=== PATIENT | female | born 1955 | race Two or more races ===

== ENCOUNTER 2024-03-15 05:45 | Inpatient (IN) | payer BC, MEDICARE, SELFPAY ==
[2024-03-08 10:15] VITALS: BMI 30.9
[2024-03-08 11:50] LABS: Hematocrit 47.2 % (37.0-47.0); Hemoglobin 14.7 g/dL (12.0-16.0); Mean Corp Hgb Conc. 31.1 g/dL (33.0-37.0); Mean Corpuscular Hgb 29.5 pg (27.0-31.0); Mean Corpuscular Volume 94.8 fL (81.0-99.0); Mean Platelet Volume 10.2 fL (7.4-10.4); Platelet Count 306 10^3/uL (130-400); Red Blood Cell Count 4.98 10^6/uL (4.20-5.40); Red Cell Dist. Width 13.7 % (11.5-14.5); White Blood Cell Count 7.9 10^3/uL (4.8-10.8)
[2024-03-08 11:52] LABS: INR 0.96; PT 13.3 Sec (11.4-14.6)
[2024-03-08 11:53] LABS: APTT 29.4 Sec (23.4-35.0)
[2024-03-08 12:23] LABS: ALT (SGPT) 13 U/L (0-35); AST (SGOT) 18 U/L (14-36); Alkaline Phosphatase 63 U/L (38-126); Blood Urea Nitrogen 14 mg/dl (7-17); Calcium 9.1 mg/dl (8.4-10.2); Carbon Dioxide 25 mmol/L (22-30); Chloride 104 mmol/L (98-107); Estimated Creatinine Clearance 57 ml/min; Glucose 88 mg/dl (70-99); Potassium 4.6 mmol/L (3.5-5.1); Sodium 140 mmol/L (135-145); Total Bilirubin 0.5 mg/dl (0.2-1.3); Total Protein 6.7 g/dl (6.3-8.2); eGFR > 60.00
[2024-03-08 13:46] LABS: Glycohemoglobin (HgbA1c) 5.8 % (4.0-5.6)
[2024-03-15] VITALS (19 sets, daily range): BP systolic 95–123; BP diastolic 47–80; BMI 30.9
[2024-03-15] MEDS: HEPARIN 5000 UNITS SC (06:38)
[2024-03-15] MEDS: ENTEREG 12 MG PO (06:38)
[2024-03-15] MEDS: NORMOSOL-R/PLASMALYTE-A 1000 IV ×2 (07:02→17:14)
--- NOTE | 2024-03-15 11:32 | W.IMMPOSTOP ---
Surgical Immed Post Op Note
-
Primary Surgeon: Faustino Espinoza MD
Drawer In Dobby Loom: TRISTEN Finley
Pre-op Diagnosis: Recurrent sigmoid diverticulitis
Post-op Diagnosis: Same
Procedure Performed: Robotic sigmoid colectomy with intracorporeal anastomosis
Anesthesia Type: GET
Specimen / Cultures: Sigmoid colon (suture is proximal)
Estimated Blood Loss: 20cc
Complications: None
Operative Findings: Multiple adhesions
Acute on chronic inflammation of the mid to distal sigmoid colon
28mm EEA
Normal leak test
Patient's son Dario cochran.
[2024-03-15] MEDS: DILAUDID 0.5 MG IV ×2 (12:56→19:36)
[2024-03-15] MEDS: TORADOL 15 MG IV ×3 (13:07→23:18)
--- NOTE | 2024-03-15 15:12 | SUR.PHASEI ---
comfortable during most of pacu stay - taking few ice chips, vss with bp systolic 90- 110. incision lines clean and intact. Patient states there is no family to call. Hand off at bedside - 2 south.
--- NOTE | 2024-03-15 15:21 | PTCARENOTE ---
Pt arrived to 2 [facility] from PACU s/p robotic sigmoid resection. Pt AAOx3, 4 lap sites and one low transverse site C/D/I. Leal in place draining clear/yellow urine. Pt states no pain at this time. Oriented to call osorio and room, bed locked and in
lowest position, call osorio within reach.
[2024-03-15] MEDS: TYLENOL PO (19:36)
[2024-03-15] MEDS: ZESTRIL PO (21:53)
[2024-03-15] MEDS: TYLENOL 650 MG PO (23:18)
[2024-03-16 03:00] VITALS: BP 99/50
[2024-03-16] MEDS: NORMOSOL-R/PLASMALYTE-A 1000 IV ×2 (03:17→12:00)
[2024-03-16] MEDS: TYLENOL PO (04:51)
[2024-03-16] MEDS: TORADOL 15 MG IV ×3 (05:32→17:00)
[2024-03-16 06:00] VITALS: BMI 31.0
[2024-03-16 06:46] LABS: % Basophils 0.2 % (0-2); % Eosinophils 0.9 % (0-6); % Immature Granulocytes 0.5 % (0-0.5); % Lymphocytes 13.5 % (20.5-51.1); % Neutrophils 77.9 % (42.2-75.2); Absolute Eosinophils 0.1 10^3/uL (0-0.7); Absolute Immature Granulocytes 0.1 10^3/uL (0-0.05); Absolute Lymphocytes 1.5 10^3/uL (1.2-3.4); Absolute Monocytes 0.8 10^3/uL (0.1-0.6); Absolute Neutrophils 8.6 10^3/uL (1.4-6.5); Hematocrit 40.4 % (37.0-47.0); Hemoglobin 13.1 g/dL (12.0-16.0); Mean Corp Hgb Conc. 32.4 g/dL (33.0-37.0); Mean Corpuscular Volume 92.4 fL (81.0-99.0); Mean Platelet Volume 10.5 fL (7.4-10.4); Nucleated Red Blood Cells % 0 %; Platelet Count 263 10^3/uL (130-400); Red Blood Cell Count 4.37 10^6/uL (4.20-5.40); Red Cell Dist. Width 13.8 % (11.5-14.5)
[2024-03-16 07:09] LABS: Blood Urea Nitrogen 15 mg/dl (7-17); Calcium 7.2 mg/dl (8.4-10.2); Carbon Dioxide 22 mmol/L (22-30); Chloride 106 mmol/L (98-107); Estimated Creatinine Clearance 72 ml/min; Glucose 87 mg/dl (70-99); Potassium 4.4 mmol/L (3.5-5.1); Sodium 138 mmol/L (135-145); eGFR > 60.00
[2024-03-16 07:30] VITALS: BP 112/70
[2024-03-16] MEDS: TYLENOL 650 MG PO ×4 (08:44→22:24)
[2024-03-16] MEDS: ENTEREG 12 MG PO ×2 (08:44→22:23)
[2024-03-16] MEDS: ULTRAM 50 MG PO ×3 (08:46→22:29)
[2024-03-16 11:01] VITALS: BP 114/68
--- NOTE | 2024-03-16 11:36 | W.PN.CRS1 ---
Today's Communication / Plan
-
full liquids
dc quarles
Assessment/Plan
-
68 yo female with a h/o recurrent diverticulitis now POD #1 Robotic sigmoid colectomy with intracorporeal anastomosis
Afebrile, VSS
Mild reactive leukocytosis
Good UO
Await bowel recovery
--Remove quarles for voiding trial
--Full liquid diet
--Analgesics scheduled and prn
--OOB/Ambulate/IS while awake
--IVF until good PO intake
--Lovenox sq for VTE ppx, SCD's while in bed
Subjective Data
Procedure
03/15/2024 Robotic sigmoid colectomy with intracorporeal anastomosis
Subjective Data
Date of Service: March 16, 2024
Patient seen and examined at bedside with Dr. Gil. Denies n/v. No appetite yet. Pain well controlled.
Objective Data
-
Vital Signs
Temp Pulse Resp BP Pulse Ox
97.8 F 86 16 114/68 92
03/16/24 11:01 03/16/24 11:01 03/16/24 11:01 03/16/24 11:01 03/16/24 11:01
Intake & Output
03/15/24 03/16/24 03/17/24
06:59 06:59 06:59
Intake Total 2009
Output Total 1000 / 1000 200 / 200
Balance 1010 / 1010 -200 / -200
Intake:
Oral fluids 260 / 260
IV fluids (Total) 1750 / 1750
normosol 550 / 550
Output:
Urine, Quarles 1000 / 1000 200 / 200
Lab Results
03/16/24 05:49
03/16/24 05:49
Physical Exam
-
General: No Acute Distress
Abdomen: Soft, Non Distended and Tender (mild to incisions)
Skin: Warm and Dry
Incision: Clear, Dry, Intact and Skin Erythema (mild chafing to pfanenstiel incision)
[2024-03-16 15:14] VITALS: BP 117/70
--- NOTE | 2024-03-16 16:24 | CM ---
Met with pt at bedside
Pt reports she lives alone in a 2 story townhouse; 2 steps to enter, 12 steps to 2nd fl
Employed FT, independent. Family available for support
DME - single point cane
SNF/HH - no past hx
Has ride home at discharge
PCP - Gianna Parra
Pharm - [facility]
Plan - anticipate home no needs when medically ready
[2024-03-16] MEDS: LOVENOX 40 MG SC (17:00)
[2024-03-16] MEDS: NORMOSOL-R/PLASMALYTE-A IV (17:09)
[2024-03-16] MEDS: ZESTRIL PO (22:30)
[2024-03-16 23:47] VITALS: BP 111/74
[2024-03-17] MEDS: TORADOL 15 MG IV ×4 (00:01→17:32)
[2024-03-17] MEDS: TYLENOL PO ×6 (00:02→20:21)
[2024-03-17] MEDS: ZOFRAN 4 MG IV ×2 (03:06→13:48)
[2024-03-17 05:12] LABS: Hematocrit 38.4 % (37.0-47.0); Hemoglobin 12.6 g/dL (12.0-16.0); Mean Corp Hgb Conc. 32.8 g/dL (33.0-37.0); Mean Corpuscular Hgb 30.1 pg (27.0-31.0); Mean Corpuscular Volume 91.9 fL (81.0-99.0); Mean Platelet Volume 10.3 fL (7.4-10.4); Platelet Count 249 10^3/uL (130-400); Red Blood Cell Count 4.18 10^6/uL (4.20-5.40); Red Cell Dist. Width 13.9 % (11.5-14.5); White Blood Cell Count 10.5 10^3/uL (4.8-10.8)
[2024-03-17 05:38] LABS: Blood Urea Nitrogen 14 mg/dl (7-17); Calcium 7.6 mg/dl (8.4-10.2); Carbon Dioxide 24 mmol/L (22-30); Chloride 107 mmol/L (98-107); Estimated Creatinine Clearance 72 ml/min; Glucose 81 mg/dl (70-99); Potassium 4.3 mmol/L (3.5-5.1); Sodium 137 mmol/L (135-145); eGFR > 60.00
[2024-03-17 06:00] VITALS: BMI 31.1
[2024-03-17 07:42] VITALS: BP 140/76
[2024-03-17] MEDS: NORMOSOL-R/PLASMALYTE-A 1000 IV ×2 (07:48→20:15)
[2024-03-17] MEDS: ENTEREG PO ×2 (07:49→20:20)
[2024-03-17] MEDS: COMPAZINE 10 MG IV ×2 (07:56→17:45)
--- NOTE | 2024-03-17 10:12 | W.PN.CRS1 ---
Today's Communication / Plan
-
NPO except ice chips
Assessment/Plan
-
68 yo female with a h/o recurrent diverticulitis now POD #2 Robotic sigmoid colectomy with intracorporeal anastomosis
Afebrile, VSS
No further leukocytosis, h/h stable
Nausea/Dry heaving but did pass a BM early this am
Voiding well
--NPO except ice chips for comfort
--Analgesics scheduled and prn
--OOB/Ambulate/IS while awake
--Continue IVF
--Lovenox sq for VTE ppx, SCD's while in bed
Subjective Data
Procedure
03/15/2024 Robotic sigmoid colectomy with intracorporeal anastomosis
Subjective Data
Date of Service: March 17, 2024
Patient seen and examined at bedside with Dr. Gil. Nausea overnight with dry heaving. Was able to have a BM. Pain manageable.
Objective Data
-
Vital Signs
Temp Pulse Resp BP Pulse Ox
97.6 F 67 20 140/76 93
03/17/24 07:42 03/17/24 07:42 03/17/24 07:42 03/17/24 07:42 03/17/24 07:42
Intake & Output
03/16/24 03/17/24 03/18/24
06:59 06:59 06:59
Intake Total 2009 2370 / 2370
Output Total 1000 / 1000 500 / 500
Balance 1010 / 1010 1870 / 1870
Intake:
Oral fluids 260 / 260 1170 / 1170
IV fluids (Total) 1750 / 1750 1200 / 1200
normosol 550 / 550
Output:
Urine, Leal 1000 / 1000 200 / 200
Urine, Voided 300 / 300
Other:
Number of approximated MODERATE 2
amounts of urine
Lab Results
03/17/24 04:40
03/17/24 04:40
Physical Exam
-
General: No Acute Distress
Abdomen: Soft, Distended (mild) and Tender (mild to incisions)
Skin: Warm and Dry
Incision: Clear, Dry, Intact and Skin Erythema (mild chafing to pfanenstiel incision, ecchymosis noted)
[2024-03-17 15:20] VITALS: BP 140/76
[2024-03-17] MEDS: LOVENOX 40 MG SC (17:33)
[2024-03-17] MEDS: ZESTRIL 10 MG PO (22:37)
[2024-03-17 23:00] VITALS: BP 137/85
[2024-03-18] MEDS: TORADOL 15 MG IV ×4 (00:29→17:21)
[2024-03-18] MEDS: TYLENOL PO ×6 (00:30→23:14)
[2024-03-18 06:00] VITALS: BMI 30.5
[2024-03-18 07:30] VITALS: BP 158/86
[2024-03-18] MEDS: NORMOSOL-R/PLASMALYTE-A IV ×2 (09:03→10:21)
[2024-03-18] MEDS: ENTEREG 12 MG PO (09:05)
[2024-03-18] MEDS: TYLENOL 650 MG PO (09:05)
--- NOTE | 2024-03-18 10:15 | W.PN.CRS1 ---
Today's Communication / Plan
-
clears
possible fulls later today if tolerates
d/c ivfs
Assessment/Plan
-
68 yo female with a h/o recurrent diverticulitis now POD #3 Robotic sigmoid colectomy with intracorporeal anastomosis
Afebrile, VSS, HR 105-198
No further leukocytosis, h/h stable
No further nausea/vomiting
Voiding well
--Advance to clears, fulls for dinner if tolerates clears
--D/C IVFs
--Analgesics scheduled and prn
--OOB/Ambulate/IS while awake
--Lovenox sq for VTE ppx, SCD's while in bed
--OR pathology pending
Subjective Data
Procedure
03/15/2024 Robotic sigmoid colectomy with intracorporeal anastomosis
Subjective Data
Date of Service: March 18, 2024
Patient states she has had no nausea or vomiting. Her pain is controlled. She is having bowel movements that are loose and green in nature. She overall feels much improved since yesterday morning. She has been having sips and chips.
Objective Data
-
Vital Signs
Temp Pulse Resp BP Pulse Ox
98.0 F 109 16 158/86 96
03/18/24 07:30 03/18/24 07:30 03/18/24 07:30 03/18/24 07:30 03/18/24 07:30
Intake & Output
03/17/24 03/18/24 03/19/24
06:59 06:59 06:59
Intake Total 2370 / 2370 2039
Output Total 500 / 500
Balance 1870 / 1870 2039
Intake:
Oral fluids 1170 / 1170 120 / 120
IV fluids (Total) 1200 / 1200 [id number]
Output:
Urine, Leal 200 / 200
Urine, Voided 300 / 300
Other:
Number of approximated MODERATE 2 1
amounts of urine
Number of approximated LARGE 2 1
amounts of urine
Lab Results
03/17/24 04:40
03/17/24 04:40
Physical Exam
-
General: No Acute Distress and AOx3
Abdomen: Soft, Non Distended and Non Tender
Skin: Warm and Dry
Incision: Clear, Dry, Intact (lower abdominal incision with some ecchymosis)
[2024-03-18 15:34] VITALS: BP 149/87
[2024-03-18] MEDS: LOVENOX 40 MG SC (17:20)
[2024-03-18] MEDS: ZOFRAN 4 MG IV (21:13)
[2024-03-18] MEDS: FLUSH (NSS) 2 FLUSH IV (21:14)
[2024-03-18] MEDS: ENTEREG PO (21:50)
[2024-03-18 22:08] LABS: Glucose - Point of Care 170 mg/dl (70-99)
--- NOTE | 2024-03-18 22:29 | W.PN.UPDATE ---
Update Note
Progress Note Update
Informed by the nurse that the patient had 1 episode of coffee�ground emesis, about 100 mL, at around 9:30 PM. I instructed her to switch the patient to n.p.o. and start Normosol at 100. I was then informed that the patient had another episode of
vomiting, coffee-ground with 100 mL. Her BP was 74/44 and HR 63. As I was not immediately available, instructed the nurse to call a rapid response. I arrived to evaluate the patient at around 10:25 PM. The patient stated that she was feeling
nauseous and dizzy and appeared in mild distress, laying on her right side. She denied any chest pain, shortness of breath or worsening abdominal pain. Per the nurse, she had multiple BMs earlier today without obvious blood. On exam, her abdomen
was soft, nondistended, appropriately tender near incisions with surrounding ecchymoses. Rapid response team ordered IV fluids and attempted to send stat labs. They placed an NG tube. Repeat vitals with BP 70/50 and HR 120s.
�Follow-up stat labs and x-ray for NG tube placement; will need EKG
� Will upgrade to ICU due to hypotension of unknown etiology; upper GI bleed versus infection/sepsis versus vasovagal
- Will consult hospitalist and intensvist
[2024-03-18 22:39] LABS: Hematocrit 37.5 % (37.0-47.0); Hemoglobin 11.8 g/dL (12.0-16.0); Mean Corp Hgb Conc. 31.5 g/dL (33.0-37.0); Mean Corpuscular Hgb 30.5 pg (27.0-31.0); Mean Corpuscular Volume 96.9 fL (81.0-99.0); Mean Platelet Volume 11.1 fL (7.4-10.4); Platelet Count 191 10^3/uL (130-400); Red Blood Cell Count 3.87 10^6/uL (4.20-5.40); Red Cell Dist. Width 13.7 % (11.5-14.5); White Blood Cell Count 16.1 10^3/uL (4.8-10.8)
[2024-03-18] MEDS: ZESTRIL PO (22:48)
[2024-03-18] MEDS: NORMOSOL-R/PLASMALYTE-A 1000 IV (22:50)
[2024-03-18] MEDS: LEVOPHED 250 IV (23:02)
[2024-03-18] MEDS: TORADOL IV (23:08)
[2024-03-18] MEDS: NSS 1000 IV ×2 (23:15→23:20)
[2024-03-18] MEDS: NSS 500 IV (23:20)
--- NOTE | 2024-03-18 23:21 | W.PN.UPDATE ---
Update Note
Progress Note Update
Checked in with the patient once more; she is in the ICU now hooked up to the library monitor; BP systolic of 75 with heart rate of 118, pulse ox 94; A&O x 3, only complaint of some dizziness, no further nausea CP/SOB or abdominal pain; NGT with
150 coffee-ground/dark sanguinous output; repeat Hb 11.8
�I ordered NS at 125 and a 1.5 L bolus, stat EKG and AXR for NGT placement
Discussed with Dr. Jewell from GI; she recommended giving 1 pRBC and starting a Protonix drip; continue watching vitals and NGT output; if NGT continues to put out or patient does not respond to initial resuscitation, inform Dr. Jewell for
consideration of stat EGD; otherwise, she will reevaluate in the a.m. for possible EGD tmrw; relayed instructions to ICU FARHAT Willis, who will place the orders; discussed all of the above with Dario, the patient's son; he understood and all questions
were answered; patient indicated that her son Dario is her POA and would defer to him if she is unable to make decisions
[2024-03-18 23:22] LABS: ALT (SGPT) 12 U/L (0-35); AST (SGOT) 17 U/L (14-36); Albumin 2.2 g/dl (3.5-5.0); Alkaline Phosphatase 43 U/L (38-126); Blood Urea Nitrogen 25 mg/dl (7-17); Calcium 7.2 mg/dl (8.4-10.2); Carbon Dioxide 23 mmol/L (22-30); Chloride 105 mmol/L (98-107); Estimated Creatinine Clearance 71 ml/min; Glucose 149 mg/dl (70-99); Potassium 4.6 mmol/L (3.5-5.1); Sodium 133 mmol/L (135-145); Total Bilirubin 0.7 mg/dl (0.2-1.3); Total Protein 4.3 g/dl (6.3-8.2); eGFR > 60.00
[2024-03-18 23:27] LABS: INR 1.32; PT 16.6 Sec (11.4-14.6)
[2024-03-18] MEDS: COMPAZINE 10 MG IV (23:27)
[2024-03-18 23:30] VITALS: BP 81/50; BP_SYST 85
--- NOTE | 2024-03-18 23:31 | W.PN.UPDATE ---
Update Note
Progress Note Update
Called to a rapid response after patient noted with coffee ground type emesis. Also found to be hypotensive in 70s systolic. Nursing had contacted Dr. Rivas (surgeon) to update and he came in immediately to the bedside. NS IVF wide open. CBC sent
with some difficulty. Transferred to ICU for admission. NG tube placed for decompression. Hospitalist service to cover while in ICU along with GI and Fluxer consults. Protonix infusion started. Levophed ordered for bp support.
[2024-03-18 23:34] LABS: Troponin I < 0.012 ng/ml
[2024-03-18 23:37] VITALS: BP 69/49
[2024-03-18 23:40] VITALS: BP 112/52
[2024-03-18] MEDS: PROTONIX 100 IV (23:40)
--- NOTE | 2024-03-18 23:40 | PTCARENOTE ---
Pt. starting with vomiting coffee ground emesis 100ml @2109 with apparent dark red blood, given Zofran. On-call colorectal surgeon, Dr. Rivas, contacted with orders to change pt. to NPO diet and add IVF. Shortly after pt. started vomiting same
consistency emesis ~100ml and pt. c/o feeling dizzy. BP 74/44 with HR 63 at that time, Dr. Rivas updated and rapid called, see paperwork in chart. Eventually pt. transported to ICU with the rapid team. Belongings and chart transported with patient.
[2024-03-18 23:45] VITALS: BP 100/49
--- NOTE | 2024-03-18 23:49 | HPS.HSE ---
Family Physician
-
Family Physician: Gianna Parra
Chief Complaint
-
Coffee-ground emesis
History of Present Illness
Patient is a 69-year-old female with past medical history significant for rheumatoid arthritis on methotrexate, infliximab, as needed prednisone will is postop day #3 status post robotic sigmoidectomy for diverticulitis now developed a episode of
coffee-ground emesis with hypotension.
She had been on advancing diet protocol. She is now on full liquids. She denies having any significant abdominal pain. She reports ongoing abdominal discomfort. She reports some nausea. Then she suddenly developed this coffee-ground emesis.
She had 3 episodes of coffee-ground emesis and was found to be hypotensive with a blood pressure of 70 systolic.
Most of her labs are pending. Currently hemoglobin is 11.8 which is unchanged from prior. Reticulocyte count was normal at 191, WBC was 16.1. Chemistries unremarkable. Troponin negative. ECG shows sinus tachycardia with occasional PVC.
When I evaluated her blood pressure was 112/52, pulse 107, 100% saturation on room air. This was on about 8 of Levophed. She had just received up to 500 cc of normal saline.
Medical History
Past Medical History
Past Medical History: Reports HTN and Other (Rheumatoid arthritis)
Additional Past Medical History:
History of C. difficile
Past Surgical History: Reports Appendectomy, Bowel Resection (x2), Cholecystectomy and (x2)
Social History
Tobacco: Non-smoker
Alcohol: None
Drug: None
Personal:
Living: With Family
Family History
Family History: Not pertinent
Allergies / Home Medications
Allergies reflects when Allergies were last updated in [email or web address].
Home Medications with original date entered in [email or web address]
Allergy/Medication List:
Allergies
Allergy/AdvReac Type Severity Reaction Status Date / Time
codeine Allergy Nausea / Verified 03/15/24 06:23
Vomiting
[place] Allergy Shortness Verified 03/15/24 06:23
of Breath
Home Medications
Lactobacillus acidophilus 10 billion cell capsule (Probiotic) 1 cell PO DAILY Supplement 03/07/24
cholecalciferol (vitamin D3) 125 mcg (5,000 unit) tablet (Vitamin D3) 125 mcg PO WEEKLY Supplement 03/07/24
folic acid 1 mg tablet 1 mg PO DAILY Supplement 03/07/24
ibuprofen 200 mg tablet (Advil) 1 mg PO Q6H PRN pain 03/07/24
infliximab 100 mg intravenous solution (Remicade) 800 mg IV MONTHLY Rheumatoid arthritis 03/07/24
lisinopril 10 mg tablet 10 mg PO HS Blood Pressure 03/07/24
methotrexate sodium 2.5 mg tablet 10 mg PO QWEEK rheumatoid arthritis 03/07/24
metronidazole 500 mg tablet 500 mg PO DIRECTED Infection 03/07/24
neomycin 500 mg tablet 500 mg PO DIRECTED Infection 03/07/24
ondansetron HCl 4 mg tablet 4 mg PO Q6H PRN nausea 03/07/24
prednisone 5 mg tablet 5 mg PO DAILY PRN RA 03/07/24
sodium sul 1.479 gram-potas ch 0.188 gram-magnes sul 0.225 gram tablet (Sutab) 1 tab PO DIRECTED Gastrointestinal Issue 03/07/24
tramadol 50 mg tablet 50 mg PO DAILY PRN pain 03/07/24
Review of Systems
-
Unable to obtain full review of systems at this time due to: Acuity
Physical Exam
Vital Signs
Vital Signs
Temp Pulse Resp BP Pulse Ox
97.9 F 110 18 149/87 96
03/18/24 23:24 03/18/24 15:34 03/18/24 15:34 03/18/24 15:34 03/18/24 15:34
Physical Exam
General: Appears in Distress
HEENT: NormoCephalic, Anicteric, Moist mucous membranes, Atraumatic, PERRLA, [place] Conjunctivae and Other (NG tube)
Respiratory: Clear
Cardiac: S1/S2 and Tachycardia
Breast: Deferred by me
GI: Soft, Non Distended, Normal Bowel Sounds and Other (NG tube)
Rectal: Deferred by Provider
Genito-urinary: Deferred by me
Musculoskeletal: No Clubbing, No Cyanosis and No Edema
Skin: Warm
Neuro: AO x 3 and Nonfocal/grossly intact
Hematologic/Lymphatic: No Lymphadenopathy
Psych: Calm
Laboratory Results
-
03/18/24 22:15
03/18/24 22:55
Laboratory Results
PT 16.6 Sec (11.4-14.6) H 03/18/24 22:55
INR 1.32 03/18/24 22:55
APTT 29.4 Sec (23.4-35.0) 03/08/24 08:11
Total Bilirubin 0.7 mg/dl (0.2-1.3) 03/18/24 22:55
AST 17 U/L (14-36) 03/18/24 22:55
ALT 12 U/L (0-35) 03/18/24 22:55
Alkaline Phosphatase 43 U/L (38-126) 03/18/24 22:55
Troponin I < 0.012 ng/ml 03/18/24 22:55
Data Reviewed
-
Diagnostic Radiology: Image Personally Visualized and interpreted
Medical Tests (Nuc Med, Echo, EKG etc): Image Personally Visualized and interpreted
Lab Data: Labs Reviewed by me
Old Records: Reviewed
Impression/Plan
-
IMPRESSION:
This is a 68-year-old who is postop day #3 status post sigmoidectomy for history of diverticulitis who has now developed coffee-ground emesis with hypotension consistent with hemorrhagic shock. Hemoglobin is currently unchanged. She has a
leukocytosis which is likely reactive. Temp is low-grade at 99. She had put out about 300 cc of coffee-ground emesis via the NG tube that was placed.
PLAN:
Upper GI bleed - No prior history however on ibuprofen, prednisone and methotrexate. Possibly bleeding ulcer. No bile so unlikely acute obstruction. Abdomen is soft and mildly tender. Slow output from NG tube currently.
- admit to icu
- fluid resuscitation with initially 1.5 L NS, the 1 L LR
- continue iv maintenance fluids for now
- pressors to keep map 60, sbp > 90
- ppi gtt
- type and screen, transfusing 1 unit prbc per surgery
- pressor support for now
- GI notified. If unable to control hemodynamics or shows signs of increasing bleeding, will get GI for upper endoscope
- when stabilized, will obtain CT GI bleed, cr ok.
- H&H in 4 hours then q 8. Transfuse for drop > 4 or Hgb < 7
- npo
- blood cultures for now, start zosyn if febrile.
DVT PPX - SCD
[2024-03-19] VITALS (61 sets, daily range): BP systolic 58–151; BP diastolic 25–137; BMI 30.5
--- NOTE | 2024-03-19 00:10 | PTCARENOTE ---
Rapid response called on patient at 2204 while pt on [address]. Pt with BP in 70s, HR in 130s, nausea and vomiting coffee ground emesis. Normosol started wide open. NGT placed in right nare and placed to suction, producing more coffee ground emesis
with maroon tint. Pt ultimately moved to ICU room 3372, arrived at 2243. Pt remained hypotensive. IVF started, starting with NS bolus (1.5 liters), Levophed started, Protonix drip ordered. New 18g IV started in LAC and labs sent. EKG done. Medicated
with Compazine for nausea. Dr. Bang Rivas in room as well as hospitalist. Livia Patrick RN now assuming care of patient.
[2024-03-19] MEDS: CALCIUM GLUCONATE 130 MG IV ×2 (00:30→08:37)
[2024-03-19 01:33] LABS: Lactic Acid 1.6 mmol/L (0.7-2.0)
--- NOTE | 2024-03-19 02:00 | PTCARENOTE ---
Received report from previous RN,pt drowsy but oriented,IVF bolus of NSS infusing,Protonix GTT initiated.Pt is afebrile,pale but warm skin.ST front desk monitor.Pt [place] sump intact draining brown/maroon stomach contents.Pt denies need for pain
med,physical assessment preformed.(see in worklist).Close observation ongoing.
[2024-03-19 05:25] LABS: % Basophils 0.6 % (0-2); % Eosinophils 0.2 % (0-6); % Immature Granulocytes 1.1 % (0-0.5); % Lymphocytes 18.7 % (20.5-51.1); % Monocytes 5.6 % (1.7-9.3); % Neutrophils 73.8 % (42.2-75.2); Absolute Basophils 0.1 10^3/uL (0-0.2); Absolute Immature Granulocytes 0.1 10^3/uL (0-0.05); Absolute Lymphocytes 2.5 10^3/uL (1.2-3.4); Absolute Monocytes 0.7 10^3/uL (0.1-0.6); Absolute Neutrophils 9.7 10^3/uL (1.4-6.5); Hematocrit 33.7 % (37.0-47.0); Mean Corp Hgb Conc. 32.6 g/dL (33.0-37.0); Mean Corpuscular Hgb 30.3 pg (27.0-31.0); Mean Corpuscular Volume 92.8 fL (81.0-99.0); Mean Platelet Volume 10.5 fL (7.4-10.4); Nucleated Red Blood Cells % 0.2 %; Platelet Count 231 10^3/uL (130-400); Red Blood Cell Count 3.63 10^6/uL (4.20-5.40); Red Cell Dist. Width 13.5 % (11.5-14.5); White Blood Cell Count 13.1 10^3/uL (4.8-10.8)
[2024-03-19] MEDS: LEVOPHED 250 IV ×2 (05:47→12:41)
--- NOTE | 2024-03-19 05:53 | W.PN.UPDATE ---
Update Note
Progress Note Update
0500 Notify patient had large bloody bowel movement. HGB 11. BP 119/63 (79) on Levophed. GI updated.
[2024-03-19 06:09] LABS: Blood Urea Nitrogen 21 mg/dl (7-17); Calcium 6.3 mg/dl (8.4-10.2); Carbon Dioxide 16 mmol/L (22-30); Chloride 117 mmol/L (98-107); Estimated Creatinine Clearance 95 ml/min; Glucose 123 mg/dl (70-99); Potassium 3.9 mmol/L (3.5-5.1); Sodium 140 mmol/L (135-145); eGFR > 60.00
[2024-03-19] MEDS: ZOFRAN 4 MG IV (06:18)
[2024-03-19] MEDS: DILAUDID 0.5 MG IV ×3 (06:18→23:11)
--- NOTE | 2024-03-19 06:57 | CON.GI ---
Addendum entered and electronically signed by Mame Jewell MD 03/19/24 08:50:
I saw and examined the patient.
The DATA ENTRY MANAGER or PA's note was reviewed and I agree with the note.
Comment: 68-year-old female with history of rheumatoid arthritis on Remicade, methotrexate, history of C. difficile, history of multiple abdominal surgeries who was admitted for elective robotic sigmoidectomy for recurrent diverticulitis, postop day
#4 who was doing well up until yesterday transferred to the ICU for coffee-ground emesis. Patient reports history of nausea and vomiting in the past worked up with [facility] with an upper endoscopy 4 years ago and unremarkable as per patient.
Does not take PPI, intermittent reflux but not on a regular basis. She does did take NSAIDs, was taking Advil 1 a day up until 2 weeks ago and also was on intermittent prednisone for RA. Currently in the ICU, requiring pressors, received 2 units
of packed red blood cells with stable hemoglobin but still with slight tachycardia and hypotension. NG tube with coffee-ground material. She did have bloody bowel movement this morning. Currently mild abdominal cramping in the lower abdomen. No
fevers or chills.
Colonoscopy 2 or 3 years ago at [facility] as per patient.
-Coffee-ground emesis with hemodynamic instability history of NSAID use, rule out ulcer disease, AVM versus other
Continue PPI drip, IV fluids for hemodynamic stability and pressor support
Monitor H&H and transfuse as needed.
Will do bedside upper endoscopy to evaluate the upper GI bleeding, patient agreeable.
1 unit of packed red blood cells ordered to be used if needed. Will give a dose of IV erythromycin as well.
Will follow-up
Original Note:
Consultation
-
Date/Time Consultation Requested: 03/18/24 1773
Date/Time Consultation Performed: 03/19/24 9253
Requesting Provider: Khalida Jung PA-C
Performing Provider: CODI Pabon, Mame Jewell MD
Reason for Consultation: hematemesis/rectal bleeding
Medical History
Chief Complaint / HPI
Chief Complaint: hematemesis/rectal bleeding
History of Present Illness:
Pt is a 68yo with hx RA on Remicade and methotrexate, HTN, prior c-diff, diverticulitis with recurrent episodes, bowel resection x 2 in 1988, prior mahogany, appe, hysterectomy, with admission for elective robotic sigmoidectomy for recurrent
diverticulitis. She is noted post-op with hypotension with dizziness requiring pressors and episode of coffee ground emesis. NGT was placed with continued coffee ground with maroon tinge and later noted with large dark bloody stool. Initial hbg
was 13.1 on 1.4 with drop to 11. Pt admits to hx daily NSAID use with Advil prior to admission but stopped a few weeks ago in anticipation of surgery. She admits to occasional GERD with Gas X use as needed. She also admits to periods of vomiting
prior to admission for several years. She denies hematemesis with vomiting in past and had EGD several years ago as [facility] for symptoms with recall of normal results. She otherwise admits to intermittent diarrhea and constipation long with
current crampy lower abdominal pain overnight. Se denies issues with dysphagia, or prior rectal bleeding. No anticoagulation use prior to admission.
Past Medical History
Past Medical History: HTN and Other (RA on remicade and methotrexate, c-diff, diverticulosis with recurrent diverticulitis )
Past Surgical History: Appendectomy, Bowel Resection (prior bowel resection x 2 [facility] 1988), Cholecystectomy, and Gynecological (hysterectomy)
Social History
Tobacco: Non-Smoker
Alcohol: None
Drug: None
Living: Alone
Employment: Employed
Family History
Family History: Other (brother with diverticulitis )
Allergies / Home Medications
Allergy/AdvReac Type Severity Reaction Status Date / Time
codeine Allergy Nausea / Verified 03/15/24 06:23
Vomiting
Gold Salts Allergy Shortness Verified 03/15/24 06:23
of Breath
�Medication �Instructions �Recorded
Lactobacillus acidophilus 10 1 cell PO DAILY Supplement 03/07/24
billion cell capsule (Probiotic)
cholecalciferol (vitamin D3) 125 125 mcg PO WEEKLY Supplement 03/07/24
mcg (5,000 unit) tablet (Vitamin
D3)
folic acid 1 mg tablet 1 mg PO DAILY Supplement 03/07/24
ibuprofen 200 mg tablet (Advil) 1 mg PO Q6H PRN pain 03/07/24
infliximab 100 mg intravenous 800 mg IV MONTHLY Rheumatoid 03/07/24
solution (Remicade) arthritis
lisinopril 10 mg tablet 10 mg PO HS Blood Pressure 03/07/24
methotrexate sodium 2.5 mg tablet 10 mg PO QWEEK rheumatoid arthritis 03/07/24
metronidazole 500 mg tablet 500 mg PO DIRECTED Infection 03/07/24
neomycin 500 mg tablet 500 mg PO DIRECTED Infection 03/07/24
ondansetron HCl 4 mg tablet 4 mg PO Q6H PRN nausea 03/07/24
prednisone 5 mg tablet 5 mg PO DAILY PRN RA 03/07/24
sodium sul 1.479 gram-potas ch 1 tab PO DIRECTED 03/07/24
0.188 gram-magnes sul 0.225 gram Gastrointestinal Issue
tablet (Sutab)
tramadol 50 mg tablet 50 mg PO DAILY PRN pain 03/07/24
Review of Systems
-
History Source: Patient
Constitutional: Reports No Symptoms
EENT: Reports No Symptoms
Respiratory: Reports No Symptoms
Abdomen/GI: Reports Abdominal Pain, Nausea, Vomiting (episodes prior to admission), Diarrhea, Constipated and Black Stools
: Reports No Symptoms
Musculoskeletal: Reports No Symptoms
Skin: Reports No Symptoms
Neurological: Reports Weakness
Endocrine: Reports No Symptoms
Hematologic/Lymphatic: Reports No Symptoms
Vital Signs
Temp Pulse Resp BP Pulse Ox
97.7 F 84 22 120/58 100
03/19/24 04:44 03/19/24 06:00 03/19/24 06:00 03/19/24 06:00 03/19/24 06:00
Physical Exam
Exam
General: Well Developed and Other (pale with some chills )
HEENT: Normocephalic and Anicteric
Respiratory: Clear
Cardiac: Other (tachy)
GI: Soft, Non Distended, Tender (minimal lower abdomen tenderness ) and Other (NGT with minimal coffee ground emesis )
Musculoskeletal: No Clubbing and No Cyanosis
Skin: Warm and Dry
Neuro: Awake, Alert and AO x 3
Psych: Calm
Results
WBC 13.1 10^3/uL (4.8-10.8) H 03/19/24 05:10
Hgb 11.0 g/dL (12.0-16.0) L 03/19/24 05:10
Hgb Cancelled 03/19/24 05:10
Hct 33.7 % (37.0-47.0) L 03/19/24 05:10
Hct Cancelled 03/19/24 05:10
MCV 92.8 fL (81.0-99.0) 03/19/24 05:10
Plt Count 231 10^3/uL (130-400) D 03/19/24 05:10
Absolute Neuts (auto) 9.7 10^3/uL (1.4-6.5) H 03/19/24 05:10
PT 16.6 Sec (11.4-14.6) H 03/18/24 22:55
INR 1.32 03/18/24 22:55
APTT 29.4 Sec (23.4-35.0) 03/08/24 08:11
Sodium 140 mmol/L (135-145) 03/19/24 05:10
Potassium 3.9 mmol/L (3.5-5.1) 03/19/24 05:10
Chloride 117 mmol/L (98-107) H 03/19/24 05:10
Carbon Dioxide 16 mmol/L (22-30) L 03/19/24 05:10
BUN 21 mg/dl (7-17) H 03/19/24 05:10
Creatinine 0.5 mg/dL (0.6-1.0) L 03/19/24 05:10
Calcium 6.3 mg/dl (8.4-10.2) L* 03/19/24 05:10
Total Bilirubin 0.7 mg/dl (0.2-1.3) 03/18/24 22:55
AST 17 U/L (14-36) 03/18/24 22:55
ALT 12 U/L (0-35) 03/18/24 22:55
Alkaline Phosphatase 43 U/L (38-126) 03/18/24 22:55
Diagnostic Image Results:
03/18 CXR
Nasoenteric tube courses below the diaphragm with tip projecting over the proximal duodenum.
Prior GI Procedures:
EGD: ? Dr. Verde several years ago recall as normal
Colonoscopy: 2020 Dr. Verde right sided ileal colonic anastomosis, diverticulosis
Assessment / Plan
-
Pt is a 68yo with hx RA on Remicade and methotrexate, HTN, prior c-diff, diverticulitis with recurrent episodes, bowel resection x 2 in 1988, prior mahogany, appe, hysterectomy, with admission for elective robotic sigmoidectomy for recurrent
diverticulitis. She is noted post-op with hypotension requiring pressors and episode of coffee ground emesis. NGT was placed with continued coffee ground with maroon tinge and later noted with large bloody stool. Initial hbg was 13.1 on 1.4 with
drop to 11 with BUN 25. + NSAID use prior to admission. Stopped several weeks before surgery.
-hematemesis/rectal bleeding
-symptomatic anemia
-hypotension requiring pressors
-s/p robotic sigmoid resection 03/15 for recurrent diverticular disease
-recent NSAID use
other medical problems:
-RA on Remicade and Methotrexate prior to admission
-HTN
-hx c-diff
-hx bowel resection x 2 in 1988
-hx mahogany, appe, hysterectomy,
PLAN:
Etiology of bleeding related to PUD with NSAID use , ectasia vs other
plan for EGD today
will give 1 dose Emycin prior to EGD to promote gastric emptying
currently remains on pressors
trend hbg-- transfuse less than 7
NPO, cont NGT
trend hbg
PPI gtt
NSAID avoidance
reviewed with nursing staff for plan
-
-
Thank you for consultation and allowing me to participate in the patient's care. Please call the dirt contractor GI physician during the after hours with any questions or concerns.
--- NOTE | 2024-03-19 07:12 | CON.INTV ---
Consultation
Consultation Request
Date/Time Consultation Requested: 03/19/24
Date/Time Consultation Performed: 03/19/24
Performing Provider: Catarino
Reason for Consultation: ICU
Medical History
-
History of Present Illness:
Patient is a 68-year-old female with previous history of rheumatoid arthritis on methotrexate/infliximab, bowel resection x 2 presenting to for elective robotic resection of sigmoid diverticulitis. Underwent procedure on 03/15/2024, which was
uncomplicated. Overnight on 03/18/2024 developed 2x episode of coffee-ground emesis about 100 mL. Blood pressure was notably 74/44, rapid response was called on the floor. Patient was placed on IV fluids and pressors and transferred to ICU. GI was
consulted, for possible EGD today.
Past Medical History
Past Medical History: Other (see other list)
Social History
Tobacco: Non-smoker
Alcohol: None
Drug: None
Family History
Family History: Reviewed & Not Pertinent
Allergies / Home Medications
Allergies
Allergy/AdvReac Type Severity Reaction Status Date / Time
codeine Allergy Nausea / Verified 03/15/24 06:23
Vomiting
Gold Salts Allergy Shortness Verified 03/15/24 06:23
of Breath
Home Medications
�Medication �Instructions �Recorded �Confirmed �Last Taken �Type
Lactobacillus acidophilus 10 1 cell PO DAILY Supplement 03/07/24 03/18/24 3 Days Ago History
billion cell capsule (Probiotic) ~03/12/24
cholecalciferol (vitamin D3) 125 125 mcg PO WEEKLY Supplement 03/07/24 03/07/24 03/06/24 History
mcg (5,000 unit) tablet (Vitamin
D3)
folic acid 1 mg tablet 1 mg PO DAILY Supplement 03/07/24 03/07/24 03/06/24 History
ibuprofen 200 mg tablet (Advil) 1 mg PO Q6H PRN pain 03/07/24 03/07/24 03/06/24 History
infliximab 100 mg intravenous 800 mg IV MONTHLY Rheumatoid 03/07/24 03/07/24 02/22/24 History
solution (Remicade) arthritis
lisinopril 10 mg tablet 10 mg PO HS Blood Pressure 03/07/24 03/15/24 03/14/24 22:00 History
methotrexate sodium 2.5 mg tablet 10 mg PO QWEEK rheumatoid arthritis 03/07/24 03/07/24 03/03/24 History
metronidazole 500 mg tablet 500 mg PO DIRECTED Infection 03/07/24 03/15/24 03/14/24 22:00 History
neomycin 500 mg tablet 500 mg PO DIRECTED Infection 03/07/24 03/15/24 03/14/24 22:00 History
ondansetron HCl 4 mg tablet 4 mg PO Q6H PRN nausea 03/07/24 03/07/24 Unknown History
prednisone 5 mg tablet 5 mg PO DAILY PRN RA 03/07/24 03/15/24 2 Weeks Ago History
~03/01/24
sodium sul 1.479 gram-potas ch 1 tab PO DIRECTED 03/07/24 03/15/24 03/15/24 04:00 History
0.188 gram-magnes sul 0.225 gram Gastrointestinal Issue
tablet (Sutab)
tramadol 50 mg tablet 50 mg PO DAILY PRN pain 03/07/24 03/07/24 Unknown History
Review of Systems
-
History Source: Patient
All other systems: Negative unless noted
Abdomen/GI: Nausea
Vitals / Labs / Diagnostic Testing
Vital Signs
Temp Pulse Resp BP Pulse Ox
97.7 F 84 22 120/58 100
03/19/24 04:44 03/19/24 06:00 03/19/24 06:00 03/19/24 06:00 03/19/24 06:00
Lab Data
03/19/24 05:10
Laboratory Results
03/18/24
22:55
PT 16.6 H
INR 1.32
Diagnostic Testing:
Physical Exam
-
HEENT: Normocephalic, Anicteric and Moist Mucous Membranes
Cardiovascular: S1/S2 and Regular Rhythm
Respiratory: Clear and Non-Labored Respirations
GI: Soft, Non Distended, Non Tender and Other (NGT)
Neurology: Awake, Alert, Oriented and No Motor Deficits
Skin: Warm, Dry and Good Color
General: Comfortable and Other (NAD)
Assessment
-
Patient is a 68-year-old female with previous history of rheumatoid arthritis on methotrexate/infliximab, bowel resection x 2 presenting to for elective robotic resection of sigmoid diverticulitis. Underwent procedure on 03/15/2024, which was
uncomplicated. Overnight on 03/18/2024 developed 2x episode of coffee-ground emesis about 100 mL. Blood pressure was notably 74/44, rapid response was called on the floor. Patient was placed on IV fluids and pressors and transferred to ICU. GI was
consulted, for possible EGD today.
Shock, septic versus hemorrhagic now on pressors
Episode of vomiting x 2, coffee ground emesis with suspicion for upper GI bleed
Sigmoid diverticulitis status post robotic resection, uncomplicated 03/15/2024
Acute blood loss anemia, hemoglobin 13.1 now 11.0
Metabolic acidosis
Hypocalcemia
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
Rheumatoid arthritis on chronic immunosuppressive's
Recurrent sigmoid diverticulitis
History of 2 bowel surgeries/ blockages-[facility] 1988
C sections x2
Appendectomy
Cholecystectomy
Hypertension
History of C. difficile infection
Former smoker
Obesity BMI 30.5
Plan
No current signs of metabolic encephalopathy or MS changes/following commands
Denies pain at this time.
Pain/sedation: PRN
RASS goals: 0
Hemodynamically unstable, requiring pressors.
Requiring pressors: levo@14, place on vaso
Cardiac history reviewed--HTN
No prior ECHO for review, obtain new study
Hold home meds
Monitor on telemetry
Oxygen needs: on o2, wean as tolerated
Prior history of lung disease: none
Supplemental O2 as indicated to maintain sats > 89%
CXR/CT reviewed indicating NAD
NPO, NPT in place
PPI on board
GI consult possible EGD today
CRS following postop 03/15/24
Aspiration precautions, HOB > 30 degrees
Follow H&H
Creat at baseline, no history of renal disease
Void trials
Follow urine output, critical I/Os
Replete electrolytes as needed
No signs/symptoms suspicious for infectious etiology at this time
Observe off antibiotics for now
Follow fever trend, WBC count
Lactate negative
CBC stable, no signs of bleeding or coagulopathy.
DVT prophylaxis as assessed based on risk, including mechanical SCDs
Can transfuse if indicated for Hb <7, plt < 10
No prior h/o diabetes or thyroid disease
Monitor accuchecks PRN/SS coverage if needed
RA history, hold home meds for now, prednisone if needed
Diagnostic Data
Chest X-Ray: 03/18/24- low lung volumes, no overt consolidation
CT Scan:
Echo:
PFT's:
Reports and relevant images were personally reviewed.
-----
Critical care time 55 mins -- this includes review of history, physical exam, medications, hemodynamic/ventilator parameters, laboratory data, imaging and discussion with house staff, pharmacy, respiratory therapy, distribution field technician, and nursing.
[2024-03-19] MEDS: PROTONIX 100 IV ×2 (08:37→18:37)
[2024-03-19] MEDS: NSS 1000 IV ×3 (08:41→19:42)
--- NOTE | 2024-03-19 09:03 | W.PN.CRS1 ---
Today's Communication / Plan
-
As below
Assessment/Plan
-
68-year-old female with PMH of RA (on Remicade and methotrexate, held preoperatively), HTN, history of C. difficile who presents for elective surgery for recurrent diverticulitis
POD 4 robotic sigmoidectomy, flexible sigmoidoscopy
1/6�developed coffee-ground emesis and hypotension, transferred to the ICU, requiring levo up to 10
1/6�EGD by GI showing multiple duodenal ulcers 1 large with recent bleed, requiring epi injection and APC
Afebrile, VSS, levo at 8, NGT 500 coffee-ground/dark sanguinous
WBC 13.1 from 16.1, Hb 11.0 from 11.8, CR 0.5
� Upper GI bleed, multiple duodenal ulcers seen on EGD s/p local therapies
�Appreciate GI; continue PPI drip
�Serial CBC, hold all AC, transfuse as needed if Hb less than 7
� Continue n.p.o. with IVF; continue NGT
� Continue pain control with Dilaudid as needed
� Hold DVT PPx
� Okay for OOB from surgical standpoint; encourage IS
� Appreciate hospitalist and orthopedic shoe maker
Subjective Data
Procedure
03/15/2024 Robotic sigmoid colectomy with intracorporeal anastomosis
Subjective Data
Date of Service: March 19, 2024
Overnight, levo was titrated up to 10, now down to 8 this morning.
Having a little nausea this AM, but no vomits. Dizziness has resolved. Had one BM early this AM that was coffee-ground/dark red.
Pain controlled.
+voiding
Objective Data
-
Vital Signs
Temp Pulse Resp BP Pulse Ox
97.6 F 110 23 95/81 99
03/19/24 08:00 03/19/24 08:45 03/19/24 08:45 03/19/24 08:00 03/19/24 08:45
Intake & Output
03/18/24 03/19/24 03/20/24
06:59 06:59 06:59
Intake Total 2039 2040.0 / 2205.0 430 / 430
Output Total 500 / 500
Balance 2039 1540.0 / 1705.0 430 / 430
Intake:
Oral fluids 120 / 120
IV fluids (Total) 1919 1500.0 / 1665.0 330 / 330
Levophed 240.0 / 270.0 60 / 60
Nss 1,000 ml @ 125 mls/hr IV . 950 / 1075 250 / 250
Q8H GUNNER Rx#:[id number]
Protonix 70 / 80 20 / 20
IV piggybacks 100 / 100
Amount instilled into GI Tube ( 40 / 40
Total)
[place] Sump 40 / 40
Blood Products 250 / 250
Packed red blood cells 250 / 250
Blood Product Amount Infused ( 250 / 250
mL)
Packed Rbc Leukoreduced Unit 250 / 250
[id number]
Output:
Gastrointestinal tube output ( 500 / 500
Total)
[place] Sump 500 / 500
Other:
Number of approximated SMALL 1
amounts of urine
Number of approximated MODERATE 1 1
amounts of urine
Number of approximated LARGE 2 1
amounts of urine
Lab Results
03/19/24 05:10
Physical Exam
-
General: No Acute Distress and AOx3
HEENT: Grossly Normal
Abdomen: Soft, Non Distended, Tender (mildly/appropriately tender in lower abdomen near pfannensteil), No Guarding and No Rebound
Skin: Warm and Dry
Wound: No Signs of Infection, Dressing in Place (dermabond) and No Skin Erythema
[2024-03-19] MEDS: ERYTHROCIN 105 MG IV (09:12)
--- NOTE | 2024-03-19 09:19 | PTCARENOTE ---
Bedside EGD, Pt's son Dario Gonzalez [phone] notified of the events overnight leading up to EGD procedure. Erythromycin infusing via left inner FA #[id number] protective catheter. PRBC on standby. 3gm Calcium gluconate infused.
--- NOTE | 2024-03-19 09:52 | PTCARENOTE ---
PRBC's requested by Dr. Cunha and infusing via left FA#[id number] protective catheter during bedside EGD.
--- NOTE | 2024-03-19 10:56 | W.PN.HOSP.TC ---
Today's Communication/Plan
-
see outlined plan below
Assessment / Plan
Assessment / Plan
Assessment:
Acute GI bleed (hematemesis/rectal bleeding)
Acute symptomatic blood loss anemia
Hemorrhagic shock requiring PRBC, pressors
- continue ICU level of care
- s/p 1 unit PRBC; trend q6 h/h
- wean pressors as able - currently on Levo and Vasopressin
- continue IVF
- continue PPI drip
- Colorectal ordered TXA
- for urgent EGD this AM in ICU
Hx of diverticular disease with recurrent history of diverticulitis s/p Robotic sigmoid resection 03/15
- Colorectal following
- continue NPO/NGT given active GI bleeding
- with shock state and recent surgery; check procal and blood cultures
History of RA on Remicade and Methotrexate prior to admission
Essential HTN
- hold Lisinopril
Hypocalcemia
- IV calcium ordered
Hx of C. Diff
- stool C. Diff pending
Hyperchloremic metabolic acidosis from NSS infusion
- monitor; if ongoing IVF needed, consider switch to LR
DVT ppx: SCDs
Code: Full
Total Critical Care Time 41 minutes. I was immediately available to the patient and staff. I personally examined, reviewed labs, diagnostic images/reports, interpretations, treatment plans, discussed patient care with other providers and family
or caregivers (if patient is unable to make decisions), entered orders as appropriate and documented the medical record.
Anticipated Discharge: > 48 hours
Subjective/Interval History
-
Date of Service: March 19, 2024
transferred to ICU and medical service for hemorrhagic shock requiring pressors, in setting of GI bleed
s/p 1 unit PRBC
Hb 11.0 most recently
GI Evaluating and planning urgent EGD in ICU
Objective Data
-
Labs:
Laboratory Results
03/18/24 03/19/24 03/19/24
22:55 05:10 05:10
WBC 13.1 H
Hgb 11.0 L Cancelled
Hct 33.7 L
Plt Count
PT 16.6 H
INR 1.32
APTT
Sodium 133 L
Potassium 4.6
Chloride 105
Carbon Dioxide 23
BUN 25 H
Creatinine 0.8
Glucose 149 H
Calcium 7.2 L
Total Bilirubin 0.7
AST 17
ALT 12
Alkaline Phosphatase 43
03/19/24 03/19/24 03/19/24
05:10 07:56 10:00
WBC
Hgb Pending
Hct Cancelled Pending
Plt Count 231 D
PT
INR
APTT Pending
Sodium 140
Potassium 3.9
Chloride 117 H
Carbon Dioxide 16 L
BUN 21 H
Creatinine 0.5 L
Glucose 123 H
Calcium 6.3 L*
Total Bilirubin
AST
ALT
Alkaline Phosphatase
03/19/24 03/19/24
10:26 16:00
WBC
Hgb Pending
Hct Pending
Plt Count
PT
INR
APTT
Sodium Pending
Potassium Pending
Chloride Pending
Carbon Dioxide Pending
BUN Pending
Creatinine Pending
Glucose Pending
Calcium Pending
Total Bilirubin
AST
ALT
Alkaline Phosphatase
Vital Signs:
Vital Signs
Temp Pulse Resp BP Pulse Ox
99.6 F 105 25 120/74 100
03/19/24 10:07 03/19/24 10:32 03/19/24 10:32 03/19/24 10:32 03/19/24 10:32
I&O
03/18/24 03/19/24 03/20/24
06:59 06:59 06:59
Intake Total 2039 2040.0 / 2205.0 980 / 980
Output Total 500 / 500
Balance 2039 1540.0 / 1705.0 980 / 980
Physical Exam
-
General: No Apparent Distress
HEENT: Normocephalic and Atraumatic
Respiratory: Negative Wheezes
Cardiac: Regular Rhythm, S1/S2 and Tachycardic
GI: Soft and Tender (post-op)
Genito-urinary: No Costovertebral Tender
Neuro: AO x 3
Hematologic / Lymphatic: No Lymphadenopathy
Psych: Calm
Data Reviewed
-
Critical Care Time (in minutes): 41
Labs: Labs Reviewed by me
[2024-03-19] MEDS: COMPAZINE 10 MG IV (10:59)
[2024-03-19] MEDS: TRANEXAMIC ACID 100 IV (11:05)
--- NOTE | 2024-03-19 11:05 | PTCARENOTE ---
Difficult phlebotomy. IV team aware of PICC order. Left delia alicea secured @ 65cm to LIWS for small amount of layton bilious secretions. She is side lying. Denied pain or discomfort. She removed her NRB mask is now on RA and 95-96% pulse ox.
--- NOTE | 2024-03-19 12:06 | W.PN.UPDATE ---
Update Note
Progress Note Update
I called her son Dario and updated him. All questions answered.
--- NOTE | 2024-03-19 13:48 | CM ---
CM following re: discharge planning.
Discussed in Rounds, reviewed pt's chart, met with pt.
Pt is POD 4 robotic sigmoidectomy, flexible sigmoidoscopy, continue supportive care.
D/C plan: home with anticipated no needs.
CM will follow with discharge plan updates as hospitalization progresses
--- NOTE | 2024-03-19 14:20 | PTCARENOTE ---
IV team notified to pull the PICC back
[2024-03-19 15:21] LABS: Ionized Calcium 1.22 mMOL/L (1.15-1.33)
[2024-03-19 15:22] LABS: Hematocrit 34.3 % (37.0-47.0); Hemoglobin 11.5 g/dL (12.0-16.0)
[2024-03-19 15:25] LABS: APTT 25.3 Sec (23.4-35.0)
[2024-03-19 15:38] LABS: Blood Urea Nitrogen 18 mg/dl (7-17); Calcium 7.6 mg/dl (8.4-10.2); Carbon Dioxide 22 mmol/L (22-30); Chloride 108 mmol/L (98-107); Estimated Creatinine Clearance 81 ml/min; Glucose 130 mg/dl (70-99); Magnesium 1.6 mg/dl (1.6-2.3); Phosphorus 2.2 mg/dl (2.5-4.5); Sodium 135 mmol/L (135-145); eGFR > 60.00
--- NOTE | 2024-03-19 15:50 | PTCARENOTE ---
Missile Mechanic notified that BMP was resulted and magnesium & phosphorus was low. No orders provided.
[2024-03-19 16:09] LABS: Procalcitonin 0.86 ng/ml (0.0-0.25)
--- NOTE | 2024-03-19 20:10 | PTCARENOTE ---
On assessment pt AAOx3, denies pain and SOB at this time, ST on the monitor, 97% on 2L NC, L nare NGT at 65cm LIS per orders and tolerating, bedrest tonight, x5 lap sitesto ABD with Dermabond, ecchymotic around sites and generalized ABD area, no
drainage noted, no N/V/D at this time, no signs of active bleeding noted, call osorio in reach.
[2024-03-19 20:37] LABS: Urine Albumin Negative (Neg - Trace); Urine Bilirubin 1+ (Negative); Urine Character Clear (Clear); Urine Color Yellow; Urine Glucose Negative (Negative); Urine Ketone 1+ (Negative); Urine Leukocyte 2+ (Negative); Urine Nitrite Negative (Negative); Urine Occult Blood 4+ (Negative); Urine Urobilinogen Negative (Neg - 1+)
[2024-03-19 20:48] LABS: Urine Squamous Cell >30 /LPF (Few)
[2024-03-19 20:50] LABS: Urine Bacteria Moderate (Negative)
[2024-03-20] VITALS (24 sets, daily range): BP systolic 98–133; BP diastolic 51–79; BMI 32.0
--- NOTE | 2024-03-20 00:01 | PTCARENOTE ---
no changes from prior assessment, pt c/o ABD pain, PRN meds given see MAR, no N/V/D noted, call osorio in reach
[2024-03-20] MEDS: PROTONIX 100 IV ×3 (02:39→22:25)
[2024-03-20] MEDS: DILAUDID 0.5 MG IV ×2 (03:31→07:57)
[2024-03-20 04:08] LABS: Hematocrit 31.3 % (37.0-47.0); Hemoglobin 10.2 g/dL (12.0-16.0); Mean Corp Hgb Conc. 32.6 g/dL (33.0-37.0); Mean Corpuscular Hgb 30.4 pg (27.0-31.0); Mean Corpuscular Volume 93.4 fL (81.0-99.0); Mean Platelet Volume 10.5 fL (7.4-10.4); Platelet Count 178 10^3/uL (130-400); Red Blood Cell Count 3.35 10^6/uL (4.20-5.40); Red Cell Dist. Width 14.3 % (11.5-14.5); White Blood Cell Count 9.1 10^3/uL (4.8-10.8)
[2024-03-20 04:50] LABS: ALT (SGPT) 70 U/L (0-35); AST (SGOT) 106 U/L (14-36); Alkaline Phosphatase 96 U/L (38-126); Blood Urea Nitrogen 16 mg/dl (7-17); Calcium 7.5 mg/dl (8.4-10.2); Carbon Dioxide 22 mmol/L (22-30); Chloride 111 mmol/L (98-107); Estimated Creatinine Clearance 81 ml/min; Glucose 92 mg/dl (70-99); Potassium 4.1 mmol/L (3.5-5.1); Sodium 137 mmol/L (135-145); Total Bilirubin 6.8 mg/dl (0.2-1.3); Total Protein 4.2 g/dl (6.3-8.2); eGFR > 60.00
--- NOTE | 2024-03-20 06:22 | PTCARENOTE ---
no changes from prior assessment, PRN meds given, pt voided on bedpan, remains on NSS and Protonix gtt per orders, call osorio in reach
--- NOTE | 2024-03-20 07:18 | W.PN.INTV ---
Today's Communication / Plan
Recommendations
Doing well, no further bleeding
Off pressors, has been stable >24 hours
NGT remains to suction, diet advancement per GI/CRS
Otherwise, PT/OT OOB encouraged
Transfer to floors, we will sign off upon transfer
Assessment
-
Patient is a 68-year-old female with previous history of rheumatoid arthritis on methotrexate/infliximab, bowel resection x 2 presenting to for elective robotic resection of sigmoid diverticulitis. Underwent procedure on 03/15/2024, which was
uncomplicated. Overnight on 03/18/2024 developed 2x episode of coffee-ground emesis about 100 mL. Blood pressure was notably 74/44, rapid response was called on the floor. Patient was placed on IV fluids and pressors and transferred to ICU. GI was
consulted, for possible EGD today.
Shock, septic versus hemorrhagic now on pressors
Episode of vomiting x 2, coffee ground emesis with suspicion for upper GI bleed
Sigmoid diverticulitis status post robotic resection, uncomplicated 03/15/2024
Acute blood loss anemia, hemoglobin 13.1 now 11.0
Metabolic acidosis
Hypocalcemia
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
Rheumatoid arthritis on chronic immunosuppressive's
Recurrent sigmoid diverticulitis
History of 2 bowel surgeries/ blockages-[facility] 1988
C sections x2
Appendectomy
Cholecystectomy
Hypertension
History of C. difficile infection
Former smoker
Obesity BMI 30.5
Plan
No current signs of metabolic encephalopathy or MS changes/following commands
Denies pain at this time.
Pain/sedation: PRN
RASS goals: 0
Hemodynamically stable, off pressors.
Cardiac history reviewed--HTN
No prior ECHO for review, obtain new study/pending
Hold home meds
Monitor on telemetry
Oxygen needs: on o2, wean as tolerated
Prior history of lung disease: none
Supplemental O2 as indicated to maintain sats > 89%
CXR/CT reviewed indicating NAD
NPO, NPT in place
PPI on board
GI consult possible EGD today
CRS following postop 03/15/24
Aspiration precautions, HOB > 30 degrees
Follow H&H
Creat at baseline, no history of renal disease
Void trials
Follow urine output, critical I/Os
Replete electrolytes as needed
No signs/symptoms suspicious for infectious etiology at this time
Observe off antibiotics for now
Follow fever trend, WBC count
Lactate negative
CBC stable, no signs of bleeding or coagulopathy.
DVT prophylaxis as assessed based on risk, including mechanical SCDs
Can transfuse if indicated for Hb <7, plt < 10
No prior h/o diabetes or thyroid disease
Monitor accuchecks PRN/SS coverage if needed
RA history, hold home meds for now, prednisone if needed
Diagnostic Data
Chest X-Ray: 03/18/24- low lung volumes, no overt consolidation
CT Scan:
Echo:
PFT's:
Reports and relevant images were personally reviewed.
-----
Critical care time 31 mins -- this includes review of history, physical exam, medications, hemodynamic/ventilator parameters, laboratory data, imaging and discussion with house staff, pharmacy, respiratory therapy, cardiology consultants, and nursing.
Subjective Dataa
Subjective Data
Date of Service:
Date of Service: March 20, 2024
Chief Complaint: Motor Route Carrier Follow Up
Subjective:
Remains stable overnight, off pressors
No new issues, mild tachycardia noted
No further bloody BMs
Objective Data
Data Reviewed
Vital Signs / I&O / Oxygen:
Vital Signs
Temp Pulse Resp BP Pulse Ox
98.2 F 106 20 106/70 97
03/20/24 03:29 03/20/24 06:15 03/20/24 06:15 03/20/24 06:00 03/20/24 06:15
Intake and Output
03/19/24 03/20/24 03/21/24
06:59 06:59 06:59
Intake Total 2040.0 / 2205.0 3734.5 / 3734.5
Output Total 500 / 500 275 / 275
Balance 1540.0 / 1705.0 3459.5 / 3459.5
SaO2 97
Nasal Cannula flow liters per 2
minute
Physical Exam
General: Comfortable and Other (NAD)
HEENT: Normocephalic, Anicteric and Moist Mucous Membranes
Cardiovascular: S1-S2 and Regular Rhythm
Respiratory: Clear and Non-Labored Respirations
GI: Soft, Non Distended, Non Tender and NG Tube
Neurology: Awake, Alert, Oriented and No Motor Deficits
Skin: Warm, Dry and Good Color
Labs/Micro/Reports
Lab Data
03/20/24 03:26
03/20/24 03:26
Laboratory Results
03/19/24
14:56
APTT 25.3
Microbiology
03/19/24 00:24 Blood/Venous Blood Culture - Preliminary
No Growth in 24 hours- Final report to follow
--- NOTE | 2024-03-20 08:10 | PTCARENOTE ---
Assumed care of pt at 0715 following shift report. Pt resting quietly, woken to name for assessment and care. Remains on Protonix gtt at 8mg/hr, NS @ 75ml/hr via Rt UA PICC. O2 at 2l/min via NC in use w/ POx 97%. Denies SOB. Pt reporting 10 lower
abdominal pain/cramping. Dilaudid given as documented in MAY. Pt used bedpan to void large amount orange urine. Lt nare NGT remains in place to LIWS w/ small amount of green/brown drainage noted in tubing. Placement confirmed and NGT flushed per
order. Pt denies any nausea. Comfort care/hygiene provided. Dr Montilla in room to see pt- updated on AM lab results (specifically bilirubin and LFTs) and shown ecchymosis to pt's RLQ/flank.
--- NOTE | 2024-03-20 08:15 | W.PN.HOSP.TC ---
Today's Communication/Plan
-
Check hemolysis labs
Assessment / Plan
Assessment / Plan
Gen-AAOx3, NAD
HEENT-NC, AT, mildly jaundiced, clear oral mm, NG tube
Neck-supple
CV-reg, no M, +S1/S2
Lungs-clear B/L
Abd-soft, mild diffuse tenderness without guarding or rebound
Ext-no edema
Musculoskeletal-no cyanosis, clubbing
Skin-warm and dry, bruising on the right side of the abdomen
Neuro-grossly non-focal
Psych-calm, cooperative
Acute GI bleed (hematemesis/rectal bleeding) -EGD done 03/19 showed LA grade B esophagitis with no bleeding, small hiatal hernia, nonobstructing oozing duodenal ulcers with a visible vessel. Treated with bipolar cautery. Injected. No specimens
collected. Continue IV Protonix per GI.
Acute symptomatic blood loss anemia -due to acute GI bleed as above. Transfused 2 units of blood so far. Hemoglobin stable at 10.2 today.
Jaundice/elevated LFTs - significant total bilirubin elevation noted, mild transaminase elevation, normal alkaline phosphatase. Differential diagnosis includes hemolysis versus biliary disease versus other. Check GGT, LDH, retic count, direct
bili. If mostly direct bilirubin elevation will evaluate for biliary obstruction with ultrasound or CT. She does look somewhat jaundiced today.
Hemorrhagic shock -requiring PRBC, pressors. Improved, off vasopressors.
Hx of diverticular disease with recurrent history of diverticulitis s/p Robotic sigmoid resection 03/15/24.
- Colorectal following
- continue NPO/NGT given active GI bleeding
- with shock state and recent surgery; check procal and blood cultures
History of RA on Remicade and Methotrexate prior to admission
Essential HTN
- hold Lisinopril
Hypocalcemia
- IV calcium ordered
Hx of C. Diff
- stool C. Diff pending
Hyperchloremic metabolic acidosis - from NSS infusion. Will change IV fluids to LR.
Obesity due to excess calories
DVT ppx: SCDs
Code: Full
Anticipated Discharge: > 48 hours
Subjective/Interval History
-
Date of Service: March 20, 2024
Patient seen and examined. Complaining of 7 out of 10 abdominal pain.
Objective Data
-
Labs:
Laboratory Results
03/20/24
03:26
WBC 9.1
Hgb 10.2 L
Hct 31.3 L
Plt Count 178 D
Sodium 137
Potassium 4.1
Chloride 111 H
Carbon Dioxide 22
BUN 16
Creatinine 0.7
Glucose 92
Calcium 7.5 L
Total Bilirubin 6.8 H D
AST 106 H
ALT 70 H
Alkaline Phosphatase 96
Vital Signs:
Vital Signs
Temp Pulse Resp BP Pulse Ox
97.9 F 106 20 106/70 97
03/20/24 07:57 03/20/24 06:15 03/20/24 06:15 03/20/24 06:00 03/20/24 06:15
I&O
03/19/24 03/20/24 03/21/24
06:59 06:59 06:59
Intake Total 2040.0 / 2205.0 3734.5 / 3734.5
Output Total 500 / 500 275 / 275
Balance 1540.0 / 1705.0 3459.5 / 3459.5
Review of Systems
-
History Source: Patient
All other systems: Reviewed and negative
--- NOTE | 2024-03-20 08:36 | W.PN.CRS1 ---
Today's Communication / Plan
-
ngt per GI
Assessment/Plan
-
68-year-old female with PMH of RA (on Remicade and methotrexate, held preoperatively), HTN, history of C. difficile who presents for elective surgery for recurrent diverticulitis
POD 5 robotic sigmoidectomy, flexible sigmoidoscopy
1/6�developed coffee-ground emesis and hypotension, transferred to the ICU, requiring levo up to 10
1/6�EGD by GI showing multiple duodenal ulcers 1 large with recent bleed, requiring epi injection and APC
Afebrile, HR 102-107, NGT in place
WBC 9.1 from 13.1, Hb 10.2 from 11
� Upper GI bleed, multiple duodenal ulcers seen on EGD s/p local therapies
�Appreciate GI; continue PPI drip
�Serial CBC, hold all AC, transfuse as needed if Hb less than 7
� Continue n.p.o. with IVF; continue NGT per GI
� Continue pain control with Dilaudid as needed
� Hold DVT PPx
� Okay for OOB from surgical standpoint; encourage IS
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
Subjective Data
Procedure
03/15/2024 Robotic sigmoid colectomy with intracorporeal anastomosis
Subjective Data
Date of Service: March 20, 2024
Patient states she had a burgundy bowel movement yesterday. She still has some abdominal pain.
Objective Data
-
Vital Signs
Temp Pulse Resp BP Pulse Ox
97.9 F 106 20 106/70 97
03/20/24 07:57 03/20/24 06:15 03/20/24 06:15 03/20/24 06:00 03/20/24 06:15
Intake & Output
03/19/24 03/20/24 03/21/24
06:59 06:59 06:59
Intake Total 2040.0 / 2205.0 3734.5 / 3734.5
Output Total 500 / 500 275 / 275
Balance 1540.0 / 1705.0 3459.5 / 3459.5
Intake:
IV fluids (Total) 1500.0 / 1665.0 3119.5 / 3119.5
Levophed 240.0 / 270.0 264.5 / 264.5
Nss 1,000 ml @ 75 mls/hr IV . 950 / 1075 2625 / 2625
[id number] [facility] Rx#:[id number]
Protonix 70 / 80 230 / 230
IV piggybacks 305 / 305
Amount instilled into GI Tube ( 40 / 40 60 / 60
Total)
Wake Sump 40 / 40 60 / 60
Blood Products 250 / 250
Packed red blood cells 250 / 250
Blood Product Amount Infused ( 250 / 250 250 / 250
mL)
Packed Rbc Leukoreduced Unit 250 / 250
[id number]
Packed Rbc Leukoreduced Unit 250 / 250
[id number]
Output:
Gastrointestinal tube output ( 500 / 500
Total)
Wake Sump 500 / 500
Urine, Voided 275 / 275
Other:
Number of approximated SMALL 1 1
amounts of urine
Number of approximated MODERATE 1 1 1
amounts of urine
Number of approximated LARGE 1 1
amounts of urine
Lab Results
03/20/24 03:26
03/20/24 03:26
Physical Exam
-
General: No Acute Distress and AOx3
Abdomen: Soft, Non Distended and Tender (lower abdominal incision )
Skin: Warm and Dry
Incision: Clear, Dry, Intact
[2024-03-20 08:55] LABS: Direct Bilirubin 5.6 mg/dl (0.0-0.4); GGTP 198 U/L (12-43); LDH 396 U/L (120-246)
[2024-03-20 08:59] LABS: Reticulocyte Count 2.2 % (0.4-2.8)
[2024-03-20] MEDS: LR 1000 IV ×2 (09:49→21:24)
--- NOTE | 2024-03-20 10:40 | W.PN.ANS.POP ---
Anesthesia Post Operative
- Anesthesia Post Op Note
Vital Signs Stable-See Nursing Note: Yes
Airway Patent: Yes
Adequate Pain Control: Yes
Change in Mental Status: No
Current Postoperative Nausea & Vomiting: No
Anesthesia Complications: No
General Anesthetic Recall: No
Unplanned Admission: No
Post Op Hydration Adequate: Yes
- -
Pt resting comfortably, VSS.
--- NOTE | 2024-03-20 11:02 | W.PN.GI.CBS2 ---
Today's Communication / Plan
-
PLAN:
Etiology of bleeding related to NSAID related ulcer
Hemoglobin seems to be stable without further active bleeding.
Hemodynamically stable though slightly tachycardic.
NG tube with small amount of bilious drainage
Can clamp NG and if no significant output, can remove it in 4 hours. Okay for sips of clears to start with after if colorectal surgery agrees. Will advance as tolerated.
Continue PPI drip for now at least for another 48 hours. Then can change to PPI p.o. twice daily.
Monitor H&H and transfuse if needed.
-Elevated LFTs, bilirubin and transaminases
This is an acute rise, normal LFTs 03/18/2024.
Likely related to hypotensive episodes.
Will check abdominal ultrasound with Doppler and monitor LFTs closely.
If still elevated, will check hepatitis serologies as baseline.
Will follow closely
Assessment / Plan
-
Pt is a 68yo with hx RA on Remicade and methotrexate, HTN, prior c-diff, diverticulitis with recurrent episodes, bowel resection x 2 in 1988, prior mahogany, appe, hysterectomy, with admission for elective robotic sigmoidectomy for recurrent
diverticulitis. She is noted post-op with hypotension requiring pressors and episode of coffee ground emesis. NGT was placed with continued coffee ground with maroon tinge and later noted with large bloody stool. Initial hbg was 13.1 on 1.4 with
drop to 11 with BUN 25. + NSAID use prior to admission. Stopped several weeks before surgery.
-hematemesis/rectal bleeding
-symptomatic anemia
-hypotension requiring pressors
-s/p robotic sigmoid resection 03/15 for recurrent diverticular disease
-recent NSAID use
other medical problems:
-RA on Remicade and Methotrexate prior to admission
-HTN
-hx c-diff
-hx bowel resection x 2 in 1988
-hx mahogany, appe, hysterectomy,
EGD 03/19/24-
Impression: - LA Grade B esophagitis with no bleeding.
- Small hiatal hernia.
- No gross lesions in the entire stomach.
- Non-obstructing oozing duodenal ulcers with a
visible vessel. Treated with bipolar cautery. Injected.
- No specimens collected.
PLAN:
Etiology of bleeding related to NSAID related ulcer
Hemoglobin seems to be stable without further active bleeding.
Hemodynamically stable though slightly tachycardic.
NG tube with small amount of bilious drainage
Can clamp NG and if no significant output, can remove it in 4 hours. Okay for sips of clears to start with after if colorectal surgery agrees. Will advance as tolerated.
Continue PPI drip for now at least for another 48 hours. Then can change to PPI p.o. twice daily.
Monitor H&H and transfuse if needed.
-Elevated LFTs, bilirubin and transaminases
This is an acute rise, normal LFTs 03/18/2024.
Likely related to hypotensive episodes.
Will check abdominal ultrasound with Doppler and monitor LFTs closely.
If still elevated, will check hepatitis serologies as baseline.
Will follow closely
Subjective
Subjective
Date of Service: March 20, 2024
Patient reports some lower abdominal cramping discomfort, but otherwise feels better. 1 bowel movement which with dark blood, currently off pressors
Objective
Data Reviewed
Laboratory Data:
Laboratory Results
03/20/24 03:26
03/20/24 03:26
Laboratory Results
PT 16.6 Sec (11.4-14.6) H 03/18/24 22:55
INR 1.32 03/18/24 22:55
APTT 25.3 Sec (23.4-35.0) 03/19/24 14:56
Phosphorus 2.2 mg/dl (2.5-4.5) L 03/19/24 14:56
Magnesium 1.6 mg/dl (1.6-2.3) 03/19/24 14:56
Total Bilirubin 6.8 mg/dl (0.2-1.3) H D 03/20/24 03:26
AST 106 U/L (14-36) H 03/20/24 03:26
ALT 70 U/L (0-35) H 03/20/24 03:26
Alkaline Phosphatase 96 U/L (38-126) 03/20/24 03:26
Vital Signs and I&O:
Vital Signs
Temp Pulse Resp BP Pulse Ox
97.9 F 121 21 120/72 97
03/20/24 07:57 03/20/24 10:00 03/20/24 10:00 03/20/24 10:00 03/20/24 10:00
I&O
03/19/24 03/20/24 03/21/24
06:59 06:59 06:59
Intake Total 2040.0 / 2205.0 3734.5 / 3819.5 335 / 335
Output Total 500 / 500 275 / 275
Balance 1540.0 / 1705.0 3459.5 / 3544.5 335 / 335
Physical Exam
Physical Exam
GI: Soft and Distended (Some discomfort on palpation without tenderness.)
--- NOTE | 2024-03-20 11:38 | PTCARENOTE ---
Phone call received from pt's son 'Dario' updated on pt's present condition, plan of care. Questions answered. Pt continues to rest quietly w/o complaints offered. NGT remains clamped- no nausea.
--- NOTE | 2024-03-20 12:27 | PTCARENOTE ---
Pt OOB to chair. Tolerated increased activity w/o complaint or complication. Gait steady. Encouraged IS use- pulling 500-750ml. NGT remains clamped. Denies nausea. Call osorio w/in pt reach.
--- NOTE | 2024-03-20 15:43 | PTCARENOTE ---
Pt returned to bed after being OOB in chair x 2hrs. Tolerated increased activity w/o complaint or complication. Pt on RA w/ POx 91-93%. NGT remains clamped. PT continues to deny nausea- Dr Jewell notified and order received to remove NGT. Lt nare
NGT removed w/ tip intact.Pt tolerated w/o complaint. Family visiting at bedside. No additional changes from previous assessment findings.
--- NOTE | 2024-03-20 17:22 | PTCARENOTE ---
"Pt ambulated to BR w/ use of walker and supervision. Passed moderate amount coffee ground type BM w/ some maroon coloring. Pt denies lightheadedness, nausea or abdominal cramping. HR 110. BP 127/79. Pt returned to bed per her request. TT to Dr Sharma"Best w/update on BM- order received to upgrade pt to IMU level of care. Dr Montilla notified. "
--- NOTE | 2024-03-20 20:33 | PTCARENOTE ---
Received patient AAOx3, following commands, pain within acceptable range for patient. Sinus tach, 100s, BP stable. +1 generalized anasarca, SCDs on. 93% on room air, lung sounds diminished. Abdomen soft, round, obese, tender to palpation. Ecchymotic
on RLQ. Dermabond intact on lap sites. Right PICC patent, WNL. Protonix and LR gtt ongoing per order. Call osorio within reach. Hourly rounding and patient safety checks ongoing.
[2024-03-21] VITALS (23 sets, daily range): BP systolic 94–142; BP diastolic 63–92; BMI 32.6
--- NOTE | 2024-03-21 05:34 | PTCARENOTE ---
CHG bath done, gown and pull sheet/pad changed. Patient on 2 liters nassal cannula saturating 96% overnight for consistent sats 88-89%. Dilaudid given for pain. Labs sent, call osorio within reach. Otherwise patient assessment unchanged from previous.
[2024-03-21] MEDS: DILAUDID 0.5 MG IV ×4 (05:36→22:01)
[2024-03-21 05:52] LABS: % Basophils 0.3 % (0-2); % Eosinophils 0.3 % (0-6); % Immature Granulocytes 0.9 % (0-0.5); % Lymphocytes 8.3 % (20.5-51.1); % Monocytes 8.5 % (1.7-9.3); % Neutrophils 81.7 % (42.2-75.2); Absolute Immature Granulocytes 0.1 10^3/uL (0-0.05); Absolute Lymphocytes 0.9 10^3/uL (1.2-3.4); Absolute Neutrophils 9.1 10^3/uL (1.4-6.5); Hemoglobin 9.3 g/dL (12.0-16.0); Mean Corp Hgb Conc. 34.4 g/dL (33.0-37.0); Mean Corpuscular Hgb 31.1 pg (27.0-31.0); Mean Corpuscular Volume 90.3 fL (81.0-99.0); Mean Platelet Volume 10.8 fL (7.4-10.4); Nucleated Red Blood Cells % 0 %; Platelet Count 171 10^3/uL (130-400); Red Blood Cell Count 2.99 10^6/uL (4.20-5.40); Red Cell Dist. Width 14.5 % (11.5-14.5); White Blood Cell Count 11.1 10^3/uL (4.8-10.8)
[2024-03-21 06:18] LABS: ALT (SGPT) 52 U/L (0-35); AST (SGOT) 52 U/L (14-36); Albumin 2.1 g/dl (3.5-5.0); Alkaline Phosphatase 105 U/L (38-126); Blood Urea Nitrogen 17 mg/dl (7-17); Calcium 7.6 mg/dl (8.4-10.2); Carbon Dioxide 23 mmol/L (22-30); Chloride 107 mmol/L (98-107); Estimated Creatinine Clearance 98 ml/min; Glucose 97 mg/dl (70-99); Potassium 3.8 mmol/L (3.5-5.1); Sodium 138 mmol/L (135-145); Total Bilirubin 4.2 mg/dl (0.2-1.3); Total Protein 4.2 g/dl (6.3-8.2); eGFR > 60.00
--- NOTE | 2024-03-21 08:18 | W.PN.HOSP.TC ---
Today's Communication/Plan
-
Monitor hemoglobin
Advance diet as tolerated
Continue IV Protonix
Stop IV fluids
Assessment / Plan
Assessment / Plan
Gen-AAOx3, NAD
HEENT-NC, AT, mildly jaundiced, clear oral mm, NG tube
Neck-supple
CV-reg, no M, +S1/S2
Lungs-clear B/L
Abd-soft, mild diffuse tenderness without guarding or rebound
Ext-no edema
Musculoskeletal-no cyanosis, clubbing
Skin-warm and dry, bruising on the right side of the abdomen
Neuro-grossly non-focal
Psych-calm, cooperative
Acute GI bleed (hematemesis/rectal bleeding) -EGD done 03/19 showed LA grade B esophagitis with no bleeding, small hiatal hernia, nonobstructing oozing duodenal ulcers with a visible vessel. Treated with bipolar cautery. Injected. No specimens
collected. Continue IV Protonix per GI.
Tolerating clears, advance diet as tolerated.
NSAID induced peptic ulcer disease. Avoid further NSAIDs in the future, discussed with patient.
Acute symptomatic blood loss anemia -due to acute GI bleed as above. Transfused 2 units of blood so far. Hemoglobin stable at 10.2 yesterday, 9.3 this morning. Continue to monitor. Last recorded bowel movement was 03/19, burgundy.
Jaundice/elevated LFTs -suspect due to acute ischemic hepatitis due to hypotension, shock. LFTs trending down. No evidence of hemolysis. Abdominal ultrasound unremarkable.
Hemorrhagic shock -requiring PRBC, pressors. Improved, off vasopressors. Lisinopril has been on hold. Shock resolved.
Hx of diverticular disease with recurrent history of diverticulitis s/p Robotic sigmoid resection 03/15/24.
- Colorectal following
- continue NPO/NGT given active GI bleeding
- with shock state and recent surgery; check procal and blood cultures
History of RA on Remicade and Methotrexate prior to admission
Essential HTN
- hold Lisinopril for low BP.
Hypocalcemia
- IV calcium ordered
Hx of C. Diff
- stool C. Diff pending
Hyperchloremic metabolic acidosis - from NSS infusion. Improved.
Obesity due to excess calories
DVT ppx: SCDs
Code: Full
Anticipated Discharge: 24 - 48 hours
Subjective/Interval History
-
Date of Service: March 21, 2024
Patient seen and examined. No complaints.
Objective Data
-
Labs:
Laboratory Results
03/21/24 03/21/24
05:29 12:00
WBC 11.1 H
Hgb 9.3 L Pending
Hct 27.0 L Pending
Plt Count 171
Sodium 138
Potassium 3.8
Chloride 107
Carbon Dioxide 23
BUN 17
Creatinine 0.6
Glucose 97
Calcium 7.6 L
Total Bilirubin 4.2 H
AST 52 H
ALT 52 H
Alkaline Phosphatase 105
Vital Signs:
Vital Signs
Temp Pulse Resp BP Pulse Ox
98.3 F 109 22 118/76 95
03/21/24 05:00 03/21/24 06:00 03/21/24 06:00 03/21/24 06:00 03/21/24 06:00
I&O
03/20/24 03/21/24 03/22/24
06:59 06:59 06:59
Intake Total 3734.5 / 3819.5 2124
Output Total 275 / 275
Balance 3459.5 / 3544.5 2124
Review of Systems
-
History Source: Patient
All other systems: Reviewed and negative
[2024-03-21] MEDS: PROTONIX 100 IV ×2 (08:58→18:39)
--- NOTE | 2024-03-21 09:23 | W.PN.GI.CBS2 ---
Today's Communication / Plan
-
PLAN:
Etiology of bleeding related to NSAID related ulcer
Hemoglobin did drop down with 1 episode of dark old bloody bowel movement yesterday.
Currently hemodynamically stable, less tachycardic, not requiring pressors
Continue PPI drip for now at least for another 24 hours. Then can change to PPI p.o. twice daily.
Monitor H&H and transfuse if needed.
Currently on clear liquid diet, okay to advance to full liquid diet but patient wants to hold off.
-Elevated LFTs, bilirubin and transaminases
Likely related to hypotensive episodes
Abdominal ultrasound with Doppler unremarkable, LFTs trending down
Avoid hypotensive episodes and will continue to trend
Assessment / Plan
-
Pt is a 68yo with hx RA on Remicade and methotrexate, HTN, prior c-diff, diverticulitis with recurrent episodes, bowel resection x 2 in 1988, prior mahogany, appe, hysterectomy, with admission for elective robotic sigmoidectomy for recurrent
diverticulitis. She is noted post-op with hypotension requiring pressors and episode of coffee ground emesis. NGT was placed with continued coffee ground with maroon tinge and later noted with large bloody stool. Initial hbg was 13.1 on 1.4 with
drop to 11 with BUN 25. + NSAID use prior to admission. Stopped several weeks before surgery.
-hematemesis/rectal bleeding
-symptomatic anemia
-hypotension requiring pressors
-s/p robotic sigmoid resection 03/15 for recurrent diverticular disease
-recent NSAID use
other medical problems:
-RA on Remicade and Methotrexate prior to admission
-HTN
-hx c-diff
-hx bowel resection x 2 in 1988
-hx mahogany, appe, hysterectomy,
EGD 03/19/24-
Impression: - LA Grade B esophagitis with no bleeding.
- Small hiatal hernia.
- No gross lesions in the entire stomach.
- Non-obstructing oozing duodenal ulcers with a
visible vessel. Treated with bipolar cautery. Injected.
- No specimens collected.
PLAN:
Etiology of bleeding related to NSAID related ulcer
Hemoglobin did drop down with 1 episode of dark old bloody bowel movement yesterday.
Currently hemodynamically stable, less tachycardic, not requiring pressors
Continue PPI drip for now at least for another 24 hours. Then can change to PPI p.o. twice daily.
Monitor H&H and transfuse if needed.
Currently on clear liquid diet, okay to advance to full liquid diet but patient wants to hold off.
-Elevated LFTs, bilirubin and transaminases
Likely related to hypotensive episodes
Abdominal ultrasound with Doppler unremarkable, LFTs trending down
Avoid hypotensive episodes and will continue to trend
Subjective
Subjective
Date of Service: March 21
Some lower abdominal discomfort, no nausea, had 2 small smears of dark stool overnight. No fevers or chills.
On clear liquid diet.
Objective
Data Reviewed
Laboratory Data:
Laboratory Results
03/21/24 05:29
Laboratory Results
PT 16.6 Sec (11.4-14.6) H 03/18/24 22:55
INR 1.32 03/18/24 22:55
APTT 25.3 Sec (23.4-35.0) 03/19/24 14:56
Phosphorus 2.2 mg/dl (2.5-4.5) L 03/19/24 14:56
Magnesium 1.6 mg/dl (1.6-2.3) 03/19/24 14:56
Total Bilirubin 4.2 mg/dl (0.2-1.3) H 03/21/24 05:29
AST 52 U/L (14-36) H 03/21/24 05:29
ALT 52 U/L (0-35) H 03/21/24 05:29
Alkaline Phosphatase 105 U/L (38-126) 03/21/24 05:29
Vital Signs and I&O:
Vital Signs
Temp Pulse Resp BP Pulse Ox
98.4 F 105 34 113/63 95
03/21/24 08:26 03/21/24 08:00 03/21/24 08:00 03/21/24 08:00 03/21/24 08:00
I&O
03/20/24 03/21/24 03/22/24
06:59 06:59 06:59
Intake Total 3734.5 / 3819.5 2124 270 / 270
Output Total 275 / 275
Balance 3459.5 / 3544.5 2124 270 / 270
Physical Exam
Physical Exam
GI: Soft and Non Distended
--- NOTE | 2024-03-21 09:24 | PTCARENOTE ---
Received pt @ change of shift. Drowsy, awakens to verbal stimuli, oriented x3. C/O mod abd pain post, received prn pain med on previous shift, not due yet- see MAR. SR-ST on monitor. Attempted to wean to RA, SpO2 87%, placed back on 2LNC and
SpO2 recovered to 96%. Hypoactive BS, abd soft/round/tender/obese; RLQ tender to palpation. Tolerating clear liq diet, denies n/v. 2x smear BMs overnight, no further diarrhea. Voiding in BR. Scattered ecchymosis on abd; lap sites approx w
surgical glue, DATA ENTRY COORDINATOR. R DL PICC w LR @ 80mL/hr and Protonix gtt infusing. Pt. assisted x1 w RW into BR and then OOB to chair @ 0745. Remains tolerating chair position @ this time. Instructed on how to report care concerns and call osorio in reach.
--- NOTE | 2024-03-21 09:43 | W.PN.CRS1 ---
Today's Communication / Plan
-
repeat h/h at noon
possible diet advancement today
Assessment/Plan
-
68-year-old female with PMH of RA (on Remicade and methotrexate, held preoperatively), HTN, history of C. difficile who presents for elective surgery for recurrent diverticulitis
POD 5 robotic sigmoidectomy, flexible sigmoidoscopy
1/6�developed coffee-ground emesis and hypotension, transferred to the ICU, requiring levo up to 10
1/6�EGD by GI showing multiple duodenal ulcers 1 large with recent bleed, requiring epi injection and APC
18- NGT removed
Afebrile, HR 102-116
WBC 11.1 from 9.1, Hb 9.3 from 10.2
� Upper GI bleed, multiple duodenal ulcers seen on EGD s/p local therapies
�Appreciate GI; continue PPI drip
�Serial CBC, hold all AC, transfuse as needed if Hb less than 7
� On clears. Will repeat h/h at noon. If stable, okay to advance to fulls.
� Continue pain control with Dilaudid as needed
� Hold DVT PPx
� Okay for OOB from surgical standpoint; encourage IS
� Appreciate hospitalist and promotions team leader
Subjective Data
Procedure
03/15/2024 Robotic sigmoid colectomy with intracorporeal anastomosis
Subjective Data
Date of Service: March 21, 2024
Patient states she still has some dark blood in her stools. She denies nausea or vomiting. She still has some abdominal pain and took medication for this earlier this morning. She is having flatus.
Objective Data
-
Vital Signs
Temp Pulse Resp BP Pulse Ox
98.4 F 105 34 113/63 95
03/21/24 08:26 03/21/24 08:00 03/21/24 08:00 03/21/24 08:00 03/21/24 08:00
Intake & Output
03/20/24 03/21/24 03/22/24
06:59 06:59 06:59
Intake Total 3734.5 / 3819.5 2124 270 / 270
Output Total 275 / 275
Balance 3459.5 / 3544.5 2124 270 / 270
Intake:
IV fluids (Total) 3119.5 / 3204.5 2124 270 / 270
Levophed 264.5 / 264.5
Lr 1,000 ml @ 80 mls/hr IV . 1680 / 1760 240 / 240
[id number] GUNNER Rx#:[id number]
Nss 1,000 ml @ 75 mls/hr IV . 2625 / 2700 225 / 225
[id number] GUNNER Rx#:[id number]
Protonix 230 / 240 220 / 230 30 / 30
IV piggybacks 305 / 305
Amount instilled into GI Tube ( 60 / 60
Total)
Delia Sump 60 / 60
Blood Product Amount Infused ( 250 / 250
mL)
Packed Rbc Leukoreduced Unit 250 / 250
[id number]
Output:
Urine, Voided 275 / 275
Other:
Number of approximated SMALL 1
amounts of urine
Number of approximated MODERATE 1 1 1
amounts of urine
Number of approximated LARGE 1 1
amounts of urine
Lab Results
03/21/24 05:29
Physical Exam
-
General: No Acute Distress and AOx3
Abdomen: Soft, Non Distended and Tender (mild)
Skin: Warm and Dry
Incision: Clear, Dry, Intact
[2024-03-21] MEDS: LR 1000 IV (10:05)
[2024-03-21 11:49] LABS: Hemoglobin 9.3 g/dL (12.0-16.0)
--- NOTE | 2024-03-21 21:01 | PTCARENOTE ---
Received patient AAOx3, following commands, pain at acceptable patient level. Normal sinus/sinus tach 90s-100s, BP stable, normothermic. +1 generalized anasarca, palpable radial and pedal pulses b/l. SCDs on. 96% on 2 liters, lung sounds diminished
throughout with crackles in the bases. Abdomen soft, round, obese, tender to palpation. Bruising throughout, hypoactive bowel sounds. Voids in bathroom. PICC patent, WNL. LR and protonix gtt ongoing per protocol. Call osorio within reach.
[2024-03-22] VITALS (31 sets, daily range): BP systolic 87–116; BP diastolic 43–81; BMI 33.1
[2024-03-22] MEDS: DILAUDID 0.5 MG IV ×4 (03:51→20:14)
[2024-03-22] MEDS: LR 1000 IV ×2 (04:23→19:10)
[2024-03-22 05:20] LABS: % Basophils 0.3 % (0-2); % Eosinophils 0.4 % (0-6); % Immature Granulocytes 0.9 % (0-0.5); % Lymphocytes 5.5 % (20.5-51.1); % Monocytes 7.2 % (1.7-9.3); % Neutrophils 85.7 % (42.2-75.2); Absolute Eosinophils 0.1 10^3/uL (0-0.7); Absolute Immature Granulocytes 0.1 10^3/uL (0-0.05); Absolute Lymphocytes 0.6 10^3/uL (1.2-3.4); Absolute Monocytes 0.8 10^3/uL (0.1-0.6); Absolute Neutrophils 9.8 10^3/uL (1.4-6.5); Hematocrit 31.5 % (37.0-47.0); Hemoglobin 10.1 g/dL (12.0-16.0); Mean Corp Hgb Conc. 32.1 g/dL (33.0-37.0); Mean Corpuscular Hgb 29.3 pg (27.0-31.0); Mean Corpuscular Volume 91.3 fL (81.0-99.0); Mean Platelet Volume 11.5 fL (7.4-10.4); Nucleated Red Blood Cells % 0 %; Platelet Count 195 10^3/uL (130-400); Red Blood Cell Count 3.45 10^6/uL (4.20-5.40); Red Cell Dist. Width 14.6 % (11.5-14.5); White Blood Cell Count 11.5 10^3/uL (4.8-10.8)
[2024-03-22] MEDS: PROTONIX 100 IV (05:26)
[2024-03-22 05:46] LABS: ALT (SGPT) 52 U/L (0-35); AST (SGOT) 63 U/L (14-36); Albumin 2.2 g/dl (3.5-5.0); Alkaline Phosphatase 191 U/L (38-126); Blood Urea Nitrogen 15 mg/dl (7-17); Calcium 7.7 mg/dl (8.4-10.2); Carbon Dioxide 25 mmol/L (22-30); Chloride 103 mmol/L (98-107); Estimated Creatinine Clearance 99 ml/min; Glucose 138 mg/dl (70-99); Potassium 3.9 mmol/L (3.5-5.1); Sodium 134 mmol/L (135-145); Total Bilirubin 3.5 mg/dl (0.2-1.3); Total Protein 4.4 g/dl (6.3-8.2); eGFR > 60.00
--- NOTE | 2024-03-22 08:52 | W.PN.HOSP.TC ---
Today's Communication/Plan
-
Stop IV fluids
Chest x-ray
Wean oxygen as able
PT/OT consult
Assessment / Plan
Assessment / Plan
Gen-AAOx3, NAD
HEENT-NC, AT, mildly jaundiced, clear oral mm, NG tube
Neck-supple
CV-reg, no M, +S1/S2
Lungs-clear B/L
Abd-soft, mild diffuse tenderness without guarding or rebound
Ext-no edema
Musculoskeletal-no cyanosis, clubbing
Skin-warm and dry, bruising on the right side of the abdomen
Neuro-grossly non-focal
Psych-calm, cooperative
Acute hypoxic respiratory insufficiency -still requiring 2 L nasal cannula oxygen. Chest x-ray pending. Stop IV fluids, weight is up.
Persistent sinus tachycardia -at this point it is concerning given persistence. Not on a beta-christophe at home. Not accounted for by pain as her pain is relatively controlled. Not accounted for by anemia or fever. Given oxygen requirement at 2 L
and rising weight, check two-view chest x-ray. Low threshold for pulmonary embolism evaluation. Pharmacologic DVT prophylaxis has been on hold due to GI bleed.
Discussed with nursing and colorectal surgery. Stop IV fluids. Weight is up 7 kg.
Acute GI bleed (hematemesis/rectal bleeding) -EGD done 03/19 showed LA grade B esophagitis with no bleeding, small hiatal hernia, nonobstructing oozing duodenal ulcers with a visible vessel. Treated with bipolar cautery. Injected. No specimens
collected. Continue IV Protonix per GI.
Tolerating low residue diet.
NSAID induced peptic ulcer disease. Avoid further NSAIDs in the future, discussed with patient.
Acute symptomatic blood loss anemia -due to acute GI bleed as above. Transfused 2 units of blood so far. Hemoglobin stable. Continue to monitor. Last recorded bowel movement was 03/19, burgundy.
Asymptomatic bacteriuria -urine culture noted. 50,000 colonies noted of E. coli. Urinalysis without significant pyuria. Hold off on antibiotics unless symptoms develop. Isolated fever of 100.7 �F on 03/19, afebrile since.
Jaundice/elevated LFTs -suspect due to acute ischemic hepatitis due to hypotension, shock. LFTs trending down. No evidence of hemolysis. Abdominal ultrasound unremarkable.
Hemorrhagic shock -requiring PRBC, pressors. Improved, off vasopressors. Lisinopril has been on hold. Shock resolved.
Hx of diverticular disease with recurrent history of diverticulitis s/p Robotic sigmoid resection 03/15/24.
- Colorectal following
- continue NPO/NGT given active GI bleeding
- with shock state and recent surgery; check procal and blood cultures
History of RA on Remicade and Methotrexate prior to admission. Last use of prednisone was 3 weeks ago with her last infusion of Remicade.
Essential HTN
- hold Lisinopril for low BP.
Pseudo-hypocalcemia -albumin 2.2, corrected calcium 9.3.
Hx of C. Diff
Hyperchloremic metabolic acidosis - from NSS infusion. Improved.
Obesity due to excess calories
DVT ppx: SCDs
Code: Full
Anticipated Discharge: > 48 hours
Subjective/Interval History
-
Date of Service: March 22, 2024
Patient seen and examined. Looks comfortable but complaining of 5 out of 10 abdominal pain. Denies shortness of breath.
Objective Data
-
Labs:
Laboratory Results
03/22/24
04:30
WBC 11.5 H
Hgb 10.1 L
Hct 31.5 L
Plt Count 195
Sodium 134 L
Potassium 3.9
Chloride 103
Carbon Dioxide 25
BUN 15
Creatinine 0.6
Glucose 138 H
Calcium 7.7 L
Total Bilirubin 3.5 H
AST 63 H
ALT 52 H
Alkaline Phosphatase 191 H
Vital Signs:
Vital Signs
Temp Pulse Resp BP Pulse Ox
99.8 F 116 25 101/65 95
03/22/24 08:51 03/22/24 04:00 03/22/24 04:00 03/22/24 04:00 03/22/24 04:00
I&O
03/21/24 03/22/24 03/23/24
06:59 06:59 06:59
Intake Total 5 / 2215 2400 / 2400
Balance 2124 / 221 2400 / 2400
Review of Systems
-
History Source: Patient
All other systems: Reviewed and negative
--- NOTE | 2024-03-22 10:54 | W.PN.GI.CBS2 ---
Today's Communication / Plan
-
Start low residue diet. d/c PPI gtt, start PPI BID x8 weeks. LFTs improving. Repeat labs 1 week after d/c. Outpatient GI f/u at [place] or , whichever patient prefers. GI will sign off, please call with questions.
Assessment / Plan
-
Pt is a 68yo with hx RA on Remicade and methotrexate, HTN, prior c-diff, diverticulitis with recurrent episodes, bowel resection x 2 in 1988, prior mahogany, appe, hysterectomy, with admission for elective robotic sigmoidectomy for recurrent
diverticulitis. She is noted post-op with hypotension requiring pressors and episode of coffee ground emesis. NGT was placed with continued coffee ground with maroon tinge and later noted with large bloody stool. Initial hbg was 13.1 on 1.4 with
drop to 11 with BUN 25. + NSAID use prior to admission. Stopped several weeks before surgery. Now she is s/p EGD with large cratered duodenal ulcer with visible vessel treated with bipolar cautery.
-NSAID ulcer
-symptomatic anemia
-hypotension requiring pressors
-s/p robotic sigmoid resection 03/15 for recurrent diverticular disease
other medical problems:
-RA on Remicade and Methotrexate prior to admission
-HTN
-hx c-diff
-hx bowel resection x 2 in 1988
-hx mahogany, appe, hysterectomy,
EGD 03/19/24-
Impression: - LA Grade B esophagitis with no bleeding.
- Small hiatal hernia.
- No gross lesions in the entire stomach.
- Non-obstructing oozing duodenal ulcers with a
visible vessel. Treated with bipolar cautery. Injected.
- No specimens collected.
PLAN:
Etiology of bleeding related to NSAID related ulcer
Hemoglobin did drop down with 1 episode of dark old bloody bowel movement on 03/20, no episodes since. She has remained hemodynamically stable
Okay to d/c PPI gtt and change to PPI BID
Advance to low residue diet
Suspect elevated LFTs are 2/2 hypotension, abdominal US w/ dopplers unremarkable; would have patient repeat labs with PCP 1 week after discharge, for hemoglobin and LFTs
Outpatient f/u with GI -- previously followed with [facility], if patient prefers to transition care to GI, will put contact information in d/c paperwork
GI will sign off, please call with questions
Subjective
Subjective
Date of Service: March 22, 2024
Patient seen in follow-up this morning. Reports feeling much better today, finally feels like herself again. No episodes of bleeding overnight. Hemoglobin 9.3 --> 10.1, BUN 15.
Objective
Data Reviewed
Laboratory Data:
Laboratory Results
03/22/24 04:30
03/22/24 04:30
Laboratory Results
PT 16.6 Sec (11.4-14.6) H 03/18/24 22:55
INR 1.32 03/18/24 22:55
APTT 25.3 Sec (23.4-35.0) 03/19/24 14:56
Phosphorus 2.2 mg/dl (2.5-4.5) L 03/19/24 14:56
Magnesium 1.6 mg/dl (1.6-2.3) 03/19/24 14:56
Total Bilirubin 3.5 mg/dl (0.2-1.3) H 03/22/24 04:30
AST 63 U/L (14-36) H 03/22/24 04:30
ALT 52 U/L (0-35) H 03/22/24 04:30
Alkaline Phosphatase 191 U/L (38-126) H 03/22/24 04:30
Vital Signs and I&O:
Vital Signs
Temp Pulse Resp BP Pulse Ox
99.8 F 116 19 104/70 96
03/22/24 08:51 03/22/24 10:00 03/22/24 10:00 03/22/24 10:00 03/22/24 10:00
I&O
03/21/24 03/22/24 03/23/24
06:59 06:59 06:59
Intake Total 2124 2400 / 2490 413 / 413
Output Total 0 / 0
Balance 2124 2400 / 2490 413 / 413
Physical Exam
Physical Exam
GI: Soft and Non Distended
--- NOTE | 2024-03-22 11:47 | PTCARENOTE ---
Patient off unit for chest xray.
--- NOTE | 2024-03-22 12:00 | W.PN.CRS1 ---
Today's Communication / Plan
-
chest xray
OOB
stop IVFs
Assessment/Plan
-
68-year-old female with PMH of RA (on Remicade and methotrexate, held preoperatively), HTN, history of C. difficile who presents for elective surgery for recurrent diverticulitis
POD 5 robotic sigmoidectomy, flexible sigmoidoscopy
1/6�developed coffee-ground emesis and hypotension, transferred to the ICU, requiring levo up to 10
1/6�EGD by GI showing multiple duodenal ulcers 1 large with recent bleed, requiring epi injection and APC
03/20- NGT removed
Afebrile, HR 104-116
WBC 11.5 (11.1) Hb 11.5 (9.3)
� Upper GI bleed, multiple duodenal ulcers seen on EGD s/p local therapies
�Appreciate GI; changed to PPI BID, signed off 03/22
�Serial CBC, hold all AC, transfuse as needed if Hb less than 7
�Continue on low residue.
� Continue pain control with Dilaudid as needed
� Hold DVT PPx. TEDS/SCDS in place.
� Okay for OOB from surgical standpoint; encourage IS
� Appreciate hospitalist and attendant lodging facilities
- D/C IVFs
- Chest xray pending
- OOB with PT/OT
Subjective Data
Procedure
03/15/2024 Robotic sigmoid colectomy with intracorporeal anastomosis
Subjective Data
Date of Service: March 22, 2024
Patient states she has some brown coffee ground bowel movements. Her pain is a 5/10. She denies nausea or vomiting.
Objective Data
-
Vital Signs
Temp Pulse Resp BP Pulse Ox
99.7 F 106 26 105/61 96
03/22/24 11:50 03/22/24 11:00 03/22/24 11:00 03/22/24 11:00 03/22/24 11:00
Intake & Output
03/21/24 03/22/24 03/23/24
06:59 06:59 06:59
Intake Total 2124 2400 / 2490 413 / 413
Output Total 0 / 0
Balance 2124 2400 / 2490 413 / 413
Intake:
Oral fluids 240 / 240 233 / 233
IV fluids (Total) 2124 2160 / 2249 180 / 180
Lr 1,000 ml @ 80 mls/hr IV . 1680 / 1760 1920 / 1999 160 / 160
[id number] GUNNER Rx#:[id number]
Nss 1,000 ml @ 75 mls/hr IV . 225 / 225
[id number] GUNNER Rx#:[id number]
Protonix 220 / 230 240 / 250 20 / 20
Output:
Urine, Voided 0 / 0
Other:
Number of approximated MODERATE 1 1 1
amounts of urine
Number of approximated LARGE 1
amounts of urine
Lab Results
03/22/24 04:30
03/22/24 04:30
Physical Exam
-
General: No Acute Distress and AOx3
Abdomen: Soft, Non Distended and Tender (mild lower quadrants)
Skin: Warm and Dry
Incision: Clear, Dry, Intact
--- NOTE | 2024-03-22 12:35 | PTCARENOTE ---
Rec'd care of patient at 0700. Patient alert and oriented. Initially, patient in good spirits. Requesting to get oob and wash up. Assisted to bathroom to void and perform hygiene. Once in chair, patient flat/withdrawn. Stating she 'overdid it'.
Vitals stable. ST with pvcs on tele monitor. HR 110-120's. +1 anasarca. Lung sounds shallow/diminished. Fine crackles in b/l base. BOYER. Tachypneic. Hospitalist at bedside. Instructed RN to stop IVFs. CXR ordered. Hypo BS. Abdomen tender. Lap sites
approximated, closed with surgical glue. Appetite poor. Patient uninterested in eating food. Ensure added to diet by colorectal surgery. Small liquid brown BM in bathroom with void. Right dual lumen PICC flushed and capped. Call osorio within reach.
--- NOTE | 2024-03-22 12:55 | PTCARENOTE ---
CT abdomen ordered.
[2024-03-22] MEDS: OMNIPAQUE 50 ML PO (13:35)
[2024-03-22] MEDS: PROTONIX 40 MG PO (13:35)
--- NOTE | 2024-03-22 13:35 | W.PN.UPDATE ---
Update Note
Progress Note Update
A chest x-ray was ordered earlier this morning due to an overall weight gain of 7 kg. I was notified by radiology of free air under the diaphragm on the x-ray. Given this, I have ordered a stat CT abdomen and pelvis with IV, p.o., and rectal
contrast. The patient was notified with all of the above as well as the hospitalist. Plans to follow post CT.
[2024-03-22] MEDS: ZOFRAN 4 MG IV (14:11)
--- NOTE | 2024-03-22 14:24 | PTCARENOTE ---
Patient unable to tolerate PO contrast. Zofran administered. Shelly Cornelius notified. Advised patient may proceed with scan without PO contrast. CT notified, awaiting availability for scan.
--- NOTE | 2024-03-22 15:07 | PTCARENOTE ---
Patient transported to ct scan.
--- NOTE | 2024-03-22 15:08 | CM ---
CM following re: discharge planning.
Discussed in Rounds, reviewed pt's chart, met with pt.
Pt is POD 5 robotic sigmoidectomy, flexible sigmoidoscopy, continue supportive care.
PT and OT will evaluate the pt to determine a level of care at discharge.
D/C plan: home with anticipated no needs.
CM will follow with discharge plan updates as hospitalization progresses
[2024-03-22] MEDS: ZOSYN 50 IV ×2 (15:52→22:05)
--- NOTE | 2024-03-22 19:21 | PTCARENOTE ---
Colorectal surgeon at bedside to discuss plan with patient. Repeat type and screen sent. IVFs reinitiated. Strict NPO. Emotional support provided.
[2024-03-22] MEDS: PROTONIX PO (19:23)
--- NOTE | 2024-03-22 22:17 | PTCARENOTE ---
Received patient AAOx3, following commands, complaining of abdominal pain, dilaudid given. Normal sinus/sinus tach 90s-100s, BP 90s-100s/50s, normothermic. +1 generalized anasarca, palpable radial and pedal pulses b/l. 97% on 2 liters, diminished
throughout, crackles in the bases. Abdomen soft, round, obese, tender to palpation. Laparoscopic sites approximated, surgical adhesive, ecchymosis throughout abdomen. Bathroom to void. PICC patent, WNL, LR ongoing per order. Call osorio within reach.
[2024-03-23] VITALS (29 sets, daily range): BP systolic 40–109; BP diastolic 44–68; BMI 33.1
[2024-03-23] MEDS: DILAUDID 0.5 MG IV ×4 (01:25→20:16)
[2024-03-23] MEDS: LR 1000 IV ×4 (01:25→23:48)
[2024-03-23] MEDS: ZOSYN 50 IV ×4 (04:36→22:17)
[2024-03-23 05:23] LABS: % Basophils 0.3 % (0-2); % Eosinophils 2.7 % (0-6); % Immature Granulocytes 0.8 % (0-0.5); % Lymphocytes 6.6 % (20.5-51.1); % Monocytes 8.4 % (1.7-9.3); % Neutrophils 81.2 % (42.2-75.2); Absolute Basophils 0.1 10^3/uL (0-0.2); Absolute Eosinophils 0.4 10^3/uL (0-0.7); Absolute Immature Granulocytes 0.1 10^3/uL (0-0.05); Absolute Monocytes 1.2 10^3/uL (0.1-0.6); Absolute Neutrophils 11.9 10^3/uL (1.4-6.5); Hematocrit 25.2 % (37.0-47.0); Hemoglobin 8.3 g/dL (12.0-16.0); Mean Corp Hgb Conc. 32.9 g/dL (33.0-37.0); Nucleated Red Blood Cells % 0 %; Platelet Count 171 10^3/uL (130-400); Red Blood Cell Count 2.77 10^6/uL (4.20-5.40); Red Cell Dist. Width 14.5 % (11.5-14.5); White Blood Cell Count 14.6 10^3/uL (4.8-10.8)
[2024-03-23 05:36] LABS: ALT (SGPT) 32 U/L (0-35); AST (SGOT) 26 U/L (14-36); Albumin 1.7 g/dl (3.5-5.0); Alkaline Phosphatase 126 U/L (38-126); Blood Urea Nitrogen 15 mg/dl (7-17); Calcium 7.3 mg/dl (8.4-10.2); Carbon Dioxide 25 mmol/L (22-30); Chloride 103 mmol/L (98-107); Estimated Creatinine Clearance 99 ml/min; Glucose 73 mg/dl (70-99); Sodium 133 mmol/L (135-145); Total Bilirubin 2.5 mg/dl (0.2-1.3); Total Protein 3.7 g/dl (6.3-8.2); eGFR > 60.00
[2024-03-23] MEDS: ZOFRAN 4 MG IV ×2 (06:06→15:26)
--- NOTE | 2024-03-23 07:28 | W.PN.HOSP.TC ---
Today's Communication/Plan
-
N.p.o. awaiting surgery
Bladder scan
Continue antibiotics
Monitor bowel movements, hemoglobin
Assessment / Plan
Assessment / Plan
Gen-AAOx3, NAD
HEENT-NC, AT, mildly jaundiced, clear oral mm, NG tube
Neck-supple
CV-reg, no M, +S1/S2
Lungs-clear B/L
Abd-soft, mild diffuse tenderness without guarding or rebound
Ext-no edema
Musculoskeletal-no cyanosis, clubbing
Skin-warm and dry, bruising on the right side of the abdomen
Neuro-grossly non-focal
Psych-calm, cooperative
Acute hypoxic respiratory insufficiency -still requiring 2 L nasal cannula oxygen. Wean down as able. Chest x-ray yesterday demonstrates free air under the right hemidiaphragm, small amount of free air under the left hemidiaphragm. This is due
to anastomotic leak.
Postoperative anastomotic leak -noted on CT abdomen. N.p.o., awaiting surgical intervention. Colorectal surgery following closely. Hemodynamically stable. Empiric IV Zosyn, focal collections of fluid noted in the pelvis, cannot rule out
superimposed infection. Small right pleural effusion, atelectasis. 03/19 blood cultures negative.
Relative hypotension noted but not requiring vasopressors. Continue IV fluids. Urine output not recorded for the past 2 days, check bladder scan, discussed with nursing.
Weight is up 7 kg since March 18.
Hx of diverticular disease with recurrent history of diverticulitis - s/p Robotic sigmoid colectomy with intracorporeal anastomosis, 03/15/2024.
Persistent sinus tachycardia -secondary to anastomotic leak as above, critical illness.
Acute GI bleed (hematemesis/rectal bleeding) -EGD done 03/19 showed LA grade B esophagitis with no bleeding, small hiatal hernia, nonobstructing oozing duodenal ulcers with a visible vessel. Treated with bipolar cautery. Injected. No specimens
collected.
Tolerating low residue diet.
NSAID induced peptic ulcer disease. Avoid further NSAIDs in the future, discussed with patient.
IV Protonix twice daily.
Acute symptomatic blood loss anemia -due to acute GI bleed as above. Transfused 2 units of blood so far. Hemoglobin down to 8.3 this morning. Continue to monitor. Bowel movements are brown/burgundy.
Asymptomatic bacteriuria -urine culture noted. 50,000 colonies noted of E. coli. Urinalysis without significant pyuria. Hold off on antibiotics unless symptoms develop. Isolated fever of 100.7 �F on 03/19, afebrile since.
Jaundice/elevated LFTs -suspect due to acute ischemic hepatitis due to hypotension, shock. LFTs trending down. No evidence of hemolysis. Abdominal ultrasound unremarkable.
Hemorrhagic shock -requiring PRBC, pressors. Improved, off vasopressors. Lisinopril has been on hold. Shock resolved.
Hyponatremia -133. Most likely due to SIADH due to critical illness, abdominal pain, hypotension, etc. Monitor for now.
History of RA on Remicade and Methotrexate prior to admission. Last use of prednisone was 3 weeks ago with her last infusion of Remicade.
Essential HTN
- hold Lisinopril for low BP.
Pseudo-hypocalcemia -albumin 2.2, corrected calcium 9.3.
Hx of C. Diff
Hyperchloremic metabolic acidosis - from NSS infusion. Improved.
Obesity due to excess calories
DVT ppx: SCDs
Code: Full
Anticipated Discharge: > 48 hours
Subjective/Interval History
-
Date of Service: March 23, 2024
Patient seen and examined. Complaining of mild increase in abdominal pain and pressure since yesterday. Denies shortness of breath. Denies urinary symptoms.
Objective Data
-
Labs:
Laboratory Results
03/23/24
04:42
WBC 14.6 H
Hgb 8.3 L
Hct 25.2 L
Plt Count 171
Sodium 133 L
Potassium 4.0
Chloride 103
Carbon Dioxide 25
BUN 15
Creatinine 0.6
Glucose 73
Calcium 7.3 L
Total Bilirubin 2.5 H
AST 26
ALT 32
Alkaline Phosphatase 126
Vital Signs:
Vital Signs
Temp Pulse Resp BP Pulse Ox
99.5 F 96 27 103/55 97
03/23/24 07:00 03/23/24 06:03 03/23/24 06:03 03/23/24 06:03 03/23/24 06:00
I&O
03/22/24 03/23/24 03/24/24
06:59 06:59 06:59
Intake Total 2400 / 2490 1763 / 1763
Output Total 0 / 0
Balance 2400 / 2490 1763 / 1763
Review of Systems
-
History Source: Patient
All other systems: Reviewed and negative
[2024-03-23] MEDS: NSS (PRESERVATIVE FREE) 10 ML IV ×2 (08:01→19:53)
[2024-03-23] MEDS: PROTONIX IV 40 MG IV ×2 (08:01→19:53)
--- NOTE | 2024-03-23 10:27 | PTCARENOTE ---
Assumed care of patient at 0700. Patient alert and oriented. Flat affect. NSR/ST with pvcs, rate in the 90-100's. Trace anasarca. Palpable pulses. Pulse ox 97-98% on 2L nc. Pulse ox down to 89% on RA. Lung sounds shallow/diminished throughout.
Scattered crackles in b/l base. Abdomen soft/tender/distended. Hypo BS. Last BM yesterday. NPO for OR. Voiding in bathroom. No void this shift. Bladder scanned per request of Hospitalist- 113 mL's. No urge to void. IVFs infusing through RDL PICC as
ordered. Call osorio within reach.
--- NOTE | 2024-03-23 11:30 | PTCARENOTE ---
Patient transported to PACU. Assisted to bathroom to void prior to transport. VSS.
[2024-03-23 13:22] LABS: Glucose - Point of Care 78 mg/dl (70-99)
[2024-03-23 13:31] LABS: B.E. - POC -1.8 mmol/L; Glucose - POC 83 mg/dl (70-99); HCO3 - POC 24 mmol/L (21-28); Hematocrit - POC 31 % PCV (37-47); Hemodilution- POC No; Hemoglobin Calculated - POC 10.4; Ionized Calcium - POC 1.07 mmol/L (1.15-1.33); Lactate - POC 1.34 mmol/L (0.36-0.75); O2 Saturation %Calculated-POC 99.6 % (94-98); PCO2 - POC 42 mmHg (35-48); PO2 - POC 187 mmHg (83-108); Potassium - POC 3.8 mmol/L (3.5-5.1); Sodium - POC 137 mmol/L (136-145); Specimen Type - POC Arterial; pH - POC 7.36 (7.35-7.45)
--- NOTE | 2024-03-23 15:18 | W.IMMPOSTOP ---
Surgical Immed Post Op Note
-
Primary Surgeon: Faustino Espinoza MD
Assisting Surgeon: Luis Gil MD
Jack Spooler Tender: JEANINE Caraballo
Pre-op Diagnosis: Anastomotic leak
Post-op Diagnosis: Same
Procedure Performed: Laparotomy, repair of anastomotic leak, flexible sigmoidoscopy and diverting loop ileostomy
Anesthesia Type: GET
Specimen / Cultures: Peritoneal cultures
Estimated Blood Loss: 75cc
Complications: None
Operative Findings: Small anastomotic leak at the right posterior aspect of the colorectal anastomosis
Mild peritoneal contamination
NGT in the fundus of the stomach
#19 Ian drain in the pelvis
Patient's son, Dario cochran.
[2024-03-23 15:29] LABS: Glucose - Point of Care 76 mg/dl (70-99)
[2024-03-23] MEDS: COMPAZINE 5 MG IV (15:51)
[2024-03-23 15:59] LABS: Hematocrit 38.4 % (37.0-47.0); Hemoglobin 12.7 g/dL (12.0-16.0); Mean Corp Hgb Conc. 33.1 g/dL (33.0-37.0); Mean Corpuscular Hgb 30.1 pg (27.0-31.0); Mean Platelet Volume 11.2 fL (7.4-10.4); Platelet Count 183 10^3/uL (130-400); Red Blood Cell Count 4.22 10^6/uL (4.20-5.40); Red Cell Dist. Width 14.5 % (11.5-14.5); White Blood Cell Count 17.1 10^3/uL (4.8-10.8)
[2024-03-23 16:13] LABS: Blood Urea Nitrogen 18 mg/dl (7-17); Calcium 7.9 mg/dl (8.4-10.2); Carbon Dioxide 21 mmol/L (22-30); Chloride 101 mmol/L (98-107); Estimated Creatinine Clearance 85 ml/min; Glucose 87 mg/dl (70-99); Sodium 133 mmol/L (135-145); eGFR > 60.00
--- NOTE | 2024-03-23 16:53 | PTCARENOTE ---
Rec'd patient from PACU at 1630. Patient drowsy, arousable to verbal stimuli. ST with pvcs on tele. Rate in the 100's. Pulse ox 98% on 6L simple mask. NGT placed to continuous suction, 80 mmHg as ordered. Scant green output. Abdomen distended,
tender. Ileostomy red, budded. MERT emptied of 70 cc's of sanguineous output. Leal in place to be removed POD#2. Small amount of yellow urine in bag. IVFs infusing through right dual lumen PICC. Vitals stable. BP borderline. Left radial saeed left in
place, zeroed and transduced. Patient upgraded to ICU level. Levophed not initiated at this time.
--- NOTE | 2024-03-23 20:26 | PTCARENOTE ---
Received pt resting in bed, AAOx3, complaining of abdominal pain. Dilaudid just given by viki MIRANDA at 1905. Pain remains uncontrolled now 09/19 severity - STERNMAN notified. Extra 0.5mg dilaudid ordered and administered. Dose changed to 1mg Q3hrs. Will
monitor for effectiveness. HARKINS but weak. ST with PVCs on tele, HR low 100s. L radial A line in place- transduced and zeroed. Correlates with L UA cuff. BP dipped to 80s/50s, MAP 60. Urine output also poor - ~25ml/hr. STERNMAN notified - 1 L LR bolus
ordered and infusing. On 2L NC, spo2 97%. Lungs diminished with poor effort. Hypoactive bowel sounds x4. Midline abd incision with aquacell dsg intact. Ileostomy with small amt output. R abd MERT drain with serosang output. L nare NG tube to
continuous suction at 80mmhg per orders. Green output. Flushed per orders. Leal with yellow/kb output. R DL PICC with LR. Monitoring
--- NOTE | 2024-03-23 23:48 | PTCARENOTE ---
BP improved since LR bolus, 110s/60s via A line. Urine output unchanged, ~25ml/hr. JUICE SCALEMAN notified. Another 1L LR bolus ordered. Pain more controlled since extra dose of dilaudid. Pt. resting when left alone.
[2024-03-24] VITALS (11 sets, daily range): BP systolic 88–121; BP diastolic 50–76; PULSE 98; O2SAT 94; BMI 34.3
[2024-03-24] MEDS: DILAUDID 1 MG IV ×5 (01:31→19:49)
[2024-03-24] MEDS: ZOFRAN 4 MG IV ×2 (01:31→07:56)
--- NOTE | 2024-03-24 02:56 | PTCARENOTE ---
~0130, pt c/o increasing pain and nausea. NG tube output unchanged with continuous suction. PRN dilaudid and zofran given. [employer] notified - benadryl ordered if nausea not improved from zofran. After a few minutes, pt reported improvement so benadryl
not given. Now, pt. reports much improvement and pain down to 4/10. Encouraged her to rest.
[2024-03-24] MEDS: ZOSYN 50 IV ×4 (04:09→21:22)
[2024-03-24] MEDS: LR 1000 IV ×2 (04:46→14:59)
[2024-03-24 04:52] LABS: % Basophils 0.3 % (0-2); % Eosinophils 0.1 % (0-6); % Immature Granulocytes 0.9 % (0-0.5); % Lymphocytes 3.8 % (20.5-51.1); % Monocytes 4.6 % (1.7-9.3); % Neutrophils 90.3 % (42.2-75.2); Absolute Basophils 0.1 10^3/uL (0-0.2); Absolute Immature Granulocytes 0.2 10^3/uL (0-0.05); Absolute Lymphocytes 0.7 10^3/uL (1.2-3.4); Absolute Monocytes 0.9 10^3/uL (0.1-0.6); Absolute Neutrophils 17.4 10^3/uL (1.4-6.5); Hematocrit 31.7 % (37.0-47.0); Mean Corp Hgb Conc. 34.7 g/dL (33.0-37.0); Mean Corpuscular Hgb 30.6 pg (27.0-31.0); Mean Corpuscular Volume 88.3 fL (81.0-99.0); Mean Platelet Volume 12.1 fL (7.4-10.4); Nucleated Red Blood Cells % 0 %; Platelet Count 179 10^3/uL (130-400); Red Blood Cell Count 3.59 10^6/uL (4.20-5.40); Red Cell Dist. Width 14.7 % (11.5-14.5); White Blood Cell Count 19.3 10^3/uL (4.8-10.8)
[2024-03-24 05:09] LABS: ALT (SGPT) 20 U/L (0-35); AST (SGOT) 18 U/L (14-36); Albumin 1.6 g/dl (3.5-5.0); Alkaline Phosphatase 94 U/L (38-126); Blood Urea Nitrogen 19 mg/dl (7-17); Calcium 7.5 mg/dl (8.4-10.2); Carbon Dioxide 22 mmol/L (22-30); Chloride 102 mmol/L (98-107); Estimated Creatinine Clearance 85 ml/min; Glucose 101 mg/dl (70-99); Potassium 3.9 mmol/L (3.5-5.1); Sodium 135 mmol/L (135-145); Total Bilirubin 2.5 mg/dl (0.2-1.3); Total Protein 3.4 g/dl (6.3-8.2); eGFR > 60.00
--- NOTE | 2024-03-24 07:24 | W.PN.INTV ---
Today's Communication / Plan
Recommendations
Transfer back for postop course 03/23
Currently off pressors, stable
Significant output noted from NGT, continue to monitor
Resume TPN per CRS
Continue rehab
She feels depressed, may need psych eval if worsening
Assessment
-
Patient is a 68-year-old female with previous history of rheumatoid arthritis on methotrexate/infliximab, bowel resection x 2 presenting to for elective robotic resection of sigmoid diverticulitis. Underwent procedure on 03/15/2024, which was
uncomplicated. Overnight on 03/18/2024 developed 2x episode of coffee-ground emesis about 100 mL. Blood pressure was notably 74/44, rapid response was called on the floor. Patient was placed on IV fluids and pressors and transferred to ICU. GI was
consulted, for possible EGD today.
Anastomotic leak s/p ex-laparotomy with repair of leak, flex sig and diverting loop ileostomy on 03/23/2024
Shock, septic versus hemorrhagic initially on pressors/postoperatively, weaned to off
Episode of vomiting x 2, coffee ground emesis with suspicion for upper GI bleed
Sigmoid diverticulitis status post robotic resection, uncomplicated 03/15/2024
Acute blood loss anemia, hemoglobin 13.1 now 11.0
Metabolic acidosis
Hypocalcemia
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
Rheumatoid arthritis on chronic immunosuppressive's
Recurrent sigmoid diverticulitis
History of 2 bowel surgeries/ blockages-[facility] 1988
C sections x2
Appendectomy
Cholecystectomy
Hypertension
History of C. difficile infection
Former smoker
Obesity BMI 30.5
Plan
No current signs of metabolic encephalopathy or MS changes/following commands
Denies pain at this time.
Pain/sedation: PRN
RASS goals: 0
Hemodynamically stable, off pressors.
Cardiac history reviewed--HTN
ECHO reviewed 03/20 and stable, preserved EF
Volume overload noted, diuresis as tolerated
Follow daily weights
Monitor on telemetry
Oxygen needs: on o2, wean as tolerated
Prior history of lung disease: none
Supplemental O2 as indicated to maintain sats > 89%
CXR/CT reviewed indicating NAD
Repeat CXR showing free air
CRS following postop 03/23/24 for anastomotic repair, sig divertic resection 03/15/24
NPO, NPT in place--TPN
PPI on board
GI following
Aspiration precautions, HOB > 30 degrees
Follow H&H
Creat at baseline, no history of renal disease
Void trials
Follow urine output, critical I/Os
Replete electrolytes as needed
No signs/symptoms suspicious for infectious etiology at this time
Observe off antibiotics for now
Follow fever trend, WBC count
Lactate negative
CBC stable, no signs of bleeding or coagulopathy.
DVT prophylaxis as assessed based on risk, including mechanical SCDs
Can transfuse if indicated for Hb <7, plt < 10
No prior h/o diabetes or thyroid disease
Monitor accuchecks PRN/SS coverage if needed
RA history, hold home meds for now, prednisone if needed
Diagnostic Data
Chest X-Ray: 03/18/24- low lung volumes, no overt consolidation
CXR 03/22/24- Large amount of free air underneath the right hemidiaphragm, with small amount of free air under the left hemidiaphragm. See above discussion and please correlate with any symptoms that might suggest anastomotic leak or new perforated
viscus. Mild gaseous distention of bowel loops within the upper abdomen.
CT Scan: AP 03/22/24- Status post sigmoid resection and anastomosis. As described, CT findings compatible with anastomotic leak. Free intraperitoneal air. Focal collections within the pelvis. Superimposed infection of these collections cannot be
excluded. Moderate elevation right hemidiaphragm. Small right pleural effusion. Atelectasis in the lower lungs, right greater than left.
Echo: 03/20/24- LV ejection fraction is 65-70%. No regional wall motion abnormalities are seen. Normal right ventricular size and function. Trace tricuspid regurgitation. Estimated pulmonary artery pressure of 30-35 mmHg. No prior study available
for comparison.
PFT's:
Reports and relevant images were personally reviewed.
-----
Critical care time 41 mins -- this includes review of history, physical exam, medications, hemodynamic/ventilator parameters, laboratory data, imaging and discussion with house staff, pharmacy, respiratory therapy, equipment maint tech, and nursing.
Subjective Dataa
Subjective Data
Date of Service:
Date of Service: March 24, 2024
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
Subjective:
Asked to re-eval as patient returned to OR 03/23/24 and transferred back to ICU
Incidentally noted to have free air under diaphragm on routine chest x-ray. Stat CT abdomen pelvis demonstrating possible anastomotic leak
Underwent laparotomy with repair of leak with flex sig and diverting loop ileostomy on 03/23/2024
Not on pressors
Depressed
Objective Data
Data Reviewed
Vital Signs / I&O / Oxygen:
Vital Signs
Temp Pulse Resp BP Pulse Ox
97.7 F 94 19 94/50 96
03/24/24 03:31 03/24/24 06:00 03/24/24 06:00 03/24/24 04:00 03/24/24 06:00
Intake and Output
03/23/24 03/24/24 03/25/24
06:59 06:59 06:59
Intake Total 1762 3990 / 3990
Output Total 0 / 0 1050 / 1050
Balance 1762 2940 / 2940
SaO2 96
Nasal Cannula flow liters per 2
minute
Physical Exam
General: Comfortable and Other (NAD)
HEENT: Normocephalic, Anicteric and Moist Mucous Membranes
Cardiovascular: S1-S2 and Regular Rhythm
Respiratory: Clear and Non-Labored Respirations
GI: Soft, Non Distended, Non Tender, NG Tube and Other (Incisions, ostomy present)
Neurology: Awake, Alert, Oriented and No Motor Deficits
Skin: Warm, Dry and Good Color
Labs/Micro/Reports
Lab Data
03/24/24 04:13
03/24/24 04:13
Microbiology
03/19/24 00:24 Blood/Venous Blood Culture - Final
No Growth - Final Report
03/19/24 14:56 Blood/Venous Blood Culture - Preliminary
No Growth in 4 days- Final report to follow
03/19/24 20:30 Urine Urine Culture - Final
Escherichia coli
[2024-03-24] MEDS: NSS (PRESERVATIVE FREE) 10 ML IV ×2 (07:55→19:19)
[2024-03-24] MEDS: PROTONIX IV 40 MG IV ×2 (07:56→19:19)
--- NOTE | 2024-03-24 08:02 | W.PN.HOSP.TC ---
Today's Communication/Plan
-
Continue current care
Assessment / Plan
Assessment / Plan
Gen-AAOx3, NAD
HEENT-NC, AT, mildly jaundiced, clear oral mm, NG tube
Neck-supple
CV-reg, no M, +S1/S2
Lungs-clear B/L
Abd-soft, mild diffuse tenderness without guarding or rebound
Ext-no edema
Musculoskeletal-no cyanosis, clubbing
Skin-warm and dry, bruising on the right side of the abdomen
Neuro-grossly non-focal
Psych-calm, cooperative
Acute hypoxic respiratory insufficiency -still requiring 2 L nasal cannula oxygen. Wean down as able.
Sepsis due to postoperative anastomotic leak -noted on CT abdomen. Stable postop, laparoscopic anastomotic leak repair, flex sig with diverting loop ileostomy 03/23. Currently NPO. Continue IV Zosyn. Leukocytosis noted. Afebrile. Relatively
hypotensive but not requiring vasopressors currently.
Hx of diverticular disease with recurrent history of diverticulitis - s/p Robotic sigmoid colectomy with intracorporeal anastomosis, 03/15/2024.
Persistent sinus tachycardia -secondary to anastomotic leak as above, critical illness.
Acute GI bleed (hematemesis/rectal bleeding) -EGD done 03/19 showed LA grade B esophagitis with no bleeding, small hiatal hernia, nonobstructing oozing duodenal ulcers with a visible vessel. Treated with bipolar cautery. Injected. No specimens
collected.
Tolerating low residue diet.
NSAID induced peptic ulcer disease. Avoid further NSAIDs in the future, discussed with patient.
IV Protonix twice daily.
Acute symptomatic blood loss anemia -due to acute GI bleed as above. Transfused 4 units of blood so far. Hemoglobin 11.0 today. Transfused yesterday.
Asymptomatic bacteriuria -urine culture noted. 50,000 colonies noted of E. coli. Urinalysis without significant pyuria.
Jaundice/elevated LFTs -suspect due to acute ischemic hepatitis due to hypotension, shock. LFTs trending down. No evidence of hemolysis. Abdominal ultrasound unremarkable.
Hemorrhagic shock -requiring PRBC, pressors earlier during hospitalization. Currently off pressors.
Hyponatremia - improved.
History of RA on Remicade and Methotrexate prior to admission. Last use of prednisone was 3 weeks ago with her last infusion of Remicade.
Essential HTN
- hold Lisinopril for low BP.
Pseudo-hypocalcemia -albumin 1.6, corrected calcium 9.6.
Hx of C. Diff
Hyperchloremic metabolic acidosis - from NSS infusion. Improved.
Obesity due to excess calories
DVT ppx: SCDs
Code: Full
Anticipated Discharge: > 48 hours
Subjective/Interval History
-
Date of Service: March 24, 2024
Patient seen and examined. Complaining of abdominal discomfort.
Objective Data
-
Labs:
Laboratory Results
03/24/24
04:13
WBC 19.3 H
Hgb 11.0 L
Hct 31.7 L
Plt Count 179
Sodium 135
Potassium 3.9
Chloride 102
Carbon Dioxide 22
BUN 19 H
Creatinine 0.7
Glucose 101 H
Calcium 7.5 L
Total Bilirubin 2.5 H
AST 18
ALT 20
Alkaline Phosphatase 94
Vital Signs:
Vital Signs
Temp Pulse Resp BP Pulse Ox
97.8 F 93 20 94/50 94
03/24/24 07:00 03/24/24 07:00 03/24/24 07:00 03/24/24 04:00 03/24/24 07:56
I&O
03/23/24 03/24/24 03/25/24
06:59 06:59 06:59
Intake Total 1762 3990 / 3990
Output Total 0 / 0 1050 / 1050
Balance 1762 2940 / 2940
Review of Systems
-
History Source: Patient
All other systems: Reviewed and negative
--- NOTE | 2024-03-24 09:00 | PTCARENOTE ---
Rec'd care of patient at 0700. Patient alert and oriented. Tearful; emotional support provided. NSR/ST with pvcs on tele. Rate in the 90-100's. +2 anasarca. Pulse ox 94% on 2L nc. Lung sounds shallow/diminished. Hypo BS. Abdomen distended, tender.
Ileostomy stoma red and budded. Scant serosanguineous drainage. NGT to continuous suction. MERT drain output serosanguineous. Dressing intact. Midline incision with aquacell dressing; old drainage. Leal in place. Output 25 cc/hr, kb. IVFs infusing
through dual lumen PICC. Possible initiation of TPN tomorrow. Patient encouraged to increase activity. Repositioned to chair position.
--- NOTE | 2024-03-24 09:52 | W.PN.CRS1 ---
Today's Communication / Plan
-
continue NGT
possible TPN tomorrow
monitor in ICU today; IVF bolus prn
PT reconsulted
continue PPI
wound care/ostomy consult
Assessment/Plan
-
68-year-old female with PMH of RA (on Remicade and methotrexate, held preoperatively), HTN, history of C. difficile who presents for elective surgery for recurrent diverticulitis
POD 9 robotic sigmoidectomy, flexible sigmoidoscopy
POD 1 laparotomy, repair of anastomotic leak and diverting loop ileostomy
1/6�developed coffee-ground emesis and hypotension, transferred to the ICU, requiring levo up to 10
16�EGD by GI showing multiple duodenal ulcers 1 large with recent bleed, requiring epi injection and APC
03/20- NGT removed
Afebrile, HR 104-116
WBC 19.3 Hb 11.0 (2 units PRBC in OR for Hgb 8.3)
� Upper GI bleed, multiple duodenal ulcers seen on EGD s/p local therapies
�Appreciate GI; changed to PPI BID, signed off 03/22
�No evidence of active bleeding. Hold all AC for now
�Continue NGT..
� Continue pain control with Dilaudid as needed
� Hold DVT PPx. TEDS/SCDS in place.
� Okay for OOB from surgical standpoint; PT reconsulted; encourage IS
� Appreciate hospitalist and r programmer
- Consider TPN tomorrow
Subjective Data
Procedure
03/15/2024 Robotic sigmoid colectomy with intracorporeal anastomosis
03/23/2024 Exploratory laparotomy, repair of anastomotic leak and diverting loop ileostomy
Subjective Data
Date of Service: March 24, 2024
Her pain is managed with IV Dilaudid.
Her BP is slightly low as well as her urine output. Currently not on pressors.
Objective Data
-
Vital Signs
Temp Pulse Resp BP Pulse Ox
97.8 F 98 26 94/50 96
03/24/24 07:00 03/24/24 09:15 03/24/24 09:15 03/24/24 04:00 03/24/24 09:15
Intake & Output
03/23/24 03/24/24 03/25/24
06:59 06:59 06:59
Intake Total 1763 / 1863 3990 / 4090 300 / 300
Output Total 0 / 0 1050 / 1075 125 / 125
Balance 1763 / 1863 2940 / 3015 175 / 175
Intake:
Oral fluids 233 / 233 0 / 0
IV fluids (Total) 1380 / 1480 3800 / 3900 300 / 300
Lr 1,000 ml @ 100 mls/hr IV . 1200 / 1300 3700 / 3800 300 / 300
Q10H GUNNER Rx#:[id number]
Lr 1,000 ml @ 80 mls/hr IV . 160 / 160
[id number] GUNNER Rx#:[id number]
Protonix 20 / 20
normosol 100 / 100
IV piggybacks 150 / 150 100 / 100
Amount instilled into GI Tube ( 90 / 90
Total)
Luna Sump 90 / 90
Output:
Liquid stool amount 50 / 50
Ileostomy 50 / 50
Drain Output (Total) 490 / 490 50 / 50
Abdomen Kulwant-Hernandez 490 / 490 50 / 50
Gastrointestinal tube output ( 150 / 150
Total)
Luna Sump 150 / 150
Urine, Leal 360 / 385 75 / 75
Urine, Voided 0 / 0
Other:
Number of approximated MODERATE 1
amounts of urine
Number of approximated LARGE 1 1
amounts of urine
Lab Results
03/24/24 04:13
03/24/24 04:13
Physical Exam
-
General: No Acute Distress
Abdomen: Soft, Non Distended, Tender (incisional; the ostomy is viable and passing flatus) and Other (MERT output is ss; ileostomy is viable and there is flatus)
Extremities: No Calf Tenderness
Wound: Dressing in Place and Dressing Dry (small strikethrough (as expected with ean in place))
--- NOTE | 2024-03-24 13:16 | PTCARENOTE ---
Minor changes in assessment. Patient in better spirits. Tolerating sips of clears. Increase in flatus through stoma. VSS. No other changes.
--- NOTE | 2024-03-24 16:11 | PTCARENOTE ---
No major changes in assessment. Patient resting comfortably. Pain managed with Dilaudid (see MAR). NSR with pvcs on tele. BP 90-110's/50's. Afebrile. Urine output remains 25-30 cc/hr.
--- NOTE | 2024-03-24 17:56 | PTCARENOTE ---
A-line blood pressures reading 80-90/50. MAP<65. Correlating with bp cuff. Academic Director notified. RN advised to initiate Levophed gtt.
[2024-03-24] MEDS: LEVOPHED 250 IV (18:25)
--- NOTE | 2024-03-24 20:11 | PTCARENOTE ---
Received pt from previous RN. Pt is AAOx3. NSR w/ PVCs on the monitor, +2 general edema. On 2L NC O2 sat 96%, lungs diminished/crackles. R ileostomy. L NGT to continuos suction. Leal in place, hygiene provided. R MERT drain dressing c/d/i, midline
incision intact. LR infusing @ 100 ml/hr. Levo gtt @ 2 mcgs/min (goal MAP >65). CHG bath and mouth care provided. Call osorio in reach. Safe environment maintained.
[2024-03-24] MEDS: ALBUMIN 5% 250 IV ×2 (21:20→22:33)
[2024-03-25] VITALS (29 sets, daily range): BP systolic 81–112; BP diastolic 47–78; PULSE 90–91; O2SAT 95; BMI 35.1
--- NOTE | 2024-03-25 00:40 | PTCARENOTE ---
Albumin on morning labs were 1.6, albumin x2 bags given (see MAR). Left radial a-line zeroed and transduced. Systems reviewed, no new changes in assessment. Safe environment maintained.
[2024-03-25] MEDS: DILAUDID 1 MG IV ×5 (01:53→20:29)
[2024-03-25] MEDS: LR 1000 IV ×2 (02:47→13:55)
[2024-03-25] MEDS: ZOSYN 50 IV ×4 (03:46→22:20)
--- NOTE | 2024-03-25 04:10 | PTCARENOTE ---
Levo gtt turned off @ 0145, levo gtt restarted @ 0405 for a MAP of 60. AM labs sent. Systems reviewed. Call osorio in reach.
[2024-03-25 04:29] LABS: % Basophils 0.1 % (0-2); % Monocytes 7.3 % (1.7-9.3); % Neutrophils 82.6 % (42.2-75.2); Absolute Eosinophils 0.1 10^3/uL (0-0.7); Absolute Immature Granulocytes 0.2 10^3/uL (0-0.05); Absolute Lymphocytes 1.2 10^3/uL (1.2-3.4); Absolute Monocytes 1.1 10^3/uL (0.1-0.6); Absolute Neutrophils 12.1 10^3/uL (1.4-6.5); Hematocrit 24.7 % (37.0-47.0); Hemoglobin 8.2 g/dL (12.0-16.0); Mean Corp Hgb Conc. 33.2 g/dL (33.0-37.0); Mean Corpuscular Hgb 29.6 pg (27.0-31.0); Mean Corpuscular Volume 89.2 fL (81.0-99.0); Mean Platelet Volume 11.3 fL (7.4-10.4); Nucleated Red Blood Cells % 0 %; Platelet Count 190 10^3/uL (130-400); Red Blood Cell Count 2.77 10^6/uL (4.20-5.40); Red Cell Dist. Width 14.7 % (11.5-14.5); White Blood Cell Count 14.7 10^3/uL (4.8-10.8)
[2024-03-25 04:50] LABS: ALT (SGPT) 16 U/L (0-35); AST (SGOT) 21 U/L (14-36); Alkaline Phosphatase 81 U/L (38-126); Blood Urea Nitrogen 20 mg/dl (7-17); Calcium 7.1 mg/dl (8.4-10.2); Carbon Dioxide 30 mmol/L (22-30); Chloride 102 mmol/L (98-107); Estimated Creatinine Clearance 87 ml/min; Glucose 96 mg/dl (70-99); Magnesium 2.2 mg/dl (1.6-2.3); Phosphorus 2.8 mg/dl (2.5-4.5); Potassium 3.9 mmol/L (3.5-5.1); Sodium 136 mmol/L (135-145); Total Bilirubin 1.4 mg/dl (0.2-1.3); Total Protein 3.7 g/dl (6.3-8.2); Triglycerides 134 mg/dl (10-149); eGFR > 60.00
[2024-03-25] MEDS: CALCIUM GLUCONATE 100 IV (06:11)
--- NOTE | 2024-03-25 07:42 | W.PN.INTV ---
Today's Communication / Plan
Recommendations
Wean oxygen
Increase activity
Wean norepinephrine
Antibiotics continue
TPN
If able to be weaned off pressors then transfer out of ICU-call pulmonary if respiratory issues arise
Assessment
-
68-year-old female with previous history of rheumatoid arthritis on methotrexate/infliximab, bowel resection x 2 presenting to for elective robotic resection of sigmoid diverticulitis. Underwent procedure on 03/15/2024, which was uncomplicated.
Overnight on 03/18/2024 developed 2x episode of coffee-ground emesis about 100 mL. Blood pressure was notably 74/44, rapid response was called on the floor. Patient was placed on IV fluids and pressors and transferred to ICU. GI was consulted, for
possible EGD today-felt to have anastomotic leak status post exploratory laparotomy with repair of leak and diverting loop ileostomy 03/23/2024-glass furnace tender consulted for postoperative critical care management 03/23/2024.
Anastomotic leak s/p ex-laparotomy with repair of leak, flex sig and diverting loop ileostomy on 03/23/2024
Shock, septic versus hemorrhagic initially on pressors/postoperatively, weaned to off
Episode of vomiting x 2, coffee ground emesis with suspicion for upper GI bleed
Sigmoid diverticulitis status post robotic resection, uncomplicated 03/15/2024
Acute blood loss anemia, hemoglobin 13.1 now 11.0
Metabolic acidosis
Hypocalcemia
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
Rheumatoid arthritis on chronic immunosuppressive's
Recurrent sigmoid diverticulitis
History of 2 bowel surgeries/ blockages-[facility] 1988
C sections x2
Appendectomy
Cholecystectomy
Hypertension
History of C. difficile infection
Former smoker
Obesity BMI 30.5
Plan
Remains critically ill on pressors
Supplemental oxygen as needed
Incentive spirometry
Aspiration precautions
Nebulizers if needed-currently not bronchospastic
Check cultures
Antibiotics continue-Zosyn empirically
Abdominal cultures pending
Pressors continue--currently on norepinephrine-attempt to wean off
Colorectal surgery following-reviewed with Dr. Espinoza 03/25/2024
PPI continues
GI following
Nasogastric tube per surgery and GI
Follow hemoglobin
Transfuse as needed
Monitor renal function
Replace electrolytes
Monitor blood sugar
Insulin supplementation as needed
DVT [id number] on Lovenox
GI prophylaxis-on pantoprazole
Nutrition-TPN initiated
If able to be weaned off pressors then transfer out of ICU-call pulmonary if respiratory issues arise
Critical care statement: A total of 45 minutes of critical care time was provided for this patient today. This includes management of unstable vital signs, evaluation of the patient at bedside, reviewing the patient's pertinent medical records
including radiographs, pressor management, microbiology, laboratory evaluations, and discussion with primary team, consultants, pharmacy, nutrition, physical therapy, case management, charge nurse, critical care nursing, and respiratory therapy.
Diagnostic Data
Chest X-Ray: 03/18/24- low lung volumes, no overt consolidation
CXR 03/22/24- Large amount of free air underneath the right hemidiaphragm, with small amount of free air under the left hemidiaphragm. See above discussion and please correlate with any symptoms that might suggest anastomotic leak or new perforated
viscus. Mild gaseous distention of bowel loops within the upper abdomen.
CT Scan: AP 03/22/24- Status post sigmoid resection and anastomosis. As described, CT findings compatible with anastomotic leak. Free intraperitoneal air. Focal collections within the pelvis. Superimposed infection of these collections cannot be
excluded. Moderate elevation right hemidiaphragm. Small right pleural effusion. Atelectasis in the lower lungs, right greater than left.
Echo: 03/20/24- LV ejection fraction is 65-70%. No regional wall motion abnormalities are seen. Normal right ventricular size and function. Trace tricuspid regurgitation. Estimated pulmonary artery pressure of 30-35 mmHg. No prior study available
for comparison.
Reports and relevant images were personally reviewed.
Subjective Dataa
Subjective Data
Date of Service:
Date of Service: March 25, 2024
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
Subjective:
Feels better, still has nasogastric tube, no complaints of shortness of breath, chest congestion, and abdominal pain is controlled
Review of Systems
General: Other (Per HPI)
Objective Data
Data Reviewed
Vital Signs / I&O / Oxygen:
Vital Signs
Temp Pulse Resp BP Pulse Ox
97.7 F 86 15 95/65 96
03/25/24 07:26 03/25/24 07:00 03/25/24 07:00 03/25/24 06:00 03/25/24 07:26
Intake and Output
03/24/24 03/25/24 03/26/24
06:59 06:59 06:59
Intake Total 3990 / 4090 4045.1 / 4156.4 111.3 / 111.3
Output Total 1050 / 1075 2151 / 2151
Balance 2940 / 3015 1894.1 / 2005.4 111.3 / 111.3
SaO2 96
Nasal Cannula flow liters per 2
minute
Physical Exam
General: Respiratory Distress (n), Comfortable and Other (NAD)
HEENT: Normocephalic, Anicteric and Moist Mucous Membranes
Cardiovascular: Regular Rhythm
Respiratory: Clear and Non-Labored Respirations
GI: Soft, Non Distended, Non Tender, NG Tube and Other (Incisions, ostomy present)
Neurology: Awake, Alert and No Motor Deficits
Skin: Warm, Dry, Good Color, Cyanosis (n) and Jaundice (n)
Labs/Micro/Reports
Lab Data
03/25/24 03:44
Microbiology
03/23/24 14:40 Abdomen Wound Culture - Preliminary
03/23/24 14:40 Abdomen Gram Stain - Preliminary
03/19/24 14:56 Blood/Venous Blood Culture - Final
No Growth - Final Report
03/23/24 14:40 Abdomen Anaerobic Culture - Preliminary
Culture pending. Anaerobic cultures are examined after 3
days incubation. Additional information to follow.
03/19/24 00:24 Blood/Venous Blood Culture - Final
No Growth - Final Report
03/19/24 20:30 Urine Urine Culture - Final
Escherichia coli
[2024-03-25] MEDS: PROTONIX IV 40 MG IV ×2 (08:45→20:29)
[2024-03-25] MEDS: NSS (PRESERVATIVE FREE) 10 ML IV ×2 (08:45→20:29)
[2024-03-25 09:05] LABS: Hematocrit 25.6 % (37.0-47.0); Hemoglobin 8.5 g/dL (12.0-16.0)
--- NOTE | 2024-03-25 10:00 | PTCARENOTE ---
Dr. Chapa notified that her right calf is larger than the left. No tenderness, negative Eleazar's. SCD's intact. Will continue to monitor.
--- NOTE | 2024-03-25 10:37 | W.PN.CRS1 ---
Today's Communication / Plan
-
TPN
OOB
follow hemoglobin
wean presser
Assessment/Plan
-
68-year-old female with PMH of RA (on Remicade and methotrexate, held preoperatively), HTN, history of C. difficile who presents for elective surgery for recurrent diverticulitis
POD 10 robotic sigmoidectomy, flexible sigmoidoscopy
POD 2 laparotomy, repair of anastomotic leak and diverting loop ileostomy
1/6�developed coffee-ground emesis and hypotension, transferred to the ICU, requiring levo up to 10
1/6�EGD by GI showing multiple duodenal ulcers 1 large with recent bleed, requiring epi injection and APC
03/20- NGT removed
Afebrile, hypotensive 80-90/60-70s
WBC 14.7 (19.3), Hb 8.5 (11.0)
�Upper GI bleed, multiple duodenal ulcers seen on EGD s/p local therapies
�Appreciate GI; changed to PPI BID, signed off 03/22
�No evidence of active bleeding. Hold all AC for now
�Continue NGT. Given lack of nutrition, will start TPN today.
� Continue pain control with Dilaudid as needed
� Hold DVT PPx. TEDS/SCDS in place.
� Okay for OOB, PT reconsulted; encourage IS
� Appreciate hospitalist and shrink pit supervisor
- Continue to trend hemoglobin. Will transfuse for a hemoglobin less than 7.
Subjective Data
Procedure
03/15/2024 Robotic sigmoid colectomy with intracorporeal anastomosis
03/23/2024 Exploratory laparotomy, repair of anastomotic leak and diverting loop ileostomy
Subjective Data
Date of Service: March 25, 2024
Patient states she is feeling better, both physically and mentally. She denies nausea or vomiting.
Objective Data
-
Vital Signs
Temp Pulse Resp BP Pulse Ox
97.7 F 86 14 102/66 96
03/25/24 07:26 03/25/24 07:45 03/25/24 07:45 03/25/24 07:00 03/25/24 07:45
Intake & Output
03/24/24 03/25/24 03/26/24
06:59 06:59 06:59
Intake Total 3990 / 4090 4045.1 / 4156.4 111.3 / 111.3
Output Total 1050 / 1075 2151 / 2151
Balance 2940 / 3015 1894.1 / 2005.4 111.3 / 111.3
Intake:
Oral fluids 0 / 0 790 / 790
IV fluids (Total) 3800 / 3900 2475.1 / 2586.4 111.3 / 111.3
Levophed 75.1 / 86.4 11.3 / 11.3
Lr 1,000 ml @ 100 mls/hr IV . 3700 / 3800 2400 / 2500 100 / 100
Q10H GUNNER Rx#:[id number]
normosol 100 / 100
IV piggybacks 100 / 100 100 / 100
Amount instilled into GI Tube ( 90 / 90 180 / 180
Total)
Leake Sump 90 / 90 180 / 180
Blood Products 500 / 500
Albumin 500 / 500
Output:
Liquid stool amount 50 / 50 90 / 90
Ileostomy 50 / 50 90 / 90
Drain Output (Total) 490 / 490 260 / 260
Abdomen Kulwant-Hernandez 490 / 490 260 / 260
Gastrointestinal tube output ( 150 / 150 1100 / 1100
Total)
Leake Sump 150 / 150 1100 / 1100
Urine, Leal 360 / 385 701 / 701
Other:
Number of approximated LARGE 1
amounts of urine
Lab Results
03/25/24 08:57
03/25/24 03:44
Physical Exam
-
General: No Acute Distress and AOx3
Abdomen: Soft, Non Distended, Tender and Other (colostomy warm and pink, serous liquid in bag, no flatus or stool noted)
Skin: Warm and Dry
Wound: Dressing Changed (ean in place, A+D applied to bottom incision)
--- NOTE | 2024-03-25 11:37 | W.PN.HOSP.TC ---
Today's Communication/Plan
-
wean pressors
continue Zosyn
monitor Hb
NPO/NGT/TPN per CRS
SCDs
Assessment / Plan
Assessment / Plan
Assessment:
Acute hypoxic respiratory insufficiency - still requiring 2 L nasal cannula oxygen. Wean down as able.
Sepsis due to postoperative anastomotic leak - noted on CT abdomen. s/p laparoscopic anastomotic leak repair, flex sig with diverting loop ileostomy 03/23. currently NPO with plans for TPN. Continue IV Zosyn. Follow leukocytosis/fever trends. Wean
pressors as able.
Hx of diverticular disease with recurrent history of diverticulitis - s/p Robotic sigmoid colectomy with intracorporeal anastomosis, 03/15/2024.
Persistent sinus tachycardia - secondary to anastomosis leak as above, critical illness.
Acute GI bleed (hematemesis/rectal bleeding)
- EGD done 03/19 showed LA grade B esophagitis with no bleeding, small hiatal hernia, nonobstructing oozing duodenal ulcers with a visible vessel. Treated with bipolar cautery. Injected. No specimens collected.
- tolerating low residue diet.
- NSAID induced peptic ulcer disease. Avoid further NSAIDs in the future, discussed with patient.
- continue IV Protonix twice daily.
Acute symptomatic blood loss anemia - due to acute GI bleed as above. Transfused 4 units of blood so far. Hemoglobin 8.5 today. Transfuse <7.0
Asymptomatic bacteriuria - urine culture noted. 50,000 colonies noted of E. coli. Urinalysis without significant pyuria.
Jaundice/elevated LFTs - suspect due to acute ischemic hepatitis due to hypotension, shock. LFTs trending down. No evidence of hemolysis. Abdominal ultrasound unremarkable.
Hemorrhagic shock - requiring PRBC, pressors earlier during hospitalization. Currently off pressors.
Hyponatremia - improved.
History of RA on Remicade and Methotrexate prior to admission. Last use of prednisone was 3 weeks ago with her last infusion of Remicade.
Essential HTN
- hold Lisinopril for low BP.
Pseudo-hypocalcemia - albumin 1.6, corrected calcium 9.6.
Hx of C. Diff
Hyperchloremic metabolic acidosis - from NSS infusion. Improved.
Obesity due to excess calories
DVT ppx: SCDs
Code: Full
Total Critical Care Time 40 minutes. I was immediately available to the patient and staff. I personally examined, reviewed labs, diagnostic images/reports, interpretations, treatment plans, discussed patient care with other providers and family
or caregivers (if patient is unable to make decisions), entered orders as appropriate and documented the medical record.
Anticipated Discharge: > 48 hours
Subjective/Interval History
-
Date of Service: March 25, 2024
denies any new complaints
NGT in place
Hb 8.5 today
Objective Data
-
Labs:
Laboratory Results
03/25/24 03/25/24
03:44 08:57
WBC 14.7 H
Hgb 8.2 L D 8.5 L
Hct 24.7 L 25.6 L
Plt Count 190
Sodium 136
Potassium 3.9
Chloride 102
Carbon Dioxide 30
BUN 20 H
Creatinine 0.7
Glucose 96
Calcium 7.1 L
Total Bilirubin 1.4 H D
AST 21
ALT 16
Alkaline Phosphatase 81
Vital Signs:
Vital Signs
Temp Pulse Resp BP Pulse Ox
97.7 F 85 17 99/51 96
03/25/24 07:26 03/25/24 11:00 03/25/24 11:00 03/25/24 11:00 03/25/24 09:15
I&O
03/24/24 03/25/24 03/26/24
06:59 06:59 06:59
Intake Total 3990 / 4090 4045.1 / 4156.4 502.6 / 502.6
Output Total 1050 / 1075 2151 / 2151 100 / 100
Balance 2940 / 3015 1894.1 / 2005.4 402.6 / 402.6
Physical Exam
-
General: No Apparent Distress
HEENT: Normocephalic, Atraumatic and Other (+NGT)
Respiratory: Negative Wheezes
Cardiac: Regular Rhythm and S1/S2
GI: Soft and Ostomy
Genito-urinary: No Costovertebral Tender
Neuro: AO x 3
Hematologic / Lymphatic: No Lymphadenopathy
Psych: Calm
Data Reviewed
-
Critical Care Time (in minutes): 40
Labs: Labs Reviewed by me
--- NOTE | 2024-03-25 13:07 | WOUNDNOTE ---
WO RN note: Patient s/p ileostomy 2 days ago. Stoma pink, stoma bridge in place. Appliance intact. Serous drainage in pouch. Midline dressing D+I. R buttocks with dry small scab. Skin on heels intact. Instructed patient how to open and close pouch,
how to cut wafer and snap on pouch. Ostomy supplies and ileostomy teaching folder given. Patient gave verbal permission to order a [place]alo ostomy secure starter kit and she signed the Mahalo ostomy secure starter kit authorization fax form.
Heels off bed with pillow. Patient instructed pressure injury prevention measures. She can turn self to her L side. She has an air chair cushion. Will follow.
--- NOTE | 2024-03-25 13:10 | WOUNDNOTE ---
Ostomy supplies left in room [place] wafer # [id number], Yonas seals and [place] pouch # [id number].
--- NOTE | 2024-03-25 15:10 | PTCARENOTE ---
Pt tolerated being in the chair for 3 hours. Moderate secretions from the [place] sump tube, however pt is allowed clear liquids. Left nare [place] sump secured @55cm & to continuous wall suction @80mmHg. Flushed as ordered. She reports she was using
the IS frequently and is producing clear phlegm. Safe environment maintained.
--- NOTE | 2024-03-25 15:14 | CM ---
CM following re: discharge planning.
Discussed in Rounds, reviewed pt's chart, met with pt.
PT and OT evaluations noted - acute rehab level of care recommended. Pt is aware and she preferred [facility].
PM&R consult requested.
A referral to [facility] made.
D/C plan: [facility].
CM will follow with discharge plan updates as hospitalization progresses
[2024-03-25] MEDS: Parenteral Nutrition, Central 890 IV (20:28)
[2024-03-25] MEDS: NOVOLOG FLEXPEN-LOW RESISTANCE SC (20:32)
--- NOTE | 2024-03-25 20:51 | PTCARENOTE ---
Received pt from previous RN. Pt is AAOx3. NSR w/ PVCs on the monitor. On 2L NC 96%, lungs diminished. Right ileostomy in place, right MERT drain. Left nare NG tube @ 55 cm to continuos suction, irrigate Q4. Leal in place, hygiene provided. LR @ 100
ml/hr through R DL PICC. Pt c/o 8/ abd pain, PRN pain medication given (see MAR). CHG bath provided. Pt is laying in bed with call osorio in reach.
[2024-03-25] MEDS: OFIRMEV 100 IV (21:04)
[2024-03-26] VITALS (11 sets, daily range): BP systolic 91–133; BP diastolic 52–80; BMI 35.5
[2024-03-26] MEDS: NOVOLOG FLEXPEN-LOW RESISTANCE SC ×5 (00:14→23:47)
[2024-03-26 00:24] LABS: Glucose - Point of Care 113 mg/dl (70-99)
--- NOTE | 2024-03-26 00:37 | PTCARENOTE ---
Ofirmev scheduled added for pain. TPN infusing @ 37 ml/hr, through right PICC. O2 weaned to 1L, O2 sat 92%. Systems reviewed, no new changes in assessment. Call osorio in reach.
[2024-03-26] MEDS: LR IV ×6 (01:46→04:04)
[2024-03-26] MEDS: OFIRMEV 100 IV ×3 (02:11→14:34)
[2024-03-26] MEDS: LR 1000 IV (02:15)
[2024-03-26] MEDS: ZOSYN 50 IV ×4 (03:11→21:15)
--- NOTE | 2024-03-26 03:20 | PTCARENOTE ---
AM labs drawn. Systems reviewed, no new changes in assessment. Pt is laying in bed with call osorio in reach. Safe environment maintained.
[2024-03-26 03:30] LABS: % Basophils 0.3 % (0-2); % Immature Granulocytes 1.6 % (0-0.5); % Lymphocytes 12.9 % (20.5-51.1); % Monocytes 7.1 % (1.7-9.3); % Neutrophils 74.1 % (42.2-75.2); Absolute Eosinophils 0.5 10^3/uL (0-0.7); Absolute Immature Granulocytes 0.2 10^3/uL (0-0.05); Absolute Lymphocytes 1.6 10^3/uL (1.2-3.4); Absolute Monocytes 0.9 10^3/uL (0.1-0.6); Absolute Neutrophils 9.1 10^3/uL (1.4-6.5); Hemoglobin 8.5 g/dL (12.0-16.0); Mean Corp Hgb Conc. 32.7 g/dL (33.0-37.0); Mean Corpuscular Hgb 30.1 pg (27.0-31.0); Mean Corpuscular Volume 92.2 fL (81.0-99.0); Mean Platelet Volume 10.6 fL (7.4-10.4); Nucleated Red Blood Cells % 0.2 %; Platelet Count 215 10^3/uL (130-400); Red Blood Cell Count 2.82 10^6/uL (4.20-5.40); Red Cell Dist. Width 14.9 % (11.5-14.5); White Blood Cell Count 12.2 10^3/uL (4.8-10.8)
[2024-03-26 03:54] LABS: ALT (SGPT) 16 U/L (0-35); AST (SGOT) 24 U/L (14-36); Albumin 1.9 g/dl (3.5-5.0); Alkaline Phosphatase 98 U/L (38-126); Blood Urea Nitrogen 15 mg/dl (7-17); Calcium 7.2 mg/dl (8.4-10.2); Carbon Dioxide 32 mmol/L (22-30); Chloride 101 mmol/L (98-107); Estimated Creatinine Clearance 88 ml/min; Glucose 108 mg/dl (70-99); Magnesium 2.1 mg/dl (1.6-2.3); Phosphorus 2.5 mg/dl (2.5-4.5); Potassium 3.6 mmol/L (3.5-5.1); Sodium 137 mmol/L (135-145); Total Bilirubin 1.2 mg/dl (0.2-1.3); Total Protein 3.7 g/dl (6.3-8.2); eGFR > 60.00
[2024-03-26] MEDS: CALCIUM GLUCONATE 130 MG IV (05:28)
[2024-03-26 05:49] LABS: Glucose - Point of Care 139 mg/dl (70-99)
--- NOTE | 2024-03-26 07:44 | W.PN.INTV ---
Today's Communication / Plan
Recommendations
Nasogastric tube
Wean oxygen
Increase activity
Antibiotics
TPN
Transfer out of ICU-call pulmonary if respiratory issues arise
Assessment
-
68-year-old female with previous history of rheumatoid arthritis on methotrexate/infliximab, bowel resection x 2 presenting to for elective robotic resection of sigmoid diverticulitis. Underwent procedure on 03/15/2024, which was uncomplicated.
Overnight on 03/18/2024 developed 2x episode of coffee-ground emesis about 100 mL. Blood pressure was notably 74/44, rapid response was called on the floor. Patient was placed on IV fluids and pressors and transferred to ICU. GI was consulted, for
possible EGD today-felt to have anastomotic leak status post exploratory laparotomy with repair of leak and diverting loop ileostomy 03/23/2024-city solicitor consulted for postoperative critical care management 03/23/2024.
Anastomotic leak s/p ex-laparotomy with repair of leak, flex sig and diverting loop ileostomy on 03/23/2024
Shock, septic versus hemorrhagic initially on pressors/postoperatively, weaned to off
Episode of vomiting x 2, coffee ground emesis with suspicion for upper GI bleed
Sigmoid diverticulitis status post robotic resection, uncomplicated 03/15/2024
Acute blood loss anemia, hemoglobin 13.1 now 11.0
Metabolic acidosis
Hypocalcemia
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
Rheumatoid arthritis on chronic immunosuppressive's
Recurrent sigmoid diverticulitis
History of 2 bowel surgeries/ blockages-[facility] 1988
C sections x2
Appendectomy
Cholecystectomy
Hypertension
History of C. difficile infection
Former smoker
Obesity BMI 30.5
Plan
Hemodynamics have improved
Supplemental oxygen as needed-attempt to wean
Incentive spirometry encouraged
Aspiration precautions
Nebulizers if needed-currently not bronchospastic
Cultures reviewed
Wound culture with gram-negative bacilli and streptococcal species
Urine culture 03/19/2024-E. coli
Antibiotics continue-Zosyn empirically
Abdominal cultures pending
Pressors continue--currently on norepinephrine-attempt to wean off
Colorectal surgery following-reviewed with Dr. Espinoza 03/25/2024
PPI continues
GI following
Nasogastric tube per surgery and GI
Follow hemoglobin
Transfuse as needed
Monitor renal function
Replace electrolytes
Monitor blood sugar
Insulin supplementation as needed
DVT [id number] on Lovenox
GI prophylaxis-on pantoprazole
Nutrition-TPN continues
Patient weaned off pressors-transfer out of ICU-call pulmonary if respiratory issues arise
Reviewed the patient's pertinent medical records including radiographs, pressor management, microbiology, laboratory evaluations, and discussion with primary team, consultants, pharmacy, nutrition, physical therapy, case management, charge nurse,
critical care nursing, and respiratory therapy.
Diagnostic Data
Chest X-Ray: 03/18/24- low lung volumes, no overt consolidation
CXR 03/22/24- Large amount of free air underneath the right hemidiaphragm, with small amount of free air under the left hemidiaphragm. See above discussion and please correlate with any symptoms that might suggest anastomotic leak or new perforated
viscus. Mild gaseous distention of bowel loops within the upper abdomen.
CT Scan: AP 03/22/24- Status post sigmoid resection and anastomosis. As described, CT findings compatible with anastomotic leak. Free intraperitoneal air. Focal collections within the pelvis. Superimposed infection of these collections cannot be
excluded. Moderate elevation right hemidiaphragm. Small right pleural effusion. Atelectasis in the lower lungs, right greater than left.
Echo: 03/20/24- LV ejection fraction is 65-70%. No regional wall motion abnormalities are seen. Normal right ventricular size and function. Trace tricuspid regurgitation. Estimated pulmonary artery pressure of 30-35 mmHg. No prior study available
for comparison.
Reports and relevant images were personally reviewed.
Subjective Dataa
Subjective Data
Date of Service:
Date of Service: March 26, 2024
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
Subjective:
Feels better, no complaints of shortness of breath, abdominal pain controlled
Review of Systems
General: Other (Per HPI)
Objective Data
Data Reviewed
Vital Signs / I&O / Oxygen:
Vital Signs
Temp Pulse Resp BP Pulse Ox
97.9 F 80 19 117/65 98
03/26/24 03:17 03/26/24 06:00 03/26/24 06:00 03/26/24 06:00 03/26/24 06:00
Intake and Output
03/25/24 03/26/24 03/27/24
06:59 06:59 06:59
Intake Total 4045.1 / 4156.4 3422.6 / 3422.6
Output Total 2151 / 2151 2213 / 2213
Balance 1894.1 / 2005.4 1209.6 / 1209.6
SaO2 98
Nasal Cannula flow liters per 1
minute
Physical Exam
General: Respiratory Distress (n), Comfortable and Other (NAD)
HEENT: Normocephalic, Anicteric and Moist Mucous Membranes
Cardiovascular: Regular Rhythm
Respiratory: Clear and Non-Labored Respirations
GI: Soft, Non Distended, Non Tender, NG Tube and Other (Incisions, ostomy present)
Neurology: Awake, Alert and No Motor Deficits
Skin: Warm, Dry, Good Color, Cyanosis (n) and Jaundice (n)
Labs/Micro/Reports
Lab Data
03/26/24 03:14
03/26/24 03:14
Microbiology
03/23/24 14:40 Abdomen Wound Culture - Preliminary
Gram negative bacilli
Streptococcus species
Calli albicans
03/23/24 14:40 Abdomen Gram Stain - Preliminary
03/19/24 14:56 Blood/Venous Blood Culture - Final
No Growth - Final Report
03/23/24 14:40 Abdomen Anaerobic Culture - Preliminary
Culture pending. Anaerobic cultures are examined after 3
days incubation. Additional information to follow.
03/19/24 00:24 Blood/Venous Blood Culture - Final
No Growth - Final Report
[2024-03-26] MEDS: PROTONIX IV 40 MG IV ×2 (08:30→20:03)
--- NOTE | 2024-03-26 08:30 | PTCARENOTE ---
Received pt @ change of shift. Drowsy, awakens to verbal stim; oriented x3; c/o mod pain @ surgical site- standing [facility]- see MAY. SR w PVC's on monitor. +2 anasarca. SpO2 95% on 2LNC. Auscultated dim breath sounds throughout; IS
encouraged. NPO status maintained. L nare NGT secured @ 55cm connected to continuous suction; draining yellow output. Leal draining yellow urine. Midline abd dressing c/d/i. Lap site x5 approx w surg glue, WILLIAMS. RLQ MERT dressing, c/d/i. R DL PICC
w TPN infusing @ 37mL/hr and LR @ 50mL/hr. Instructed on how to report care concerns and call osorio in reach.
[2024-03-26] MEDS: NSS (PRESERVATIVE FREE) 10 ML IV ×2 (08:31→20:03)
[2024-03-26 08:49] LABS: Iron 40 ug/dl (37-170)
[2024-03-26 08:58] LABS: Percent Saturation 25 % (20-50); Total Iron Binding Capacity 157 ug/dl (265-497)
[2024-03-26 09:55] LABS: Folate 5.6 ng/ml (2.76-20); Vitamin B12 475 pg/ml (239-931)
--- NOTE | 2024-03-26 10:07 | W.PN.HOSP.TC ---
Today's Communication/Plan
-
dc IVF
TPN per CRS
continue IV Abx
continue NPO/NGT
downgrade 2S tele
Assessment / Plan
Assessment / Plan
Assessment:
Acute hypoxic respiratory insufficiency - still requiring 1 L nasal cannula oxygen. Wean down as able.
Sepsis due to postoperative anastomotic leak - noted on CT abdomen. s/p laparoscopic anastomotic leak repair, flex sig with diverting loop ileostomy 03/23. currently NPO with TPN ordered by surgical services. Continue IV Zosyn, day 4. Follow
leukocytosis/fever trends. Wean pressors as able.
Hx of diverticular disease with recurrent history of diverticulitis - s/p Robotic sigmoid colectomy with intracorporeal anastomosis, 03/15/2024.
Persistent sinus tachycardia - secondary to anastomosis leak as above, critical illness. resolving.
Acute GI bleed (hematemesis/rectal bleeding)
- EGD done 03/19 showed LA grade B esophagitis with no bleeding, small hiatal hernia, nonobstructing oozing duodenal ulcers with a visible vessel. Treated with bipolar cautery. Injected. No specimens collected.
- NSAID induced peptic ulcer disease. Avoid further NSAIDs in the future, discussed with patient.
- continue IV Protonix twice daily.
Acute symptomatic blood loss anemia - due to acute GI bleed as above. Transfused 4 units of blood so far. Hemoglobin 8.5 today. Transfuse <7.0
Asymptomatic bacteriuria - urine culture noted. 50,000 colonies noted of E. coli. Urinalysis without significant pyuria.
Jaundice/elevated LFTs - suspect due to acute ischemic hepatitis due to hypotension, shock. LFTs trending down. No evidence of hemolysis. Abdominal ultrasound unremarkable.
Hemorrhagic shock - required PRBCs, pressors earlier during hospitalization. Currently off pressors.
Hyponatremia - improved.
History of RA on Remicade and Methotrexate prior to admission. Last use of prednisone was 3 weeks ago with her last infusion of Remicade.
Essential HTN
- hold Lisinopril; consider resumption in 24-48 hours
Pseudo-hypocalcemia - albumin 1.6, corrected calcium 9.6.
Hx of C. Diff
Hyperchloremic metabolic acidosis - from NSS infusion. Improved.
Obesity due to excess calories
DVT ppx: SCDs
Code: Full
Total Critical Care Time 41 minutes. I was immediately available to the patient and staff. I personally examined, reviewed labs, diagnostic images/reports, interpretations, treatment plans, discussed patient care with other providers and family
or caregivers (if patient is unable to make decisions), entered orders as appropriate and documented the medical record.
Anticipated Discharge: > 48 hours
Subjective/Interval History
-
Date of Service: March 26, 2024
no overnight events
remains comfortable, remains with NGT and TPN
Hb 8.5, stable over 24 hours
Objective Data
-
Labs:
Laboratory Results
03/26/24
03:14
WBC 12.2 H
Hgb 8.5 L
Hct 26.0 L
Plt Count 215
Sodium 137
Potassium 3.6
Chloride 101
Carbon Dioxide 32 H
BUN 15
Creatinine 0.7
Glucose 108 H
Calcium 7.2 L
Total Bilirubin 1.2
AST 24
ALT 16
Alkaline Phosphatase 98
Vital Signs:
Vital Signs
Temp Pulse Resp BP Pulse Ox
97.6 F 80 19 117/65 98
03/26/24 08:02 03/26/24 06:00 03/26/24 06:00 03/26/24 06:00 03/26/24 06:00
I&O
03/25/24 03/26/24 03/27/24
06:59 06:59 06:59
Intake Total 4045.1 / 4156.4 3422.6 / 3422.6
Output Total 2151 / 2151 2213 / 2213
Balance 1894.2004.4 1209.6 / 1209.6
Physical Exam
-
General: No Apparent Distress
HEENT: Normocephalic, Atraumatic and Other (+NGT)
Respiratory: Negative Wheezes
Cardiac: Regular Rhythm and S1/S2
GI: Soft and Nontender
Musculoskeletal: No Edema
Neuro: AO x 3
Psych: Calm
Data Reviewed
-
Critical Care Time (in minutes): 41
Labs: Labs Reviewed by me
--- NOTE | 2024-03-26 10:48 | W.PN.CRS1 ---
Today's Communication / Plan
-
continue tpn
Assessment/Plan
-
68-year-old female with PMH of RA (on Remicade and methotrexate, held preoperatively), HTN, history of C. difficile who presents for elective surgery for recurrent diverticulitis
POD 11 robotic sigmoidectomy, flexible sigmoidoscopy
POD 3 laparotomy, repair of anastomotic leak and diverting loop ileostomy
1/6�developed coffee-ground emesis and hypotension, transferred to the ICU, requiring levo up to 10
1/6�EGD by GI showing multiple duodenal ulcers 1 large with recent bleed, requiring epi injection and APC
03/23- OR
Afebrile, hypotensive 80-90/60-70s
WBC 14.7 (19.3), Hb 8.5 (8.5)
NGT: 930ml
�Appreciate GI; changed to PPI BID, signed off 03/22
�No evidence of active bleeding. Hold all AC for now given anemia.
�Continue NGT. Await bowel function. Will continue TPN.
� Continue pain control with Dilaudid as needed
� Hold DVT PPx. TEDS/SCDS in place.
� Okay for OOB, PT reconsulted; encourage IS
� Appreciate hospitalist and predator control trapper
- Continue to trend hemoglobin. Will transfuse for a hemoglobin less than 7.
-Possible downgrade this afternoon if continues to remain off of levophed gtt
Subjective Data
Procedure
03/15/2024 Robotic sigmoid colectomy with intracorporeal anastomosis
03/23/2024 Exploratory laparotomy, repair of anastomotic leak and diverting loop ileostomy
Subjective Data
Date of Service: March 26, 2024
Patient states she feels 'a little bit better today'. She has no nausea or vomiting. Her pain is controlled.
Objective Data
-
Vital Signs
Temp Pulse Resp BP Pulse Ox
97.6 F 80 19 117/65 98
03/26/24 08:02 03/26/24 06:00 03/26/24 06:00 03/26/24 06:00 03/26/24 06:00
Intake & Output
03/25/24 03/26/24 03/27/24
06:59 06:59 06:59
Intake Total 4045.1 / 4156.4 3422.6 / 3509.6 498 / 498
Output Total 2151 / 2151 2213 / 2413 850 / 850
Balance 1894.1 / 2005.4 1209.6 / 1096.6 -352 / -352
Intake:
Oral fluids 790 / 790 500 / 500
IV fluids (Total) 2475.1 / 2586.4 2022.6 / 2072.6 200 / 200
Levophed 75.1 / 86.4 22.6 / 22.6
Lr 1,000 ml @ 50 mls/hr IV . 2400 / 2500 2000 / 0 200 / 200
Q20H [facility] Rx#:[id number]
IV piggybacks 100 / 100 380 / 380 150 / 150
TPN/PPN 370 / 407 148 / 148
Amount instilled into GI Tube ( 180 / 180 150 / 150
Total)
[place] Sump 180 / 180 150 / 150
Blood Products 500 / 500
Albumin 500 / 500
Output:
Liquid stool amount 90 / 90 100 / 100
Ileostomy 90 / 90 100 / 100
Drain Output (Total) 260 / 260 190 / 190
Abdomen Kulwant-Hernandez 260 / 260 190 / 190
Gastrointestinal tube output ( 1100 / 1100 930 / 930
Total)
[place] Sump 1100 / 1100 930 / 930
Urine, Leal 701 / 701 993 / 1193 850 / 850
Lab Results
03/26/24 03:14
03/26/24 03:14
Physical Exam
-
General: No Acute Distress and AOx3
Abdomen: Soft, Non Distended, Non Tender and Other (colostomy warm and pink, no bowel function yet, MERT drain serous)
Wound: Dressing in Place
[2024-03-26 11:59] LABS: Glucose - Point of Care 134 mg/dl (70-99)
--- NOTE | 2024-03-26 12:04 | PTCARENOTE ---
Assisted pt. OOB to chair @ 1030 x1 w RW. Remains OOB to chair, tolerating activity/position. L nare NGT remains connected to continuous suction. IVF d/c'd per orders. Pressors off >24H, VSS. TPN remains infusing per orders. Call jo naidu in
reach.
[2024-03-26] MEDS: DILAUDID 1 MG IV ×2 (13:30→20:10)
--- NOTE | 2024-03-26 15:26 | PTCARENOTE ---
Pt. tolerated OOB to chiar approx 4H+. Assisted x1 w RW back to bed. Report given to 2S RN and pt. transferred via bed w belongings on jury consultant to rm 2120. No further needs from this RN.
--- NOTE | 2024-03-26 15:45 | PTCARENOTE ---
Pt arrived to 2S in bed. Telemetry applied. TPN infusing per order. Abdominal DSG C/D/I, lap sites C/D/I, glued and COMPUTER SPECIALIST. RLQ MERT with serosanguinous drainage noted. Ileostomy clean and intact, stool noted in the bag. NGT to CWS. Nasal cannula
maintained. Bed locked and in the lowest position, safety maintained. Oriented to room and call osorio.
--- NOTE | 2024-03-26 16:16 | WOUNDNOTE ---
RADHA RN NOTE: Patient visited this morning, stoma pink, no leakage, midline dressing intact. Patient stated that her brother visits around 3:30 daily after work and would be willing to learn ostomy care. Patient aware unable to change appliance
today, ostomy nurse will follow tomorrow. Supplies at bedside.
[2024-03-26 17:53] LABS: Glucose - Point of Care 122 mg/dl (70-99)
[2024-03-26] MEDS: Parenteral Nutrition, Central 1270 IV (21:11)
[2024-03-26 23:43] LABS: Glucose - Point of Care 146 mg/dl (70-99)
[2024-03-27] VITALS (7 sets, daily range): BP systolic 128–147; BP diastolic 66–86; PULSE 82; BMI 34.4
[2024-03-27] MEDS: ZOSYN 50 IV ×4 (03:36→21:24)
[2024-03-27 05:32] LABS: Glucose - Point of Care 147 mg/dl (70-99)
[2024-03-27 05:32] LABS: Blood Urea Nitrogen 15 mg/dl (7-17); Calcium 7.4 mg/dl (8.4-10.2); Carbon Dioxide 33 mmol/L (22-30); Chloride 102 mmol/L (98-107); Estimated Creatinine Clearance 102 ml/min; Glucose 151 mg/dl (70-99); Magnesium 2.1 mg/dl (1.6-2.3); Phosphorus 2.2 mg/dl (2.5-4.5); Potassium 3.9 mmol/L (3.5-5.1); Sodium 139 mmol/L (135-145); eGFR > 60.00
[2024-03-27] MEDS: NOVOLOG FLEXPEN-LOW RESISTANCE SC ×3 (05:32→23:53)
[2024-03-27] MEDS: DILAUDID 1 MG IV ×3 (05:48→23:49)
[2024-03-27 06:05] LABS: Hematocrit 27.9 % (37.0-47.0); Hemoglobin 9.2 g/dL (12.0-16.0); Mean Corpuscular Hgb 30.1 pg (27.0-31.0); Mean Corpuscular Volume 91.2 fL (81.0-99.0); Mean Platelet Volume 11.2 fL (7.4-10.4); Platelet Count 296 10^3/uL (130-400); Red Blood Cell Count 3.06 10^6/uL (4.20-5.40); Red Cell Dist. Width 14.9 % (11.5-14.5)
[2024-03-27] MEDS: NSS (PRESERVATIVE FREE) 10 ML IV ×2 (08:23→20:02)
[2024-03-27] MEDS: PROTONIX IV 40 MG IV ×2 (08:23→20:02)
--- NOTE | 2024-03-27 09:21 | CM ---
Reviewed the chart notes. PT/OT recommending acute rehab. PMR consult pending. Referral from [facility] sent previously in [facility]. CM continues to be available to patient/family and is monitoring medical plan for needs at discharge.
Plan: Discharge hopefully to Acute Rehab ([facility]) once medically stable, bed secured and precert obtained.
--- NOTE | 2024-03-27 09:47 | W.PN.CRS1 ---
Today's Communication / Plan
-
NGT clamping trial
lovenox
Assessment/Plan
-
68-year-old female with PMH of RA (on Remicade and methotrexate, held preoperatively), HTN, history of C. difficile who presents for elective surgery for recurrent diverticulitis
POD 12 robotic sigmoidectomy, flexible sigmoidoscopy
POD 4 laparotomy, repair of anastomotic leak and diverting loop ileostomy
1/6�developed coffee-ground emesis and hypotension, transferred to the ICU, requiring levo up to 10
1/6�EGD by GI showing multiple duodenal ulcers 1 large with recent bleed, requiring epi injection and APC
03/23- OR
Afebrile, vitals normal
WBC 13.0 (12.2), Hb 9.2 from 8.5
NGT: 325ml
� No evidence of active bleeding. Hgb up today. Will restart lovenox subq.
� NGT clamping trial. If discontinued, advance to clears. Will continue TPN until tolerating a solid food diet for 24 hours.
� Continue pain control with Dilaudid as needed
� Hold DVT PPx. TEDS/SCDS in place.
� Okay for OOB, PT reconsulted; encourage IS
� Appreciate hospitalist and fusing machine tender
- Continue to trend hemoglobin. Will transfuse for a hemoglobin less than 7.
- Remains on Zosyn IV (will need a total 10-14 day course). Cultures sensitive. Growing salima.
Subjective Data
Procedure
03/15/2024 Robotic sigmoid colectomy with intracorporeal anastomosis
03/23/2024 Exploratory laparotomy, repair of anastomotic leak and diverting loop ileostomy
Subjective Data
Date of Service: March 27, 2024
Patient states she is feeling better today. She has no nausea or vomiting. She was out of bed 4 hours yesterday.
Objective Data
-
Vital Signs
Temp Pulse Resp BP Pulse Ox
98.2 F 83 16 128/74 96
03/27/24 07:04 03/27/24 07:04 03/27/24 07:04 03/27/24 07:04 03/27/24 07:04
Intake & Output
03/26/24 03/27/24 03/28/24
06:59 06:59 06:59
Intake Total 3422.6 / 3509.6 1841 / 1841
Output Total 2213 / 2413 2074
Balance 1209.6 / 1096.6 -233 / -233
Intake:
Oral fluids 500 / 500
IV fluids (Total) / 200 / 200
Levophed . /
Lr 1,000 ml @ 50 mls/hr IV . 1999 200 / 200
Q20H [facility] Rx#:[id number]
IV piggybacks 380 / 380 400 / 400
TPN/PPN 370 / 407 1032 / 1032
Amount instilled into GI Tube ( 150 / 150 210 / 210
Total)
[place] Sump 150 / 150 210 / 210
Output:
Liquid stool amount 100 / 100 125 / 125
Ileostomy 100 / 100 125 / 125
Drain Output (Total) 190 / 190 175 / 175
Abdomen Kulwant-Hernandez 190 / 190 175 / 175
Gastrointestinal tube output ( 930 / 930 325 / 325
Total)
[place] Sump 930 / 930 325 / 325
Urine, Leal 993 / 1193 1450 / 1450
Other:
Number of approximated LARGE 1
amounts of urine
Lab Results
03/27/24 04:41
03/27/24 04:41
Physical Exam
-
General: No Acute Distress and AOx3
Abdomen: Soft, Non Distended and Tender (mild around incisions)
Skin: Dry
Incision: Clear, Dry, Intact (A+D ointment applied to lower incisions)
--- NOTE | 2024-03-27 10:51 | W.PN.HOSP.TC ---
Today's Communication/Plan
-
NGT clamp trial and clears if goes well
continue TPN
continue IV Abx, consult ID with calli growth in wound culture
PT/OT
Assessment / Plan
Assessment / Plan
Assessment:
Acute hypoxic respiratory insufficiency - still requiring 1-2 L nasal cannula oxygen. Wean down as able.
Sepsis due to postoperative anastomotic leak - noted on CT abdomen. s/p laparoscopic anastomotic leak repair, flex sig with diverting loop ileostomy 03/23. clamp NGT and possible trial clears today. TPN ordered by surgical services will continue
until solid food trialed x 24 hours at least. Continue IV Zosyn, day 5. Follow leukocytosis/fever trends. ID consulted 03/27 due to Calli growth in wound culture.
Hx of diverticular disease with recurrent history of diverticulitis - s/p Robotic sigmoid colectomy with intracorporeal anastomosis, 03/15/2024.
Persistent sinus tachycardia - secondary to anastomosis leak as above, critical illness. resolving.
Acute GI bleed (hematemesis/rectal bleeding)
- EGD done 03/19 showed LA grade B esophagitis with no bleeding, small hiatal hernia, nonobstructing oozing duodenal ulcers with a visible vessel. Treated with bipolar cautery. Injected. No specimens collected.
- NSAID induced peptic ulcer disease. Avoid further NSAIDs in the future, discussed with patient.
- continue IV Protonix twice daily.
Acute symptomatic blood loss anemia - due to acute GI bleed as above. Transfused 4 units of blood so far. Hemoglobin 9.2 today. Transfuse <7.0
Asymptomatic bacteriuria - urine culture noted. 50,000 colonies noted of E. coli. Urinalysis without significant pyuria.
Jaundice/elevated LFTs - suspect due to acute ischemic hepatitis due to hypotension, shock. LFTs trending down. No evidence of hemolysis. Abdominal ultrasound unremarkable.
Hemorrhagic shock - required PRBCs, pressors earlier during hospitalization. Currently off pressors.
Hyponatremia - improved.
History of RA on Remicade and Methotrexate prior to admission. Last use of prednisone was 3 weeks ago with her last infusion of Remicade.
Essential HTN
- hold Lisinopril; consider resumption in 24-48 hours
Pseudo-hypocalcemia - albumin 1.6, corrected calcium 9.6.
Hx of C. Diff
Hyperchloremic metabolic acidosis - from NSS infusion. Improved.
Obesity due to excess calories
DVT ppx: SCDs
Code: Full
Anticipated Discharge: > 48 hours
Subjective/Interval History
-
Date of Service: March 27, 2024
Patient states she is feeling better today. She has no nausea or vomiting. She was out of bed 4 hours yesterday.
Objective Data
-
Labs:
Laboratory Results
03/27/24
04:41
WBC 13.0 H
Hgb 9.2 L
Hct 27.9 L
Plt Count 296 D
Sodium 139
Potassium 3.9
Chloride 102
Carbon Dioxide 33 H
BUN 15
Creatinine 0.6
Glucose 151 H
Calcium 7.4 L
Vital Signs:
Vital Signs
Temp Pulse Resp BP Pulse Ox
98.2 F 83 16 128/74 96
03/27/24 07:04 03/27/24 07:04 03/27/24 07:04 03/27/24 07:04 03/27/24 07:04
I&O
03/26/24 03/27/24 03/28/24
06:59 06:59 06:59
Intake Total 3422.6 / 3509.6 1842 / 1842
Output Total 2213 / 2413 2074
Balance 1209.6 / 1096.6 -233 / -233
Physical Exam
-
General: No Apparent Distress
HEENT: Normocephalic and Atraumatic
Respiratory: Clear to Auscultation; Negative Wheezes
Cardiac: Regular Rhythm and S1/S2
GI: Soft, Nontender and Ostomy
Genito-urinary: No Costovertebral Tender
Neuro: AO x 3
Psych: Calm
Data Reviewed
-
Total Time Spent with Patient (in minutes): 42
Labs: Labs Reviewed by me
[2024-03-27 13:57] LABS: Glucose - Point of Care 145 mg/dl (70-99)
--- NOTE | 2024-03-27 14:55 | PTCARENOTE ---
Pt with 0cc residual following 4 hour clamp trial. Pt with c/o nausea while checking residual, nausea passed on its own and did not require treatment. Pt denies nausea while NGT was clamped and denies any ongoing nausea at this time. Pt apprehensive
about having NGT removed at this time and would prefer to leave it in place until seen by surgical team tomorrow. Sayda Cornelius Pa-c made aware and ok to leave NGT in place for now. Instructed RN to leave NGT clamped. Pt to remain NPO, ok for sips and
chips at this time. Assessment remains ongoing.
--- NOTE | 2024-03-27 16:05 | WOUNDNOTE ---
[facility] RN NOTE: Reviewed chart and met patient and brother, Dario for ostomy teaching. Plan is for Dario to go home with patient while she recovers. We reviewed ostomy care, pouch emptying and pouch change. Plan is for Dario to arrive at 3:45
tomorrow for pouch change.
--- NOTE | 2024-03-27 17:04 | CON.ID ---
Consultation
-
Date/Time Consultation Requested: 03/27/2024 1024
Date/Time Consultation Performed: 03/27/2024 1651
Requesting Provider: Shelly Cornelius
Performing Provider: Dr. Paul
Reason for Consultation: Fecal peritonitis
Chief Complaint / Past History
History of Present Illness
Sue Gonzalez is a 68-year-old female being evaluated at the request of Shelly Cornelius regarding fecal peritonitis. History is obtained from chart review, along with patient interview.
The patient is a significant past medical history of diverticulitis over the past 10 years, with 8-9 episodes during that time period. She has had approximately 3 episodes this year, with the most recent one being in October. Ultimately, elective
surgery was scheduled, and she underwent robotic sigmoid colectomy on 03/15/2024. Her postop course was complicated by an upper GI bleed, noted on endoscopy on 03/19/2024. At that time she had multiple episodes of vomiting. She subsequently developed
abdominal discomfort, and underwent repeat imaging, with findings consistent with anastomotic leak. She underwent ex lap on 03/23, with colostomy placement. Intraoperative cultures reveal multiple bacterial isolates, along with suspected Calli
species. Infectious Diseases is asked to comment upon further antimicrobial therapy.
At this time, she notes some ongoing abdominal discomfort, but improved. She denies any fevers or chills. She is currently on TPN.
Past History
Additional Past Medical History:
Rheumatoid arthritis (maintained on methotrexate/infliximab)
Diverticulitis
C. difficile
HTN
Additional Past Surgical History:
Prior bowel surgery
x 2
Appendectomy
Cholecystectomy
Allergy History:
codeine Allergy (Verified 03/15/24 06:23)
Nausea / Vomiting
Gold Salts Allergy (Verified 03/15/24 06:23)
Shortness of Breath
Medications Reviewed: Yes
Current Antibiotics:
Zosyn 3.375 g IV every 6 hours
Social History
Tobacco: Former Smoker
Alcohol: None
Drug: None
Personal:
Living: With Family
Family History
Family History: Not Pertinent
Review of Systems
Vital Signs
Temp Pulse Resp BP Pulse Ox
98.1 F 92 16 146/86 95
03/27/24 15:05 03/27/24 15:05 03/27/24 15:05 03/27/24 15:05 03/27/24 15:05
Physical Exam
Physical Exam
Constitutional: No Acute Distress, Comfortable, Acutely Ill, Non-toxic and Obese
Head: Normocephalic
Eyes: Pupils Equal, Pupils Round, No Conjunctival Hemorrhage and Sclera Anicteric
Oral: Other (NG tube in place (clamped))
Cardiovascular: Regular Rate and S1/S2; Negative S3/S4
Pulmonary: Non Labored; Negative Wheezes, Rales or Rhonchi
Gastrointestinal: Soft, Tender (Mild), Non Distended, Decreased Bowel Sounds and Other (Colostomy in place)
Extremities: Edema; Negative Cyanosis or Erythema
Skin: Warm and Dry; Negative Rash or Jaundice
Neurological: Awake and Alert
Psychological: Calm
.
Lab / Diagnostic Study Results
03/27/24 04:41
03/27/24 04:41
Abs Immat Gran (auto) 0.2 10^3/uL (0-0.05) H 03/26/24 03:14
Absolute Neuts (auto) 9.1 10^3/uL (1.4-6.5) H 03/26/24 03:14
Absolute Lymphs (auto) 1.6 10^3/uL (1.2-3.4) 03/26/24 03:14
Absolute Monos (auto) 0.9 10^3/uL (0.1-0.6) H 03/26/24 03:14
Absolute Basos (auto) 0.0 10^3/uL (0-0.2) 03/26/24 03:14
Immature Gran % 1.6 % (0-0.5) H 03/26/24 03:14
Neutrophils % 74.1 % (42.2-75.2) 03/26/24 03:14
Lymphocytes % 12.9 % (20.5-51.1) L 03/26/24 03:14
Monocytes % 7.1 % (1.7-9.3) 03/26/24 03:14
Eosinophils % 4.0 % (0-6) 03/26/24 03:14
Basophils % 0.3 % (0-2) 03/26/24 03:14
PT 16.6 Sec (11.4-14.6) H 03/18/24 22:55
INR 1.32 03/18/24 22:55
Lactic Acid 1.6 mmol/L (0.7-2.0) 03/19/24 00:24
Procalcitonin 0.86 ng/ml (0.0-0.25) H 03/19/24 14:56
Ur Squamous Epith Cells >30 /LPF (Few) 03/19/24 20:30
Microbiology Results
Micro:
03/23/24 14:40 Anaerobic Culture - Preliminary
Abdomen Culture pending. Anaerobic cultures are examined after 3
days incubation. Additional information to follow.
03/23/24 14:40 Wound Culture - Final
Abdomen Klebsiella oxytoca
Escherichia coli
Streptococcus species
Calli albicans
Gram Stain - Final
03/19/24 14:56 Blood Culture - Final
Blood/Venous No Growth - Final Report
03/19/24 00:24 Blood Culture - Final
Blood/Venous No Growth - Final Report
03/19/24 20:30 Urine Culture - Final
Urine Escherichia coli
Wound/abscess/other Cult Final 03/27/24-08
Moderate Klebsiella oxytoca
Moderate Escherichia coli of two morphotypes
Few Streptococcus species
Few Presumptive Calli albicans
K.OXYTOCA E.COLI
M.I.C. RX M.I.C. RX
--------- --- --------- ---
Amoxicillin/Potas. Clavulanate <=8/4 S <=8/4 S
Ampicillin >16 R <=8 S
Ampicillin/Sulbactam 8/4 S <=4/2 S
Aztreonam <=4 S <=4 S
Cefazolin 8 R <=2 S
Cefepime <=2 S
Ceftazidime <=1 S
Ceftriaxone <=1 S
Ertapenem <=0.5 S <=0.5 S
Ciprofloxacin <=0.25 S <=0.25 S
Gentamicin <=2 S <=2 S
Meropenem <=1 S <=1 S
Piperacillin/Tazobactam <=8 S <=8 S
Tetracycline <=4 S <=4 S
Tobramycin <=2 S <=2 S
Trimethoprim/Sulfamethoxazole <=2/38 S <=2/38 S
Imaging:
03/22/2024 CT abdomen/pelvis with contrast: Status post sigmoid resection and anastomosis. As described, CT findings compatible with anastomotic leak. Free intraperitoneal air. Focal collections within the pelvis. Superimposed infection of these
collections cannot be excluded. Moderate elevation right hemidiaphragm. Small right pleural effusion. Atelectasis in the lower lungs, right greater than left.
Assessment / Plan
Anastomotic leak/fecal peritonitis
-Recovered organisms include Klebsiella, E. coli, strep species and Calli albicans.
Leukocytosis
Anemia
Rheumatoid arthritis (maintained on methotrexate/infliximab)
Diverticulitis
C. difficile
HTN
Recommendations:
Continue with Zosyn at present dose.
Add micafungin for coverage of recovered Calli species
Monitor white count and temperature curve
Monitor abdominal exam.
[2024-03-27 17:21] LABS: Glucose - Point of Care 169 mg/dl (70-99)
[2024-03-27] MEDS: NOVOLOG FLEXPEN-LOW RESISTANCE 1 UNITS SC (18:19)
[2024-03-27] MEDS: LOVENOX 40 MG SC (18:20)
[2024-03-27] MEDS: MYCAMINE 105 MG IV (18:20)
[2024-03-27] MEDS: Parenteral Nutrition, Central 1280 IV (21:22)
[2024-03-27 23:50] LABS: Glucose - Point of Care 133 mg/dl (70-99)
[2024-03-28] MEDS: ZOSYN 50 IV ×4 (03:06→22:00)
[2024-03-28 03:20] VITALS: BP 141/67
[2024-03-28 05:56] LABS: Glucose - Point of Care 136 mg/dl (70-99)
[2024-03-28 05:58] VITALS: BMI 33.7
[2024-03-28] MEDS: NOVOLOG FLEXPEN-LOW RESISTANCE SC ×4 (06:06→23:33)
[2024-03-28 06:51] LABS: Hematocrit 29.9 % (37.0-47.0); Hemoglobin 9.7 g/dL (12.0-16.0); Mean Corp Hgb Conc. 32.4 g/dL (33.0-37.0); Mean Corpuscular Hgb 30.1 pg (27.0-31.0); Mean Corpuscular Volume 92.9 fL (81.0-99.0); Platelet Count 393 10^3/uL (130-400); Red Blood Cell Count 3.22 10^6/uL (4.20-5.40); Red Cell Dist. Width 14.8 % (11.5-14.5); White Blood Cell Count 14.7 10^3/uL (4.8-10.8)
[2024-03-28 07:06] LABS: Blood Urea Nitrogen 15 mg/dl (7-17); Calcium 7.8 mg/dl (8.4-10.2); Carbon Dioxide 27 mmol/L (22-30); Chloride 103 mmol/L (98-107); Estimated Creatinine Clearance 100 ml/min; Glucose 136 mg/dl (70-99); Magnesium 2.2 mg/dl (1.6-2.3); Phosphorus 2.2 mg/dl (2.5-4.5); Potassium 4.4 mmol/L (3.5-5.1); Sodium 135 mmol/L (135-145); eGFR > 60.00
[2024-03-28 07:35] VITALS: BP 156/74
[2024-03-28 08:47] LABS: Glucose - Point of Care 133 mg/dl (70-99)
[2024-03-28] MEDS: PROTONIX IV 40 MG IV ×2 (08:55→20:28)
[2024-03-28] MEDS: NSS (PRESERVATIVE FREE) 10 ML IV ×2 (08:55→20:28)
[2024-03-28] MEDS: DILAUDID 1 MG IV ×4 (08:55→20:42)
--- NOTE | 2024-03-28 09:53 | W.PN.CRS1 ---
Today's Communication / Plan
-
chest xray
UA
LE dopplers
NGT back to suction
Assessment/Plan
-
68-year-old female with PMH of RA (on Remicade and methotrexate, held preoperatively), HTN, history of C. difficile who presents for elective surgery for recurrent diverticulitis
POD 13 robotic sigmoidectomy, flexible sigmoidoscopy
POD 5 laparotomy, repair of anastomotic leak and diverting loop ileostomy
1/6�developed coffee-ground emesis and hypotension, transferred to the ICU, requiring levo up to 10
1/6�EGD by GI showing multiple duodenal ulcers 1 large with recent bleed, requiring epi injection and APC
03/23- OR
Afebrile, vitals normal
WBC 14.7 (13.0), Hgb 9.7
Liquid stool output: 225ml
� No evidence of active bleeding. Hgb up again today.
- Given rising WBC, will order chest xray, UA, and LE dopplers.
� NGT to be placed back to continuous suction
� Continue pain control with Dilaudid as needed
� On lovenox, TEDS/SCDS in place.
� Okay for OOB, PT reconsulted; encourage IS
� Appreciate hospitalist and acute care certified nursing assistant
- Continue to trend hemoglobin. Will transfuse for a hemoglobin less than 7.
- Remains on Zosyn IV (will need a total 10-14 day course)/micafungin. Appreciate ID.
- Continue daily TPN
Subjective Data
Procedure
03/15/2024 Robotic sigmoid colectomy with intracorporeal anastomosis
03/23/2024 Exploratory laparotomy, repair of anastomotic leak and diverting loop ileostomy
Subjective Data
Date of Service: March 28, 2024
Patient states she feels 'not great'. She has been burping since the NGT has been clamped. She has some pain and just got pain medication. She is very tired. She was nauseous yesterday and has nausea when she uses the I/S.
Objective Data
-
Vital Signs
Temp Pulse Resp BP Pulse Ox
98.1 F 93 20 156/74 96
03/28/24 07:35 03/28/24 07:35 03/28/24 07:35 03/28/24 07:35 03/28/24 07:35
Intake & Output
03/27/24 03/28/24 03/29/24
06:59 06:59 06:59
Intake Total 1842 / 1842 1697 / 1697
Output Total 2075 / 2075 300 / 300
Balance -233 / -233 1397 / 1397
Intake:
Oral fluids 120 / 120
IV fluids (Total) 200 / 200
Lr 1,000 ml @ 50 mls/hr IV . 200 / 200
Q20H GUNNER Rx#:[id number]
IV piggybacks 400 / 400 305 / 305
TPN/PPN 1032 / 1032 1272 / 1272
Amount instilled into GI Tube ( 210 / 210
Total)
Taylor Sump 210 / 210
Output:
Liquid stool amount 125 / 125 275 / 275
Ileostomy 125 / 125 275 / 275
Drain Output (Total) 175 / 175 25 / 25
Abdomen Kulwant-Hernandez 175 / 175
Gastrointestinal tube output ( 325 / 325
Total)
Taylor Sump 325 / 325
Urine, Leal 1450 / 1450
Other:
Number of approximated MODERATE 2
amounts of urine
Number of approximated LARGE 1 3
amounts of urine
Lab Results
03/28/24 06:11
03/28/24 06:11
Physical Exam
-
General: No Acute Distress and AOx3
Abdomen: Soft, Distended (mild) and Other (ileostomy warm and pink with output, MERT drain serous)
Wound: No Signs of Infection, Dressing in Place and Other (ean in place)
--- NOTE | 2024-03-28 10:45 | W.PN.HOSP.TC ---
Today's Communication/Plan
-
continue NGT to suction
continue Zosyn, Micafungin per ID
monitor WBC count
Assessment / Plan
Assessment / Plan
Assessment:
Acute hypoxic respiratory insufficiency - now on Room Air.
Sepsis due to postoperative anastomotic leak - noted on CT abdomen. s/p laparoscopic anastomotic leak repair, flex sig with diverting loop ileostomy 03/23. clamp NGT and possible trial clears today. TPN ordered by surgical services will continue
until solid food trialed x 24 hours at least. Continue IV Zosyn, day 6. Follow leukocytosis/fever trends. ID consulted 03/27 due to Calli growth in wound culture and now on Micafungin day 2.
Hx of diverticular disease with recurrent history of diverticulitis - s/p Robotic sigmoid colectomy with intracorporeal anastomosis, 03/15/2024.
Persistent sinus tachycardia - secondary to anastomosis leak as above, critical illness. resolving.
Acute GI bleed (hematemesis/rectal bleeding)
- EGD done 03/19 showed LA grade B esophagitis with no bleeding, small hiatal hernia, nonobstructing oozing duodenal ulcers with a visible vessel. Treated with bipolar cautery. Injected. No specimens collected.
- NSAID induced peptic ulcer disease. Avoid further NSAIDs in the future, discussed with patient.
- continue IV Protonix twice daily.
Acute symptomatic blood loss anemia - due to acute GI bleed as above. Transfused 4 units of blood so far. Hemoglobin 9.7 today. Transfuse <7.0
Asymptomatic bacteriuria - urine culture noted. 50,000 colonies noted of E. coli. Urinalysis without significant pyuria.
Jaundice/elevated LFTs - suspect due to acute ischemic hepatitis due to hypotension, shock. LFTs trending down. No evidence of hemolysis. Abdominal ultrasound unremarkable.
Hemorrhagic shock - required PRBCs, pressors earlier during hospitalization. Currently off pressors.
Hyponatremia - improved.
History of RA on Remicade and Methotrexate prior to admission. Last use of prednisone was 3 weeks ago with her last infusion of Remicade.
Essential HTN
- hold Lisinopril; consider resumption in 24-48 hours when PO meds established. prn Hydralazine
Pseudo-hypocalcemia - albumin 1.6, corrected calcium 9.6.
Hx of C. Diff
Hyperchloremic metabolic acidosis - from NSS infusion. Improved.
Obesity due to excess calories
DVT ppx: SCDs
Code: Full
Anticipated Discharge: > 48 hours
Subjective/Interval History
-
Date of Service: March 28, 2024
NGT back to suction today
Objective Data
-
Labs:
Laboratory Results
03/28/24
06:11
WBC 14.7 H
Hgb 9.7 L
Hct 29.9 L
Plt Count 393 D
Sodium 135
Potassium 4.4
Chloride 103
Carbon Dioxide 27
BUN 15
Creatinine 0.6
Glucose 136 H
Calcium 7.8 L
Vital Signs:
Vital Signs
Temp Pulse Resp BP Pulse Ox
98.1 F 93 20 156/74 96
03/28/24 07:35 03/28/24 07:35 03/28/24 07:35 03/28/24 07:35 03/28/24 07:35
I&O
03/27/24 03/28/24 03/29/24
06:59 06:59 06:59
Intake Total 1842 / 1842 1697 / 1697
Output Total 2074 300 / 300
Balance -233 / -233 1397 / 1397
Physical Exam
-
General: No Apparent Distress
HEENT: Normocephalic
Respiratory: Wheezes
Cardiac: Regular Rhythm and S1/S2
GI: Soft and Nontender
Musculoskeletal: No Edema
Neuro: AO x 3
Hematologic / Lymphatic: No Lymphadenopathy
Psych: Calm
Data Reviewed
-
Total Time Spent with Patient (in minutes): 41
Labs: Labs Reviewed by me
[2024-03-28 11:58] VITALS: BP 143/92
[2024-03-28 12:04] LABS: Glucose - Point of Care 135 mg/dl (70-99)
--- NOTE | 2024-03-28 13:28 | W.PN.ID1 ---
Date of Service
Date of Service: March 28, 2024
Today's Communication
Continue antibiotics. Follow white count
Assessment / Plan
Anastomotic leak/fecal peritonitis
-Recovered organisms include Klebsiella, E. coli, strep species and Calli albicans.
Leukocytosis
Anemia
Rheumatoid arthritis (maintained on methotrexate/infliximab)
Diverticulitis
C. difficile
HTN
Recommendations:
White count noted to be trending up.
Continue with Zosyn and treatment of recovered bacterial isolates.
Continue micafungin for coverage of recovered Calli species
Monitor white count and temperature curve
Monitor abdominal exam.
����������������������������������������������������������
Chief Complaint
-: Other (Fecal peritonitis)
Subjective / Review of Systems
Patient seen and examined. Reports ongoing abdominal discomfort. No fevers or chills.
Vital Signs / Physical Exam
Vital Signs
Vital Signs
Temp Pulse Resp BP Pulse Ox
98.2 F 90 18 143/92 94
03/28/24 11:58 03/28/24 11:58 03/28/24 11:58 03/28/24 11:58 03/28/24 11:58
Physical Exam
Constitutional: Comfortable and Non-toxic
Eyes: No Conjunctival Hemorrhage and Sclera Anicteric
Oropharyngeal: Other (NG tube in place; clamped)
Cardiovascular: S1/S2; Negative S3/S4
Pulmonary: Clear and Non Labored
Gastrointestinal: Soft, Distended and Decreased Bowel Sounds
Extremities: Edema; Negative Erythema or Splinter Hemorrhage
Neurological: Awake and Alert
Psychological: Calm
Objective Data
Lab Data
Lab Results
03/28/24 06:11
03/28/24 06:11
PT 16.6 Sec (11.4-14.6) H 03/18/24 22:55
INR 1.32 03/18/24 22:55
APTT 25.3 Sec (23.4-35.0) 03/19/24 14:56
Estimated Creat Clear 100 ml/min 03/28/24 06:11
Lactic Acid 1.6 mmol/L (0.7-2.0) 03/19/24 00:24
Total Bilirubin 1.2 mg/dl (0.2-1.3) 03/26/24 03:14
GGT 198 U/L (12-43) H 03/20/24 03:26
AST 24 U/L (14-36) 03/26/24 03:14
ALT 16 U/L (0-35) 03/26/24 03:14
Alkaline Phosphatase 98 U/L (38-126) 03/26/24 03:14
Most recent labs reviewed.
Micro Results:
03/23/24 14:40 Anaerobic Culture - Final
Abdomen
03/23/24 14:40 Wound Culture - Final
Abdomen Klebsiella oxytoca
Escherichia coli
Streptococcus species
Calli albicans
Gram Stain - Final
03/19/24 14:56 Blood Culture - Final
Blood/Venous No Growth - Final Report
03/19/24 00:24 Blood Culture - Final
Blood/Venous No Growth - Final Report
03/19/24 20:30 Urine Culture - Final
Urine Escherichia coli
Wound/abscess/other Cult Final 03/27/24-09
Moderate Klebsiella oxytoca
Moderate Escherichia coli of two morphotypes
Few Streptococcus species
Few Presumptive Calli albicans
K.OXYTOCA E.COLI
M.I.C. RX M.I.C. RX
--------- --- --------- ---
Amoxicillin/Potas. Clavulanate <=8/4 S <=8/4 S
Ampicillin >16 R <=8 S
Ampicillin/Sulbactam 8/4 S <=4/2 S
Aztreonam <=4 S <=4 S
Cefazolin 8 R <=2 S
Cefepime <=2 S
Ceftazidime <=1 S
Ceftriaxone <=1 S
Ertapenem <=0.5 S <=0.5 S
Ciprofloxacin <=0.25 S <=0.25 S
Gentamicin <=2 S <=2 S
Meropenem <=1 S <=1 S
Piperacillin/Tazobactam <=8 S <=8 S
Tetracycline <=4 S <=4 S
Tobramycin <=2 S <=2 S
Trimethoprim/Sulfamethoxazole <=2/38 S <=2/38 S
Imaging:
03/22/2024 CT abdomen/pelvis with contrast: Status post sigmoid resection and anastomosis. As described, CT findings compatible with anastomotic leak. Free intraperitoneal air. Focal collections within the pelvis. Superimposed infection of these
collections cannot be excluded. Moderate elevation right hemidiaphragm. Small right pleural effusion. Atelectasis in the lower lungs, right greater than left.
[2024-03-28 13:36] LABS: Urine Albumin Negative (Neg - Trace); Urine Bilirubin Negative (Negative); Urine Character Clear (Clear); Urine Color Yellow; Urine Glucose Negative (Negative); Urine Ketone Negative (Negative); Urine Leukocyte Negative (Negative); Urine Nitrite Negative (Negative); Urine Occult Blood Negative (Negative); Urine Urobilinogen Negative (Neg - 1+)
--- NOTE | 2024-03-28 14:40 | CM ---
Addendum entered by Doreen Ibarra RN 03/28/24 15:54:
CM spoke with the patient and her brother at the bedside. NGT to lws continues. Patient interested in [facility] at discharge. CM continues to be available to patient/family and is monitoring medical plan for needs at discharge.
Plan: Discharge hopefully to Acute Rehab ([facility]). Precert will be required. Psychiatry consult pending.
Original Note:
Reviewed the chart notes. TPN continues. PT recommending SNF/Acute Rehab. CM continues to be available to patient/family and is monitoring medical plan for needs at discharge.
Plan: Discharge to SNF vs Acute Rehab depending on the patient's progress.
[2024-03-28 15:46] VITALS: BP 156/94
--- NOTE | 2024-03-28 16:36 | WOUNDNOTE ---
[facility] RN NOTE: Visited patient for pouch change today. Brother, Dario present for teaching. Ileostomy stoma is pink and budded with bridge intact. Peristomal skin with some scant open areas. Stoma powder and no-sting barrier applied to peristomal
skin. Pouch changed with [place] barrier [id number] Eakins seal and pouch # [id number]. Will recommend an order Desenex powder if fungal appearing skin is present at next pouch change. Patient demonstrated good ability to turn self in bed. Patient was
repositioned on right semi-side lying position. Foam applied to scabbed area on right buttock, which was present on admission. Patient reminded to turn frequently in bed to avoid pressure to sacrum/buttock. Heel intact and off-loaded on pillows. Air
cushion applied to chair. Plan is for SNF. RUBEN Jackson given update. Next pouch change due on April 01.
[2024-03-28] MEDS: MYCAMINE 105 MG IV (16:50)
[2024-03-28] MEDS: LOVENOX 40 MG SC (16:51)
[2024-03-28 18:45] LABS: Glucose - Point of Care 138 mg/dl (70-99)
[2024-03-28 20:00] VITALS: BP 150/87
[2024-03-28] MEDS: FLUSH (NSS) 2 FLUSH IV (20:29)
[2024-03-28] MEDS: Parenteral Nutrition, Central 1280 IV (20:47)
[2024-03-28 23:28] VITALS: BP 134/77
[2024-03-28 23:32] LABS: Glucose - Point of Care 122 mg/dl (70-99)
[2024-03-29] VITALS (7 sets, daily range): BP systolic 130–145; BP diastolic 60–84; PULSE 89; O2SAT 99; BMI 32.7
[2024-03-29] MEDS: DILAUDID 1 MG IV ×3 (02:42→11:00)
[2024-03-29] MEDS: FLUSH (NSS) 2 FLUSH IV ×2 (02:43→05:50)
[2024-03-29] MEDS: ZOSYN 50 IV ×4 (03:27→22:04)
[2024-03-29 05:40] LABS: Glucose - Point of Care 129 mg/dl (70-99)
[2024-03-29] MEDS: NOVOLOG FLEXPEN-LOW RESISTANCE SC ×3 (05:51→18:45)
[2024-03-29 06:34] LABS: Hematocrit 30.2 % (37.0-47.0); Hemoglobin 9.9 g/dL (12.0-16.0); Mean Corp Hgb Conc. 32.8 g/dL (33.0-37.0); Mean Corpuscular Hgb 30.1 pg (27.0-31.0); Mean Corpuscular Volume 91.8 fL (81.0-99.0); Mean Platelet Volume 11.1 fL (7.4-10.4); Platelet Count 451 10^3/uL (130-400); Red Blood Cell Count 3.29 10^6/uL (4.20-5.40); White Blood Cell Count 16.3 10^3/uL (4.8-10.8)
[2024-03-29 06:50] LABS: Blood Urea Nitrogen 15 mg/dl (7-17); Calcium 7.9 mg/dl (8.4-10.2); Carbon Dioxide 24 mmol/L (22-30); Chloride 104 mmol/L (98-107); Estimated Creatinine Clearance 98 ml/min; Glucose 124 mg/dl (70-99); Potassium 4.8 mmol/L (3.5-5.1); Sodium 134 mmol/L (135-145); eGFR > 60.00
--- NOTE | 2024-03-29 08:44 | WOUNDNOTE ---
[facility] RN note: Patient's ileostomy pouch had laterally and leaked. Changed appliance using Woodrow wafer # [id number], Yonas seal and Dennard pouch # [id number]. Miconazole powder applied to mild yeast appearing peristomal rash followed by no
sting barrier wipe. Stoma pink. Stoma bridge intact. Patient is ambulating to the bathroom and can move self in bed. Coccyx skin mild red and intact. Instructed patient pressure injury prevention measures. Heels off bed with air chair cushion. Next
appliance change due Monday.
[2024-03-29] MEDS: NSS (PRESERVATIVE FREE) 10 ML IV ×2 (10:06→20:33)
[2024-03-29] MEDS: PROTONIX IV 40 MG IV ×2 (10:06→20:34)
--- NOTE | 2024-03-29 12:01 | W.PN.HOSP.TC ---
Today's Communication/Plan
-
continue Zosyn, Micafungin
continue TPN
IV Tylenol and reduce dose/frequency of Dilaudid
Assessment / Plan
Assessment / Plan
Assessment:
Acute hypoxic respiratory insufficiency - now on Room Air.
Sepsis due to postoperative anastomotic leak - noted on CT abdomen. s/p laparoscopic anastomotic leak repair, flex sig with diverting loop ileostomy 03/23. clamp NGT and possible trial clears today. TPN ordered by surgical services will continue
until solid food trialed x 24 hours at least. Continue IV Zosyn, day 7. Follow leukocytosis/fever trends. ID consulted 03/27 due to Calli growth in wound culture and now on Micafungin day 3. Consider CT repeat in 24-48 hours if WBC rises further.
Hx of diverticular disease with recurrent history of diverticulitis - s/p Robotic sigmoid colectomy with intracorporeal anastomosis, 03/15/2024.
Persistent sinus tachycardia - secondary to anastomosis leak as above, critical illness. resolving.
Acute GI bleed (hematemesis/rectal bleeding)
- EGD done 03/19 showed LA grade B esophagitis with no bleeding, small hiatal hernia, nonobstructing oozing duodenal ulcers with a visible vessel. Treated with bipolar cautery. Injected. No specimens collected.
- NSAID induced peptic ulcer disease. Avoid further NSAIDs in the future, discussed with patient.
- continue IV Protonix twice daily.
Acute symptomatic blood loss anemia - due to acute GI bleed as above. Transfused 4 units of blood so far. Hemoglobin 9.9 today. Transfuse <7.0
Asymptomatic bacteriuria - urine culture noted. 50,000 colonies noted of E. coli. Urinalysis without significant pyuria.
Jaundice/elevated LFTs - suspect due to acute ischemic hepatitis due to hypotension, shock. LFTs trending down. No evidence of hemolysis. Abdominal ultrasound unremarkable.
Hemorrhagic shock - required PRBCs, pressors earlier during hospitalization. Currently off pressors.
Hyponatremia - improved.
History of RA on Remicade and Methotrexate prior to admission. Last use of prednisone was 3 weeks ago with her last infusion of Remicade.
Essential HTN
- hold Lisinopril; consider resumption in 24-48 hours when PO meds established. prn Hydralazine
Pseudo-hypocalcemia - albumin 1.6, corrected calcium 9.6.
Hx of C. Diff
Hyperchloremic metabolic acidosis - from NSS infusion. Improved.
Obesity due to excess calories
DVT ppx: SCDs
Code: Full
Anticipated Discharge: > 48 hours
Subjective/Interval History
-
Date of Service: March 29, 2024
on NG clamp trial, no nausea
Objective Data
-
Labs:
Laboratory Results
03/29/24
05:45
WBC 16.3 H
Hgb 9.9 L
Hct 30.2 L
Plt Count 451 H
Sodium 134 L
Potassium 4.8
Chloride 104
Carbon Dioxide 24
BUN 15
Creatinine 0.6
Glucose 124 H
Calcium 7.9 L
Vital Signs:
Vital Signs
Temp Pulse Resp BP Pulse Ox
97.5 F 84 18 144/78 96
03/29/24 11:00 03/29/24 11:00 03/29/24 11:00 03/29/24 11:00 03/29/24 11:00
I&O
03/28/24 03/29/24 03/30/24
06:59 06:59 06:59
Intake Total 1697 / 1697 1186 / 1186
Output Total 300 / 300 1425 / 1425
Balance 1397 / 1397 -239 / -239
Physical Exam
-
General: No Apparent Distress
HEENT: Normocephalic, Atraumatic and Other (+NGT)
Cardiac: Regular Rhythm and S1/S2
GI: Soft and Distended (mild)
Neuro: AO x 3
Hematologic / Lymphatic: No Lymphadenopathy
Psych: Calm
Data Reviewed
-
Total Time Spent with Patient (in minutes): 42
Labs: Labs Reviewed by me
--- NOTE | 2024-03-29 12:19 | W.PN.CRS1 ---
Today's Communication / Plan
-
NG tube clamping trial
Psychiatry
Assessment/Plan
-
68-year-old female with PMH of RA (on Remicade and methotrexate, held preoperatively), HTN, history of C. difficile who presents for elective surgery for recurrent diverticulitis
POD 14 robotic sigmoidectomy, flexible sigmoidoscopy
POD 6 laparotomy, repair of anastomotic leak and diverting loop ileostomy
16�developed coffee-ground emesis and hypotension, transferred to the ICU, requiring levo up to 10
16�EGD by GI showing multiple duodenal ulcers 1 large with recent bleed, requiring epi injection and APC
03/23- OR
03/28- wbc rising - UA neg, CR chest neg, LE dopplers neg
Afebrile, vitals normal
WBC 16.3 (14.7), Hgb 9.9 (9.7)
Liquid stool output: 50
� No evidence of active bleeding. Hgb up again today.
- Leukocytosis still present, will trend labs.
�NG tube clamping trial today. If removed, instructed patient to try clear liquids slowly.
� Continue pain control with Dilaudid as needed
� On lovenox, TEDS/SCDS in place.
� Okay for OOB, PT reconsulted; encourage IS
� Appreciate hospitalist and protective signal operator
- Continue to trend hemoglobin. Will transfuse for a hemoglobin less than 7.
- Remains on Zosyn IV (will need a total 10-14 day course)/micafungin. Appreciate ID.
- Continue daily TPN
-Given her depression, we will consult psychiatry
Subjective Data
Procedure
03/15/2024 Robotic sigmoid colectomy with intracorporeal anastomosis
03/23/2024 Exploratory laparotomy, repair of anastomotic leak and diverting loop ileostomy
Subjective Data
Date of Service: March 29, 2024
Patient states her pain is about the same. She denies nausea or vomiting. She has function in her ileostomy. She states she has been feeling depressed.
Objective Data
-
Vital Signs
Temp Pulse Resp BP Pulse Ox
97.5 F 84 18 144/78 96
03/29/24 11:00 03/29/24 11:00 03/29/24 11:00 03/29/24 11:00 03/29/24 11:00
Intake & Output
03/28/24 03/29/24 03/30/24
06:59 06:59 06:59
Intake Total 1697 / 1697 1186 / 1186
Output Total 300 / 300 1425 / 1425
Balance 1397 / 1397 -239 / -239
Intake:
Oral fluids 120 / 120 360 / 360
IV piggybacks 305 / 305 100 / 100
TPN/PPN 1272 / 1272 636 / 636
Amount instilled into GI Tube ( 90 / 90
Total)
[place] Sump 90 / 90
Output:
Liquid stool amount 275 / 275 50 / 50
Ileostomy 275 / 275 50 / 50
Drain Output (Total)
Abdomen Kulwant-Hernandez
Gastrointestinal tube output ( 375 / 375
Total)
[place] Sump 375 / 375
Urine, Voided 990 / 990
Other:
Number of approximated MODERATE 2 1 1
amounts of urine
Number of approximated LARGE 3
amounts of urine
Lab Results
03/29/24 05:45
03/29/24 05:45
Physical Exam
-
General: No Acute Distress and AOx3
Abdomen: Soft, Non Distended and Tender (mild, around incision, ileostomy warm and pink with output, MERT drain serous)
Skin: Warm and Dry
Wound: Dressing Changed (ean in place)
--- NOTE | 2024-03-29 12:25 | WOUNDNOTE ---
WOC RN note: t/c Spoke with Keke from [facility] who confirmed patient's [place] ostomy secure starter kit was sent to patient's home.
--- NOTE | 2024-03-29 12:36 | CM ---
Reviewed the chart notes. Continues with TPN. NGT clamp trial to begin. PT recommending SNF/Acute Rehab. CM continues to be available to patient/family and is monitoring medical plan for needs at discharge.
Plan: Discharge to SNF vs Acute Rehab depending on the patient's progress.
[2024-03-29 12:51] LABS: Glucose - Point of Care 114 mg/dl (70-99)
[2024-03-29] MEDS: OFIRMEV 100 IV ×2 (12:58→17:48)
--- NOTE | 2024-03-29 13:15 | PTCARENOTE ---
Pt competed 4 hour clamping trial for her [place] sump NGT. After 4 hours there was 0 residual noted. Pt denies nausea. NGT pulled out as per Colorectal teams orders. Pt will trial clear liquids starting today at lunch time.
--- NOTE | 2024-03-29 14:50 | CON.MD ---
Consultation - Medical
-
patient seen chart reviewed. patient is a 68 year old woman who recently underwent ileostomy. she had expected a sigmoidectomy for diverticulitis but complications necessitated an ileostomy. she is a very active intelligent woman who is quite
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 she does not have a hx of depression recently. over twenty years ago
when she had some moments of depression which are long resolved. 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 she views her coworkers as her family. she was also doing a
lot of traveling and going to concerts w her brother and his with whom she is very close. in short she enjoyed her life and had no complaints suggestive of depression
past psych hx see above
medical hx see above hx RA c diff infection htn cholycystectomy anemia after surgery patient has long hx gi issues
substance abuse none
family hx non contributory
social patient resides in her own home. raised locally [facility] [place] and one [facility]. sis a year and a half ago after a long illness only days after sister's son of a drug overdose. close to [facility]. two kids one in [place] one in [place].
two grandchildren. has some friends whom she sees. enjoys reading music walking
mse alert ox3 cooperative and very pleasant thought process and speech nl no psychosis mood is dysphoric affect appropriate no si above aver intelligence insight judgment ok
dx adjustment disorder
recommendations i do not feel patient needs an antidep medication. i see her response as a normal response to a life changing event. i have seen many patients who end up with 'surprise' ileostomies and need some time to adjust. it would help if
staff familiar with the procedure and the process of adjustment take some time to sit with her and talk with her about what she might expect and instill in her hope for her future which hopefully will include reanastomosis. she thanked me for
talking with her and said she felt better but psychiatry is NOT as well informed of course as colorectal surgery to help her through this process with reassurance and support. that said psych will stop in over the weekend to offer support.
--- NOTE | 2024-03-29 16:08 | W.PN.ID1 ---
Date of Service
Date of Service: March 29, 2024
Today's Communication
Continue current antibiotics.
Assessment / Plan
Anastomotic leak/fecal peritonitis
-Recovered organisms include Klebsiella, E. coli, strep species and Calli albicans.
Leukocytosis
Anemia
Rheumatoid arthritis (maintained on methotrexate/infliximab)
Diverticulitis
C. difficile
HTN
Recommendations:
White count noted to be trending up.
Continue with Zosyn and treatment of recovered bacterial isolates.
Continue micafungin for coverage of recovered Calli species
Monitor white count and temperature curve. If white count continues to rise, may need additional abdominal imaging.
Monitor abdominal exam.
����������������������������������������������������������
Chief Complaint
-: Other (Fecal peritonitis)
Subjective / Review of Systems
Patient seen and examined. Reports feeling somewhat improved since yesterday. NG tube now out. She is feeling okay on small amounts of clears.
Review of Systems: No Fever and No Chills
Vital Signs / Physical Exam
Vital Signs
Vital Signs
Temp Pulse Resp BP Pulse Ox
97.6 F 88 16 138/60 96
03/29/24 15:24 03/29/24 15:24 03/29/24 15:24 03/29/24 15:24 03/29/24 15:24
Physical Exam
Constitutional: Comfortable and Non-toxic
Eyes: No Conjunctival Hemorrhage and Sclera Anicteric
Cardiovascular: S1/S2; Negative S3/S4
Pulmonary: Clear and Non Labored
Gastrointestinal: Soft, Distended and Decreased Bowel Sounds
Extremities: Edema; Negative Erythema or Splinter Hemorrhage
Neurological: Awake and Alert
Psychological: Calm
Objective Data
Lab Data
Lab Results
03/29/24 05:45
03/29/24 05:45
PT 16.6 Sec (11.4-14.6) H 03/18/24 22:55
INR 1.32 03/18/24 22:55
APTT 25.3 Sec (23.4-35.0) 03/19/24 14:56
Estimated Creat Clear 98 ml/min 03/29/24 05:45
Lactic Acid 1.6 mmol/L (0.7-2.0) 03/19/24 00:24
Total Bilirubin 1.2 mg/dl (0.2-1.3) 03/26/24 03:14
GGT 198 U/L (12-43) H 03/20/24 03:26
AST 24 U/L (14-36) 03/26/24 03:14
ALT 16 U/L (0-35) 03/26/24 03:14
Alkaline Phosphatase 98 U/L (38-126) 03/26/24 03:14
Most recent labs reviewed.
Micro Results:
03/23/24 14:40 Anaerobic Culture - Final
Abdomen
03/23/24 14:40 Wound Culture - Final
Abdomen Klebsiella oxytoca
Escherichia coli
Streptococcus species
Calli albicans
Gram Stain - Final
03/19/24 14:56 Blood Culture - Final
Blood/Venous No Growth - Final Report
03/19/24 00:24 Blood Culture - Final
Blood/Venous No Growth - Final Report
03/19/24 20:30 Urine Culture - Final
Urine Escherichia coli
Wound/abscess/other Cult Final 03/27/24-0809
Moderate Klebsiella oxytoca
Moderate Escherichia coli of two morphotypes
Few Streptococcus species
Few Presumptive Calli albicans
K.OXYTOCA E.COLI
M.I.C. RX M.I.C. RX
--------- --- --------- ---
Amoxicillin/Potas. Clavulanate <=8/4 S <=8/4 S
Ampicillin >16 R <=8 S
Ampicillin/Sulbactam 8/4 S <=4/2 S
Aztreonam <=4 S <=4 S
Cefazolin 8 R <=2 S
Cefepime <=2 S
Ceftazidime <=1 S
Ceftriaxone <=1 S
Ertapenem <=0.5 S <=0.5 S
Ciprofloxacin <=0.25 S <=0.25 S
Gentamicin <=2 S <=2 S
Meropenem <=1 S <=1 S
Piperacillin/Tazobactam <=8 S <=8 S
Tetracycline <=4 S <=4 S
Tobramycin <=2 S <=2 S
Trimethoprim/Sulfamethoxazole <=2/38 S <=2/38 S
Imaging:
03/22/2024 CT abdomen/pelvis with contrast: Status post sigmoid resection and anastomosis. As described, CT findings compatible with anastomotic leak. Free intraperitoneal air. Focal collections within the pelvis. Superimposed infection of these
collections cannot be excluded. Moderate elevation right hemidiaphragm. Small right pleural effusion. Atelectasis in the lower lungs, right greater than left.
--- NOTE | 2024-03-29 16:22 | CON.MD ---
Consultation - Medical
-
Referring Provider:�Dr. José Luis Wellington
Chief Complaint:�Debility
�
History of Present Illness:�68-year-old female with PMH (as below) presented to [facility] on 03/15/2024 with concern for fecal peritonitis. She has a history of diverticulitis for 10 years with 8 or 9 episodes during that time. Including 3
of them this year most recently in October. She had an elective robotic sigmoid colectomy on 03/15/2024. Postoperative course complicated by upper GI bleed noted on endoscopy 03/19/2024. She had grade B esophagitis with no bleeding, small hiatal
hernia, nonobstructing oozing duodenal ulcers with a visible vessel that was treated with bipolar cautery and injected. [place] to be NSAID induced peptic ulcer disease. Placed on Protonix. She had continued episodes of vomiting and found to have it
in stenotic leak status post ex lap 03/23/2024 with colostomy placement. Intraoperative cultures revealed multiple bacterial isolates including suspected Calli species. Seen by psychiatry and found to have an adjustment disorder. Is getting TPN,
titrating down pain medications. To have an episode of acute hypoxic respiratory insufficiency and sepsis but is now on room air.
Overall having some abdominal pain but otherwise doing okay. Nursing has been changing her ostomy she has not really tried to do it yet.
�
Past Medical History:�Rheumatoid arthritis, diverticulitis, C. difficile, HTN
Procedure History:�Prior bowel surgery, x 2, appendectomy, cholecystectomy
Family History:�Denies
�
Social History:�
Functional Level Premorbidly:�Independent with all activities�
Functional Level Currently:�Ambulating 20 feet with rolling walker min assist, supervision for transfers. Dependent for toileting and eating. Mod assist bed mobility.
�
Tobacco:�Former
Alcohol:�Denies�
Drug use:�Denies�
�
Lives with:�Alone
24-hour assistance available:�Her brother could stay with her upon discharge
Number of floors:�2
# steps to enter:�2
# steps to second floor: Full flight
Potential First floor set up:�No
Driving:�Yes
Occupation:�Works full-time
�
�
Allergies:�
Allergy/AdvReac Type Severity Reaction Status Date / Time
codeine Allergy Nausea / Verified 03/15/24 06:23
Vomiting
[place] Allergy Shortness Verified 03/15/24 06:23
of Breath
�
Review of Systems:�
Constitutional: (x) abNormal_fatigue
Eye: (x) Normal _
Ear/Nose/Throat: (x) Normal _
Respiratory: (x) Normal _
Cardiovascular: (x) Normal _
Gastrointestinal: (x) abNormal _colectomy leading to colostomy and infection, mild abdominal pain
Genitourinary: (x) Normal _
Musculoskeletal: (x) abNormal _generalized weakness
Integumentary: (x) abNormal _ostomy
Neurologic: (x) Normal _
Psychiatric: (x) Normal _
Endocrine: (x) Normal _
Hematologic/Lymphatic: (x) Normal _
Allergic/Immunologic: (x) Normal _
�
Medications:�
Active Current Visit Medication List
Category Date Time Status
0.9% Sodium Chloride [Nss (Preservative Free)] Med 03/23/24 08:00 Active
10 ml IV Q12H
Acetaminophen 1000MG/100Ml [Ofirmev] Med 03/29/24 12:15 Active
1,000 mg in 100 ml IV Q6H
Dextrose 50%-Water [Dextrose 50% Syringe] Med 03/25/24 10:45 Active
12.5 grams IV [id number] PRN
Enoxaparin Sodium [Lovenox] Med 03/27/24 18:00 Active
40 mg SC QPM
Flush (0.9% Sodium Chloride) [Flush (Nss)] Med 03/15/24 14:00 Active
See Dose Instructions IV PER PROTOCOL
Glucagon [GlucaGen] Med 03/25/24 10:45 Active
1 mg IM PRN PRN
HYDROmorphone [Dilaudid] Med 03/29/24 14:00 Active
0.5 mg IV Q4HPRN PRN
HydrALAZINE [Apresoline] Med 03/28/24 15:56 Active
5 mg IV Q6HPRN PRN
Insulin Aspart Corrective Low [Novolog Flexpen-Low Med 03/25/24 18:00 Active
Resistance]
See Protocol SC Q6
Micafungin Sodium [Mycamine] 100 mg Med 03/27/24 18:00 Active
Dextrose 5%/Water 100 ml [D5w] 100 ml
IV Q24H
Miconazole Nitrate [Desenex/Mitrazol/Zeasorb] Med 03/28/24 16:36 Active
See Dose Instructions TOPICAL PRN PRN
Ondansetron Injectable [Zofran] Med 03/15/24 11:35 Active
4 mg IV Q6HPRN PRN
Pantoprazole [Protonix IV] Med 03/23/24 08:00 Active
40 mg IV Q12
Parenteral Nutrition, Adult [Parenteral Nutrition, Med 03/28/24 21:00 Active
Central]
1,280 ml in 1,280 ml IV ONCE@2100
Parenteral Nutrition, Adult [Parenteral Nutrition, Med 03/29/24 21:00 Active
Central]
1,280 ml in 1,280 ml IV ONCE@2100
Piperacillin/Tazo 3.375 Gram [Zosyn] Med 03/22/24 16:00 Active
3.375 gram in 50 ml IV Q6H
Prochlorperazine [Compazine] Med 03/17/24 07:34 Active
10 mg IV Q6HPRN PRN
�
Vitals:�
Temp Pulse Resp BP Pulse Ox
97.6 F 88 16 138/60 96
03/29/24 15:24 03/29/24 15:24 03/29/24 15:24 03/29/24 15:24 03/29/24 15:24
Height 5 ft 4 in
Actual Weight 86.239 kg
Body Mass Index (BMI) 32.7
�
Physical Exam:�
General Appearance/Observation: Well-developed, well-nourished female in no apparent distress.�
Pain/Comfort Assessment: Mild abdominal pain
Mood/Affect: Appropriate�
�
Integumentary/Operative Site:�Ostomy not visualized
Eyes: Conjunctiva/Lids: normal���� Pupils: pupils equal round and reactive to light and Accommodation�
Ears/Nose/Throat: oral mucosa moist,� throat clear.������������ Lips/Teeth/Gums: normal�
Cardiovascular: Heart: regular, no murmur�
Pulses: dorsalis pedis 2+ bilaterally�
Respiratory: Respiratory Effort/Chest Expansion: normal������� Auscultation: Clear to auscultation bilaterally�
Gastrointestinal: abdomen not tender, no distension, normal abdominal bowel sounds
Genitourinary: No Leal�
Extremities:�Edema: None�Cyanosis: None�Trophic�changes: None
�
Neurology Exam:
Orientation: Alert, Oriented to self, Time, Place�
Memory: Intact for recent medical concerns
Comprehension: Intact
Two step command: Intact
Cranial Nerves:
�� CNII:�Pupillary light reflex: Intact����Visual Field: Intact
�� CN III, IV, : Extraocular muscles: Intact�
�� CN VII:�Facial movement: Symmetric
�� CN VIII:�Hearing: Normal
�� CN IX/X:�Speech & swallow: Normal,�Position of Uvula: Midline
�� CN XI:�Shoulder shrug: Symmetric
�� CN XII:�Tongue protrusion: Midline
Sensory:
�� Light touch: Intact in bilateral upper and lower extremities
�
Reflexes:
�� Biceps: 2+ bilaterally
�� Brachioradialis: 2+ bilaterally
�� Triceps: 2+ bilaterally
�� Patellar: 2+ bilaterally
�� Achilles: 2+ bilaterally
�� Babinski: Down going bilaterally
�� Clonus: None
�� Shayy: Negative bilaterally�
Musculoskeletal: Motor: (Manual muscle scale 0-5)�
Muscle SA EF WE EE FF FA HF KE DF EHL PF
Right� 4 5 5 5 3 4 5 5 5
Left 4 5 5 5 3 4 5 5 5
�
Tone: Normal in all extremities�
Range of Motion: Passively within normal limits in all extremities�
�
Lab Results
Laboratory Data
03/29/24 05:45
03/29/24 05:45
PT 16.6 Sec (11.4-14.6) H 03/18/24 22:55
INR 1.32 03/18/24 22:55
APTT 25.3 Sec (23.4-35.0) 03/19/24 14:56
Total Bilirubin 1.2 mg/dl (0.2-1.3) 03/26/24 03:14
Direct Bilirubin 5.6 mg/dl (0.0-0.4) H 03/20/24 03:26
GGT 198 U/L (12-43) H 03/20/24 03:26
AST 24 U/L (14-36) 03/26/24 03:14
ALT 16 U/L (0-35) 03/26/24 03:14
Alkaline Phosphatase 98 U/L (38-126) 03/26/24 03:14
Total Protein 3.7 g/dl (6.3-8.2) L 03/26/24 03:14
Albumin 1.9 g/dl (3.5-5.0) L 03/26/24 03:14
�
Diagnostic Results:�as per HPI�
�
Assessment
68 y/o F PMH (Rheumatoid arthritis, diverticulitis, C. difficile, HTN�) with 03/15/2024 elective robotic sigmoid colectomy on 03/15/2024, complicated by upper GI bleed noted on endoscopy 03/19/2024 with esophagitis and nonobstructing oozing duodenal
ulcers with ADL and ambulatory dysfunction.
�
Plan�
PM&R�PT/OT to increase independence with ADLs, improve balance, coordination, endurance, strength, mobility, community reintegration, decreased burden of care on others and family education.�
�
Colectomy complicated by anastomosis leak resulting in ileostomy: Ostomy management, working on tolerating diet. Maintain hydration losses via ileostomy with oral or IV fluid.
-Micafungin and Zosyn per infectious disease.
-On TPN.
-Leukocytosis increasing, may need further imaging per colorectal.
�
HTN: Not on medication
Postoperative anemia: Also with GI bleeding, monitor.�
�
Pain: acetaminophen or oxycodone as needed.� Transition off of IV Dilaudid.
Bowel: Ileostomy management
Bladder: Time void, PVRs, PRN straight cath.�
GI bleed with ulcer: Pantoprazole�40 mg IV twice a day
DVT Prophylaxis: Mechanical and Lovenox
Pulmonary: Incentive spirometry�
Obesity: Continue to rehabilitation services counselor patient about diet adjustments to control obesity. Body habitus and increased force to move body and extremities causes further difficulty with functional tasks.�
Safety: Continue to reinforce assistance with all transfers.�
Code Status:� Full code
Dispo�(date/plan/equipment needs): Home with family care.� Social history reviewed.�
Functional and Medical Goals:�Modified Independent with ADL�s, ambulation, transfers�
Discharge Destination:��Acute rehabilitation at the moment but if she continues to make improvements could potentially go to SNF or home.
�
Summary of recommendations:
-�Discharge Destination:�Acute rehabilitation at the moment but if she continues to make improvements could potentially go to SNF or home.
Colectomy complicated by anastomosis leak resulting in ileostomy: Ostomy management, working on tolerating diet. Maintain hydration losses via ileostomy with oral or IV fluid.
-Micafungin and Zosyn per infectious disease.
-On TPN.
-Leukocytosis increasing, may need further imaging per colorectal.
Postoperative anemia: Also with GI bleeding, monitor.�
Pain: acetaminophen or oxycodone as needed.� Transition off of IV Dilaudid.
Thank you for allowing me to care for your patient. Please contact me with any questions or concerns.
[2024-03-29] MEDS: LOVENOX 40 MG SC (17:47)
[2024-03-29] MEDS: MYCAMINE 105 MG IV (17:48)
[2024-03-29 18:19] LABS: Glucose - Point of Care 116 mg/dl (70-99)
[2024-03-29] MEDS: Parenteral Nutrition, Central 1280 IV (21:00)
[2024-03-30] MEDS: OFIRMEV 100 IV ×2 (00:04→05:27)
[2024-03-30 00:06] LABS: Glucose - Point of Care 115 mg/dl (70-99)
[2024-03-30] MEDS: NOVOLOG FLEXPEN-LOW RESISTANCE SC ×4 (01:19→17:46)
[2024-03-30] MEDS: DILAUDID 0.5 MG IV ×4 (01:53→20:12)
[2024-03-30 03:15] VITALS: BP 131/77
[2024-03-30] MEDS: ZOSYN 50 IV ×4 (04:55→21:24)
[2024-03-30 06:00] VITALS: BMI 31.7
[2024-03-30 06:11] LABS: Glucose - Point of Care 121 mg/dl (70-99)
[2024-03-30 07:35] VITALS: BP 128/79
[2024-03-30 08:10] LABS: Hematocrit 30.1 % (37.0-47.0); Hemoglobin 9.9 g/dL (12.0-16.0); Mean Corp Hgb Conc. 32.9 g/dL (33.0-37.0); Mean Corpuscular Hgb 30.1 pg (27.0-31.0); Mean Corpuscular Volume 91.5 fL (81.0-99.0); Mean Platelet Volume 11.1 fL (7.4-10.4); Platelet Count 500 10^3/uL (130-400); Red Blood Cell Count 3.29 10^6/uL (4.20-5.40); Red Cell Dist. Width 15.1 % (11.5-14.5); White Blood Cell Count 14.2 10^3/uL (4.8-10.8)
[2024-03-30 08:21] LABS: Blood Urea Nitrogen 15 mg/dl (7-17); Calcium 7.8 mg/dl (8.4-10.2); Carbon Dioxide 23 mmol/L (22-30); Chloride 106 mmol/L (98-107); Estimated Creatinine Clearance 96 ml/min; Glucose 113 mg/dl (70-99); Potassium 4.9 mmol/L (3.5-5.1); Sodium 137 mmol/L (135-145); eGFR > 60.00
[2024-03-30] MEDS: PROTONIX IV 40 MG IV ×2 (09:04→20:07)
[2024-03-30] MEDS: NSS (PRESERVATIVE FREE) 10 ML IV ×2 (09:04→20:07)
--- NOTE | 2024-03-30 09:22 | W.PN.GS2 ---
Addendum entered and electronically signed by Taye Joel MD 03/30/24 15:03:
Patient seen and examined in follow-up with surgical [facility]. Agree with documented progress note.
Tolerating clear liquids. Not much appetite. Ostomy functioning.
AFVSS leukocytosis
Improved a bit.
ABD: Soft, nondistended, mild tenderness on palpation. Ostomy functioning, right lower quadrant.
MERT purulent
A/P: Full liquid diet with supplements
Renewed TPN
Continue current care
Original Note:
Today's Communication / Plan
-
Full liquids
OOB/increase activity
Assessment / Plan
-
68-year-old female with PMH of RA (on Remicade and methotrexate, held preoperatively), HTN, history of C. difficile who presents for elective surgery for recurrent diverticulitis
POD 15 robotic sigmoidectomy, flexible sigmoidoscopy
POD 7 laparotomy, repair of anastomotic leak and diverting loop ileostomy
1/6�developed coffee-ground emesis and hypotension, transferred to the ICU, requiring levo up to 10
1/6�EGD by GI showing multiple duodenal ulcers 1 large with recent bleed, requiring epi injection and APC
03/23- OR for ex lap as above
ID following on ABX, WBC now trending down
Psychiatry eval on 03/29 for depression, no new meds
Anticipating rehab on d/c
NGT out on 03/29 and now tolerating clears with stool/flatus from appliance/poor po intake
--Advance to FLD with supplements
--Continue TPN until good PO intake, renewed
--OOB/Ambulate. PT/OT following
--Analgesics prn, will add PO options
--PPI BID give duodenal ulcers
--C/W MERT
--Medical management as per primary team
--Continue lovenox, TEDS/SCDS for VTE ppx
Subjective Data
-
Date of Service: March 30, 2024
Patient seen and examined at bedside at bedside with Dr. Joel. Denies n/v. Tolerating clears but not taking in much yet. OOB to chair.
Objective Data
-
Intake and Output
03/29/24 03/30/24 03/31/24
06:59 06:59 06:59
Intake Total 1186 / 1186 1176 / 1176
Output Total 1425 / 1425 1555 / 1555
Balance -239 / -239 -379 / -379
Intake:
Oral fluids 360 / 360 240 / 240
IV piggybacks 100 / 100 300 / 300
TPN/PPN 636 / 636 636 / 636
Amount instilled into GI Tube ( 90 / 90
Total)
Rhea Sump 90 / 90
Output:
Liquid stool amount 50 / 50 350 / 350
Ileostomy 50 / 50 350 / 350
Drain Output (Total) 5 / 5
Abdomen Kulwant-Hernandez 10 5 5
Gastrointestinal tube output ( 375 / 375
Total)
Rhea Sump 375 / 375
Urine, Voided 990 / 990 1200 / 1200
Other:
Number of approximated MODERATE 1 1
amounts of urine
Vital Signs
Temp Pulse Resp BP Pulse Ox
97.5 F 78 16 128/79 97
03/30/24 07:35 03/30/24 07:35 03/30/24 07:35 03/30/24 07:35 03/30/24 07:35
Lab Results
03/30/24 06:54
03/30/24 06:54
Calcium 7.8 mg/dl (8.4-10.2) L 03/30/24 06:54
Phosphorus 2.2 mg/dl (2.5-4.5) L 03/28/24 06:11
Magnesium 2.2 mg/dl (1.6-2.3) 03/28/24 06:11
Total Bilirubin 1.2 mg/dl (0.2-1.3) 03/26/24 03:14
Direct Bilirubin 5.6 mg/dl (0.0-0.4) H 03/20/24 03:26
AST 24 U/L (14-36) 03/26/24 03:14
ALT 16 U/L (0-35) 03/26/24 03:14
Alkaline Phosphatase 98 U/L (38-126) 03/26/24 03:14
Total Protein 3.7 g/dl (6.3-8.2) L 03/26/24 03:14
Albumin 1.9 g/dl (3.5-5.0) L 03/26/24 03:14
Physical Exam
-
NAD
ABD soft, nt, nd
Incisions well approximated, stoma pink/viable with stool/flatus in appliance
MERT with ssf noted, rust colored
Patient has a quarles catheter: No
Patient has a central line: Yes (PICC)
--- NOTE | 2024-03-30 10:49 | CM ---
Patient seen at bedside. Patient states she has no needs at this time. CM will continue to follow for discharge planning needs.
PLan; SNF vs home with VN; watch for tpn needs functional assessments.
[2024-03-30 11:15] VITALS: BP 140/79
--- NOTE | 2024-03-30 11:34 | CM ---
Patient seen at bedside. Patient for TPN orders and wants discharge home. PT recommending SNF vs acute rehab. Patient will need script for TPN; CM will update physician. CM will continue to follow for discharge planning needs. CM will continue to
follow for discharge planning needs.
PLan; SNF vs acute; TPN
[2024-03-30 12:01] LABS: Glucose - Point of Care 112 mg/dl (70-99)
--- NOTE | 2024-03-30 14:25 | W.PN.HOSP.TC ---
Today's Communication/Plan
-
FLD + TPN
continue Zosyn/Micafungin
Assessment / Plan
Assessment / Plan
Assessment:
Acute hypoxic respiratory insufficiency - now on Room Air.
Sepsis due to postoperative anastomotic leak - noted on CT abdomen. s/p laparoscopic anastomotic leak repair, flex sig with diverting loop ileostomy 03/23. TPN ordered by surgical services will continue until solid food trialed x 24 hours at least.
Currently on FLD. Continue IV Zosyn, day 8. Follow leukocytosis/fever trends. ID consulted 03/27 due to Calli growth in wound culture and now on Micafungin day 4. Consider CT repeat in 24-48 hours if WBC rises further.
Hx of diverticular disease with recurrent history of diverticulitis - s/p Robotic sigmoid colectomy with intracorporeal anastomosis, 03/15/2024.
Persistent sinus tachycardia - secondary to anastomosis leak as above, critical illness. resolving.
Acute GI bleed (hematemesis/rectal bleeding)
- EGD done 03/19 showed LA grade B esophagitis with no bleeding, small hiatal hernia, nonobstructing oozing duodenal ulcers with a visible vessel. Treated with bipolar cautery. Injected. No specimens collected.
- NSAID induced peptic ulcer disease. Avoid further NSAIDs in the future, discussed with patient.
- continue IV Protonix twice daily.
Acute symptomatic blood loss anemia - due to acute GI bleed as above. Transfused 4 units of blood so far. Hemoglobin 9.9 today. Transfuse <7.0
Asymptomatic bacteriuria - urine culture noted. 50,000 colonies noted of E. coli. Urinalysis without significant pyuria.
Jaundice/elevated LFTs - suspect due to acute ischemic hepatitis due to hypotension, shock. LFTs trending down. No evidence of hemolysis. Abdominal ultrasound unremarkable.
Hemorrhagic shock - required PRBCs, pressors earlier during hospitalization. Currently off pressors.
Hyponatremia - improved.
History of RA on Remicade and Methotrexate prior to admission. Last use of prednisone was 3 weeks ago with her last infusion of Remicade.
Essential HTN
- hold Lisinopril; consider resumption in 24-48 hours when PO meds established. prn Hydralazine
Pseudo-hypocalcemia - albumin 1.6, corrected calcium 9.6.
Hx of C. Diff
Hyperchloremic metabolic acidosis - from NSS infusion. Improved.
Obesity due to excess calories
DVT ppx: SCDs
Code: Full
Anticipated Discharge: > 48 hours
Subjective/Interval History
-
Date of Service: March 30, 2024
NGT removed last evening, now on FLD and tolerating
no new complaints at present
Objective Data
-
Labs:
Laboratory Results
03/30/24
06:54
WBC 14.2 H
Hgb 9.9 L
Hct 30.1 L
Plt Count 500 H
Sodium 137
Potassium 4.9
Chloride 106
Carbon Dioxide 23
BUN 15
Creatinine 0.6
Glucose 113 H
Calcium 7.8 L
Vital Signs:
Vital Signs
Temp Pulse Resp BP Pulse Ox
97.8 F 82 16 140/79 97
03/30/24 11:15 03/30/24 11:15 03/30/24 11:15 03/30/24 11:15 03/30/24 11:15
I&O
03/29/24 03/30/24 03/31/24
06:59 06:59 06:59
Intake Total 1186 / 1186 1176 / 1176
Output Total 1425 / 1425 1555 / 1555
Balance -239 / -239 -379 / -379
Physical Exam
-
General: No Apparent Distress
HEENT: Normocephalic and Atraumatic
Respiratory: Negative Wheezes
Cardiac: Regular Rhythm and S1/S2
GI: Soft and Tender (mildly)
Genito-urinary: No Costovertebral Tender
Neuro: AO x 3
Psych: Calm
Data Reviewed
-
Total Time Spent with Patient (in minutes): 42
Labs: Labs Reviewed by me
--- NOTE | 2024-03-30 14:26 | W.PN.ID1 ---
Date of Service
Date of Service: March 30, 2024
Today's Communication
Continue antibiotics.
Assessment / Plan
Anastomotic leak/fecal peritonitis
-Recovered organisms include Klebsiella, E. coli, strep species and Calli albicans.
Leukocytosis
Anemia
Rheumatoid arthritis (maintained on methotrexate/infliximab)
Diverticulitis
C. difficile
HTN
Recommendations:
White count slightly improved today, although thrombocytosis persists.
Continue with Zosyn in treatment of recovered bacterial isolates.
Continue micafungin for coverage of recovered Calli species
Monitor white count and temperature curve.
Monitor abdominal exam.
����������������������������������������������������������
Chief Complaint
-: Other (Fecal peritonitis)
Subjective / Review of Systems
Patient seen and examined. Reports tolerating small amount of clears. Overall continues to feel tired, but little abdominal discomfort at this time.
Review of Systems: No Fever and No Chills
Vital Signs / Physical Exam
Vital Signs
Vital Signs
Temp Pulse Resp BP Pulse Ox
97.8 F 82 16 140/79 97
03/30/24 11:15 03/30/24 11:15 03/30/24 11:15 03/30/24 11:15 03/30/24 11:15
Physical Exam
Constitutional: Comfortable and Non-toxic
Eyes: No Conjunctival Hemorrhage and Sclera Anicteric
Cardiovascular: S1/S2; Negative S3/S4
Pulmonary: Clear and Non Labored
Gastrointestinal: Soft, Distended and Decreased Bowel Sounds
Extremities: Edema; Negative Erythema or Splinter Hemorrhage
Neurological: Awake and Alert
Psychological: Calm
Objective Data
Lab Data
Lab Results
03/30/24 06:54
03/30/24 06:54
PT 16.6 Sec (11.4-14.6) H 03/18/24 22:55
INR 1.32 03/18/24 22:55
APTT 25.3 Sec (23.4-35.0) 03/19/24 14:56
Estimated Creat Clear 96 ml/min 03/30/24 06:54
Lactic Acid 1.6 mmol/L (0.7-2.0) 03/19/24 00:24
Total Bilirubin 1.2 mg/dl (0.2-1.3) 03/26/24 03:14
GGT 198 U/L (12-43) H 03/20/24 03:26
AST 24 U/L (14-36) 03/26/24 03:14
ALT 16 U/L (0-35) 03/26/24 03:14
Alkaline Phosphatase 98 U/L (38-126) 03/26/24 03:14
Most recent labs reviewed.
Micro Results:
03/23/24 14:40 Anaerobic Culture - Final
Abdomen
03/23/24 14:40 Wound Culture - Final
Abdomen Klebsiella oxytoca
Escherichia coli
Streptococcus species
Calli albicans
Gram Stain - Final
03/19/24 14:56 Blood Culture - Final
Blood/Venous No Growth - Final Report
03/19/24 00:24 Blood Culture - Final
Blood/Venous No Growth - Final Report
03/19/24 20:30 Urine Culture - Final
Urine Escherichia coli
Wound/abscess/other Cult Final 03/27/24-09
Moderate Klebsiella oxytoca
Moderate Escherichia coli of two morphotypes
Few Streptococcus species
Few Presumptive Calli albicans
K.OXYTOCA E.COLI
M.I.C. RX M.I.C. RX
--------- --- --------- ---
Amoxicillin/Potas. Clavulanate <=8/4 S <=8/4 S
Ampicillin >16 R <=8 S
Ampicillin/Sulbactam 8/4 S <=4/2 S
Aztreonam <=4 S <=4 S
Cefazolin 8 R <=2 S
Cefepime <=2 S
Ceftazidime <=1 S
Ceftriaxone <=1 S
Ertapenem <=0.5 S <=0.5 S
Ciprofloxacin <=0.25 S <=0.25 S
Gentamicin <=2 S <=2 S
Meropenem <=1 S <=1 S
Piperacillin/Tazobactam <=8 S <=8 S
Tetracycline <=4 S <=4 S
Tobramycin <=2 S <=2 S
Trimethoprim/Sulfamethoxazole <=2/38 S <=2/38 S
Imaging:
03/22/2024 CT abdomen/pelvis with contrast: Status post sigmoid resection and anastomosis. As described, CT findings compatible with anastomotic leak. Free intraperitoneal air. Focal collections within the pelvis. Superimposed infection of these
collections cannot be excluded. Moderate elevation right hemidiaphragm. Small right pleural effusion. Atelectasis in the lower lungs, right greater than left.
[2024-03-30 14:55] VITALS: BP 145/82
[2024-03-30] MEDS: LOVENOX 40 MG SC (17:16)
[2024-03-30] MEDS: MYCAMINE 105 MG IV (17:17)
[2024-03-30 17:42] LABS: Glucose - Point of Care 121 mg/dl (70-99)
[2024-03-30] MEDS: ZOFRAN 4 MG IV (18:17)
[2024-03-30] MEDS: Parenteral Nutrition, Central 1280 IV (20:52)
[2024-03-30 23:50] VITALS: BP 118/63
[2024-03-31 00:22] LABS: Glucose - Point of Care 108 mg/dl (70-99)
[2024-03-31] MEDS: NOVOLOG FLEXPEN-LOW RESISTANCE SC ×5 (00:37→23:46)
[2024-03-31] MEDS: ZOSYN 50 IV ×4 (03:50→21:53)
[2024-03-31] MEDS: DILAUDID 0.5 MG IV ×3 (03:51→19:36)
[2024-03-31 04:39] LABS: Hematocrit 27.6 % (37.0-47.0); Mean Corp Hgb Conc. 32.6 g/dL (33.0-37.0); Mean Platelet Volume 10.4 fL (7.4-10.4); Platelet Count 535 10^3/uL (130-400); Red Cell Dist. Width 15.2 % (11.5-14.5); White Blood Cell Count 13.8 10^3/uL (4.8-10.8)
[2024-03-31 05:06] LABS: Blood Urea Nitrogen 17 mg/dl (7-17); Calcium 7.9 mg/dl (8.4-10.2); Carbon Dioxide 24 mmol/L (22-30); Chloride 104 mmol/L (98-107); Estimated Creatinine Clearance 83 ml/min; Glucose 114 mg/dl (70-99); Sodium 134 mmol/L (135-145); eGFR > 60.00
[2024-03-31 05:13] LABS: Potassium 4.9 mmol/L (3.5-5.1)
[2024-03-31 06:00] VITALS: BMI 31.1
[2024-03-31 06:15] LABS: Glucose - Point of Care 106 mg/dl (70-99)
[2024-03-31 07:30] VITALS: BP 102/62
--- NOTE | 2024-03-31 08:51 | W.PN.GS2 ---
Today's Communication / Plan
-
`
Assessment / Plan
-
Assessment: 68-year-old female with PMH of RA (on Remicade and methotrexate, held preoperatively), HTN, history of C. difficile who presents for elective surgery for recurrent diverticulitis
POD 16 robotic sigmoidectomy, flexible sigmoidoscopy
POD 8 laparotomy, repair of anastomotic leak and diverting loop ileostomy
AFVSS
WBC improving
GI function improving
Plan: Low residue diet
Discontinue TPN after this bag finish today
--OOB/Ambulate. PT/OT following
--Analgesics prn, will add PO options
--PPI BID give duodenal ulcers
--C/W MERT
--Medical management as per primary team
--Continue lovenox, TEDS/SCDS for VTE ppx
Subjective Data
-
Date of Service: March 31, 2024
Patient seen and examined
Resting comfortably in her hospital bed
Feels as though she is turning the corner
Slight nausea but tolerated full liquids
Ostomy functioning
Pain controlled
Up out of bed to chair throughout the day yesterday
Objective Data
-
Intake and Output
03/30/24 03/31/24 04/01/24
06:59 06:59 06:59
Intake Total 1176 / 1176 3477 / 3477
Output Total 1555 / 1555 813 / 813
Balance -379 / -379 2664 / 2664
Intake:
Oral fluids 240 / 240 1800 / 1800
IV fluids (Total) 100 / 100
IV piggybacks 300 / 300 305 / 305
TPN/PPN 636 / 636 1272 / 1272
Output:
Liquid stool amount 350 / 350 330 / 330
Ileostomy 350 / 350 330 / 330
Drain Output (Total) 5 / 5
Abdomen Kulwant-Hernandez
Urine, Voided 1200 / 1200 475 / 475
Other:
Number of approximated MODERATE 1 5
amounts of urine
Vital Signs
Temp Pulse Resp BP Pulse Ox
98.0 F 78 14 102/62 98
03/31/24 07:30 03/31/24 07:30 03/31/24 07:30 03/31/24 07:30 03/31/24 07:30
Lab Results
03/31/24 04:23
03/31/24 04:23
Calcium 7.9 mg/dl (8.4-10.2) L 03/31/24 04:23
Phosphorus 2.2 mg/dl (2.5-4.5) L 03/28/24 06:11
Magnesium 2.2 mg/dl (1.6-2.3) 03/28/24 06:11
Total Bilirubin 1.2 mg/dl (0.2-1.3) 03/26/24 03:14
Direct Bilirubin 5.6 mg/dl (0.0-0.4) H 03/20/24 03:26
AST 24 U/L (14-36) 03/26/24 03:14
ALT 16 U/L (0-35) 03/26/24 03:14
Alkaline Phosphatase 98 U/L (38-126) 03/26/24 03:14
Total Protein 3.7 g/dl (6.3-8.2) L 03/26/24 03:14
Albumin 1.9 g/dl (3.5-5.0) L 03/26/24 03:14
Physical Exam
-
NAD AAOx3
ABD: Soft, nondistended, mild tenderness palpation around incision site.
Incision dressing change. No erythema, drainage, wound ean in place
MERT murky; not purulent
Loop ileostomy with bridge, liquid stool/succus and air in appliance
[2024-03-31] MEDS: PROTONIX IV 40 MG IV ×2 (09:00→19:31)
[2024-03-31] MEDS: NSS (PRESERVATIVE FREE) 10 ML IV ×2 (09:00→19:31)
[2024-03-31 09:59] VITALS: BP 128/70; PULSE 80; O2SAT 96
[2024-03-31 12:04] LABS: Glucose - Point of Care 120 mg/dl (70-99)
--- NOTE | 2024-03-31 12:42 | W.PN.HOSP.TC ---
Today's Communication/Plan
-
Advance diet to LRD. Stop TPN tonight. follow GS recs
continue Zosyn/Micafungin
Assessment / Plan
Assessment / Plan
Assessment:
Acute hypoxic respiratory insufficiency - now on Room Air.
Sepsis due to postoperative anastomotic leak - noted on CT abdomen. s/p laparoscopic anastomotic leak repair, flex sig with diverting loop ileostomy 03/23. Advance diet to LRD. Stop TPN tonight. Continue IV Zosyn, day 9. Follow leukocytosis/fever
trends. ID consulted 03/27 due to Calli growth in wound culture and now on Micafungin day 5. Consider CT repeat in 24-48 hours if WBC rises further.
Hx of diverticular disease with recurrent history of diverticulitis - s/p Robotic sigmoid colectomy with intracorporeal anastomosis, 03/15/2024.
Persistent sinus tachycardia - secondary to anastomosis leak as above, critical illness. resolving.
Acute GI bleed (hematemesis/rectal bleeding)
- EGD done 03/19 showed LA grade B esophagitis with no bleeding, small hiatal hernia, nonobstructing oozing duodenal ulcers with a visible vessel. Treated with bipolar cautery. Injected. No specimens collected.
- NSAID induced peptic ulcer disease. Avoid further NSAIDs in the future, discussed with patient.
- continue IV Protonix twice daily.
Acute symptomatic blood loss anemia - due to acute GI bleed as above. Transfused 4 units of blood so far. Hemoglobin 9.9 today. Transfuse <7.0
Asymptomatic bacteriuria - urine culture noted. 50,000 colonies noted of E. coli. Urinalysis without significant pyuria.
Jaundice/elevated LFTs - suspect due to acute ischemic hepatitis due to hypotension, shock. LFTs trending down. No evidence of hemolysis. Abdominal ultrasound unremarkable.
Hemorrhagic shock - required PRBCs, pressors earlier during hospitalization. Currently off pressors.
Hyponatremia - improved.
History of RA on Remicade and Methotrexate prior to admission. Last use of prednisone was 3 weeks ago with her last infusion of Remicade.
Essential HTN
- hold Lisinopril; consider resumption in 24-48 hours when PO meds established. prn Hydralazine
Pseudo-hypocalcemia - albumin 1.6, corrected calcium 9.6.
Hx of C. Diff
Hyperchloremic metabolic acidosis - from NSS infusion. Improved.
Obesity due to excess calories
DVT ppx: SCDs
Code: Full
Anticipated Discharge: > 48 hours
Subjective/Interval History
-
Date of Service: March 31, 2024
tolerating fulls, pain controlled
sitting out of bed in chair
better spirits today
Objective Data
-
Labs:
Laboratory Results
03/31/24
04:23
WBC 13.8 H
Hgb 9.0 L
Hct 27.6 L
Plt Count 535 H
Sodium 134 L
Potassium 4.9
Chloride 104
Carbon Dioxide 24
BUN 17
Creatinine 0.7
Glucose 114 H
Calcium 7.9 L
Vital Signs:
Vital Signs
Temp Pulse Resp BP Pulse Ox
98.0 F 78 14 102/62 98
03/31/24 07:30 03/31/24 07:30 03/31/24 07:30 03/31/24 07:30 03/31/24 07:30
I&O
03/30/24 03/31/24 04/01/24
06:59 06:59 06:59
Intake Total 1176 / 1176 3477 / 3477
Output Total 1555 / 1555 813 / 813
Balance -379 / -379 2664 / 2664
Physical Exam
-
General: No Apparent Distress
HEENT: Normocephalic and Atraumatic
Respiratory: Negative Wheezes
Cardiac: Regular Rhythm and S1/S2
GI: Ostomy
Genito-urinary: No Costovertebral Tender
Neuro: AO x 3
Psych: Calm
Data Reviewed
-
Total Time Spent with Patient (in minutes): 42
Labs: Labs Reviewed by me
--- NOTE | 2024-03-31 13:49 | CHAP ---
Visited Cecilia at 9:50am. She said she's 'doing better than when I came.' Praised the med staff. Emotional support provided.
[2024-03-31 15:25] VITALS: BP 130/71
--- NOTE | 2024-03-31 15:30 | W.PN.UPDATE ---
Update Note
Progress Note Update
Pt seen, chart reviewed. Sitting in bed watching TV. Pleasant & cooperative, AAOx3. Reports feeling 'a lot better' emotionally from few days ago - although still processing emotions and recent surgery, is feeling much more positive and hopeful about
moving forward. Pt reported that her discussion with Dr. Robins had been very helpful in this process & she is also hopeful that as she is needing less sedating medicine for pain management, she can start better understanding her surgery, which too
will help with feeling better about it.
No psychotropics indicated at this time. We will sign off at this time, please reconsult if psychiatry is needed.
[2024-03-31] MEDS: MYCAMINE 105 MG IV (17:09)
[2024-03-31] MEDS: LOVENOX 40 MG SC (17:11)
[2024-03-31 17:30] LABS: Glucose - Point of Care 340 mg/dl (70-99)
[2024-03-31 17:33] LABS: Glucose - Point of Care 132 mg/dl (70-99)
--- NOTE | 2024-03-31 17:35 | PTCARENOTE ---
Blood sugar rechecked at this time d/t insufficient amount of blood specimen with first check, which showed a blood sugar of 340. Second blood sugar taken immediately after was 132.
[2024-03-31 23:18] VITALS: BP 105/54
[2024-03-31 23:45] LABS: Glucose - Point of Care 75 mg/dl (70-99)
[2024-04-01] MEDS: DILAUDID 0.5 MG IV ×3 (01:05→21:40)
[2024-04-01] MEDS: ZOSYN 50 IV ×4 (03:54→21:26)
[2024-04-01 06:00] VITALS: BMI 30.5
[2024-04-01 06:16] LABS: Glucose - Point of Care 83 mg/dl (70-99)
[2024-04-01] MEDS: NOVOLOG FLEXPEN-LOW RESISTANCE SC (06:16)
[2024-04-01 06:24] LABS: Hematocrit 28.2 % (37.0-47.0); Hemoglobin 9.2 g/dL (12.0-16.0); Mean Corp Hgb Conc. 32.6 g/dL (33.0-37.0); Mean Corpuscular Volume 91.9 fL (81.0-99.0); Mean Platelet Volume 10.4 fL (7.4-10.4); Platelet Count 591 10^3/uL (130-400); Red Blood Cell Count 3.07 10^6/uL (4.20-5.40); White Blood Cell Count 14.6 10^3/uL (4.8-10.8)
[2024-04-01 06:48] LABS: Blood Urea Nitrogen 17 mg/dl (7-17); Calcium 8.4 mg/dl (8.4-10.2); Carbon Dioxide 24 mmol/L (22-30); Chloride 102 mmol/L (98-107); Estimated Creatinine Clearance 71 ml/min; Glucose 82 mg/dl (70-99); Sodium 133 mmol/L (135-145); eGFR > 60.00
[2024-04-01 06:54] LABS: Potassium 4.8 mmol/L (3.5-5.1)
[2024-04-01 08:00] VITALS: BP 139/78
[2024-04-01 08:11] LABS: Glucose - Point of Care 74 mg/dl (70-99)
[2024-04-01] MEDS: NSS (PRESERVATIVE FREE) 10 ML IV (08:40)
[2024-04-01] MEDS: PROTONIX IV 40 MG IV (08:41)
--- NOTE | 2024-04-01 08:51 | W.PN.CRS1 ---
Today's Communication / Plan
-
As below
Assessment/Plan
-
68-year-old female with PMH of RA (on Remicade and methotrexate, held preoperatively), HTN, history of C. difficile who presents for elective surgery for recurrent diverticulitis
03/15 Robotic sigmoidectomy, flexible sigmoidoscopy
03/18 - developed coffee-ground emesis and hypotension, transferred to the ICU, requiring levo up to 10
03/19 - EGD by GI showing multiple duodenal ulcers 1 large with recent bleed, requiring epi injection and APC
03/23 Exlap, repair of anastomotic leak, DLI
AFVSS
WBC 14.6 from 13.8, Hb 9.2 from 9.0, Cr 0.6
�Continue low residue diet; now off TPN
�Continue PPI BID
- Cont abx; appreciate ID
� Continue pain control; oxycodone makes patient foggy; recommend increasing tramadol dose
� Cont DVT ppx with lvx
�OOB/IS, follow-up PT; recommending SNF
� Appreciate hospitalist; okay for dispo planning from surgical standpoint, pending improvement in leukocytosis and ID plan
Subjective Data
Procedure
03/15/2024 Robotic sigmoid colectomy with intracorporeal anastomosis
03/23/2024 Exploratory laparotomy, repair of anastomotic leak and diverting loop ileostomy
Subjective Data
Date of Service: April 01, 2024
No overnight events. Yesterday, felt a little nauseous and received Zofran dose. No nausea this morning feeling hungry.
Pain controlled.
Tolerating diet.
+ Ostomy function +voiding
Pt is OOB to chair and walking to doorway.
Objective Data
-
Vital Signs
Temp Pulse Resp BP Pulse Ox
97.6 F 74 16 139/78 98
04/01/24 08:00 04/01/24 08:00 04/01/24 08:00 04/01/24 08:00 04/01/24 08:00
Intake & Output
03/31/24 04/01/24 04/02/24
06:59 06:59 06:59
Intake Total 3477 / 3477 2547 / 2547
Output Total 813 / 813 103 / 103
Balance 2664 / 2664 2444 / 2444
Intake:
Oral fluids 1800 / 1800 1440 / 1440
IV fluids (Total) 100 / 100 60 / 60
IV piggybacks 305 / 305 305 / 305
TPN/PPN 1272 / 1272 742 / 742
Output:
Liquid stool amount 330 / 330 100 / 100
Ileostomy 330 / 330 100 / 100
Drain Output (Total)
Abdomen Kulwatn-Hernandez
Urine, Voided 475 / 475
Other:
Number of approximated MODERATE 5 2
amounts of urine
Lab Results
04/01/24 05:50
04/01/24 05:50
Physical Exam
-
General: No Acute Distress and AOx3
HEENT: Grossly Normal
Abdomen: Soft, Non Distended, Tender (Appropriately tender near midline incision), No Organomegaly, No Guarding and Other (Midline well-approximated with intermittent darcie, remaining Telfa ean removed; serous fluid drainage from Pfannenstiel
incision, but no erythema or purulent drainage and remains well-approximated)
Skin: Warm and Dry
Wound: No Signs of Infection and No Skin Erythema
--- NOTE | 2024-04-01 09:31 | CM ---
Reviewed the chart notes. Patient off TPN. Diet is now low residue. Up[facility] referral sent to [facility]. CM continues to be available to patient/family and is monitoring medical plan for needs at discharge.
Plan: Discharge plans will depend on the patient's progress. Acute vs SNF vs home with VN services.
[2024-04-01] MEDS: ULTRAM 50 MG PO ×2 (09:37→17:22)
--- NOTE | 2024-04-01 13:00 | W.PN.HOSP.TC ---
Today's Communication/Plan
-
Change to oral Protonix
Lisinopril
Stop hydralazine
PT/OT
Assessment / Plan
Assessment / Plan
Gen-AAOx3, NAD
HEENT-NC, AT, anicteric, clear oral mm
Neck-supple
CV-reg, no M, +S1/S2
Lungs-clear B/L
Abd-soft, NT, ND
Ext-no edema
Musculoskeletal-no cyanosis, clubbing
Skin-warm and dry
Neuro-grossly non-focal
Psych-calm, cooperative
Acute hypoxic respiratory insufficiency - now on Room Air.
Sepsis due to postoperative anastomotic leak - noted on CT abdomen. s/p laparoscopic anastomotic leak repair, flex sig with diverting loop ileostomy 03/23. Tolerating low residue diet.
Persistent leukocytosis noted. Looks nontoxic, afebrile. Denies worsening pain.
Fluid culture from March 23 shows polymicrobial growth.
Continue IV Zosyn, day 10. Micafungin day 6.
Hx of diverticular disease with recurrent history of diverticulitis - s/p Robotic sigmoid colectomy with intracorporeal anastomosis, 03/15/2024.
Persistent sinus tachycardia -resolved.
Acute GI bleed (hematemesis/rectal bleeding)
- EGD done 03/19 showed LA grade B esophagitis with no bleeding, small hiatal hernia, nonobstructing oozing duodenal ulcers with a visible vessel. Treated with bipolar cautery. Injected. No specimens collected.
- NSAID induced peptic ulcer disease. Avoid further NSAIDs in the future, discussed with patient.
-Continue Protonix, changed to oral.
Acute symptomatic blood loss anemia - due to acute GI bleed as above. Transfused 4 units of blood so far. Hemoglobin now stable.
Asymptomatic bacteriuria - urine culture noted. 50,000 colonies noted of E. coli. Urinalysis without significant pyuria.
Jaundice/elevated LFTs - suspect due to acute ischemic hepatitis due to hypotension, shock. LFTs trending down. No evidence of hemolysis. Abdominal ultrasound unremarkable. LFTs normalized.
Hemorrhagic shock - required PRBCs, pressors earlier during hospitalization. Currently off pressors. Shock resolved.
Hyponatremia - 133.
History of RA on Remicade and Methotrexate prior to admission. Last use of prednisone was 3 weeks ago with her last infusion of Remicade.
Essential HTN -was on lisinopril prior to admission. Currently only on IV hydralazine as needed, so far has not received a dose. Will discontinue hydralazine and resume home dose of lisinopril.
Pseudo-hypocalcemia - albumin 1.6, corrected calcium 9.6.
Hx of C. Diff
Hyperchloremic metabolic acidosis -resolved.
Obesity due to excess calories
DVT ppx: SCDs
Full code
Dispo -anticipate rehab on discharge.
Anticipated Discharge: 24 - 48 hours
Subjective/Interval History
-
Date of Service: April 01, 2024
Patient seen and examined. Feeling better overall. No complaints.
Objective Data
-
Labs:
Laboratory Results
04/01/24
05:50
WBC 14.6 H
Hgb 9.2 L
Hct 28.2 L
Plt Count 591 H
Sodium 133 L
Potassium 4.8
Chloride 102
Carbon Dioxide 24
BUN 17
Creatinine 0.8
Glucose 82
Calcium 8.4
Vital Signs:
Vital Signs
Temp Pulse Resp BP Pulse Ox
97.6 F 74 16 139/78 98
04/01/24 08:00 04/01/24 08:00 04/01/24 08:00 04/01/24 08:00 04/01/24 08:00
I&O
03/31/24 04/01/24 04/02/24
06:59 06:59 06:59
Intake Total 3477 / 3477 2547 / 2547 50 / 50
Output Total 813 / 813 103 / 103
Balance 2664 / 2664 2444 / 2444 50 / 50
Review of Systems
-
History Source: Patient
All other systems: Reviewed and negative
--- NOTE | 2024-04-01 13:51 | W.PN.ID1 ---
Date of Service
Date of Service: April 01, 2024
Today's Communication
Continue antibiotics.
Assessment / Plan
Anastomotic leak/fecal peritonitis
-Recovered organisms include Klebsiella, E. coli, strep species and Calli albicans.
Leukocytosis
Anemia
Rheumatoid arthritis (maintained on methotrexate/infliximab)
Diverticulitis
C. difficile
HTN
Recommendations:
White count stabilized today, although thrombocytosis persists.
Continue with Zosyn (d#11) in treatment of recovered bacterial isolates. At discharge, will transition to oral Augmentin
Continue micafungin (d#6) for coverage of recovered Calli species. Once nearing discharge, will transition to oral Diflucan.
Monitor white count and temperature curve.
Monitor abdominal exam.
����������������������������������������������������������
Chief Complaint
-: Other (Fecal peritonitis)
Subjective / Review of Systems
Review of Systems: No Fever, No Chills and Abdominal Pain (Mild)
Vital Signs / Physical Exam
Vital Signs
Vital Signs
Temp Pulse Resp BP Pulse Ox
97.6 F 74 16 139/78 98
04/01/24 08:00 04/01/24 08:00 04/01/24 08:00 04/01/24 08:00 04/01/24 08:00
Physical Exam
Constitutional: Comfortable and Non-toxic
Eyes: No Conjunctival Hemorrhage and Sclera Anicteric
Cardiovascular: S1/S2; Negative S3/S4
Pulmonary: Clear and Non Labored
Gastrointestinal: Soft, Distended and Decreased Bowel Sounds
Extremities: Edema; Negative Erythema or Splinter Hemorrhage
Neurological: Awake and Alert
Psychological: Calm
Objective Data
Lab Data
Lab Results
04/01/24 05:50
04/01/24 05:50
PT 16.6 Sec (11.4-14.6) H 03/18/24 22:55
INR 1.32 03/18/24 22:55
APTT 25.3 Sec (23.4-35.0) 03/19/24 14:56
Estimated Creat Clear 71 ml/min 04/01/24 05:50
Lactic Acid 1.6 mmol/L (0.7-2.0) 03/19/24 00:24
Total Bilirubin 1.2 mg/dl (0.2-1.3) 03/26/24 03:14
GGT 198 U/L (12-43) H 03/20/24 03:26
AST 24 U/L (14-36) 03/26/24 03:14
ALT 16 U/L (0-35) 03/26/24 03:14
Alkaline Phosphatase 98 U/L (38-126) 03/26/24 03:14
Most recent labs reviewed.
Micro Results:
03/23/24 14:40 Anaerobic Culture - Final
Abdomen
03/23/24 14:40 Wound Culture - Final
Abdomen Klebsiella oxytoca
Escherichia coli
Streptococcus species
Calli albicans
Gram Stain - Final
03/19/24 14:56 Blood Culture - Final
Blood/Venous No Growth - Final Report
03/19/24 00:24 Blood Culture - Final
Blood/Venous No Growth - Final Report
03/19/24 20:30 Urine Culture - Final
Urine Escherichia coli
Wound/abscess/other Cult Final 03/27/24-09
Moderate Klebsiella oxytoca
Moderate Escherichia coli of two morphotypes
Few Streptococcus species
Few Presumptive Calli albicans
K.OXYTOCA E.COLI
M.I.C. RX M.I.C. RX
--------- --- --------- ---
Amoxicillin/Potas. Clavulanate <=8/4 S <=8/4 S
Ampicillin >16 R <=8 S
Ampicillin/Sulbactam 8/4 S <=4/2 S
Aztreonam <=4 S <=4 S
Cefazolin 8 R <=2 S
Cefepime <=2 S
Ceftazidime <=1 S
Ceftriaxone <=1 S
Ertapenem <=0.5 S <=0.5 S
Ciprofloxacin <=0.25 S <=0.25 S
Gentamicin <=2 S <=2 S
Meropenem <=1 S <=1 S
Piperacillin/Tazobactam <=8 S <=8 S
Tetracycline <=4 S <=4 S
Tobramycin <=2 S <=2 S
Trimethoprim/Sulfamethoxazole <=2/38 S <=2/38 S
Imaging:
03/22/2024 CT abdomen/pelvis with contrast: Status post sigmoid resection and anastomosis. As described, CT findings compatible with anastomotic leak. Free intraperitoneal air. Focal collections within the pelvis. Superimposed infection of these
collections cannot be excluded. Moderate elevation right hemidiaphragm. Small right pleural effusion. Atelectasis in the lower lungs, right greater than left.
--- NOTE | 2024-04-01 13:58 | CM ---
Reviewed the chart notes and spoke with the patient at the bedside. Discussed discharge possibilities if patient would not be appropriate for acute rehab. Per patient, if she would not qualify for acute rehab ([facility]). Patient on a low residue
diet. The patient voiced interest then in home with VN services. CM continues to be available to patient/family and is monitoring medical plan for needs at discharge.
Plan: Discharge to Acute Rehab if appropriate, if not home with VN. Patient is adamant about not going to a SNF.
[2024-04-01 15:39] VITALS: BP 134/69
[2024-04-01] MEDS: LOVENOX 40 MG SC (17:21)
[2024-04-01] MEDS: MYCAMINE 105 MG IV (18:11)
[2024-04-01] MEDS: PROTONIX 40 MG PO (20:01)
[2024-04-01] MEDS: ZESTRIL 5 MG PO (21:25)
[2024-04-01 23:30] VITALS: BP 120/73
[2024-04-02] MEDS: ZOSYN 50 IV ×4 (03:27→22:00)
[2024-04-02 05:24] LABS: % Basophils 0.8 % (0-2); % Eosinophils 3.2 % (0-6); % Immature Granulocytes 1.1 % (0-0.5); % Monocytes 7.6 % (1.7-9.3); % Neutrophils 71.3 % (42.2-75.2); Absolute Basophils 0.1 10^3/uL (0-0.2); Absolute Eosinophils 0.4 10^3/uL (0-0.7); Absolute Immature Granulocytes 0.1 10^3/uL (0-0.05); Absolute Lymphocytes 2.1 10^3/uL (1.2-3.4); Absolute Neutrophils 9.3 10^3/uL (1.4-6.5); Hematocrit 29.7 % (37.0-47.0); Hemoglobin 9.6 g/dL (12.0-16.0); Mean Corp Hgb Conc. 32.3 g/dL (33.0-37.0); Mean Corpuscular Hgb 29.5 pg (27.0-31.0); Mean Corpuscular Volume 91.4 fL (81.0-99.0); Nucleated Red Blood Cells % 0 %; Platelet Count 604 10^3/uL (130-400); Red Blood Cell Count 3.25 10^6/uL (4.20-5.40); Red Cell Dist. Width 15.1 % (11.5-14.5)
[2024-04-02 07:46] VITALS: BP 132/81
[2024-04-02] MEDS: ULTRAM 100 MG PO ×2 (08:49→18:36)
[2024-04-02] MEDS: PROTONIX 40 MG PO ×2 (08:49→22:00)
--- NOTE | 2024-04-02 08:52 | W.PN.CRS1 ---
Today's Communication / Plan
-
Start dressing changes.
Assessment/Plan
-
68-year-old female with PMH of RA (on Remicade and methotrexate, held preoperatively), HTN, history of C. difficile who presents for elective surgery for recurrent diverticulitis
03/15 Robotic sigmoidectomy, flexible sigmoidoscopy
03/18 - developed coffee-ground emesis and hypotension, transferred to the ICU, requiring levo up to 10
03/19 - EGD by GI showing multiple duodenal ulcers 1 large with recent bleed, requiring epi injection and APC
03/23 Exlap, repair of anastomotic leak, DLI
1. WBC 13.0 on antibiotics. Afebrile. Lower incision with murky output and mild skin erythema--a few darcie removed and wound packed. BID wet to drys ordered. Will check WBC tomorrow.
2. otherwise doing well. Hopefully dischargeable in next 1-2 days.
Subjective Data
Procedure
03/15/2024 Robotic sigmoid colectomy with intracorporeal anastomosis
03/23/2024 Exploratory laparotomy, repair of anastomotic leak and diverting loop ileostomy
Subjective Data
Date of Service: April 02, 2024
No complaints. Tolerating diet.
Objective Data
-
Vital Signs
Temp Pulse Resp BP Pulse Ox
98.0 F 82 16 132/81 96
04/02/24 07:46 04/02/24 07:46 04/02/24 07:46 04/02/24 07:46 04/02/24 07:46
Intake & Output
04/01/24 04/02/24 04/03/24
06:59 06:59 06:59
Intake Total 2547 / 2547 2134 / 2135
Output Total 103 / 103 256 / 256
Balance 2444 / 2444 1879 / 1879
Intake:
Oral fluids 1440 / 1440 1830 / 1830
IV fluids (Total) 60 / 60
IV piggybacks 305 / 305 305 / 305
TPN/PPN 742 / 742
Output:
Liquid stool amount 100 / 100 250 / 250
Ileostomy 100 / 100 250 / 250
Drain Output (Total)
Abdomen Kulwant-Hernandez
Other:
Number of approximated MODERATE 2 3
amounts of urine
Lab Results
04/02/24 04:57
04/01/24 05:50
Physical Exam
-
General: No Acute Distress
Chest: Clear
Cardiovascular: Regular Rate & Rhythm
Abdomen: Soft, Non Distended and Other (stoma viable with output; MERT with minimal output)
Incision: Other (dressings changed---lower incision with localized erythema and murky drainage---4 darcie removed---fascia intact--packed.)
[2024-04-02] MEDS: FLUSH (NSS) 2 FLUSH IV ×2 (09:10→16:05)
--- NOTE | 2024-04-02 09:14 | W.PN.HOSP.TC ---
Today's Communication/Plan
-
Continue current care
Assessment / Plan
Assessment / Plan
Gen-AAOx3, NAD
HEENT-NC, AT, anicteric, clear oral mm
Neck-supple
CV-reg, no M, +S1/S2
Lungs-clear B/L
Abd-soft, NT, ND
Ext-no edema
Musculoskeletal-no cyanosis, clubbing
Skin-warm and dry
Neuro-grossly non-focal
Psych-calm, cooperative
Acute hypoxic respiratory insufficiency - now on Room Air.
Sepsis due to postoperative anastomotic leak - noted on CT abdomen. s/p laparoscopic anastomotic leak repair, flex sig with diverting loop ileostomy 03/23. Tolerating low residue diet.
Persistent leukocytosis noted, but trending down. Looks nontoxic, afebrile. Denies worsening pain.
Fluid culture from March 23 shows polymicrobial growth.
Continue IV Zosyn, day 11. Micafungin day 7 as per ID.
Hx of diverticular disease with recurrent history of diverticulitis - s/p Robotic sigmoid colectomy with intracorporeal anastomosis, 03/15/2024.
Persistent sinus tachycardia -resolved.
Acute GI bleed (hematemesis/rectal bleeding)
- EGD done 03/19 showed LA grade B esophagitis with no bleeding, small hiatal hernia, nonobstructing oozing duodenal ulcers with a visible vessel. Treated with bipolar cautery. Injected. No specimens collected.
- NSAID induced peptic ulcer disease. Avoid further NSAIDs in the future, discussed with patient.
-Continue Protonix, changed to oral.
Acute symptomatic blood loss anemia - due to acute GI bleed as above. Transfused 4 units of blood so far. Hemoglobin now stable.
Asymptomatic bacteriuria - urine culture noted. 50,000 colonies noted of E. coli. Urinalysis without significant pyuria.
Jaundice/elevated LFTs - suspect due to acute ischemic hepatitis due to hypotension, shock. LFTs trending down. No evidence of hemolysis. Abdominal ultrasound unremarkable. LFTs normalized.
Hemorrhagic shock - required PRBCs, pressors earlier during hospitalization. Currently off pressors. Shock resolved.
Hyponatremia - 133.
History of RA on Remicade and Methotrexate prior to admission. Last use of prednisone was 3 weeks ago with her last infusion of Remicade.
Essential HTN -was on lisinopril prior to admission. Currently only on IV hydralazine as needed, so far has not received a dose. Will discontinue hydralazine and resume home dose of lisinopril.
Pseudo-hypocalcemia - albumin 1.6, corrected calcium 9.6.
Hx of C. Diff
Hyperchloremic metabolic acidosis -resolved.
Obesity due to excess calories
DVT ppx: SCDs
Full code
Dispo -patient prefers to go home with VN. Not interested in rehab. Will discuss with other services timing of discharge.
Anticipated Discharge: Within 24 hours
Subjective/Interval History
-
Date of Service: April 02, 2024
Patient seen and examined. No new complaints.
Objective Data
-
Labs:
Laboratory Results
04/02/24
04:57
WBC 13.0 H
Hgb 9.6 L
Hct 29.7 L
Plt Count 604 H
Vital Signs:
Vital Signs
Temp Pulse Resp BP Pulse Ox
98.0 F 82 16 132/81 96
04/02/24 07:46 04/02/24 07:46 04/02/24 07:46 04/02/24 07:46 04/02/24 07:46
I&O
04/01/24 04/02/24 04/03/24
06:59 06:59 06:59
Intake Total 2547 / 2547 2134 / 213
Output Total 103 / 103 256 / 256
Balance 2444 / 2444 1879 / 1879
Review of Systems
-
History Source: Patient
All other systems: Reviewed and negative
[2024-04-02 12:22] VITALS: PULSE 82; O2SAT 96
[2024-04-02 15:26] VITALS: BP 121/70
--- NOTE | 2024-04-02 15:41 | WOUNDNOTE ---
WON RN NOTE: Appliance changed today and extensive teaching done with patient. Stoma pink, slightly budded, bridge intact. Peristomal skin intact.
Had patient close and open tail end of pouch, reviewed emptying. Patient cut out wafer on own. Encouraged patient to try and empty while sitting on toilet before discharge. Can have staff assist as needed. Used [employer] flat wafer #[id number] with [employer]
seal and pouch # [id number]. Plenty of supplies at bedside, instructed patient to take home upon discharge and have VN assist in ordering monthly supplies.
--- NOTE | 2024-04-02 15:42 | W.PN.ID1 ---
Date of Service
Date of Service: April 02, 2024
Today's Communication
Continue antibiotics.
Assessment / Plan
Anastomotic leak/fecal peritonitis
-Recovered organisms include Klebsiella, E. coli, strep species and Calli albicans.
Leukocytosis
Anemia
Rheumatoid arthritis (maintained on methotrexate/infliximab)
Diverticulitis
C. difficile
HTN
Recommendations:
White count stabilized today, although thrombocytosis persists.
Continue with Zosyn (d#11) in treatment of recovered bacterial isolates. At discharge, will transition to oral Augmentin
Continue coverage of recovered Calli species. Transition to oral Diflucan. Check EKG in AM.
Monitor white count and temperature curve.
Monitor abdominal exam.
����������������������������������������������������������
Chief Complaint
-: Other (Fecal peritonitis)
Subjective / Review of Systems
Review of Systems: No Fever and No Chills
Vital Signs / Physical Exam
Vital Signs
Vital Signs
Temp Pulse Resp BP Pulse Ox
98.1 F 78 16 121/70 95
04/02/24 15:26 04/02/24 15:26 04/02/24 15:26 04/02/24 15:26 04/02/24 15:26
Physical Exam
Constitutional: Comfortable and Non-toxic
Eyes: No Conjunctival Hemorrhage and Sclera Anicteric
Cardiovascular: S1/S2; Negative S3/S4
Pulmonary: Clear and Non Labored
Gastrointestinal: Soft, Distended, Decreased Bowel Sounds and Other (Ostomy in place.)
Extremities: Edema; Negative Erythema or Splinter Hemorrhage
Neurological: Awake and Alert
Psychological: Calm
Objective Data
Lab Data
Lab Results
04/02/24 04:57
04/01/24 05:50
PT 16.6 Sec (11.4-14.6) H 03/18/24 22:55
INR 1.32 03/18/24 22:55
APTT 25.3 Sec (23.4-35.0) 03/19/24 14:56
Estimated Creat Clear 71 ml/min 04/01/24 05:50
Lactic Acid 1.6 mmol/L (0.7-2.0) 03/19/24 00:24
Total Bilirubin 1.2 mg/dl (0.2-1.3) 03/26/24 03:14
GGT 198 U/L (12-43) H 03/20/24 03:26
AST 24 U/L (14-36) 03/26/24 03:14
ALT 16 U/L (0-35) 03/26/24 03:14
Alkaline Phosphatase 98 U/L (38-126) 03/26/24 03:14
Most recent labs reviewed.
Micro Results:
03/23/24 14:40 Anaerobic Culture - Final
Abdomen
03/23/24 14:40 Wound Culture - Final
Abdomen Klebsiella oxytoca
Escherichia coli
Streptococcus species
Calli albicans
Gram Stain - Final
03/19/24 14:56 Blood Culture - Final
Blood/Venous No Growth - Final Report
03/19/24 00:24 Blood Culture - Final
Blood/Venous No Growth - Final Report
03/19/24 20:30 Urine Culture - Final
Urine Escherichia coli
Wound/abscess/other Cult Final 03/27/24-0809
Moderate Klebsiella oxytoca
Moderate Escherichia coli of two morphotypes
Few Streptococcus species
Few Presumptive Calli albicans
K.OXYTOCA E.COLI
M.I.C. RX M.I.C. RX
--------- --- --------- ---
Amoxicillin/Potas. Clavulanate <=8/4 S <=8/4 S
Ampicillin >16 R <=8 S
Ampicillin/Sulbactam 8/4 S <=4/2 S
Aztreonam <=4 S <=4 S
Cefazolin 8 R <=2 S
Cefepime <=2 S
Ceftazidime <=1 S
Ceftriaxone <=1 S
Ertapenem <=0.5 S <=0.5 S
Ciprofloxacin <=0.25 S <=0.25 S
Gentamicin <=2 S <=2 S
Meropenem <=1 S <=1 S
Piperacillin/Tazobactam <=8 S <=8 S
Tetracycline <=4 S <=4 S
Tobramycin <=2 S <=2 S
Trimethoprim/Sulfamethoxazole <=2/38 S <=2/38 S
Imaging:
03/22/2024 CT abdomen/pelvis with contrast: Status post sigmoid resection and anastomosis. As described, CT findings compatible with anastomotic leak. Free intraperitoneal air. Focal collections within the pelvis. Superimposed infection of these
collections cannot be excluded. Moderate elevation right hemidiaphragm. Small right pleural effusion. Atelectasis in the lower lungs, right greater than left.
--- NOTE | 2024-04-02 15:53 | CM ---
Reviewed the chart notes and spoke with the patient at the bedside. IMM reviewed. PT/OT recommending home health. Discuss various VN agencies in the area. VN selected. Referral sent via [facility]. continues to be available to
patient/family and is monitoring medical plan for needs at discharge.
Plan: Discharge to home with VN services. Family to provide transportation home.
[2024-04-02] MEDS: DIFLUCAN 200 MG PO (16:04)
[2024-04-02] MEDS: LOVENOX 40 MG SC (17:26)
[2024-04-02] MEDS: DILAUDID 0.5 MG IV (21:59)
[2024-04-02] MEDS: ZESTRIL 5 MG PO (22:00)
[2024-04-02 22:40] VITALS: BP 133/77
--- NOTE | 2024-04-03 02:18 | DOWNTIME ---
There was a [employer] Downtime on 04/03/2024 from 0100 to 04/03/2023 at 0205 . Downtime documentation of patient's care, including medication administrations, has been reconciled in the electronic record per guidelines. Refer to the
patient's paper chart under the miscellaneous tab to see printed paper medication records and downtime forms.
[2024-04-03] MEDS: ZOSYN 50 IV ×2 (05:29→09:03)
[2024-04-03 06:17] LABS: % Lymphocytes 17.7 % (20.5-51.1); % Monocytes 10.1 % (1.7-9.3); % Neutrophils 66.2 % (42.2-75.2); Absolute Basophils 0.1 10^3/uL (0-0.2); Absolute Eosinophils 0.5 10^3/uL (0-0.7); Absolute Immature Granulocytes 0.1 10^3/uL (0-0.05); Absolute Monocytes 1.1 10^3/uL (0.1-0.6); Absolute Neutrophils 7.4 10^3/uL (1.4-6.5); Hemoglobin 9.5 g/dL (12.0-16.0); Mean Corp Hgb Conc. 32.8 g/dL (33.0-37.0); Mean Corpuscular Hgb 29.7 pg (27.0-31.0); Mean Corpuscular Volume 90.6 fL (81.0-99.0); Mean Platelet Volume 9.9 fL (7.4-10.4); Nucleated Red Blood Cells % 0 %; Platelet Count 618 10^3/uL (130-400); White Blood Cell Count 11.1 10^3/uL (4.8-10.8)
[2024-04-03 07:40] VITALS: BP 121/77
[2024-04-03] MEDS: ULTRAM 100 MG PO (08:56)
[2024-04-03] MEDS: DIFLUCAN 200 MG PO (08:56)
[2024-04-03] MEDS: PROTONIX 40 MG PO (08:56)
--- NOTE | 2024-04-03 09:02 | W.PN.CRS1 ---
Today's Communication / Plan
-
As below
Assessment/Plan
-
68-year-old female with PMH of RA (on Remicade and methotrexate, held preoperatively), HTN, history of C. difficile who presents for elective surgery for recurrent diverticulitis
03/15 Robotic sigmoidectomy, flexible sigmoidoscopy
03/18 - developed coffee-ground emesis and hypotension, transferred to the ICU, requiring levo up to 10
03/19 - EGD by GI showing multiple duodenal ulcers 1 large with recent bleed, requiring epi injection and APC
03/23 Exlap, repair of anastomotic leak, DLI
04/02 removed few darcie from inferior midline and packed
AFVSS, MERT removed at bedside
WBC 11.1 from 13.0, Hb 9.5 from 9.6
�Continue low residue diet
�Continue PPI BID
- Cont abx; appreciate ID
� Continue pain control; oxycodone makes patient foggy; recommend increasing tramadol dose
� Cont DVT ppx with lvx
�OOB/IS, follow-up PT; ok for home with services
� Appreciate hospitalist;
Dispo�okay for DC from colorectal standpoint once antibiotic plan in place; follow-up with Dr. Espinoza in 2 weeks
Subjective Data
Procedure
03/15/2024 Robotic sigmoid colectomy with intracorporeal anastomosis
03/23/2024 Exploratory laparotomy, repair of anastomotic leak and diverting loop ileostomy
Subjective Data
Date of Service: April 03, 2024
No overnight events.
Pain controlled.
Denies nausea/vomiting. Tolerating diet.
+ Ostomy function +voiding
Pt is OOB.
Objective Data
-
Vital Signs
Temp Pulse Resp BP Pulse Ox
97.7 F 79 16 121/77 96
04/03/24 07:40 04/03/24 07:40 04/03/24 07:40 04/03/24 07:40 04/03/24 07:40
Intake & Output
04/02/24 04/03/24 04/04/24
06:59 06:59 06:59
Intake Total 2135 / 2135 1540 / 1540
Output Total 256 / 256 150 / 150
Balance 1879 / 1879 1390 / 1390
Intake:
Oral fluids 1830 / 1830 1440 / 1440
IV piggybacks 305 / 305 100 / 100
Output:
Liquid stool amount 250 / 250 150 / 150
Ileostomy 250 / 250 150 / 150
Drain Output (Total)
Abdomen Kulwant-Hernandez
Other:
Number of approximated MODERATE 3 5
amounts of urine
Number of approximated LARGE 1
amounts of urine
Lab Results
04/03/24 05:39
04/01/24 05:50
Physical Exam
-
General: No Acute Distress and AOx3
HEENT: Grossly Normal
Abdomen: Soft, Non Distended, Tender (Appropriately tender near midline incision), No Guarding and No Rebound
Skin: Warm and Dry
Wound: No Signs of Infection, No Skin Erythema and Other (Midline incision well-approximated, inferior 3 cm open with packing, no purulent drainage or surrounding erythema; port sites well-approximated without erythema or drainage; Pfannenstiel
incision with some fibrinous exudate, no purulent drainage or surrounding erythema)
[2024-04-03] MEDS: FLUSH (NSS) 2 FLUSH IV (09:03)
--- NOTE | 2024-04-03 09:19 | W.PN.HOSP.TC ---
Today's Communication/Plan
-
Discharge
Assessment / Plan
Assessment / Plan
Gen-AAOx3, NAD
HEENT-NC, AT, anicteric, clear oral mm
Neck-supple
CV-reg, no M, +S1/S2
Lungs-clear B/L
Abd-soft, NT, ND
Ext-no edema
Musculoskeletal-no cyanosis, clubbing
Skin-warm and dry
Neuro-grossly non-focal
Psych-calm, cooperative
Acute hypoxic respiratory insufficiency - now on Room Air.
Sepsis due to postoperative anastomotic leak - noted on CT abdomen. s/p laparoscopic anastomotic leak repair, flex sig with diverting loop ileostomy 03/23. Tolerating low residue diet.
Persistent leukocytosis noted, but trending down. Looks nontoxic, afebrile. Denies worsening pain.
Fluid culture from March 23 shows polymicrobial growth.
Continue IV Zosyn, day 12. Micafungin changed to Diflucan by ID. Plan to discharge on Augmentin and Diflucan, will speak with ID regarding duration.
Patient requesting as needed antiemetic on discharge, she has concerns about antibiotic induced nausea.
Hx of diverticular disease with recurrent history of diverticulitis - s/p Robotic sigmoid colectomy with intracorporeal anastomosis, 03/15/2024.
Persistent sinus tachycardia -resolved.
Acute GI bleed (hematemesis/rectal bleeding)
- EGD done 03/19 showed LA grade B esophagitis with no bleeding, small hiatal hernia, nonobstructing oozing duodenal ulcers with a visible vessel. Treated with bipolar cautery. Injected. No specimens collected.
- NSAID induced peptic ulcer disease. Avoid further NSAIDs in the future, discussed with patient.
-Continue Protonix, changed to oral.
Acute symptomatic blood loss anemia - due to acute GI bleed as above. Transfused 4 units of blood so far. Hemoglobin now stable.
Asymptomatic bacteriuria - urine culture noted. 50,000 colonies noted of E. coli. Urinalysis without significant pyuria.
Jaundice/elevated LFTs - suspect due to acute ischemic hepatitis due to hypotension, shock. LFTs trending down. No evidence of hemolysis. Abdominal ultrasound unremarkable. LFTs normalized.
Hemorrhagic shock - required PRBCs, pressors earlier during hospitalization. Currently off pressors. Shock resolved.
Hyponatremia - 133.
History of RA on Remicade and Methotrexate prior to admission. Last use of prednisone was 3 weeks ago with her last infusion of Remicade.
Essential HTN -was on lisinopril prior to admission. Currently only on IV hydralazine as needed, so far has not received a dose. Will discontinue hydralazine and resume home dose of lisinopril.
Pseudo-hypocalcemia - albumin 1.6, corrected calcium 9.6.
Hx of C. Diff
Hyperchloremic metabolic acidosis -resolved.
Obesity due to excess calories
DVT ppx: SCDs
Full code
Dispo -medically stable for discharge home today with VN. Outpatient follow-up. Discussed with surgical service, ID.
32 minutes spent in discharge process.
Anticipated Discharge: Today
Subjective/Interval History
-
Date of Service: April 03, 2024
Patient seen and examined. No complaints.
Objective Data
-
Labs:
Laboratory Results
04/03/24
05:39
WBC 11.1 H
Hgb 9.5 L
Hct 29.0 L
Plt Count 618 H
Vital Signs:
Vital Signs
Temp Pulse Resp BP Pulse Ox
97.7 F 79 16 121/77 96
04/03/24 07:40 04/03/24 07:40 04/03/24 07:40 04/03/24 07:40 04/03/24 07:40
I&O
04/02/24 04/03/24 04/04/24
06:59 06:59 06:59
Intake Total 2135 / 2135 1540 / 1540
Output Total 256 / 256 150 / 150
Balance 1879 / 1879 1390 / 1390
Review of Systems
-
History Source: Patient
All other systems: Reviewed and negative
--- NOTE | 2024-04-03 09:30 | W.DS.TRANS ---
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
-
Discharge Instructions:
Sleep Apnea Risk Low
Discharge Diagnosis/Procedures Sepsis, acute GI bleed, postoperative
anastomotic leak, diverticulosis, acute blood
loss anemia
Diet Low Residue
Activity As tolerated
Driving Restrictions As prior to admission
Bathing Restrictions None
Instructions:
Stand-Alone Forms:
Changes to Home Medications: No
Discharge Medications:
DC Medications w/original date entered in [facility]
Lactobacillus acidophilus 10 billion cell capsule (Probiotic) 1 cell PO DAILY Supplement 03/07/24
cholecalciferol (vitamin D3) 125 mcg (5,000 unit) tablet (Vitamin D3) 125 mcg PO WEEKLY Supplement 03/07/24
folic acid 1 mg tablet 1 mg PO DAILY Supplement 03/07/24
infliximab 100 mg intravenous solution (Remicade) 800 mg IV MONTHLY Rheumatoid arthritis 03/07/24
lisinopril 10 mg tablet 10 mg PO HS Blood Pressure 03/07/24
methotrexate sodium 2.5 mg tablet 10 mg PO QWEEK rheumatoid arthritis 03/07/24
prednisone 5 mg tablet 5 mg PO DAILY PRN RA 03/07/24
sodium sul 1.479 gram-potas ch 0.188 gram-magnes sul 0.225 gram tablet (Sutab) 1 tab PO DIRECTED Gastrointestinal Issue 03/07/24
tramadol 50 mg tablet 50 mg PO DAILY PRN pain 03/07/24
amoxicillin 875 mg-potassium clavulanate 125 mg tablet 1 tab PO BID #6 tabs 04/03/24
fluconazole 200 mg tablet 200 mg PO DAILY #3 tabs 04/03/24
pantoprazole 40 mg tablet,delayed release 40 mg PO BID #60 tabs 04/03/24
prochlorperazine maleate 5 mg tablet (Compazine) 5 mg PO QID PRN nausea and vomiting #14 tabs 04/03/24
Home Medication Changes
Pending Results: No
--- NOTE | 2024-04-03 09:51 | CM ---
Reviewed the chart notes. Patient for discharge today to home. Family to transport. CM continues to be available to patient/family and is monitoring medical plan for needs at discharge.
Plan: Discharge to home with [facility] services.
--- NOTE | 2024-04-03 10:14 | W.DS.TRANS ---
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
-
Discharge Instructions:
Sleep Apnea Risk Low
Discharge Diagnosis/Procedures Sepsis, acute GI bleed, postoperative
anastomotic leak, diverticulosis, acute blood
loss anemia
Diet Low Residue
Activity As tolerated
Driving Restrictions As prior to admission
Bathing Restrictions None
Instructions:
Stand-Alone Forms:
Changes to Home Medications: No
Discharge Medications:
DC Medications w/original date entered in [facility]
Lactobacillus acidophilus 10 billion cell capsule (Probiotic) 1 cell PO DAILY Supplement 03/07/24
cholecalciferol (vitamin D3) 125 mcg (5,000 unit) tablet (Vitamin D3) 125 mcg PO WEEKLY Supplement 03/07/24
folic acid 1 mg tablet 1 mg PO DAILY Supplement 03/07/24
infliximab 100 mg intravenous solution (Remicade) 800 mg IV MONTHLY Rheumatoid arthritis 03/07/24
lisinopril 10 mg tablet 10 mg PO HS Blood Pressure 03/07/24
methotrexate sodium 2.5 mg tablet 10 mg PO QWEEK rheumatoid arthritis 03/07/24
prednisone 5 mg tablet 5 mg PO DAILY PRN RA 03/07/24
sodium sul 1.479 gram-potas ch 0.188 gram-magnes sul 0.225 gram tablet (Sutab) 1 tab PO DIRECTED Gastrointestinal Issue 03/07/24
tramadol 50 mg tablet 50 mg PO DAILY PRN pain 03/07/24
amoxicillin 875 mg-potassium clavulanate 125 mg tablet 1 tab PO BID #6 tabs 04/03/24
fluconazole 200 mg tablet 200 mg PO DAILY #6 tabs 04/03/24
pantoprazole 40 mg tablet,delayed release 40 mg PO BID #60 tabs 04/03/24
prochlorperazine maleate 5 mg tablet (Compazine) 5 mg PO QID PRN nausea and vomiting #14 tabs 04/03/24
Home Medication Changes
Pending Results: No
--- NOTE | 2024-04-03 10:57 | VNURNOTE ---
Home Health Liaison spoke with patient to discuss [facility] nurse/therapy, visits, schedule and homebound status. Patient is agreeable and understands that visits at home will be 2-3 x per week to assess and teach medical management. Patient is aware
that [facility] will contact them for start of care in 1-2 days after discharge from . [facility] referral accepted in [facility].
[2024-04-03 12:30] VITALS: BP 129/70
== END 2024-04-03 13:38 | disposition home health service (06) | DRG 329 ==
LOC: 2 SOUTH 05:45
PROVIDERS: Anesthesiology; Internal Medicine; Nurse Practitioner Adult Health; Nurse Practitioner Family; Nurse Practitioner Primary Care; Physician Assistant; Radiology Neuroradiology; Registered Nurse; Surgery; ADMITTING PHYSICIAN Surgery; ATTENDING PHYSICIAN Hospitalist; CONSULT PHYSICIAN Internal Medicine Gastroenterology; CONSULT PHYSICIAN Physical Medicine & Rehabilitation; FAMILY PHYSICIAN Internal Medicine; OTHER PHYSICIAN Internal Medicine; OTHER PHYSICIAN Internal Medicine Infectious Disease; OTHER PHYSICIAN Psychiatry & Neurology Psychiatry
PROC: 0DJD8ZZ Inspection of Lower Intestinal Tract, Via Natural or Artificial Opening Endoscopic (ICD-10-PCS; 2024-03-15)
PROC: 0DTN4ZZ Resection of Sigmoid Colon, Percutaneous Endoscopic Approach (ICD-10-PCS; 2024-03-15)
PROC: 8E0W4CZ Robotic Assisted Procedure of Trunk Region, Percutaneous Endoscopic Approach (ICD-10-PCS; 2024-03-15)
PROC: 0DNN4ZZ Release Sigmoid Colon, Percutaneous Endoscopic Approach (ICD-10-PCS; 2024-03-15)
PROC: 0DNU4ZZ Release Omentum, Percutaneous Endoscopic Approach (ICD-10-PCS; 2024-03-15)
PROC: 0D9670Z Drainage of Stomach with Drainage Device, Via Natural or Artificial Opening (ICD-10-PCS; 2024-03-18)
PROC: 30233N1 Transfusion of Nonautologous Red Blood Cells into Peripheral Vein, Percutaneous Approach (ICD-10-PCS; 2024-03-19)
PROC: 0D598ZZ Destruction of Duodenum, Via Natural or Artificial Opening Endoscopic (ICD-10-PCS; 2024-03-19)
PROC: 3E0G8GC Introduction of Other Therapeutic Substance into Upper GI, Via Natural or Artificial Opening Endoscopic (ICD-10-PCS; 2024-03-19)
PROC: 02H633Z Insertion of Infusion Device into Right Atrium, Percutaneous Approach (ICD-10-PCS; 2024-03-19)
PROC: 0DP6X0Z Removal of Drainage Device from Stomach, External Approach (ICD-10-PCS; 2024-03-20)
PROC: 3E0T3BZ Introduction of Anesthetic Agent into Peripheral Nerves and Plexi, Percutaneous Approach (ICD-10-PCS; 2024-03-23)
PROC: 3E0T33Z Introduction of Anti-inflammatory into Peripheral Nerves and Plexi, Percutaneous Approach (ICD-10-PCS; 2024-03-23)
PROC: 0DQV0ZZ Repair Mesentery, Open Approach (ICD-10-PCS; 2024-03-23)
PROC: 0D1B0Z4 Bypass Ileum to Cutaneous, Open Approach (ICD-10-PCS; 2024-03-23)
PROC: 3E0436Z Introduction of Nutritional Substance into Central Vein, Percutaneous Approach (ICD-10-PCS; 2024-03-25)
DX: K57.32 Diverticulitis of large intestine without perforation or abscess without bleeding (principal); A41.9 Sepsis, unspecified organism; K26.4 Chronic or unspecified duodenal ulcer with hemorrhage; R57.8 Other shock; R65.21 Severe sepsis with septic shock; R57.1 Hypovolemic shock; K72.00 Acute and subacute hepatic failure without coma; K65.8 Other peritonitis; K92.0 Hematemesis; D62 Acute posthemorrhagic anemia; E87.20 Acidosis, unspecified; D84.821 Immunodeficiency due to drugs; K91.89 Other postprocedural complications and disorders of digestive system; E87.1 Hypo-osmolality and hyponatremia; J93.82 Other air leak; S36.893A Laceration of other intra-abdominal organs, initial encounter; J90 Pleural effusion, not elsewhere classified; J98.11 Atelectasis; K66.0 Peritoneal adhesions (postprocedural) (postinfection); M06.9 Rheumatoid arthritis, unspecified; K44.9 Diaphragmatic hernia without obstruction or gangrene; I11.9 Hypertensive heart disease without heart failure; I95.81 Postprocedural hypotension; E87.8 Other disorders of electrolyte and fluid balance, not elsewhere classified; E83.51 Hypocalcemia; E66.09 Other obesity due to excess calories; R74.01 Elevation of levels of liver transaminase levels; R09.02 Hypoxemia; R06.89 Other abnormalities of breathing; Y83.2 Surgical operation with anastomosis, bypass or graft as the cause of abnormal reaction of the patient, or of later complication, without mention of misadventure at the time of the procedure; Y92.239 Unspecified place in hospital as the place of occurrence of the external cause; X58.XXXA Exposure to other specified factors, initial encounter; B96.1 Klebsiella pneumoniae [K. pneumoniae] as the cause of diseases classified elsewhere; B96.20 Unspecified Escherichia coli [E. coli] as the cause of diseases classified elsewhere; B95.4 Other streptococcus as the cause of diseases classified elsewhere; B37.9 Candidiasis, unspecified; F43.20 Adjustment disorder, unspecified; R82.71 Bacteriuria; K21.00 Gastro-esophageal reflux disease with esophagitis, without bleeding; D75.839 Thrombocytosis, unspecified; T39.315A Adverse effect of propionic acid derivatives, initial encounter; I49.3 Ventricular premature depolarization; K59.00 Constipation, unspecified; Z60.2 Problems related to living alone; Z79.631 Long term (current) use of antimetabolite agent; Z79.52 Long term (current) use of systemic steroids; Z79.620 Long term (current) use of immunosuppressive biologic; Z90.49 Acquired absence of other specified parts of digestive tract; Z90.710 Acquired absence of both cervix and uterus; Z87.891 Personal history of nicotine dependence; Z88.5 Allergy status to narcotic agent; Z68.30 Body mass index [BMI] 30.0-30.9, adult
CPT/HCPCS: 88307; 36415; 71045; 71046; 74177; 76700; 80048; 80053; 81003; 81015; 82248; 82330; 82607; 82728; 82746; 82962; 82977; 83036; 83540; 83550; 83605; 83615; 83735; 84100; 84145; 84478; 84484; 85014; 85018; 85025; 85027; 85045; 85610; 85730; 86850; 86900; 86901; 86920; 87040; 87070; 87075; 87077; 87086; 87186; 87205; 93005; 93306; 93970; 93975; 97116; 97163; 97167; 97530; 97535; J1335; J1364; P9016; P9045; Q9967

== ENCOUNTER 2024-04-10 23:46 | Inpatient (IN) | payer MEDICARE, BC, SELFPAY ==
[2024-04-10] VITALS (9 sets, daily range): BP systolic 77–98; BP diastolic 48–62; BMI 27.8
[2024-04-10 13:17] LABS: % Basophils 0.8 % (0-2); % Eosinophils 3.1 % (0-6); % Immature Granulocytes 0.5 % (0-0.5); % Lymphocytes 22.6 % (20.5-51.1); % Monocytes 6.9 % (1.7-9.3); % Neutrophils 66.1 % (42.2-75.2); Absolute Basophils 0.1 10^3/uL (0-0.2); Absolute Eosinophils 0.4 10^3/uL (0-0.7); Absolute Immature Granulocytes 0.1 10^3/uL (0-0.05); Absolute Lymphocytes 2.9 10^3/uL (1.2-3.4); Absolute Monocytes 0.9 10^3/uL (0.1-0.6); Absolute Neutrophils 8.6 10^3/uL (1.4-6.5); Hematocrit 37.7 % (37.0-47.0); Hemoglobin 12.2 g/dL (12.0-16.0); Mean Corp Hgb Conc. 32.4 g/dL (33.0-37.0); Mean Corpuscular Hgb 29.3 pg (27.0-31.0); Mean Corpuscular Volume 90.6 fL (81.0-99.0); Mean Platelet Volume 9.3 fL (7.4-10.4); Nucleated Red Blood Cells % 0 %; Platelet Count 526 10^3/uL (130-400); Red Blood Cell Count 4.16 10^6/uL (4.20-5.40); Red Cell Dist. Width 14.8 % (11.5-14.5)
[2024-04-10 13:35] LABS: ALT (SGPT) 36 U/L (0-35); AST (SGOT) 32 U/L (14-36); Albumin 3.9 g/dl (3.5-5.0); Alkaline Phosphatase 215 U/L (38-126); Blood Urea Nitrogen 30 mg/dl (7-17); Calcium 9.7 mg/dl (8.4-10.2); Carbon Dioxide 20 mmol/L (22-30); Chloride 96 mmol/L (98-107); Glucose 131 mg/dl (70-99); Potassium 4.6 mmol/L (3.5-5.1); Sodium 125 mmol/L (135-145); Total Bilirubin 0.7 mg/dl (0.2-1.3); eGFR 11.43
[2024-04-10 13:45] LABS: Lipase 54 U/L (23-300)
--- NOTE | 2024-04-10 14:39 | CON.CRS ---
Consultation
-
Date/Time Consultation Performed: 04/10/2024, 11:00
Performing Provider: Renuka Espinoza MD
Reason for Consultation: vomiting
Medical History
-
Chief Complaint: Vomiting
History of Present Illness:
68-year-old female presents to the ER from clinic. She was seen by Dr. Espinoza earlier today while in the clinic. She was here for a scheduled postoperative visit. She underwent a robotic sigmoid colectomy on 03/15/2024 for the prior diverticulitis.
Postop day 3 she developed coffee-ground emesis and hypotension was transferred to the ICU. She underwent EGD by GI showed multiple large duodenal ulcers and required an epi injection with APC. A postop day 3 due to weight gain, she had an x-ray
that revealed free air under the diaphragm and subsequent a CT abdomen pelvis showed anastomotic leak. She then underwent an exploratory laparotomy with repair of anastomotic leak and diverting loop ileostomy 03/23/2024. She was discharged on
postop day 11. Currently she has a lack of appetite, nausea, and vomiting for 5 days. Her ileostomy bag has also been leaking. She was sent to the ER for further evaluation from clinic.
Past Medical History
Past Medical History: Other (Rheumatoid arthritis, diverticulosis, history of C. difficile, hypertension)
Past Surgical History: Other (Robotic sigmoid colectomy on 03/15/2024, exploratory laparotomy with pair of anastomotic leak and diverting loop ileostomy on 03/23/2024, 2 C-sections, appendectomy, cholecystectomy)
Social History
Tobacco: Former Smoker
Family History
Family History: Reviewed & Not Pertinent
Allergies / Home Medications
Allergy/AdvReac Type Severity Reaction Status Date / Time
codeine Allergy Nausea / Verified 04/10/24 12:56
Vomiting
Gold Salts Allergy Shortness Verified 04/10/24 12:56
of Breath
�Medication �Instructions �Recorded �Confirmed �Type
Lactobacillus acidophilus 10 1 cell PO DAILY Supplement 03/07/24 03/18/24 History
billion cell capsule (Probiotic)
cholecalciferol (vitamin D3) 125 125 mcg PO WEEKLY Supplement 03/07/24 03/07/24 History
mcg (5,000 unit) tablet (Vitamin
D3)
folic acid 1 mg tablet 1 mg PO DAILY Supplement 03/07/24 03/07/24 History
infliximab 100 mg intravenous 800 mg IV MONTHLY Rheumatoid 03/07/24 03/07/24 History
solution (Remicade) arthritis
lisinopril 10 mg tablet 10 mg PO HS Blood Pressure 03/07/24 03/15/24 History
methotrexate sodium 2.5 mg tablet 10 mg PO QWEEK rheumatoid arthritis 03/07/24 03/07/24 History
prednisone 5 mg tablet 5 mg PO DAILY PRN RA 03/07/24 03/15/24 History
sodium sul 1.479 gram-potas ch 1 tab PO DIRECTED 03/07/24 03/15/24 History
0.188 gram-magnes sul 0.225 gram Gastrointestinal Issue
tablet (Sutab)
tramadol 50 mg tablet 50 mg PO DAILY PRN pain 03/07/24 03/07/24 History
amoxicillin 875 mg-potassium 1 tab PO BID #6 tabs 04/03/24 Rx
clavulanate 125 mg tablet
fluconazole 200 mg tablet 200 mg PO DAILY #6 tabs 04/03/24 Rx
pantoprazole 40 mg tablet,delayed 40 mg PO BID #60 tabs 04/03/24 Rx
release
prochlorperazine maleate 5 mg 5 mg PO QID PRN nausea and 04/03/24 Rx
tablet (Compazine) vomiting #14 tabs
Review of Systems
-
History Source: Patient and Family
Constitutional: Fatigue and Other (Anorexia)
Abdomen/GI: Nausea and Vomiting
A 10 point review of systems was completed, and was negative except as per HPI.
Physical Exam
Vital Signs
Temp 97.7 F 04/10/24 12:53
Pulse 64 04/10/24 12:53
Resp Rate 16 04/10/24 12:53
Blood pressure 92/62 04/10/24 12:53
SaO2 96 04/10/24 12:53
Lab Results / Allergies
04/10/24 13:10
04/10/24 13:10
WBC 13.0 10^3/uL (4.8-10.8) H 04/10/24 13:10
Hgb 12.2 g/dL (12.0-16.0) 04/10/24 13:10
Hct 37.7 % (37.0-47.0) 04/10/24 13:10
Plt Count 526 10^3/uL (130-400) H 04/10/24 13:10
Abs Immat Gran (auto) 0.1 10^3/uL (0-0.05) H 04/10/24 13:10
Neutrophils % 66.1 % (42.2-75.2) 04/10/24 13:10
Allergy/AdvReac Type Severity Reaction Status Date / Time
codeine Allergy Nausea / Verified 04/10/24 12:56
Vomiting
Gold Salts Allergy Shortness Verified 04/10/24 12:56
of Breath
Physical Exam
General: Other (Fatigued)
GI: Other (Unable to examine due to unable to lie flat)
Data Reviewed
-
Labs: Labs Reviewed by me and Discussed with Patient
Old Records: Reviewed
Assessment / Plan
-
Assessment: 68-year-old female with a recent history of robotic sigmoidectomy followed by an exploratory laparotomy and repair of anastomotic leak with diverting loop ileostomy on 03/23/2024.
Plan:
-IV hydration
-Remain n.p.o.
-Antiemetics and pain medication as needed
-Admit for medical management
-Further plans to follow once labs are resulted
[2024-04-10] MEDS: COMPAZINE 10 MG IV (18:47)
[2024-04-10] MEDS: NSS 500 IV ×2 (18:56→21:01)
[2024-04-10] MEDS: OMNIPAQUE 50 ML PO (18:57)
--- NOTE | 2024-04-10 22:02 | ED.GENMED ---
History of Present Illness
General
Chief Complaint: Abdominal Symptoms
Source: patient and spouse
Time Seen by Provider: 04/10/24 18:15
History of Present Illness
History of Present Illness:
This is 68-year-old female who is status post sigmoidectomy and anastomotic leak. Patient states she has had some nausea and vomiting and unable to really eat and drink much. She has had watery stool through the stool. She has been on Augmentin.
Patient denies hematochezia or melena. No hematemesis.. Patient denies fevers. Patient has not been on prednisone in some time. Spouse states she has not been able to eat or drink very much at home. She has been trying to drink different
drinks and occasionally holds them down. The patient admits that her urine output has been significantly diminished
Past History
Past History
ED Past Medical History: HTN and Other (Rheumatoid arthritis, sepsis, anastomotic leak, hemorrhagic shock)
ED Past Surgical History: Other (Sigmoid colectomy, colostomy)
Phy Exam
Physical Exam
Physical Exam:
CONSTITUTIONAL Patient alert and oriented to person, place and time. Vital signs reviewed.
HEAD atraumatic, normocephalic.
EYES eyelids normal to inspection, Extraocular muscles intact, Conjunctiva normal, Sclera normal.
NECK normal range of motion, Trachea midline, no jugular venous distention.
RESPIRATORY CHEST No respiratory distress noted, Chest expansion equal, Bilateral breath sounds clear.
CARDIOVASCULAR regular rate and rhythm, Heart sounds normal.
ABDOMEN no real distention, green stool noted green watery stool noted in her colostomy bag, no blood noted, midline incision noted below the umbilicus. The inferior portion is open and packed. She does have some redness noted under her pannus.
Mild diffuse tenderness
BACK normal inspection, no obvious deformities
UPPER EXTREMITY range of motion normal, Motor strength normal, no cyanosis, no edema.
LOWER EXTREMITY range of motion normal, Motor strength normal, no cyanosis, no edema.
NEURO Speech normal, No focal motor deficits, [place] coma scale 15, Memory normal, Cranial Nerves intact to screening exam.
SKIN skin warm, dry, and normal in color.
Course
Orders/Labs/Results
Orders:
Orders
04/10/24 13:10
CMP [Comprehensive Metabolic Panel] Urgent
Complete Blood Count/With Diff Urgent
Lipase Urgent
04/10/24 18:22
0.9% Sodium Chloride 500 ml [Nss] 500 ml IV BOLUS
Iohexol [Omnipaque] See Protocol PO NOW STA
Prochlorperazine [Compazine] 10 mg IV NOW STA
04/10/24 18:23
CT Abd/pel (oral only)-[facility] Only Urgent
Comment:
Reason For Exam: nausea, vomiting, recent abdominal surgery
04/10/24 18:24
Urinalysis Reflex To Culture Urgent
04/10/24 20:52
0.9% Sodium Chloride 500 ml [Nss] 500 ml IV BOLUS
04/10/24 22:03
CDIFF [C difficile Antigen & Toxins] Urgent
YAIR Source: Feces/Stool
Specimen Description:
Stool Culture Urgent
YAIR Source: Feces/Stool
Specimen Description:
04/10/24 23:00
Flush (0.9% Sodium Chloride) [Flush (Nss)] See Dose Instructions IV PER PROTOCOL
Abnormal Lab Results
04/10/24
13:10
WBC 13.0 H 10^3/uL
(4.8-10.8)
RBC 4.16 L 10^6/uL
(4.20-5.40)
MCHC 32.4 L g/dL
(33.0-37.0)
RDW 14.8 H %
(11.5-14.5)
Plt Count 526 H 10^3/uL
(130-400)
Abs Immat Gran (auto) 0.1 H 10^3/uL
(0-0.05)
Absolute Neuts (auto) 8.6 H 10^3/uL
(1.4-6.5)
Absolute Monos (auto) 0.9 H 10^3/uL
(0.1-0.6)
Sodium 125 L mmol/L
(135-145)
Chloride 96 L mmol/L
(98-107)
Carbon Dioxide 20 L mmol/L
(22-30)
BUN 30 H mg/dl
(7-17)
Creatinine 4.1 H* mg/dL
(0.6-1.0)
Glucose 131 H mg/dl
(70-99)
ALT 36 H U/L
(0-35)
Alkaline Phosphatase 215 H U/L
(38-126)
04/10/24 13:10
04/10/24 13:10
Vital Signs
Initial and Last Documented VS:
Initial Vital Signs
Temp Pulse Resp BP Pulse Ox
97.7 F 64 16 92/62 96
04/10/24 12:53 04/10/24 12:53 04/10/24 12:53 04/10/24 12:53 04/10/24 12:53
Last Documented Vital Signs
Temp Pulse Resp BP Pulse Ox
97.7 F 94 22 98/52 96
04/10/24 12:53 04/10/24 22:00 04/10/24 22:00 04/10/24 21:55 04/10/24 21:30
MDM/Problems Addressed
MDM/Problems Addressed:
Vomiting, diarrhea, severe acute dehydration, severe acute renal failure, hypotension
*Radiology
Radiology exam reviewed: preliminary read by ED provider (No obvious free air)
*Pulse Oximetry
Patient hypoxic: no
*Pipe Covering Molder Interpretation
Rate: normal
Rhythm: sinus
*Critical Care Note
Total Time (30-74mins, 75-104mins- exclusive of procedures): 40 minutes
Data Reviewed
Review of Other/Old Records Reveals: Operative Reports (Recent colorectal operative report reviewed) and Discharge Summary (Discharge summary from March 2024 reviewed)
Source: patient and spouse
Prescriptions/Medications Considered But Not Given:
Considered antibiotics but no obvious source of infection and already on antibiotics. Will send blood cultures.
Patient Management
Discussion with other providers: Hospitalist
Escalation/DeEscalation of care consider admission/obs:
68-year-old female with a extensive recent history. Now here with acute renal failure that I suspect is related to volume depletion. Patient has not urinated that she has been in the emergency department. She is on her second urine now. Her
blood pressure does improve with IV fluids. She is not febrile. She has been on Augmentin. Will send stools for C. difficile and cultures. Await final CT read. Continue to monitor closely.
ED Attending Note
-
Portions of this chart may have been created with voice recognition software.� Occasional wrong word or��sound alike� substitutions may have occurred due to the inherent limitations of voice recognition software.
Discharge Plan
Departure
Patient Disposition: Admit
Date of Disposition: 04/10/24
Time of Disposition: 22:02
Admit to: Telemetry
Presentation/result/management discussed w/ accepting MD/DO: Hospitalist
Discharge Problem:
Acute renal failure (ARF), Acute dehydration, Nausea, Acute hyponatremia
Prescriptions:
No Action
prednisone 5 mg Tablet
5 mg PO DAILYPRN PRN (Reason: RA)
tramadol 50 mg Tablet
50 mg PO DAILYPRN PRN (Reason: pain)
lisinopril 10 mg Tablet
10 mg PO HS
Patient Comments:
per patient she threw it up.
infliximab [Remicade] 100 mg Recon Soln
800 mg IV MONTHLY
Patient Comments:
with solumedrol 40mg
pantoprazole 40 mg Tablet,Delayed Release (Dr/Ec)
40 mg PO BID Qty: 60 0RF
Visbiome 112.5 billion cell Capsule
1 cap PO DAILY
prochlorperazine maleate [Compazine] 5 mg tablet
5 mg PO QIDPRN PRN (Reason: nausea and vomiting)
Interventions
Interventions:
*Risk Screen - Suicide Last Done: 04/10/24 12:53
*General Assessment Last Done: 04/10/24 12:53
ED- Fall Risk Assessment Last Done: 04/10/24 18:50
*ED COVID-19 Vaccine History Last Done: 04/10/24 12:53
FS-Sxxwhb-Ndyrbtuxuk Assessment Last Done: 04/10/24 18:50
Discharge Date and Time
Print Language: YAKUT
[2024-04-10] MEDS: NSS 1000 IV (22:59)
[2024-04-10 23:15] LABS: Lactic Acid 0.9 mmol/L (0.7-2.0)
--- NOTE | 2024-04-10 23:15 | HPS.HSE ---
Addendum entered and electronically signed by Rolanda Paulson MD 04/10/24 23:37:
Lvophed being started as Blood pressure stil 70s despite 2L fluids.
Starting zosyn as she is clinically in septic shock. Can discontinue if Cdif positive.
Original Note:
Family Physician
-
Family Physician: Gianna Parra
Chief Complaint
-
vomiting/diarrhea
History of Present Illness
64-year-old female past medical history of diverticular disease with recurrent diverticulitis status post robotic sigmoid colectomy with intracorporeal anastomosis on 03/15/2024, sepsis from postoperative anastomotic leak status post laparoscopic
anastomotic leak repair, flex sig with diverting loop ileostomy on 03/23, acute GI bleeding secondary to duodenal ulcers, blood loss anemia, rheumatoid arthritis, hypertension, pseudo hypocalcemia, C. difficile, obesity, presenting for nausea and
vomiting and unable to eat and drink much and loose stools in the ileostomy bag over the past few days. Also has pain across her belly. No blood in the stool or vomit. No fevers or chills.
Patient was just admitted from 03/15 to 04/03 for elective sigmoid colectomy for recurrent diverticulitis on 03/15. Postprocedure she was mated due to GI bleeding and coffee-ground emesis. It was consulted and performed upper endoscopy with
nonobstructing oozing duodenal ulcers with visible vessel. This was treated with bipolar cautery and injection. He was given 4 units of blood total for blood loss anemia. She developed signs of sepsis due to anastomotic leak. She went back to
the OR on 03/23 for exploratory laparotomy with repair of anastomotic leak and diverting loop ileostomy. TPN was given. She was discharged on oral antibiotics and antifungal therapy.
She denies any chest pain or shortness of breath.
He does not smoke or drink alcohol.
Medical History
Past Medical History
Past Medical History: Reports Other (diverticular disease with recurrent diverticulitis status post robotic sigmoid colectomy with intracorporeal anastomosis on 03/15/2024, sepsis from postoperative anastomotic leak status post laparoscopic
anastomotic leak repair, flex sig with diverting loop ileostomy on 03/23, acute GI bleeding seconda)
Past Surgical History: Reports Other ((Sigmoid colectomy, colostomy, robotic sigmoid colectomy with intracorporeal anastomosis on 03/15/2024, postoperative anastomotic leak status post laparoscopic anastomotic leak repair, flex sig with diverting loop
ileostomy on 03/23)
Social History
Tobacco: Non-smoker
Alcohol: None
Drug: None
Family History
Family History: Not pertinent
Allergies / Home Medications
Allergies reflects when Allergies were last updated in [employer].
Home Medications with original date entered in [employer]
Allergy/Medication List:
Allergies
Allergy/AdvReac Type Severity Reaction Status Date / Time
codeine Allergy Nausea / Verified 04/10/24 12:56
Vomiting
Gold Salts Allergy Shortness Verified 04/10/24 12:56
of Breath
Home Medications
infliximab 100 mg intravenous solution (Remicade) 800 mg IV MONTHLY Rheumatoid arthritis 03/07/24
lisinopril 10 mg tablet 10 mg PO HS Blood Pressure 03/07/24
prednisone 5 mg tablet 5 mg PO DAILYPRN PRN RA 03/07/24
tramadol 50 mg tablet 50 mg PO DAILYPRN PRN pain 03/07/24
pantoprazole 40 mg tablet,delayed release 40 mg PO BID #60 tabs 04/03/24
Lactobac no.2-Bifidobac no.1-S. thermo 112.5 billion cell capsule (Visbiome) 1 cap PO DAILY 04/10/24
prochlorperazine maleate 5 mg tablet (Compazine) 5 mg PO QIDPRN PRN nausea and vomiting 04/10/24
Review of Systems
-
History Source: Patient
A 12 point ROS was completed and negative except as noted: Yes
Constitutional: Reports No Symptoms
EENT: Reports No Symptoms
Respiratory: Reports No Symptoms
Cardiac: Reports No Symptoms
Abdomen/GI: Reports See HPI
: Reports No Symptoms
Musculoskeletal: Reports No Symptoms
Skin: Reports No Symptoms
Neurological: Reports No Symptoms
Endocrine: Reports No Symptoms
Hematologic/Lymphatic: Reports No Symptoms
Psych: Reports No Symptoms
Physical Exam
Vital Signs
Vital Signs
Temp Pulse Resp BP Pulse Ox
97.7 F 94 22 98/52 96
04/10/24 12:53 04/10/24 22:00 04/10/24 22:00 04/10/24 21:55 04/10/24 21:30
Physical Exam
General: Well Developed, Well Nourished and No Apparent Distress
HEENT: NormoCephalic, Moist mucous membranes and Atraumatic
Respiratory: Clear
Cardiac: S1/S2 and Regular Rhythm; No Murmur or Rub
GI: Soft, Non Tender, Non Distended and Normal Bowel Sounds; No Organomegaly
Rectal: Deferred by Provider
Musculoskeletal: No Clubbing, No Cyanosis and No Edema
Skin: No Rash
Neuro: Nonfocal/grossly intact
Laboratory Results
-
04/10/24 13:10
04/10/24 13:10
Laboratory Results
Total Bilirubin 0.7 mg/dl (0.2-1.3) 04/10/24 13:10
AST 32 U/L (14-36) 04/10/24 13:10
ALT 36 U/L (0-35) H 04/10/24 13:10
Alkaline Phosphatase 215 U/L (38-126) H 04/10/24 13:10
Lipase 54 U/L (23-300) 04/10/24 13:10
Data Reviewed
-
Lab Data: Labs Reviewed by me
Old Records: Reviewed
Impression/Plan
-
IMPRESSION:
PLAN:
# Sepsis (hypotension, tachycardia, leukocytosis) secondary to antibiotic associate diarrhea/persistent anastomotic leak vs rule out C. difficile
# Persistent anastomotic leak
#Diverticular disease status post robotic sigmoid colectomy with intracorporeal anastomosis on 03/15
#RecentSepsis from postoperative anastomotic leak status post anastomotic leak repair, flex sig with diverting loop ileostomy on 03/23
-N.p.o.
-IV fluids, likely need to start Levophed
-Check C. difficile, stool culture
-Blood cultures pending
-CT scan abdomen pelvis shows small focus of contained extraluminal air, slightly more medially inferiorly there is second small focus of contained extraluminal air suggestive of persistent anastomotic leak
-Colorectal surgery consult
-ID consulted
# Acute kidney injury prerenal
-IV fluids
# Worsening of chronic hyponatremia secondary to volume losses
-Monitor with IV fluids
Recent GI bleeding secondary to duodenal ulcer/blood loss anemia
-Hemoglobin of 12 likely some component of hemoconcentration
-Continue Protonix
Rheumatoid arthritis
-On Remicade
Essential hypertension
-Hold lisinopril
Pseudo hypocalcemia
Obesity
Full code
DVT prophylaxis�heparin
N.p.o.
[2024-04-11] VITALS (34 sets, daily range): BP systolic 80–130; BP diastolic 39–69; PULSE 97; O2SAT 91
[2024-04-11] MEDS: LEVOPHED 250 IV (00:11)
[2024-04-11] MEDS: ZOSYN 50 IV ×4 (00:50→18:45)
[2024-04-11] MEDS: NSS 1000 IV ×2 (00:52→12:13)
[2024-04-11 05:29] LABS: % Basophils 0.9 % (0-2); % Eosinophils 3.1 % (0-6); % Immature Granulocytes 0.5 % (0-0.5); % Lymphocytes 21.7 % (20.5-51.1); % Monocytes 9.5 % (1.7-9.3); % Neutrophils 64.3 % (42.2-75.2); Absolute Basophils 0.1 10^3/uL (0-0.2); Absolute Eosinophils 0.4 10^3/uL (0-0.7); Absolute Immature Granulocytes 0.1 10^3/uL (0-0.05); Absolute Lymphocytes 2.6 10^3/uL (1.2-3.4); Absolute Monocytes 1.2 10^3/uL (0.1-0.6); Absolute Neutrophils 7.8 10^3/uL (1.4-6.5); Mean Corp Hgb Conc. 33.3 g/dL (33.0-37.0); Mean Corpuscular Hgb 29.6 pg (27.0-31.0); Mean Corpuscular Volume 88.8 fL (81.0-99.0); Mean Platelet Volume 9.7 fL (7.4-10.4); Nucleated Red Blood Cells % 0 %; Platelet Count 426 10^3/uL (130-400); Red Blood Cell Count 3.38 10^6/uL (4.20-5.40); Red Cell Dist. Width 14.4 % (11.5-14.5); White Blood Cell Count 12.1 10^3/uL (4.8-10.8)
[2024-04-11 05:49] LABS: ALT (SGPT) 25 U/L (0-35); AST (SGOT) 24 U/L (14-36); Albumin 2.7 g/dl (3.5-5.0); Alkaline Phosphatase 159 U/L (38-126); Blood Urea Nitrogen 31 mg/dl (7-17); Calcium 8.2 mg/dl (8.4-10.2); Carbon Dioxide 16 mmol/L (22-30); Chloride 105 mmol/L (98-107); Estimated Creatinine Clearance 16 ml/min; Glucose 90 mg/dl (70-99); Potassium 4.3 mmol/L (3.5-5.1); Sodium 133 mmol/L (135-145); Total Bilirubin 0.8 mg/dl (0.2-1.3); Total Protein 5.5 g/dl (6.3-8.2); eGFR 14.31
[2024-04-11] MEDS: HEPARIN 5000 UNITS SC ×2 (08:27→21:28)
[2024-04-11] MEDS: PROTONIX IV 40 MG IV (08:27)
[2024-04-11] MEDS: NSS (PRESERVATIVE FREE) 10 ML IV (08:27)
--- NOTE | 2024-04-11 08:29 | VNURNOTE ---
Chart reviewed. Patient is current with [facility] nursing, PT, OT. Will continue to follow hospital course and DC plans.
--- NOTE | 2024-04-11 10:09 | CON.ID ---
Consultation
-
Date/Time Consultation Requested: 04/11/24 00:03
Date/Time Consultation Performed: 04/11/24 10:09
Requesting Provider: Dr Paulson
Performing Provider: Dr Cleaning
Reason for Consultation: ileostomy diarrhea
Chief Complaint / Past History
Chief Complaint
vomiting/diarrhea
History of Present Illness
Ms Gonzalez is a 68 year old female with history of recurrent diverticulitis s/p colectomy with anastomosis on 03/15/24 complicated by anastomotic leak with cultures with Klebsiella, E. coli, strep species and Calli albicans treated with zosyn ->
augmentin and fluconazole for 14 days, s/p diverting loop lieostomy 03/23, h/o prior C difficile, RA on infliximab and prednisone 5 mg qday, who presented here for nausea, vomiting, anorexia, abdominal pain and liquid stools (nonbloody) for several
days. Liquid stools are a change from her baseline. No fevers or chills. No sick contacts or contact with small children. No headache, sinus tenderness, cough, sputum production, dysuria, new rashes or joint pains.
from 03/15-04/03 for elective sigmoid colectomy for recurrent diverticulitis, had GI bleeding and upper endoscopy with duodenal ulcer with visible vessel - cauterized and injected, transfused 4 units, found to have anastomotic leak and underwent ex
lap 03/23 with repair and diverting loop ileostomy.
Denies the ostomy bag leaking or contaminating the staple line.
Since arrival here patient has been afebrile, BP was hypotensive requiring levophed up to 6 mcg/min - now down to 2 mcg/min, wbc initially 13 now 12, hgb 10, plt initially 52 now 426, cr baseline 0.8 on arrival 4.1 now 3.4, na initially 125 now
133, K 4.3, t bili 0.8, ast 24, alt 25, alk phos 159, CT a/p with oral contrast only: small focus of contained extraluminal air. Slightly more medially and inferiorly, there is a second small focus of contained extraluminal air. Findings would be
suggestive of persistent anastomotic leak, although could possibly represent persistent contained extraluminal air from previous anastomotic leak. There is no evidence for an abscess. C diff pending stool culture in progress, norovirus pending,
blood cultures x2 in progress,
Past History
Additional Past Medical History:
diverticular disease with recurrent diverticulitis status post robotic sigmoid colectomy with intracorporeal anastomosis on 03/15/2024, sepsis from postoperative anastomotic leak status post laparoscopic anastomotic leak repair, flex sig with
diverting loop ileostomy on 03/23, acute GI bleeding seconda)
Additional Past Surgical History:
((Sigmoid colectomy, colostomy, robotic sigmoid colectomy with intracorporeal anastomosis on 03/15/2024, postoperative anastomotic leak status post laparoscopic anastomotic leak repair, flex sig with diverting loop ileostomy on 03/23
Allergy History:
codeine Allergy (Verified 04/10/24 12:56)
Nausea / Vomiting
Gold Salts Allergy (Verified 04/10/24 12:56)
Shortness of Breath
Medications Reviewed: Yes
Social History
Tobacco: Non-Smoker
Alcohol: None
Drug: None
Family History
Family History: Not Pertinent
Review of Systems
Review of Systems
General: Negative Fever or Chills
All systems: All other systems were reviewed and were negative
Vital Signs
Temp Pulse Resp BP Pulse Ox
97.7 F 86 22 99/57 99
04/10/24 12:53 04/11/24 06:30 04/11/24 06:30 04/11/24 06:00 04/11/24 06:30
Physical Exam
Physical Exam
Constitutional: Acutely Ill
Cardiovascular: Regular Rate and S1/S2; Negative Murmur or Rub
Pulmonary: Clear and Symmetric; Negative Wheezes, Rales or Rhonchi
Gastrointestinal: Soft, Non Tender, Non Distended, Normal Bowel Sounds and Other (liquid stool in the ostomy)
Skin: Warm and Dry; Negative Rash or Jaundice
Wound: Other (darcie in place with exception of inferior edge which has pink, healthy appearing tissue - no bleeding, odor or drainage)
Neurological: Awake
Lab / Diagnostic Study Results
04/11/24 04:55
04/11/24 04:55
Abs Immat Gran (auto) 0.1 10^3/uL (0-0.05) H 04/11/24 04:55
Absolute Neuts (auto) 7.8 10^3/uL (1.4-6.5) H 04/11/24 04:55
Absolute Lymphs (auto) 2.6 10^3/uL (1.2-3.4) 04/11/24 04:55
Absolute Monos (auto) 1.2 10^3/uL (0.1-0.6) H 04/11/24 04:55
Absolute Basos (auto) 0.1 10^3/uL (0-0.2) 04/11/24 04:55
Immature Gran % 0.5 % (0-0.5) 04/11/24 04:55
Neutrophils % 64.3 % (42.2-75.2) 04/11/24 04:55
Lymphocytes % 21.7 % (20.5-51.1) 04/11/24 04:55
Monocytes % 9.5 % (1.7-9.3) H 04/11/24 04:55
Eosinophils % 3.1 % (0-6) 04/11/24 04:55
Basophils % 0.9 % (0-2) 04/11/24 04:55
Lactic Acid Cancelled 04/11/24 02:45
Microbiology Results
Micro:
04/10/24 22:54 Blood Culture - Pending
Blood/Venous
04/10/24 22:54 Salmonella/Shigella Culture - Pending
Feces/Stool Campylobacter Culture - Pending
Shiga Toxin Test - Pending
04/10/24 22:54 C. difficile GD Antigen & Toxins - Pending
Feces/Stool
04/10/24 22:54 Blood Culture - Pending
Blood/Venous
Assessment / Plan
Shock
High Output Ileostomy
h/o C difficile - remote
- C diff pending
- stool culture pending
- norovirus pcr pending
- blood cultures x2 in progress
- no evidence of abscess on CT abdomen, though free peritoneal air - old vs new
- appears to be responding well to zosyn
- also note previous yeast, given response and no visualized abscess will hold off on broadening for now
- follow clinically, patient is critically ill requiring pressors
--- NOTE | 2024-04-11 11:19 | W.PN.CRS1 ---
Today's Communication / Plan
-
clear liquids
wound care
remove stoma mike
c.diff
continue IV abx
Assessment/Plan
-
Assessment: 68-year-old female with a recent history of robotic sigmoidectomy followed by an exploratory laparotomy and repair of anastomotic leak with diverting loop ileostomy on 03/23/2024 with TONYA/vomiting
WBC 12.1 from 13.0. Hemoglobin 10.0 from 12.2.
Creatinine 3.4 from 4.1.
Afebrile. Hypotension resolved.
-Advance diet to clear liquids
-C. difficile culture pending
-Agree with IV antibiotics
-No plans for surgery at this time
-Appreciate wound care. Okay to remove stoma mike.
-Ativan physical therapy
-ID consulted
Subjective Data
Subjective Data
Date of Service: April 11, 2024
Patient states she feels 'uncomfortable' but has no real pain. She is both thirsty and hungry. She has no nausea or vomiting. She feels much better from when she came to the hospital yesterday.
Objective Data
-
Vital Signs
Temp Pulse Resp BP Pulse Ox
97.7 F 88 19 106/58 99
04/10/24 12:53 04/11/24 11:00 04/11/24 11:00 04/11/24 10:09 04/11/24 11:00
Intake & Output
04/10/24 04/11/24 04/12/24
06:59 06:59 06:59
Intake Total 2500 / 2500
Balance 2500 / 2500
Intake:
IV fluids (Total) 2500 / 2500
nss 2500 / 2500
Other:
Number of unmeasured voidings 1
Lab Results
04/11/24 04:55
04/11/24 04:55
Physical Exam
-
General: No Acute Distress and AOx3
Abdomen: Soft, Non Distended and Non Tender
Skin: Warm and Dry
Incision: Clear, Dry, Intact
--- NOTE | 2024-04-11 12:40 | WOUNDNOTE ---
ABDOMEN (SUPRAPUBIC WOUND ABOUT 4CM DEEP IN CENTER)
--- NOTE | 2024-04-11 12:40 | WOUNDNOTE ---
[facility] RN note: Patient admitted with sepsis, diarrhea. Patient's brother was help with ostomy care. VN following.
See H&P for complete history.
PMH: diverticular disease, s/p robotic sigmoid colectomy 03/15/24, s/p loop ileostomy 03/23/24 d/t anastomotic leak, acute GI bleed, RA, HTN, C diff, obesity.
Wound Location and type/assessment: Patient admitted with: stage 1 sacral pressure injury. R sacral/buttocks small dermal ulcer suspect an abrasion. MASD peristomally with some linear dermal openings in deep skin crease distal to wafer. RLQ open
pink small wound suspect an old MRET drain site. Distal midline dehisced incision with pink tissue. Suprapubic linear incision with murky ss drainage, probes 4cm in center. Abdominal/groin yeasty red rash.
Appetite: on clear liquids currently.
Pressure redistribution devices in place: ED stretcher. Patient turns self in bed.
Plan: Ileostomy appliance changed using [place] wafer # [id number], Yonas seal and [place] high output pouch # [id number]. Silicone foam applied to distal wafer open skin crease. Adaptic and gauze applied to RLQ old MERT drain site. Re packed distal midline
abdominal wound. Dry gauze applied to suprapubic incisional wound.
[place] texted colorectal PA Shelly Cornelius including abdominal and suprapubic wound pics, reporting murky serous drainage from suprapubic incisional wound and probes 4cm deep in center; requested Shelly to place wound care instructions for nursing
for lower midline abdominal wound and suprapubic wound. Ostomy supplies left in room. [facility] PCT Asim assisted with turning patient to her R side. Heels off bed with pillow. Discussed with RN Angel.
Care plan to be updated and will follow as needed.
--- NOTE | 2024-04-11 12:40 | WOUNDNOTE ---
Addendum entered by Grace Oglesby 04/11/24 16:49:
Correction: R side abdomen, not L side.
Original Note:
ABDOMEN (L SIDE)
--- NOTE | 2024-04-11 12:40 | W.PN.HOSP.TC ---
Today's Communication/Plan
-
see outlined plan
Assessment / Plan
Assessment / Plan
Assessment:
Sepsis with shock due to persistent anastomotic leak
Hx of diverticular disease with recurrent history of diverticulitis - s/p Robotic sigmoid colectomy with intracorporeal anastomosis, 03/15/2024.
- Anastomotic staple line involving the sigmoid colon in the left pelvis. Adjacent to the staple line, there is a small focus of contained extraluminal air. Slightly more medially and inferiorly, there is a second small focus of contained
extraluminal air. Findings would be suggestive of persistent anastomotic leak, although could possibly represent persistent contained extraluminal air from previous anastomotic leak. There is no evidence for an abscess. There is no evidence for free
intraperitoneal air elsewhere within the abdomen and pelvis.
- CRS and ID following
- continue Zosyn, day 2
- weaned of pressors, continue IVF
- clears
Acute hyponatremia
TONYA
- from sepsis, dehydration
- check bladder scans
- continue IVF (NSS, later will consider bicarbonate)
recent Acute GI bleed (hematemesis/rectal bleeding)
- EGD done 03/19 showed LA grade B esophagitis with no bleeding, small hiatal hernia, nonobstructing oozing duodenal ulcers with a visible vessel. Treated with bipolar cautery. Injected. No specimens collected.
- NSAID induced peptic ulcer disease. Avoid further NSAIDs
- continue IV Protonix daily.
Chronic anemia
- Hb 10
reactive thrombocytosis
History of RA on Remicade and Methotrexate prior to admission. Last use of prednisone was 3 weeks ago with her last infusion of Remicade.
Essential HTN
- hold Lisinopril
Pseudo-hypocalcemia - albumin 1.6, corrected calcium 9.6.
Hx of C. Diff
Obesity due to excess calories
DVT ppx: SC Heparin
Code: Full
Anticipated Discharge: > 48 hours
Subjective/Interval History
-
Date of Service: April 11, 2024
denies any new complaints at present
Objective Data
-
Labs:
Laboratory Results
04/11/24
04:55
WBC 12.1 H
Hgb 10.0 L
Hct 30.0 L
Plt Count 426 H
Sodium 133 L D
Potassium 4.3
Chloride 105
Carbon Dioxide 16 L
BUN 31 H
Creatinine 3.4 H
Glucose 90
Calcium 8.2 L D
Total Bilirubin 0.8
AST 24
ALT 25
Alkaline Phosphatase 159 H
Vital Signs:
Vital Signs
Temp Pulse Resp BP Pulse Ox
97.7 F 88 19 106/58 99
04/10/24 12:53 04/11/24 11:00 04/11/24 11:00 04/11/24 10:09 04/11/24 11:00
I&O
04/10/24 04/11/24 04/12/24
06:59 06:59 06:59
Intake Total 2500 / 2500
Balance 2500 / 2500
Physical Exam
-
General: No Apparent Distress
HEENT: Normocephalic and Atraumatic
Respiratory: Negative Wheezes
Cardiac: Regular Rhythm and S1/S2
GI: Soft, Nontender and Ostomy
Neuro: AO x 3
Hematologic / Lymphatic: No Lymphadenopathy
Psych: Calm
Data Reviewed
-
Total Time Spent with Patient (in minutes): 44
Labs: Labs Reviewed by me
--- NOTE | 2024-04-11 12:45 | WOUNDNOTE ---
[facility] RN note: Stoma bridge removed per FARHAT Guzman's request without incident.
[2024-04-11 14:52] LABS: Urine Albumin 1+ (Neg - Trace); Urine Bilirubin Negative (Negative); Urine Character Clear (Clear); Urine Color Yellow; Urine Glucose Negative (Negative); Urine Ketone Negative (Negative); Urine Leukocyte 2+ (Negative); Urine Nitrite Negative (Negative); Urine Occult Blood Negative (Negative); Urine Specific Gravity 1.015 (<1.030); Urine Urobilinogen Negative (Neg - 1+)
[2024-04-11 15:25] LABS: COVID-19 Antigen Negative (Negative)
[2024-04-11 15:27] LABS: Urine Amorphous Seen; Urine Urothelial Cell 0-2 /LPF (FEW)
[2024-04-11 15:28] LABS: Urine Red Blood Cell 0-2 /HPF (0-2)
--- NOTE | 2024-04-11 16:59 | WOUNDNOTE ---
[facility] RN Note: t/c Spoke with RN Angel asking to switch patient onto a hospital bed. t/c Spoke with wastewater treatment supervisor Ermias and requested an air mattress or Centrella Pro bed to be taken to patient's room ([facility] #[id number]).
[2024-04-11] MEDS: DESENEX/MITRAZOL/ZEASORB 1 APPLIC TOPICAL (21:28)
[2024-04-12] VITALS (14 sets, daily range): BP systolic 107–154; BP diastolic 63–83; PULSE 93; O2SAT 99; BMI 28.2
[2024-04-12] MEDS: NSS 1000 IV (00:10)
[2024-04-12] MEDS: ZOSYN 50 IV ×3 (00:22→13:23)
[2024-04-12 05:17] LABS: % Basophils 1.1 % (0-2); % Immature Granulocytes 0.3 % (0-0.5); % Lymphocytes 27.7 % (20.5-51.1); % Monocytes 8.5 % (1.7-9.3); % Neutrophils 59.4 % (42.2-75.2); Absolute Basophils 0.1 10^3/uL (0-0.2); Absolute Eosinophils 0.3 10^3/uL (0-0.7); Absolute Lymphocytes 2.5 10^3/uL (1.2-3.4); Absolute Monocytes 0.8 10^3/uL (0.1-0.6); Absolute Neutrophils 5.4 10^3/uL (1.4-6.5); Hematocrit 30.3 % (37.0-47.0); Hemoglobin 10.2 g/dL (12.0-16.0); Mean Corp Hgb Conc. 33.7 g/dL (33.0-37.0); Mean Corpuscular Hgb 30.2 pg (27.0-31.0); Mean Corpuscular Volume 89.6 fL (81.0-99.0); Mean Platelet Volume 9.3 fL (7.4-10.4); Nucleated Red Blood Cells % 0 %; Platelet Count 395 10^3/uL (130-400); Red Blood Cell Count 3.38 10^6/uL (4.20-5.40); Red Cell Dist. Width 14.5 % (11.5-14.5); White Blood Cell Count 9.1 10^3/uL (4.8-10.8)
[2024-04-12 05:46] LABS: AST (SGOT) 23 U/L (14-36); Blood Urea Nitrogen 22 mg/dl (7-17); Carbon Dioxide 16 mmol/L (22-30); Chloride 109 mmol/L (98-107); Estimated Creatinine Clearance 27 ml/min; Glucose 66 mg/dl (70-99); Sodium 138 mmol/L (135-145); eGFR 27.04
[2024-04-12 06:16] LABS: ALT (SGPT) 21 U/L (0-35); Albumin 2.8 g/dl (3.5-5.0); Alkaline Phosphatase 145 U/L (38-126); Calcium 8.1 mg/dl (8.4-10.2); Potassium 4.2 mmol/L (3.5-5.1); Total Protein 5.6 g/dl (6.3-8.2)
--- NOTE | 2024-04-12 07:15 | W.PN.CRS1 ---
Today's Communication / Plan
-
low residue diet
continue wound care
continue IV abx
STR hopefully early next week
Monitor stoma output (not recorded)
Assessment/Plan
-
Assessment: 68-year-old female with a recent history of robotic sigmoidectomy followed by an exploratory laparotomy and repair of anastomotic leak with diverting loop ileostomy on 03/23/2024 with TONYA/vomiting
WBC now normal. Hemoglobin 10.2
Creatinine 2.0 from 4.1.
Afebrile. Hypotension resolved.
-Advance diet to low residue
-C. difficile negative
-Agree with IV antibiotics
-No plans for surgery at this time
-Appreciate wound care. Ostomy mike removed.
-Ativan physical therapy
-ID consulted
Subjective Data
Subjective Data
Date of Service: April 12, 2024
Minimal abdominal discomfort. She feels weak but her appetite is better.
Objective Data
-
Vital Signs
Temp Pulse Resp BP Pulse Ox
98.4 F 93 25 107/66 98
04/12/24 05:12 04/12/24 00:15 04/12/24 00:15 04/12/24 00:00 04/12/24 02:01
Intake & Output
04/11/24 04/12/24 04/13/24
06:59 06:59 06:59
Intake Total 2500 / 2500 1300 / 1300
Balance 2500 / 2500 1300 / 1300
Intake:
IV fluids (Total) 2500 / 2500 1200 / 1200
nss 2500 / 2500
IV piggybacks 100 / 100
Other:
Number of unmeasured voidings 1
Number of approximated LARGE 1
amounts of urine
Lab Results
04/12/24 04:54
04/12/24 04:54
Physical Exam
-
General: No Acute Distress
Abdomen: Soft, Non Distended, Non Tender and Other (stoma is functioning (loose))
Extremities: No Calf Tenderness
[2024-04-12] MEDS: NSS IV (08:33)
[2024-04-12] MEDS: DESENEX/MITRAZOL/ZEASORB 1 APPLIC TOPICAL ×2 (08:33→23:17)
[2024-04-12] MEDS: HEPARIN 5000 UNITS SC ×2 (08:33→21:04)
[2024-04-12] MEDS: NSS (PRESERVATIVE FREE) 10 ML IV (08:34)
[2024-04-12] MEDS: PROTONIX IV 40 MG IV (08:34)
--- NOTE | 2024-04-12 11:33 | W.PN.HOSP.TC ---
Today's Communication/Plan
-
continue IV Abx per ID
LRD
DC planning to a SNF
Assessment / Plan
Assessment / Plan
Assessment:
Sepsis with shock due to persistent anastomotic leak
Hx of diverticular disease with recurrent history of diverticulitis - s/p Robotic sigmoid colectomy with intracorporeal anastomosis, 03/15/2024.
- Anastomotic staple line involving the sigmoid colon in the left pelvis. Adjacent to the staple line, there is a small focus of contained extraluminal air. Slightly more medially and inferiorly, there is a second small focus of contained
extraluminal air. Findings would be suggestive of persistent anastomotic leak, although could possibly represent persistent contained extraluminal air from previous anastomotic leak. There is no evidence for an abscess. There is no evidence for free
intraperitoneal air elsewhere within the abdomen and pelvis.
- CRS and ID following
- continue Zosyn, day 3
- s/p pressors
- diet: LRD
- wound care per CRS
Acute hyponatremia
TONYA
- from sepsis, dehydration
- follow bladder scans
- continue IVF as bicarbonate now
recent Acute GI bleed (hematemesis/rectal bleeding)
- EGD done 03/19 showed LA grade B esophagitis with no bleeding, small hiatal hernia, nonobstructing oozing duodenal ulcers with a visible vessel. Treated with bipolar cautery. Injected. No specimens collected.
- NSAID induced peptic ulcer disease. Avoid further NSAIDs
- continue IV Protonix daily.
Chronic anemia
- Hb 10 from 12, acutely dilutional drop
reactive thrombocytosis
History of RA on Remicade and Methotrexate prior to admission. Last use of prednisone was 3 weeks ago with her last infusion of Remicade.
Essential HTN
- hold Lisinopril with recovering TONYA
Pseudo-hypocalcemia - albumin 1.6, corrected calcium 9.6.
Hx of C. Diff
Obesity due to excess calories
Chronic wounds:
stage 1 sacral pressure injury.
R sacral/buttocks small dermal ulcer suspect an abrasion.
MASD peristomally with some linear dermal openings in deep skin crease distal to wafer.
RLQ open pink small wound suspect an old MERT drain site.
Distal midline dehisced incision with pink tissue.
Suprapubic linear incision with murky ss drainage, probes 4cm in center.
Abdominal/groin yeasty red rash.
- follow wound care recs
DVT ppx: SC Heparin
Code: Full
Anticipated Discharge: > 48 hours
Subjective/Interval History
-
Date of Service: April 12, 2024
no new complaints
just tired
agreeable to SNF placement
Objective Data
-
Labs:
Laboratory Results
04/12/24
04:54
WBC 9.1
Hgb 10.2 L
Hct 30.3 L
Plt Count 395
Sodium 138
Potassium 4.2
Chloride 109 H
Carbon Dioxide 16 L
BUN 22 H
Creatinine 2.0 H
Glucose 66 L
Calcium 8.1 L
Total Bilirubin 1.0
AST 23
ALT 21
Alkaline Phosphatase 145 H
Vital Signs:
Vital Signs
Temp Pulse Resp BP Pulse Ox
98.4 F 93 25 107/66 98
04/12/24 05:12 04/12/24 00:15 04/12/24 00:15 04/12/24 00:00 04/12/24 02:01
I&O
04/11/24 04/12/24 04/13/24
06:59 06:59 06:59
Intake Total 2500 / 2500 1300 / 1300
Output Total 125 / 125 800 / 800
Balance 2500 / 2500 1175 / 1175 -800 / -800
Physical Exam
-
General: No Apparent Distress
HEENT: Normocephalic and Atraumatic
Respiratory: Negative Wheezes
Cardiac: Regular Rhythm and S1/S2
GI: Ostomy
Genito-urinary: No Costovertebral Tender
Musculoskeletal: No Edema
Neuro: AO x 3
Psych: Calm
Data Reviewed
-
Total Time Spent with Patient (in minutes): 42
Labs: Labs Reviewed by me
[2024-04-12] MEDS: SODIUM BICARBONATE 1150 MEQ IV (12:04)
[2024-04-12] MEDS: DILAUDID 0.5 MG IV ×2 (13:27→20:57)
--- NOTE | 2024-04-12 15:02 | CM ---
Cm discussed SNF placement options with family and patient. Patient became tearful regarding placement, but it willing to go. She stated that she is concerned about the food and the staff telling her that she has to eat. CM encouraged patient to
discuss dietary preferences with SNF.
CM sent referrals via [facility] to:
[facility]
--- NOTE | 2024-04-12 15:15 | W.PN.ID1 ---
Date of Service
Date of Service: April 12, 2024
Today's Communication
notable clinical improvement
switched to unasyn
Assessment / Plan
Shock
High Output Ileostomy
h/o C difficile - remote
- C diff negative
- stool culture pending
- norovirus pcr negative
- blood cultures x2 in progress
- no evidence of abscess on CT abdomen, though free peritoneal air - old vs new
- switched to unasyn
- follow clinically
Chief Complaint
-: Other (high output ileostomy)
Subjective / Review of Systems
afebrile
bp stable off of pressors
ostomy output 800ccs thus far today
renal function markedly improved
color better 'I feel better'
Vital Signs / Physical Exam
Vital Signs
Vital Signs
Temp Pulse Resp BP Pulse Ox
98.4 F 95 26 154/80 97
04/12/24 05:12 04/12/24 13:30 04/12/24 13:30 04/12/24 13:00 04/12/24 13:30
Physical Exam
Constitutional: No Acute Distress and Chronically Ill
Cardiovascular: Regular Rate and S1/S2; Negative Murmur or Rub
Pulmonary: Clear and Symmetric; Negative Wheezes or Rales
Gastrointestinal: Soft, Non Tender, Non Distended and Normal Bowel Sounds
Skin: Warm and Dry; Negative Rash or Jaundice
Objective Data
Lab Data
Lab Results
04/12/24 04:54
04/12/24 04:54
Estimated Creat Clear 27 ml/min 04/12/24 04:54
Lactic Acid Cancelled 04/11/24 02:45
Total Bilirubin 1.0 mg/dl (0.2-1.3) 04/12/24 04:54
AST 23 U/L (14-36) 04/12/24 04:54
ALT 21 U/L (0-35) 04/12/24 04:54
Alkaline Phosphatase 145 U/L (38-126) H 04/12/24 04:54
Most recent labs reviewed.
cr notably improved
Micro Results:
04/11/24 13:27 Urine Culture - Final
Urine No Significant Growth
04/10/24 22:54 Salmonella/Shigella Culture - Preliminary
Feces/Stool Culture in Progress
Campylobacter Culture - Preliminary
Culture in Progress
Shiga Toxin Test - Pending
04/11/24 21:43 - Final
Feces/Stool Negative for Norovirus GI and GII.
04/10/24 22:54 Blood Culture - Preliminary
Blood/Venous No Growth in 24 hours- Final report to follow
04/10/24 22:54 Blood Culture - Preliminary
Blood/Venous No Growth in 24 hours- Final report to follow
04/10/24 22:54 C. difficile GDH Antigen & Toxins - Final
Feces/Stool Negative for toxigenic C.difficile
--- NOTE | 2024-04-12 18:00 | PTCARENOTE ---
Patient received to room 414-02 from ED holds. Patient in [facility] bed with call osorio and belongings in reach. Patient oriented to room. Angelica penn provided per patient request. Patient declines dinner at this time. Patient left in bed (on lowest
position) after verbalizing understanding to ring for needs.
[2024-04-12] MEDS: UNASYN IV (21:04)
[2024-04-13 03:20] VITALS: BP 126/67
[2024-04-13] MEDS: DILAUDID 0.5 MG IV ×2 (04:24→17:13)
[2024-04-13] MEDS: ZOFRAN 4 MG IV ×2 (06:40→17:15)
[2024-04-13 06:55] LABS: % Basophils 0.9 % (0-2); % Eosinophils 3.8 % (0-6); % Immature Granulocytes 0.4 % (0-0.5); % Monocytes 8.7 % (1.7-9.3); % Neutrophils 53.2 % (42.2-75.2); Absolute Basophils 0.1 10^3/uL (0-0.2); Absolute Eosinophils 0.4 10^3/uL (0-0.7); Absolute Lymphocytes 3.3 10^3/uL (1.2-3.4); Absolute Monocytes 0.9 10^3/uL (0.1-0.6); Absolute Neutrophils 5.3 10^3/uL (1.4-6.5); Hematocrit 30.9 % (37.0-47.0); Hemoglobin 10.5 g/dL (12.0-16.0); Mean Corpuscular Volume 88.3 fL (81.0-99.0); Mean Platelet Volume 9.5 fL (7.4-10.4); Nucleated Red Blood Cells % 0 %; Platelet Count 372 10^3/uL (130-400); Red Cell Dist. Width 14.3 % (11.5-14.5); White Blood Cell Count 9.9 10^3/uL (4.8-10.8)
[2024-04-13 07:29] VITALS: BP 132/64
[2024-04-13 07:29] LABS: ALT (SGPT) 19 U/L (0-35); AST (SGOT) 23 U/L (14-36); Alkaline Phosphatase 142 U/L (38-126); Blood Urea Nitrogen 12 mg/dl (7-17); Calcium 8.6 mg/dl (8.4-10.2); Carbon Dioxide 28 mmol/L (22-30); Chloride 100 mmol/L (98-107); Estimated Creatinine Clearance 50 ml/min; Glucose 90 mg/dl (70-99); Sodium 137 mmol/L (135-145); Total Bilirubin 0.8 mg/dl (0.2-1.3); Total Protein 5.6 g/dl (6.3-8.2); eGFR 55.42
[2024-04-13] MEDS: DESENEX/MITRAZOL/ZEASORB 1 APPLIC TOPICAL ×2 (08:02→20:02)
[2024-04-13] MEDS: HEPARIN 5000 UNITS SC ×2 (08:02→20:03)
[2024-04-13] MEDS: PROTONIX IV 40 MG IV (08:02)
[2024-04-13] MEDS: NSS (PRESERVATIVE FREE) 10 ML IV (08:02)
--- NOTE | 2024-04-13 10:06 | W.PN.HOSP.TC ---
Today's Communication/Plan
-
Unasyn per ID; duration TBD
cap IVF; monitor ostomy outputs
wound care per CRS
DC planning to SNF
Assessment / Plan
Assessment / Plan
Assessment:
Sepsis with shock due to persistent anastomotic leak
Hx of diverticular disease with recurrent history of diverticulitis - s/p Robotic sigmoid colectomy with intracorporeal anastomosis, 03/15/2024.
- Anastomotic staple line involving the sigmoid colon in the left pelvis. Adjacent to the staple line, there is a small focus of contained extraluminal air. Slightly more medially and inferiorly, there is a second small focus of contained
extraluminal air. Findings would be suggestive of persistent anastomotic leak, although could possibly represent persistent contained extraluminal air from previous anastomotic leak. There is no evidence for an abscess. There is no evidence for free
intraperitoneal air elsewhere within the abdomen and pelvis.
- CRS and ID following
- continue Unasyn, day 4 total Abx
- s/p pressors now with stable BPs
- diet: LRD
- wound care per CRS
Acute hyponatremia
TONYA
- from sepsis, dehydration
- follow bladder scans
- s/p IVF
- monitor ostomy outputs
recent Acute GI bleed (hematemesis/rectal bleeding)
- EGD done 03/19 showed LA grade B esophagitis with no bleeding, small hiatal hernia, nonobstructing oozing duodenal ulcers with a visible vessel. Treated with bipolar cautery. Injected. No specimens collected.
- NSAID induced peptic ulcer disease. Avoid further NSAIDs
- continue IV Protonix daily.
Chronic anemia
- Hb 10 from 12, acutely dilutional drop
reactive thrombocytosis - resolved
History of RA on Remicade and Methotrexate prior to admission. Last use of prednisone was 3 weeks ago with her last infusion of Remicade.
Essential HTN
- hold Lisinopril with recovering TONYA
Pseudo-hypocalcemia
Hx of C. Diff
- negative test here
Obesity due to excess calories
Chronic wounds:
stage 1 sacral pressure injury.
R sacral/buttocks small dermal ulcer suspect an abrasion.
MASD peristomally with some linear dermal openings in deep skin crease distal to wafer.
RLQ open pink small wound suspect an old MERT drain site.
Distal midline dehisced incision with pink tissue.
Suprapubic linear incision with murky ss drainage, probes 4cm in center.
Abdominal/groin yeasty red rash.
- follow wound care recs
DVT ppx: SC Heparin
Code: Full
Anticipated Discharge: > 48 hours
Subjective/Interval History
-
Date of Service: April 13, 2024
no new complaints
Objective Data
-
Labs:
Laboratory Results
04/13/24
06:34
WBC 9.9
Hgb 10.5 L
Hct 30.9 L
Plt Count 372
Sodium 137
Potassium 4.0
Chloride 100
Carbon Dioxide 28
BUN 12
Creatinine 1.1 H
Glucose 90
Calcium 8.6
Total Bilirubin 0.8
AST 23
ALT 19
Alkaline Phosphatase 142 H
Vital Signs:
Vital Signs
Temp Pulse Resp BP Pulse Ox
98.5 F 90 18 132/64 93
04/13/24 07:29 04/13/24 07:29 04/13/24 07:29 04/13/24 07:29 04/13/24 07:29
I&O
04/12/24 04/13/24 04/14/24
06:59 06:59 06:59
Intake Total 1300 / 1300
Output Total 125 / 125 900 / 900
Balance 1175 / 1175 -900 / -900
Physical Exam
-
General: No Apparent Distress
HEENT: Normocephalic and Atraumatic
Respiratory: Negative Wheezes
Cardiac: Regular Rhythm and S1/S2
GI: Soft, Nontender and Ostomy
Neuro: AO x 3
Psych: Calm
Data Reviewed
-
Total Time Spent with Patient (in minutes): 41
Labs: Labs Reviewed by me
[2024-04-13] MEDS: UNASYN IV ×3 (10:07→23:00)
[2024-04-13 11:50] VITALS: BP 130/74
--- NOTE | 2024-04-13 13:27 | W.PN.CRS1 ---
Addendum entered and electronically signed by Juan Rivas MD 04/13/24 19:47:
I saw and examined the patient.
The THERAPY AIDE's note was reviewed and I agree with the note.
Comment:
Abdomen soft, nondistended, appropriately tender; 3 cm of inferior midline incision open, clean without purulence, repacked, remainder of incision well-approximated without erythema or drainage; ostomy pink with stool
Original Note:
Today's Communication / Plan
-
Local wound care
Assessment/Plan
-
Assessment: 68-year-old female with a recent history of robotic sigmoidectomy followed by an exploratory laparotomy and repair of anastomotic leak with diverting loop ileostomy on 03/23/2024 presenting on 04/10/24 with TONYA/vomiting with concern for
continued infection at site of prior leak with extraluminal air noted
Leukocytosis resolved
Cr normalizing, now 1.1
Tolerating diet
Afebrile. Hypotension resolved.
-Continue low residue diet
- I&O's
-ABX as per ID
-No plans for surgery at this time
-Continue local wound care/stoma care
Subjective Data
Subjective Data
Date of Service: April 13, 2024
Patient seen and examined at bedside with Dr. Rivas. Denies n/v. Tolerating diet. Denies pain, some tenderness with dressing change.
Objective Data
-
Vital Signs
Temp Pulse Resp BP Pulse Ox
97.8 F 66 16 130/74 96
04/13/24 11:50 04/13/24 11:50 04/13/24 11:50 04/13/24 11:50 04/13/24 11:50
Intake & Output
04/12/24 04/13/24 04/14/24
06:59 06:59 06:59
Intake Total 1300 / 1300
Output Total 125 / 125 900 / 900
Balance 1175 / 1175 -900 / -900
Intake:
IV fluids (Total) 1200 / 1200
IV piggybacks 100 / 100
Output:
Liquid stool amount 125 / 125 800 / 800
Ileostomy 125 / 125 800 / 800
Gastrointestinal tube output ( 100 / 100
Total)
Gastrostomy 100 / 100
Other:
Number of approximated MODERATE 3
amounts of urine
Number of approximated LARGE 1
amounts of urine
Lab Results
04/13/24 06:34
04/13/24 06:34
Physical Exam
-
General: No Acute Distress
Abdomen: Soft, Non Distended, Non Tender and Other (stoma is functioning (loose))
Extremities: No Calf Tenderness
Wound: Dressing in Place and Other (Open area to base of midline incision which is clean with healthy granulation tissue in the wound bed)
Incision: Other (Darcie removed to top portion of incision with 2 darcie left at base of incision for stability)
[2024-04-13 15:43] VITALS: BP 128/79
[2024-04-13 19:00] VITALS: BP 127/60
[2024-04-13 23:00] VITALS: BP 127/66
[2024-04-14] MEDS: DILAUDID 0.5 MG IV (02:54)
[2024-04-14 03:00] VITALS: BP 125/67
[2024-04-14] MEDS: UNASYN IV ×2 (03:03→09:25)
[2024-04-14 07:20] VITALS: BP 115/77
[2024-04-14 08:11] LABS: % Basophils 1.2 % (0-2); % Eosinophils 4.1 % (0-6); % Immature Granulocytes 0.3 % (0-0.5); % Lymphocytes 29.7 % (20.5-51.1); % Monocytes 9.1 % (1.7-9.3); % Neutrophils 55.6 % (42.2-75.2); Absolute Basophils 0.1 10^3/uL (0-0.2); Absolute Eosinophils 0.3 10^3/uL (0-0.7); Absolute Lymphocytes 2.3 10^3/uL (1.2-3.4); Absolute Monocytes 0.7 10^3/uL (0.1-0.6); Absolute Neutrophils 4.3 10^3/uL (1.4-6.5); Hematocrit 32.4 % (37.0-47.0); Hemoglobin 10.6 g/dL (12.0-16.0); Mean Corp Hgb Conc. 32.7 g/dL (33.0-37.0); Mean Corpuscular Hgb 29.3 pg (27.0-31.0); Mean Corpuscular Volume 89.5 fL (81.0-99.0); Mean Platelet Volume 10.2 fL (7.4-10.4); Nucleated Red Blood Cells % 0 %; Platelet Count 355 10^3/uL (130-400); Red Blood Cell Count 3.62 10^6/uL (4.20-5.40); Red Cell Dist. Width 14.1 % (11.5-14.5); White Blood Cell Count 7.8 10^3/uL (4.8-10.8)
[2024-04-14 08:32] LABS: ALT (SGPT) 19 U/L (0-35); AST (SGOT) 26 U/L (14-36); Albumin 2.8 g/dl (3.5-5.0); Alkaline Phosphatase 140 U/L (38-126); Blood Urea Nitrogen 6 mg/dl (7-17); Calcium 8.3 mg/dl (8.4-10.2); Carbon Dioxide 28 mmol/L (22-30); Chloride 100 mmol/L (98-107); Estimated Creatinine Clearance 55 ml/min; Glucose 86 mg/dl (70-99); Potassium 3.7 mmol/L (3.5-5.1); Sodium 136 mmol/L (135-145); Total Bilirubin 0.8 mg/dl (0.2-1.3); Total Protein 5.4 g/dl (6.3-8.2); eGFR > 60.00
--- NOTE | 2024-04-14 08:59 | CM ---
Addendum entered by Rudolph Hager 04/14/24 12:27:
Met w/ pt bedside to review SNFs that were referred to and determinations. Per hospitalist, pt will be stable for d/c tomorrow. Per pt, she does not know any of the facilities she was referred to and for CM to follow up w/ her son.
CM spoke w/ son, Dario, who shared that pt identified [facility] and is agreeable if they have a bed. Dario shared he is agreeable to the other facilities that are willing to accept if [facility] does not have a bed for her tomorrow.
[facility]- no beds
[facility] beds
[facility]- no beds
[facility]- pending bed availability
[facility]- willing to accept-------> CM is instructed to call Yenny tomorrow ([phone])
[facility]- pending bed availability
Plan: SNF; pending bed availability. CM to follow up w/ facilities tomorrow that are willing to accept pt
Original Note:
Chart reviewed. Pt is being recommended for SNF, referrals sent to multiple facilities.
CM will review determinations and confirm bed availability closer to pt's d/c
Per hospitalist, pt will remain through the weekend
Plan: SNF; pending accepting facility closer to d/c
[2024-04-14] MEDS: HEPARIN 5000 UNITS SC ×2 (09:25→19:53)
[2024-04-14] MEDS: NSS (PRESERVATIVE FREE) 10 ML IV (09:25)
[2024-04-14] MEDS: PROTONIX IV 40 MG IV (09:25)
[2024-04-14] MEDS: DESENEX/MITRAZOL/ZEASORB 1 APPLIC TOPICAL ×2 (09:25→19:55)
--- NOTE | 2024-04-14 09:37 | W.PN.UPDATE ---
Update Note
Progress Note Update
[place] text from Dr Wellington
chart reviewed
switched to augmentin suspension, preferable to improve absorption in ileostomy, will be TID dosing
plan 10 day course, today is day 5
stable for dc from ID perspective
--- NOTE | 2024-04-14 11:32 | W.PN.HOSP.TC ---
Today's Communication/Plan
-
transitioned to liquid Augmentin
DC planning to SNF
Assessment / Plan
Assessment / Plan
Assessment:
Sepsis with shock due to persistent anastomotic leak
Hx of diverticular disease with recurrent history of diverticulitis - s/p Robotic sigmoid colectomy with intracorporeal anastomosis, 03/15/2024.
- Anastomotic staple line involving the sigmoid colon in the left pelvis. Adjacent to the staple line, there is a small focus of contained extraluminal air. Slightly more medially and inferiorly, there is a second small focus of contained
extraluminal air. Findings would be suggestive of persistent anastomotic leak, although could possibly represent persistent contained extraluminal air from previous anastomotic leak. There is no evidence for an abscess. There is no evidence for free
intraperitoneal air elsewhere within the abdomen and pelvis.
- CRS and ID following
- continue Augmentin liquid, day 07/20 per ID
- s/p pressors now with stable BPs
- diet: LRD
- wound care per CRS
Acute hyponatremia
TONYA
- from sepsis, dehydration
- follow bladder scans
- s/p IVF
- monitor ostomy outputs
recent Acute GI bleed (hematemesis/rectal bleeding)
- EGD done 03/19 showed LA grade B esophagitis with no bleeding, small hiatal hernia, nonobstructing oozing duodenal ulcers with a visible vessel. Treated with bipolar cautery. Injected. No specimens collected.
- NSAID induced peptic ulcer disease. Avoid further NSAIDs
- continue PPI
Chronic anemia
- Hb 10 from 12, acutely dilutional drop
reactive thrombocytosis - resolved
History of RA on Remicade and Methotrexate prior to admission. Last use of prednisone was 3 weeks ago with her last infusion of Remicade.
Essential HTN
- hold Lisinopril with recovering TONYA
Pseudo-hypocalcemia
Hx of C. Diff
- negative test here
Obesity due to excess calories
Chronic wounds:
stage 1 sacral pressure injury.
R sacral/buttocks small dermal ulcer suspect an abrasion.
MASD peristomally with some linear dermal openings in deep skin crease distal to wafer.
RLQ open pink small wound suspect an old MERT drain site.
Distal midline dehisced incision with pink tissue.
Suprapubic linear incision with murky ss drainage, probes 4cm in center.
Abdominal/groin yeasty red rash.
- follow wound care recs
DVT ppx: SC Heparin
Code: Full
Anticipated Discharge: 24 - 48 hours
Subjective/Interval History
-
Date of Service: April 14, 2024
no new complaints at present
Objective Data
-
Labs:
Laboratory Results
04/14/24
06:23
WBC 7.8
Hgb 10.6 L
Hct 32.4 L
Plt Count 355
Sodium 136
Potassium 3.7
Chloride 100
Carbon Dioxide 28
BUN 6 L
Creatinine 1.0
Glucose 86
Calcium 8.3 L
Total Bilirubin 0.8
AST 26
ALT 19
Alkaline Phosphatase 140 H
Vital Signs:
Vital Signs
Temp Pulse Resp BP Pulse Ox
98.1 F 91 16 115/77 94
04/14/24 07:20 04/14/24 07:20 04/14/24 07:20 04/14/24 07:20 04/14/24 07:20
I&O
04/13/24 04/14/24 04/15/24
06:59 06:59 06:59
Intake Total 720 / 720
Output Total 900 / 900 50 / 50
Balance -900 / -900 670 / 670
Physical Exam
-
General: No Apparent Distress
HEENT: Normocephalic and Atraumatic
Respiratory: Negative Wheezes or Rales
Cardiac: Regular Rhythm and S1/S2
GI: Soft and Ostomy
Musculoskeletal: No Edema
Neuro: AO x 3
Psych: Calm
Data Reviewed
-
Total Time Spent with Patient (in minutes): 41
Labs: Labs Reviewed by me
[2024-04-14 11:39] VITALS: BP 137/85
[2024-04-14] MEDS: AUGMENTIN 200 MG/5 ML 875 MG PO ×2 (12:45→22:36)
[2024-04-14] MEDS: VISBIOME 1 CAP PO (12:45)
[2024-04-14] MEDS: ZOFRAN 4 MG IV (14:52)
[2024-04-14 15:38] VITALS: BP 150/98
[2024-04-14 19:00] VITALS: BP 137/74
[2024-04-14 23:34] VITALS: BP 141/89
[2024-04-15] VITALS (7 sets, daily range): BP systolic 121–143; BP diastolic 71–89; PULSE 101; O2SAT 95
[2024-04-15] MEDS: ZOFRAN 4 MG IV ×2 (02:13→08:09)
[2024-04-15] MEDS: DESENEX/MITRAZOL/ZEASORB 1 APPLIC TOPICAL ×2 (07:56→20:55)
[2024-04-15] MEDS: HEPARIN 5000 UNITS SC ×2 (07:57→20:54)
[2024-04-15] MEDS: VISBIOME 1 CAP PO (07:57)
[2024-04-15] MEDS: FOLVITE 1 MG PO (07:57)
[2024-04-15 09:18] LABS: Hematocrit 35.1 % (37.0-47.0); Hemoglobin 11.6 g/dL (12.0-16.0); Mean Corpuscular Hgb 29.4 pg (27.0-31.0); Mean Corpuscular Volume 89.1 fL (81.0-99.0); Mean Platelet Volume 10.5 fL (7.4-10.4); Platelet Count 353 10^3/uL (130-400); Red Blood Cell Count 3.94 10^6/uL (4.20-5.40); Red Cell Dist. Width 13.8 % (11.5-14.5); White Blood Cell Count 8.3 10^3/uL (4.8-10.8)
[2024-04-15] MEDS: AUGMENTIN 200 MG/5 ML 875 MG PO ×2 (09:20→21:59)
--- NOTE | 2024-04-15 09:32 | W.PN.HOSP.TC ---
Today's Communication/Plan
-
dc to SNF if bed available.
Assessment / Plan
Assessment / Plan
Assessment:
Sepsis with shock due to persistent anastomotic leak
Hx of diverticular disease with recurrent history of diverticulitis - s/p Robotic sigmoid colectomy with intracorporeal anastomosis, 03/15/2024.
- Anastomotic staple line involving the sigmoid colon in the left pelvis. Adjacent to the staple line, there is a small focus of contained extraluminal air. Slightly more medially and inferiorly, there is a second small focus of contained
extraluminal air. Findings would be suggestive of persistent anastomotic leak, although could possibly represent persistent contained extraluminal air from previous anastomotic leak. There is no evidence for an abscess. There is no evidence for free
intraperitoneal air elsewhere within the abdomen and pelvis.
- CRS and ID following
- continue Augmentin liquid, day 08/20 per ID. Nausea with antibiotics therefore make Zofran available pre-administration.
- s/p pressors now with stable BPs
- diet: LRD
- wound care per CRS
Acute hyponatremia
TONYA
- from sepsis, dehydration
- follow bladder scans
- s/p IVF
- monitor ostomy outputs
recent Acute GI bleed (hematemesis/rectal bleeding)
- EGD done 03/19 showed LA grade B esophagitis with no bleeding, small hiatal hernia, nonobstructing oozing duodenal ulcers with a visible vessel. Treated with bipolar cautery. Injected. No specimens collected.
- NSAID induced peptic ulcer disease. Avoid further NSAIDs
- continue PPI
Chronic anemia
- Hb 10 from 12, acutely dilutional drop
reactive thrombocytosis - resolved
History of RA on Remicade and Methotrexate prior to admission. Last use of prednisone was 3 weeks ago with her last infusion of Remicade.
Essential HTN
- hold Lisinopril with recovering TONYA
Pseudo-hypocalcemia
Hx of C. Diff
- negative test here
Obesity due to excess calories
Chronic wounds:
stage 1 sacral pressure injury.
R sacral/buttocks small dermal ulcer suspect an abrasion.
MASD peristomally with some linear dermal openings in deep skin crease distal to wafer.
RLQ open pink small wound suspect an old MERT drain site.
Distal midline dehisced incision with pink tissue.
Suprapubic linear incision with murky ss drainage, probes 4cm in center.
Abdominal/groin yeasty red rash.
- follow wound care recs
DVT ppx: SC Heparin
Code: Full
More than 30 minutes spent in discharge including
Final examination of the patient
Summarizing hospital stay
Instructions for continuing care to all relevant caregivers
Preparation of discharge records, prescriptions, and referral forms
Total time spent (in minutes): 42
Anticipated Discharge: Today
Subjective/Interval History
-
Date of Service: April 15, 2024
reports some nausea post liquid antibiotic administration
Objective Data
-
Labs:
Laboratory Results
04/15/24
06:29
WBC 8.3
Hgb 11.6 L
Hct 35.1 L
Plt Count 353
Sodium Pending
Potassium Pending
Chloride Pending
Carbon Dioxide Pending
BUN Pending
Creatinine Pending
Glucose Pending
Calcium Pending
Total Bilirubin Pending
AST Pending
ALT Pending
Alkaline Phosphatase Pending
Vital Signs:
Vital Signs
Temp Pulse Resp BP Pulse Ox
98.4 F 95 16 121/83 94
04/15/24 07:12 04/15/24 07:12 04/15/24 07:12 04/15/24 07:12 04/15/24 07:12
I&O
04/14/24 04/15/24 04/16/24
06:59 06:59 06:59
Intake Total 720 / 720 720 / 720
Output Total 50 / 50 500 / 500
Balance 670 / 670 220 / 220
Physical Exam
-
General: No Apparent Distress
HEENT: Normocephalic and Atraumatic
Respiratory: Negative Wheezes
Cardiac: Regular Rhythm and S1/S2
GI: Soft and Nontender
Musculoskeletal: No Edema
Neuro: AO x 3
Psych: Calm
Data Reviewed
-
Total Time Spent with Patient (in minutes): 42
Labs: Labs Reviewed by me
[2024-04-15 09:57] LABS: ALT (SGPT) 24 U/L (0-35); AST (SGOT) 33 U/L (14-36); Albumin 3.2 g/dl (3.5-5.0); Alkaline Phosphatase 153 U/L (38-126); Blood Urea Nitrogen 7 mg/dl (7-17); Calcium 8.6 mg/dl (8.4-10.2); Carbon Dioxide 27 mmol/L (22-30); Chloride 99 mmol/L (98-107); Estimated Creatinine Clearance 55 ml/min; Glucose 84 mg/dl (70-99); Potassium 3.6 mmol/L (3.5-5.1); Sodium 138 mmol/L (135-145); Total Bilirubin 0.8 mg/dl (0.2-1.3); Total Protein 5.9 g/dl (6.3-8.2); eGFR > 60.00
--- NOTE | 2024-04-15 11:04 | W.PN.CRS1 ---
Today's Communication / Plan
-
Continue low residue diet
Creatinine improving
Weekly BMP at discharge
Assessment/Plan
-
Assessment: 68-year-old female with a recent history of robotic sigmoidectomy followed by an exploratory laparotomy and repair of anastomotic leak with diverting loop ileostomy on 03/23/2024 presenting on 04/10/24 with TONYA/vomiting with concern for
continued infection at site of prior leak with extraluminal air noted
Leukocytosis resolved
Cr normalizing, now 1.0
Tolerating diet
Afebrile. Hypotension resolved.
-Continue low residue diet
- I&O's
-ABX as per ID
-No plans for surgery at this time
-Continue local wound care/stoma care
-Once discharged, will need weekly BMP
Subjective Data
Subjective Data
Date of Service: April 15, 2024
Patient states she feels 'okay'. She still has some leakage around her bag. She denies nausea or vomiting. She is tolerating a low residue diet.
Objective Data
-
Vital Signs
Temp Pulse Resp BP Pulse Ox
98.4 F 95 16 121/83 94
04/15/24 07:12 04/15/24 07:12 04/15/24 07:12 04/15/24 07:12 04/15/24 07:50
Intake & Output
04/14/24 04/15/24 04/16/24
06:59 06:59 06:59
Intake Total 720 / 720 720 / 720
Output Total 50 / 50 500 / 500
Balance 670 / 670 220 / 220
Intake:
Oral fluids 600 / 600 720 / 720
IV piggybacks 120 / 120
Output:
Liquid stool amount 500 / 500
Ileostomy 500 / 500
Gastrointestinal tube output ( 50 / 50
Total)
Gastrostomy 50 / 50
Other:
Number of approximated MODERATE 1 3
amounts of urine
Lab Results
04/15/24 06:29
04/15/24 06:29
Physical Exam
-
General: No Acute Distress and AOx3
Abdomen: Soft, Non Distended, Non Tender and Other (Colostomy warm and pink with function)
Wound: Dressing in Place and Other (2 darcie removed and midline incision)
--- NOTE | 2024-04-15 13:08 | WOUNDNOTE ---
ABDOMEN (LOWER)/SUPRAPUBIC
--- NOTE | 2024-04-15 13:09 | WOUNDNOTE ---
[facility] RN note: Patient ileostomy appliance lasted from till yesterday and has been changed by nursing a couple times since and appliance is leaking. Peristomal skin red however, distal crease skin breakdown improved. Lower abdominal crease
MASD improved. Lower abdominal incisional wound pink and suprapubic incisional wound more pink/ladle cleaner. Moderate ss drainage. Ileostomy appliance changed using [place] wafer # [id number], Yonas seal and [employer] [place] pouch # [id number]. Peristomal skin treated
with miconazole powder followed by Cavilon Advanced skin prep. Sacral skin less red. Skin on heels blanchable red. Patient turns self in bed. Patient turned to R side. Heels off bed with pillow. Air chair cushion given. Patient on a [employer]rella pro
bed. Plan is SNF rehab when discharged. Will follow as needed.
--- NOTE | 2024-04-15 15:46 | W.PN.ID1 ---
Date of Service
Date of Service: April 15, 2024
Today's Communication
- c/w augmentin suspension 200 mg/5mL; take 22 mL Q 12 which is 875 mg BID to complete 10 days of therapy, today is day 6
- follow up with colorectal surgery
Assessment / Plan
Shock
High Output Ileostomy
h/o C difficile - remote
- c/w augmentin suspension 200 mg/5mL; take 22 mL Q 12 which is 875 mg BID to complete 10 days of therapy, today is day 6
- follow up with colorectal surgery
Chief Complaint
-: Other (high output ileostomy)
Subjective / Review of Systems
afebrile
bp stable
color looks better
Vital Signs / Physical Exam
Vital Signs
Vital Signs
Temp Pulse Resp BP Pulse Ox
99.2 F 91 20 143/89 95
04/15/24 11:45 04/15/24 11:45 04/15/24 11:45 04/15/24 11:45 04/15/24 11:45
Physical Exam
Constitutional: No Acute Distress
Cardiovascular: Regular Rate and S1/S2; Negative Murmur or Rub
Pulmonary: Clear and Symmetric; Negative Wheezes or Rales
Gastrointestinal: Soft, Non Tender, Non Distended and Normal Bowel Sounds
Skin: Warm and Dry; Negative Rash or Jaundice
Objective Data
Lab Data
Lab Results
04/15/24 06:29
04/15/24 06:29
Estimated Creat Clear 55 ml/min 04/15/24 06:29
Lactic Acid Cancelled 04/11/24 02:45
Total Bilirubin 0.8 mg/dl (0.2-1.3) 04/15/24 06:29
AST 33 U/L (14-36) 04/15/24 06:29
ALT 24 U/L (0-35) 04/15/24 06:29
Alkaline Phosphatase 153 U/L (38-126) H 04/15/24 06:29
Most recent labs reviewed.
Micro Results:
04/10/24 22:54 Salmonella/Shigella Culture - Final
Feces/Stool No Salmonella, Shigella, Aeromonas or Plesiomonas species
isolated.
Campylobacter Culture - Final
No Campylobacter species isolated.
Shiga Toxin Test - Final
No E. coli Shiga Toxin 1 or 2 detected.
04/10/24 22:54 Blood Culture - Preliminary
Blood/Venous No Growth in 4 days- Final report to follow
04/10/24 22:54 Blood Culture - Preliminary
Blood/Venous No Growth in 4 days- Final report to follow
04/11/24 13:27 Urine Culture - Final
Urine No Significant Growth
04/11/24 21:43 - Final
Feces/Stool Negative for Norovirus GI and GII.
04/10/24 22:54 C. difficile GDH Antigen & Toxins - Final
Feces/Stool Negative for toxigenic C.difficile
--- NOTE | 2024-04-15 17:34 | CM ---
PT OT recommended SNF.
LM with [facility] [phone] from [facility] . She called back and said she has a SNF bed tomorrow.
Pt informed on SNF bed tomorrow.
Asked pt about transportation She said she will get back to .
[facility]
report [phone]'
fax [phone]
PLAN To [place] tomorrow.
[2024-04-15] MEDS: ZOFRAN 4 MG PO (20:54)
[2024-04-15] MEDS: PROTONIX 80 MG PO (21:59)
[2024-04-16 03:10] VITALS: BP 108/79
[2024-04-16 07:06] VITALS: BP 109/80
[2024-04-16] MEDS: DESENEX/MITRAZOL/ZEASORB 1 APPLIC TOPICAL (08:07)
[2024-04-16] MEDS: ZOFRAN 4 MG PO (08:10)
[2024-04-16] MEDS: FOLVITE 1 MG PO (08:10)
[2024-04-16] MEDS: HEPARIN 5000 UNITS SC (08:10)
[2024-04-16] MEDS: VISBIOME 1 CAP PO (08:11)
[2024-04-16] MEDS: AUGMENTIN 200 MG/5 ML 875 MG PO (10:28)
--- NOTE | 2024-04-16 10:28 | CM ---
Pt d/c today to [facility].
Per pt, her brother will be transporting her. IMM reviewed, pt given copy, copy placed on chart
CM confirmed w/ [facility] on pt d/c today. Provided pt' son's contact information as requested
[facility]
report [phone]'
fax [phone]
Plan: [facility]
[2024-04-16 10:49] VITALS: BP 121/68
--- NOTE | 2024-04-16 12:14 | W.PN.HOSP.TC ---
Today's Communication/Plan
-
dc SNF today
Assessment / Plan
Assessment / Plan
Assessment:
Sepsis with shock due to persistent anastomotic leak
Hx of diverticular disease with recurrent history of diverticulitis - s/p Robotic sigmoid colectomy with intracorporeal anastomosis, 03/15/2024.
- Anastomotic staple line involving the sigmoid colon in the left pelvis. Adjacent to the staple line, there is a small focus of contained extraluminal air. Slightly more medially and inferiorly, there is a second small focus of contained
extraluminal air. Findings would be suggestive of persistent anastomotic leak, although could possibly represent persistent contained extraluminal air from previous anastomotic leak. There is no evidence for an abscess. There is no evidence for free
intraperitoneal air elsewhere within the abdomen and pelvis.
- CRS and ID following
- continue Augmentin liquid, day 09/19 per ID. Nausea with antibiotics therefore make Zofran available pre-administration.
- s/p pressors now with stable BPs
- diet: LRD
- wound care per CRS
Acute hyponatremia
TONYA
- from sepsis, dehydration
- follow bladder scans
- s/p IVF
- monitor ostomy outputs
recent Acute GI bleed (hematemesis/rectal bleeding)
- EGD done 03/19 showed LA grade B esophagitis with no bleeding, small hiatal hernia, nonobstructing oozing duodenal ulcers with a visible vessel. Treated with bipolar cautery. Injected. No specimens collected.
- NSAID induced peptic ulcer disease. Avoid further NSAIDs
- continue PPI
Chronic anemia
- Hb 10 from 12, acutely dilutional drop
reactive thrombocytosis - resolved
History of RA on Remicade and Methotrexate prior to admission. Last use of prednisone was 3 weeks ago with her last infusion of Remicade.
Essential HTN
- hold Lisinopril with recovering TONYA
Pseudo-hypocalcemia
Hx of C. Diff
- negative test here
Obesity due to excess calories
Chronic wounds:
stage 1 sacral pressure injury.
R sacral/buttocks small dermal ulcer suspect an abrasion.
MASD peristomally with some linear dermal openings in deep skin crease distal to wafer.
RLQ open pink small wound suspect an old MERT drain site.
Distal midline dehisced incision with pink tissue.
Suprapubic linear incision with murky ss drainage, probes 4cm in center.
Abdominal/groin yeasty red rash.
- follow wound care recs
DVT ppx: SC Heparin
Code: Full
More than 30 minutes spent in discharge including
Final examination of the patient
Summarizing hospital stay
Instructions for continuing care to all relevant caregivers
Preparation of discharge records, prescriptions, and referral forms
Total time spent (in minutes): 42
Anticipated Discharge: Today
Subjective/Interval History
-
Date of Service: April 16, 2024
late entry, seen 11 AM today
no complaints
for dc to SNF today
Objective Data
-
Vital Signs:
Vital Signs
Temp Pulse Resp BP Pulse Ox
98.4 F 106 16 121/68 93
04/16/24 10:49 04/16/24 10:49 04/16/24 10:49 04/16/24 10:49 04/16/24 10:49
I&O
04/15/24 04/16/24 04/17/24
06:59 06:59 06:59
Intake Total 720 / 720 1040 / 1040
Output Total 500 / 500 300 / 300 150 / 150
Balance 220 / 220 740 / 740 -150 / -150
Physical Exam
-
General: No Apparent Distress
HEENT: Normocephalic and Atraumatic
Respiratory: Negative Wheezes
Cardiac: S1/S2
GI: Soft and Nontender
Genito-urinary: No Costovertebral Tender
Neuro: AO x 3
Hematologic / Lymphatic: No Lymphadenopathy
Psych: Calm
Data Reviewed
-
Total Time Spent with Patient (in minutes): 41
Labs: Labs Reviewed by me
--- NOTE | 2024-04-16 12:17 | W.DS.TRANS ---
DC Summary - Field Service Analyst
-
Discharge Instructions:
Discharge Diagnosis/Procedures shock from continued infection at site of prior
leak with extraluminal air noted from likely
surgery, high ileostomy output, TONYA
Diet Low Residue
Activity As tolerated
Bathing Restrictions None
Blood Work Weekly BMP for 4 weeks starting on 04/22/24. The
order has been sent to [facility].
Instructions:
Stand-Alone Forms:
Changes to Home Medications: No
Discharge Medications:
DC Medications w/original date entered in Travel Notes
infliximab 100 mg intravenous solution (Remicade) 800 mg IV MONTHLY Rheumatoid arthritis 03/07/24
prednisone 5 mg tablet 5 mg PO DAILYPRN PRN RHEUMATOID ARTHRITIS 03/07/24
Lactobac no.2-Bifidobac no.1-S. thermo 112.5 billion cell capsule (Visbiome) 1 cap PO DAILY Supplement 04/10/24
prochlorperazine maleate 5 mg tablet (Compazine) 5 mg PO QIDPRN PRN nausea and vomiting 04/10/24
folic acid 1 mg tablet 1 mg PO DAILY RHEUMATOID ARTHRITIS 04/11/24
methotrexate sodium 2.5 mg tablet 10 mg PO MCKINNON RHEUMATOID ARTHRITIS 04/11/24
pantoprazole 40 mg tablet,delayed release 80 mg PO HS Gastrointestinal Issue 04/11/24
amoxicillin 200 mg-potassium clavulanate 28.5 mg/5 mL oral suspension 21.875 ml PO Q12H #200 mL 04/15/24
tramadol 50 mg tablet 50 mg PO DAILYPRN PRN pain #5 tabs 04/15/24
Home Medication Changes
Pending Results: No
Total time spent discharging patient (in min): 42
== END 2024-04-16 11:25 | DRG 862 ==
LOC: 4 WEST ACU 23:46
PROVIDERS: Emergency Medicine; ADMITTING PHYSICIAN Hospitalist; ATTENDING PHYSICIAN Internal Medicine; CONSULT PHYSICIAN Surgery; EMERGENCY PHYSICIAN Emergency Medicine; FAMILY PHYSICIAN Internal Medicine; OTHER PHYSICIAN Student in an Organized Health Care Education/Training Program
DX: T81.44XA Sepsis following a procedure, initial encounter (principal); A41.9 Sepsis, unspecified organism; R65.21 Severe sepsis with septic shock; K26.4 Chronic or unspecified duodenal ulcer with hemorrhage; K91.89 Other postprocedural complications and disorders of digestive system; T81.320A Disruption or dehiscence of gastrointestinal tract anastomosis, repair, or closure, initial encounter; N17.9 Acute kidney failure, unspecified; E87.1 Hypo-osmolality and hyponatremia; M06.9 Rheumatoid arthritis, unspecified; I10 Essential (primary) hypertension; E86.0 Dehydration; E66.09 Other obesity due to excess calories; D75.838 Other thrombocytosis; L89.151 Pressure ulcer of sacral region, stage 1; Y83.2 Surgical operation with anastomosis, bypass or graft as the cause of abnormal reaction of the patient, or of later complication, without mention of misadventure at the time of the procedure; D50.0 Iron deficiency anemia secondary to blood loss (chronic); Z90.49 Acquired absence of other specified parts of digestive tract; Z68.28 Body mass index [BMI] 28.0-28.9, adult; Z79.52 Long term (current) use of systemic steroids; Z88.5 Allergy status to narcotic agent; Z87.891 Personal history of nicotine dependence; Z79.620 Long term (current) use of immunosuppressive biologic; Z93.2 Ileostomy status; Z11.52 Encounter for screening for COVID-19
CPT/HCPCS: 74176; 80053; 81003; 81015; 83605; 83690; 85025; 85027; 87040; 87045; 87046; 87086; 87324; 87427; 87449; 87798; 87811; 96361; 96365; 96367; 96375; 97116; 97166; 97530; 99291

== ENCOUNTER 2024-08-06 06:11 | Day surgery (SDC) | payer MEDICARE, OTHER, SELFPAY | END 2024-08-06 08:52 | disposition home or self-care (01) | LOC: GI 06:11 | PROVIDERS: ATTENDING PHYSICIAN Internal Medicine Gastroenterology | DX: Z01.818 Encounter for other preprocedural examination (principal); K63.89 Other specified diseases of intestine; K57.30 Diverticulosis of large intestine without perforation or abscess without bleeding; K21.00 Gastro-esophageal reflux disease with esophagitis, without bleeding; K26.0 Acute duodenal ulcer with hemorrhage | CPT/HCPCS: 43235; 45330 ==

== ENCOUNTER → 2024-08-26 08:27 | Outpatient (REF) | payer MEDICARE, OTHER, SELFPAY | LOC: RAD 08:27 | PROVIDERS: ATTENDING PHYSICIAN Surgery; FAMILY PHYSICIAN Internal Medicine | DX: Z01.818 Encounter for other preprocedural examination (principal) | CPT/HCPCS: 74270 ==

== ENCOUNTER 2024-10-02 07:13 | Inpatient (IN) | payer MEDICARE, OTHER, SELFPAY ==
[2024-09-27 09:08] LABS: Hematocrit 42.9 % (37.0-47.0); Hemoglobin 14.0 g/dL (12.0-16.0); Mean Corp Hgb Conc. 32.6 g/dL (33.0-37.0); Mean Corpuscular Volume 92.5 fL (81.0-99.0); Platelet Count 372 10^3/uL (130-400); Red Cell Dist. Width 12.8 % (11.5-14.5)
[2024-09-27 09:46] LABS: ALT (SGPT) 19 U/L (0-35); AST (SGOT) 20 U/L (14-36); Albumin 4.2 g/dl (3.5-5.0); Alkaline Phosphatase 92 U/L (38-126); Blood Urea Nitrogen 20 mg/dl (7-17); Calcium 9.8 mg/dl (8.4-10.2); Carbon Dioxide 24 mmol/L (22-30); Chloride 109 mmol/L (98-107); Glucose 115 mg/dl (70-99); Potassium 4.0 mmol/L (3.5-5.1); Sodium 141 mmol/L (135-145); Total Protein 7.2 g/dl (6.3-8.2); eGFR 45.07
--- NOTE | 2024-09-27 11:55 | PTCARENOTE ---
Abnormal Creatinine of 1.3 on 09/27. Darby at Dr. Espinoza's office notified.
[2024-09-27 14:26] VITALS: BMI 25.4
[2024-10-02] VITALS (17 sets, daily range): BP systolic 93–131; BP diastolic 52–79; BMI 25.4
[2024-10-02] MEDS: TYLENOL 1000 MG PO (08:37)
[2024-10-02] MEDS: NORMOSOL-R/PLASMALYTE-A 1000 IV ×2 (08:38→17:28)
[2024-10-02] MEDS: HEPARIN 5000 UNITS SC (09:50)
--- NOTE | 2024-10-02 12:33 | W.IMMPOSTOP ---
Surgical Immed Post Op Note
-
Primary Surgeon: Faustino Espinoza MD
Assisting Surgeon: TRISTEN Finley and TYLOR Conti
Pre-op Diagnosis: Loop ileostomy
Post-op Diagnosis: Same
Procedure Performed: Resection and reversal of ileostomy
Anesthesia Type: General
Specimen / Cultures: None
Estimated Blood Loss: 11 cc
Complications: None
Operative Findings: Stapled functional end-to-end anastomosis
Family updated in the recovery room
[2024-10-02 12:44] LABS: Glucose - Point of Care 78 mg/dl (70-99)
[2024-10-02] MEDS: COMPAZINE 5 MG IV (12:55)
[2024-10-02] MEDS: SUBLIMAZE 25 MCG IV (13:31)
[2024-10-02] MEDS: TYLENOL 650 MG PO ×2 (16:21→21:42)
[2024-10-02] MEDS: NORMOSOL-R/PLASMALYTE-A IV (17:27)
[2024-10-02] MEDS: DILAUDID 0.5 MG IV ×2 (18:12→22:45)
[2024-10-02] MEDS: ZESTRIL 10 MG PO (18:13)
--- NOTE | 2024-10-02 18:33 | PTCARENOTE ---
Patient received from PACU to . Vs documented. No s/s of distress noted at this time. c/o pain at abdomen surgical site 09/19 medicated with prn pain medication as ordered. Abdomen dressing intact. Call osorio within reach.
[2024-10-03] VITALS (15 sets, daily range): BP systolic 77–112; BP diastolic 40–88; BMI 26.1
[2024-10-03] MEDS: TYLENOL PO ×2 (01:15→04:23)
[2024-10-03] MEDS: NORMOSOL-R/PLASMALYTE-A 1000 IV ×2 (03:11→15:27)
--- NOTE | 2024-10-03 05:59 | W.PN.CRS1 ---
Today's Communication / Plan
-
full liquids
Leal out
follow-up labs
Assessment/Plan
-
POD#1 s/p ileostomy closure
Progressing well.
Advance to full liquids.
d/c Leal
Ambulate
Wound care
operative findings reviewed
Subjective Data
Procedure
Ileostomy closure 10/03/24
Subjective Data
Date of Service: October 03, 2024
No complaints. Minimal discomfort. She is tolerating clear liquids and passing flatus. No nausea and she is hungry.
Objective Data
-
Vital Signs
Temp Pulse Resp BP Pulse Ox
97.9 F 67 16 93/60 97
10/02/24 23:19 10/02/24 23:19 10/02/24 23:19 10/02/24 23:19 10/02/24 23:19
Intake & Output
10/01/24 10/02/24 10/03/24
06:59 06:59 06:59
Intake Total 600 / 600
Output Total 175 / 175
Balance 425 / 425
Intake:
IV fluids (Total) 600 / 600
Normosol 600 / 600
Output:
Urine, Leal 175 / 175
Physical Exam
-
General: No Acute Distress
Abdomen: Soft, Non Distended and Non Tender
Extremities: No Calf Tenderness
Wound: Dressing Changed
Incision: Clear, Dry, Intact
[2024-10-03] MEDS: DILAUDID 0.5 MG IV ×3 (06:02→21:58)
[2024-10-03 07:48] LABS: Hematocrit 34.3 % (37.0-47.0); Hemoglobin 11.2 g/dL (12.0-16.0); Mean Corp Hgb Conc. 32.7 g/dL (33.0-37.0); Mean Corpuscular Volume 90.5 fL (81.0-99.0); Nucleated Red Blood Cells % 0 %; Platelet Count 281 10^3/uL (130-400); Red Cell Dist. Width 12.4 % (11.5-14.5)
[2024-10-03 08:02] LABS: Blood Urea Nitrogen 17 mg/dl (7-17); Calcium 7.6 mg/dl (8.4-10.2); Carbon Dioxide 27 mmol/L (22-30); Chloride 104 mmol/L (98-107); Estimated Creatinine Clearance 45 ml/min; Glucose 79 mg/dl (70-99); Potassium 4.2 mmol/L (3.5-5.1); Sodium 136 mmol/L (135-145); eGFR 55.07
[2024-10-03] MEDS: TYLENOL 650 MG PO ×5 (08:12→23:14)
[2024-10-03] MEDS: CELEXA 10 MG PO (08:12)
[2024-10-03] MEDS: NSS 500 IV ×2 (08:18→10:37)
--- NOTE | 2024-10-03 09:57 | PN.CDI ---
CDI
- -
CDI:
Physician Documentation Request
Admit Date: 10/02/24 07:13
Dear Doctor Alexis,
Please review the following and provide your response in the progress notes.
Clinical Indicators:
Laboratory Tests
09/27/24 10/03/24
07:13 06:25
RBC 4.64 3.79 L
Hgb 14.0 11.2 L
Hct 42.9 34.3 L
Based on the above and your clinical assessment, please clarify the most likely condition/diagnosis evaluated, monitored and/or treated?
Acute blood loss anemia
Acute blood loss anemia with baseline chronic anemia (Specify type)
Anemia of chronic disease - indicate if neoplastic disease, CKD or other
Abnormal lab value, clinically insignificant
Other(please specify)
Use of terms such as suspected, likely, concern for, or probable (associated with a specific diagnosis that is being evaluated, monitored, or treated as if it exists) are acceptable and can be coded in the inpatient setting, when documented at the
time of discharge.
Thank you,
Muna Soler RN BSN CCDS
CDI Specialist
Please contact via tiger text
Please use your independent medical judgment in providing your response.
[2024-10-03] MEDS: ULTRAM 50 MG PO ×2 (10:51→19:54)
--- NOTE | 2024-10-03 11:45 | W.PN.UPDATE ---
Update Note
Progress Note Update
Updated by nursing that the patient was hypotensive with a BP in the 80s and has been despite IV fluids. A bolus was given earlier as well. She is otherwise doing well. On bedside assessment she is mentating perfectly. She has normal
postoperative discomfort. Her dressings are dry. She is passing flatus. I will reorder a set of labs and consult hospitalist.
[2024-10-03 12:01] LABS: Hematocrit 32.0 % (37.0-47.0); Hemoglobin 10.5 g/dL (12.0-16.0); Mean Corp Hgb Conc. 32.8 g/dL (33.0-37.0); Mean Corpuscular Volume 91.4 fL (81.0-99.0); Nucleated Red Blood Cells % 0 %; Platelet Count 255 10^3/uL (130-400); Red Cell Dist. Width 12.6 % (11.5-14.5)
[2024-10-03 12:13] LABS: Blood Urea Nitrogen 15 mg/dl (7-17); Calcium 7.2 mg/dl (8.4-10.2); Carbon Dioxide 27 mmol/L (22-30); Chloride 106 mmol/L (98-107); Estimated Creatinine Clearance 45 ml/min; Glucose 97 mg/dl (70-99); Potassium 3.5 mmol/L (3.5-5.1); Sodium 136 mmol/L (135-145); eGFR 55.07
[2024-10-03] MEDS: SOLU-CORTEF 100 MG IV ×3 (13:47→23:15)
--- NOTE | 2024-10-03 14:47 | CM ---
CM reviewed chart, patient seen bedside, initial assessment completed. Patient for Resection and closure of loop ileostomy. Patient resides independently in a multiple story home, one step to enter, bedroom on second floor, full flight to second
floor. Patient reports having a cane and walker in the home, walker from previous hospitalization, mostly uses cane. Patient reports [facility] in past, [facility] in past. Patient does not feel she will need [facility] upon discharge. Patient confirms PCP
Gianna Parra, pharmacy [facility], confirms prescription coverage. Patient denies insecurities at home. CM will continue to follow for all discharge planning needs.
Plan; home no needs, pt declining VN at this time
--- NOTE | 2024-10-03 15:33 | W.PN.HOSP.TC ---
Today's Communication/Plan
-
start IV steroids
Assessment / Plan
Assessment / Plan
s/p loop ileostomy reversal on 10/02
Hypotension with BP in the 77/51 range
Pt takes Prednisone regularly for her Rheumatoid Arthritis and current clinical response would be consistent with adrenal suppression from the Prednisone with adrenal cortical insufficiency
Hx of Rheumatoid Arthritis
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
Rec: Hydrocortef 100 mg q8h
follow BP closely
consideration to transfer to IMU if BP does not respond to steroids
will follow
call and updated Dr. Gil
see dictated note
Anticipated Discharge: > 48 hours
Subjective/Interval History
-
Date of Service: October 03, 2024
Asked to see patient in consult due to low BP post operatively
Objective Data
-
Labs:
Laboratory Results
10/03/24 10/03/24
06:25 11:49
WBC 11.2 H 11.1 H
Hgb 11.2 L 10.5 L
Hct 34.3 L 32.0 L
Plt Count 281 D 255
Sodium 136 136
Potassium 4.2 3.5
Chloride 104 106
Carbon Dioxide 27 27
BUN 17 15
Creatinine 1.1 H 1.1 H
Glucose 79 97
Calcium 7.6 L 7.2 L
Vital Signs:
Vital Signs
Temp Pulse Resp BP Pulse Ox
97.8 F 65 16 79/51 97
10/03/24 11:00 10/03/24 14:51 10/03/24 11:00 10/03/24 14:51 10/03/24 11:00
I&O
10/02/24 10/03/24 10/04/24
06:59 06:59 06:59
Intake Total 1320 / 1320
Output Total 700 / 700
Balance 620 / 620
Review of Systems
-
History Source: Patient, Family (sister Boy in room) and Coordinated Provider (RUBEN Montes)
Constitutional: Denies Fever
EENT: Reports No Symptoms Reported
Respiratory: Reports No Symptoms
Cardiac: Reports No Symptoms
Abdomen/GI: Reports No Symptoms
Genitourinary: Reports No Symptoms
Musculoskeletal: Reports No Symptoms
Neuro: Reports No Symptoms
Physical Exam
-
General: Well Developed, Well Nourished and No Apparent Distress
HEENT: Normocephalic, Atraumatic and Moist Mucous Membranes
Respiratory: Clear to Auscultation; Negative Wheezes, Rales or Rhonchi
Cardiac: Regular Rhythm and S1/S2
GI: Soft and Tender; Negative Normal Bowel Sounds
Musculoskeletal: No Clubbing, No Cyanosis and No Edema
--- NOTE | 2024-10-03 17:13 | PTCARENOTE ---
Patient with BP 80/44 this morning, patient with dizziness and lightheaded. Reached out to colorectal - no hospitalist was following patient - and received orders for 500ml bolus x 2. Blood pressure was refractory to the fluids - colorectal notified
- they came to the unit to see the patient, surgeon stated he felt patient was stable. Hospitalist was consulted and the doctor added new orders for medication to address the low blood pressure; thought to be from adrenal insufficiency. Blood
pressure has been checked roughly hourly - began to improve around 3:40 pm, communicated this with MD. Advised to continue IVF to support blood pressure.
[2024-10-03] MEDS: ZESTRIL PO (18:19)
[2024-10-04] MEDS: NORMOSOL-R/PLASMALYTE-A 1000 IV (01:38)
[2024-10-04 03:25] VITALS: BP 124/76
[2024-10-04] MEDS: TYLENOL 650 MG PO ×4 (03:48→17:32)
[2024-10-04 05:13] VITALS: BMI 28.5
[2024-10-04] MEDS: DILAUDID 0.5 MG IV ×4 (06:15→21:37)
[2024-10-04 07:15] VITALS: BP 143/81
[2024-10-04 07:21] LABS: Hematocrit 35.2 % (37.0-47.0); Hemoglobin 11.4 g/dL (12.0-16.0); Mean Corp Hgb Conc. 32.4 g/dL (33.0-37.0); Mean Corpuscular Volume 90.3 fL (81.0-99.0); Nucleated Red Blood Cells % 0 %; Platelet Count 260 10^3/uL (130-400); Red Cell Dist. Width 12.7 % (11.5-14.5)
--- NOTE | 2024-10-04 07:37 | W.PN.CRS1 ---
Today's Communication / Plan
-
Regular diet
Wean steroids
Possible discharge tomorrow
Assessment/Plan
-
POD#2 s/p ileostomy closure
Progressing well.
BP improved after steroids. Wean to prednisone.
Advance to regular diet.
Ambulate
Wound care
Subjective Data
Procedure
Ileostomy closure 10/03/24
Subjective Data
Date of Service: October 04, 2024
No complaints. Minimal discomfort and passing lots of flatus. Tolerating full liquids and she wants to eat.
Objective Data
-
Vital Signs
Temp Pulse Resp BP Pulse Ox
97.6 F 66 18 143/81 95
10/04/24 07:15 10/04/24 07:15 10/04/24 07:15 10/04/24 07:15 10/04/24 07:15
Intake & Output
10/03/24 10/04/24 10/05/24
06:59 06:59 06:59
Intake Total 1320 / 1320 3530 / 3530
Output Total 700 / 700 2225 / 2225
Balance 620 / 620 1305 / 1305
Intake:
Oral fluids 720 / 720 1530 / 1530
IV fluids (Total) 600 / 600 2000 / 2000
Normosol 600 / 600
Output:
Urine, Leal 700 / 700 2225 / 2225
Lab Results
10/04/24 06:50
Physical Exam
-
General: No Acute Distress
Abdomen: Soft, Non Distended and Non Tender
Extremities: No Calf Tenderness
Wound: No Signs of Infection and Dressing Changed
[2024-10-04 07:52] LABS: Blood Urea Nitrogen 16 mg/dl (7-17); Calcium 7.9 mg/dl (8.4-10.2); Carbon Dioxide 28 mmol/L (22-30); Chloride 107 mmol/L (98-107); Estimated Creatinine Clearance 62 ml/min; Glucose 111 mg/dl (70-99); Potassium 4.1 mmol/L (3.5-5.1); Sodium 139 mmol/L (135-145); eGFR > 60.00
[2024-10-04] MEDS: CELEXA 10 MG PO (08:04)
[2024-10-04] MEDS: SOLU-CORTEF 100 MG IV (08:05)
--- NOTE | 2024-10-04 08:46 | PN.CDI ---
CDI
- -
CDI:
Physician Documentation Request
Admit Date: 10/02/24 07:13
Dear Doctor Saira,
Please review the following and provide your response in the progress notes.
Clinical Indicators:
10/02/2024
#Procedure Performed: Resection and reversal of ileostomy
Laboratory Tests
09/27/24 10/03/24
07:13 06:25
RBC 4.64 3.79 L
Hgb 14.0 11.2 L
Hct 42.9 34.3 L
Based on the above and your clinical assessment, please clarify the most likely condition/diagnosis evaluated, monitored and/or treated?
Acute blood loss anemia
Acute blood loss anemia with baseline chronic anemia (Specify type)
Anemia of chronic disease - indicate if neoplastic disease, CKD or other
Abnormal lab value, clinically insignificant
Other(please specify)
Use of terms such as suspected, likely, concern for, or probable (associated with a specific diagnosis that is being evaluated, monitored, or treated as if it exists) are acceptable and can be coded in the inpatient setting, when documented at the
time of discharge.
Thank you,
Muna Soler RN BSN CCDS
CDI Specialist
Please contact via tiger text
Please use your independent medical judgment in providing your response.
--- NOTE | 2024-10-04 09:32 | W.PN.HOSP.TC ---
Today's Communication/Plan
-
decrease HC dose and follow BP
Assessment / Plan
Assessment / Plan
s/p loop ileostomy reversal on 10/02
Hypotension with BP in the 77/51 range
Pt takes Prednisone regularly for her Rheumatoid Arthritis and current clinical response would be consistent with adrenal suppression from the Prednisone with adrenal cortical insufficiency
was started on Hydrocortef with significant improvement in BP, most recently 143/81
Hx of Rheumatoid Arthritis
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
Rec: Hydrocortef 100 mg q8h to be reduced to 50 mg q8h, if bp stays excellent next 24 hrs, will plan to transition to oral Prednisone
pt takes Lisinopril at home, will order with hold parameters
follow BP closely
will follow
Anticipated Discharge: 24 - 48 hours
Subjective/Interval History
-
Date of Service: October 04, 2024
Awake, alert, tolerating diet
Objective Data
-
Labs:
Laboratory Results
10/04/24
06:50
WBC 10.1
Hgb 11.4 L
Hct 35.2 L
Plt Count 260
Sodium 139
Potassium 4.1
Chloride 107
Carbon Dioxide 28
BUN 16
Creatinine 0.9
Glucose 111 H
Calcium 7.9 L
Vital Signs:
Vital Signs
Temp Pulse Resp BP Pulse Ox
97.6 F 66 18 143/81 95
10/04/24 07:15 10/04/24 07:15 10/04/24 07:15 10/04/24 07:15 10/04/24 07:15
I&O
10/03/24 10/04/24 10/05/24
06:59 06:59 06:59
Intake Total 1320 / 1320 3530 / 3530
Output Total 700 / 700 2225 / 2225
Balance 620 / 620 1305 / 1305
Review of Systems
-
History Source: Patient and Coordinated Provider (RUBEN Montes)
Constitutional: Denies Fever
EENT: Reports No Symptoms Reported
Respiratory: Reports No Symptoms
Cardiac: Reports No Symptoms
Abdomen/GI: Reports Abdominal Pain (post op pain reduced)
Genitourinary: Reports No Symptoms
Musculoskeletal: Reports No Symptoms
Neuro: Reports No Symptoms
Physical Exam
-
General: Well Developed, Well Nourished and No Apparent Distress
HEENT: Normocephalic, Atraumatic and Moist Mucous Membranes
Respiratory: Clear to Auscultation; Negative Wheezes, Rales or Rhonchi
Cardiac: Regular Rhythm and S1/S2
GI: Soft and Tender; Negative Normal Bowel Sounds (mildly hypoactive, but present)
Musculoskeletal: No Clubbing, No Cyanosis and No Edema
--- NOTE | 2024-10-04 11:16 | PN.CDI ---
CDI
- -
CDI:
Physician Documentation Request
Admit Date: 10/02/24 07:13
Dear Doctor Alexis,
Please review the following and provide your response in the progress notes.
Clinical Indicators:
10/02/2024
#Procedure Performed: Resection and reversal of ileostomy
Laboratory Tests
09/27/24 10/03/24
07:13 06:25
RBC 4.64 3.79 L
Hgb 14.0 11.2 L
Hct 42.9 34.3 L
Based on the above and your clinical assessment, please clarify the most likely condition/diagnosis evaluated, monitored and/or treated?
Acute blood loss anemia
Acute blood loss anemia with baseline chronic anemia (Specify type)
Anemia of chronic disease - indicate if neoplastic disease, CKD or other
Abnormal lab value, clinically insignificant
Other(please specify)
Use of terms such as suspected, likely, concern for, or probable (associated with a specific diagnosis that is being evaluated, monitored, or treated as if it exists) are acceptable and can be coded in the inpatient setting, when documented at the
time of discharge.
Thank you,
Muna Soler RN BSN CCDS
CDI Specialist
Please contact via tiger text
Please use your independent medical judgment in providing your response.
[2024-10-04 11:34] VITALS: BP 127/64
--- NOTE | 2024-10-04 13:02 | W.PN.UPDATE ---
Update Note
Progress Note Update
She has mild anemia for acute blood loss during surgery in combination with hemodilution.
[2024-10-04 15:35] VITALS: BP 124/67
[2024-10-04] MEDS: SOLU-CORTEF 50 MG IV ×2 (16:15→23:30)
[2024-10-04] MEDS: ZESTRIL PO (17:39)
[2024-10-04] MEDS: TYLENOL PO ×2 (21:48→23:35)
[2024-10-04 23:46] VITALS: BP 143/69
[2024-10-05] MEDS: TYLENOL 650 MG PO ×4 (03:53→20:46)
[2024-10-05] MEDS: DILAUDID 0.5 MG IV ×4 (03:54→20:47)
[2024-10-05 05:25] VITALS: BMI 27.0
[2024-10-05 06:30] LABS: Hematocrit 32.0 % (37.0-47.0); Hemoglobin 10.4 g/dL (12.0-16.0); Mean Corp Hgb Conc. 32.5 g/dL (33.0-37.0); Mean Corpuscular Volume 89.6 fL (81.0-99.0); Nucleated Red Blood Cells % 0 %; Platelet Count 258 10^3/uL (130-400); Red Cell Dist. Width 12.6 % (11.5-14.5)
[2024-10-05 06:57] LABS: Blood Urea Nitrogen 21 mg/dl (7-17); Calcium 8.2 mg/dl (8.4-10.2); Carbon Dioxide 30 mmol/L (22-30); Chloride 107 mmol/L (98-107); Estimated Creatinine Clearance 55 ml/min; Glucose 117 mg/dl (70-99); Potassium 3.6 mmol/L (3.5-5.1); Sodium 139 mmol/L (135-145); eGFR > 60.00
[2024-10-05 07:21] VITALS: BP 142/81
[2024-10-05] MEDS: CELEXA 10 MG PO (08:04)
[2024-10-05] MEDS: SOLU-CORTEF 50 MG IV (08:04)
--- NOTE | 2024-10-05 09:07 | W.PN.HOSP.TC ---
Today's Communication/Plan
-
change to oral Prednisone
If doing well over next 24 hrs should be okay to dc from my perspective, and would continue steroid supplement daily until sees PCP, assume ~7 days
Assessment / Plan
Assessment / Plan
s/p loop ileostomy reversal on 10/02
Hypotension with BP in the 77/51 range
Pt takes Prednisone regularly for her Rheumatoid Arthritis and current clinical response would be consistent with adrenal suppression from the Prednisone with adrenal cortical insufficiency
was started on Hydrocortef with significant improvement in BP, most recently 142/81
Hx of Rheumatoid Arthritis
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
Rec: Hydrocortef 100 mg q8h was reduced to 50 mg q8h, bp remains excellent and thus, will plan to transition to oral Prednisone. If continues to do well, should be okay for dc to home from my standpoint, tomorrow
pt takes Lisinopril at home, will order with hold parameters. To be resumed at home once diastolic BP remains above 88
follow BP closely
will follow
Anticipated Discharge: Within 24 hours
Subjective/Interval History
-
Date of Service: October 05, 2024
Awake, alert, tolerating diet
Objective Data
-
Labs:
Laboratory Results
10/05/24
06:09
WBC 10.6
Hgb 10.4 L
Hct 32.0 L
Plt Count 258
Sodium 139
Potassium 3.6
Chloride 107
Carbon Dioxide 30
BUN 21 H
Creatinine 0.9
Glucose 117 H
Calcium 8.2 L
Vital Signs:
Vital Signs
Temp Pulse Resp BP Pulse Ox
98.0 F 61 18 142/81 97
10/05/24 07:21 10/05/24 07:21 10/05/24 07:21 10/05/24 07:21 10/05/24 07:21
I&O
10/04/24 10/05/24 10/06/24
06:59 06:59 06:59
Intake Total 3530 / 3530 1500 / 1500
Output Total 2225 / 2225
Balance 1305 / 1305 1500 / 1500
Review of Systems
-
History Source: Patient and Coordinated Provider (RUBEN Montes)
Constitutional: Denies Fever
EENT: Reports No Symptoms Reported
Respiratory: Reports No Symptoms
Cardiac: Reports No Symptoms
Abdomen/GI: Reports Abdominal Pain (post op pain reduced)
Genitourinary: Reports No Symptoms
Musculoskeletal: Reports No Symptoms
Neuro: Reports No Symptoms; Denies Lightheadedness
Physical Exam
-
General: Well Developed, Well Nourished and No Apparent Distress
HEENT: Normocephalic, Atraumatic and Moist Mucous Membranes
Respiratory: Clear to Auscultation; Negative Wheezes, Rales or Rhonchi
Cardiac: Regular Rhythm and S1/S2
GI: Soft and Tender; Negative Normal Bowel Sounds (more active today, though remains mildly hypoactive, but present)
Musculoskeletal: No Clubbing, No Cyanosis and No Edema
--- NOTE | 2024-10-05 10:52 | W.PN.CRS1 ---
Today's Communication / Plan
-
Pain management
steroid taper
Assessment/Plan
-
POD #3 ileostomy reversal
AFVSS
Tolerating diet with good bowel recovery
Still taking IV analgesics
Plan:
Continue regular diet
Transition to PO analgesics as tolerated
Steroid taper as per medicine
Wound care, dressing changes daily and prn
Lovenox 40mg for vte ppx
possible d/c tomorrow once off IV steroids if pain well controlled
Subjective Data
Procedure
Ileostomy closure 10/03/24
Subjective Data
Date of Service: October 05, 2024
Pt seen and examined at bedside with Dr Espinoza. Denies n/v. OOB to chair. Passed a loose stool today, passing flatus. Denies nausea. Pain present, but improving.
Objective Data
-
Vital Signs
Temp Pulse Resp BP Pulse Ox
98.0 F 61 18 142/81 98
10/05/24 07:21 10/05/24 07:21 10/05/24 07:21 10/05/24 07:21 10/05/24 08:04
Intake & Output
10/04/24 10/05/24 10/06/24
06:59 06:59 06:59
Intake Total 3530 / 3530 1500 / 1500
Output Total 2224
Balance 1305 / 1305 1500 / 1500
Intake:
Oral fluids 1530 / 1530 1500 / 1500
IV fluids (Total) 1999 / 1999
Output:
Urine, Leal 2224
Other:
Number of approximated MODERATE 3
amounts of urine
Lab Results
10/05/24 06:09
10/05/24 06:09
Physical Exam
-
General: No Acute Distress
Abdomen: Soft, Non Distended and Tender (minimal incisional tenderness)
Extremities: No Calf Tenderness
Wound: No Signs of Infection and Dressing Changed (renny/darcie intact to prior ostomy site)
[2024-10-05] MEDS: TYLENOL PO ×3 (16:01→23:39)
[2024-10-05] MEDS: DELTASONE 5 MG PO (16:01)
[2024-10-05 16:15] VITALS: BP 139/74
[2024-10-05 17:32] VITALS: BP 129/63
[2024-10-05] MEDS: LOVENOX 40 MG SC (17:32)
[2024-10-05] MEDS: ZESTRIL PO (17:38)
[2024-10-05 22:57] VITALS: BP 152/90
[2024-10-06] MEDS: DILAUDID 0.5 MG IV (01:36)
[2024-10-06] MEDS: TYLENOL PO (04:38)
[2024-10-06 06:00] VITALS: BMI 25.8
--- NOTE | 2024-10-06 06:50 | PTCARENOTE ---
verified Weight with RN
[2024-10-06 07:05] VITALS: BP 139/74
[2024-10-06 07:18] LABS: Hematocrit 34.7 % (37.0-47.0); Hemoglobin 11.4 g/dL (12.0-16.0); Mean Corp Hgb Conc. 32.9 g/dL (33.0-37.0); Mean Corpuscular Volume 91.3 fL (81.0-99.0); Nucleated Red Blood Cells % 0 %; Platelet Count 275 10^3/uL (130-400); Red Cell Dist. Width 12.8 % (11.5-14.5)
[2024-10-06 07:48] LABS: Blood Urea Nitrogen 22 mg/dl (7-17); Calcium 8.1 mg/dl (8.4-10.2); Carbon Dioxide 33 mmol/L (22-30); Chloride 105 mmol/L (98-107); Estimated Creatinine Clearance 55 ml/min; Glucose 82 mg/dl (70-99); Potassium 3.3 mmol/L (3.5-5.1); Sodium 141 mmol/L (135-145); eGFR > 60.00
--- NOTE | 2024-10-06 08:20 | W.PN.HOSP.TC ---
Today's Communication/Plan
-
medically cleared for dc
Assessment / Plan
Assessment / Plan
s/p loop ileostomy reversal on 10/02
Hypotension with BP in the 77/51 range
Pt years ago took Prednisone regularly for her Rheumatoid Arthritis, over the past 7-10 years has only taken infrequently and current clinical response would be consistent with adrenal suppression from the Prednisone with adrenal cortical
insufficiency
was started on Hydrocortef with significant improvement in BP, dose was decreased and then changed to Prednisone 5 mg daily. BP now in 139/74 range
Hx of Rheumatoid Arthritis
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
Rec: pt takes Lisinopril at home, will order with hold parameters. To be resumed at home once diastolic BP remains above 88
follow BP closely at home. Will need follow up with her PCP with BP recordings. Would continue Prednisone 5 mg daily until seen by PCP and if BP remains okay, discontinuing Prednisone could be considered.
Should have serum Cortisol level checked 1 month after she is off Prednisone
will follow
Anticipated Discharge: Today
Subjective/Interval History
-
Date of Service: October 06, 2024
In good spirits, tolerating diet, freq loose stools
Objective Data
-
Labs:
Laboratory Results
10/06/24
06:08
WBC 10.7
Hgb 11.4 L
Hct 34.7 L
Plt Count 275
Sodium 141
Potassium 3.3 L
Chloride 105
Carbon Dioxide 33 H
BUN 22 H
Creatinine 0.9
Glucose 82
Calcium 8.1 L
Vital Signs:
Vital Signs
Temp Pulse Resp BP Pulse Ox
98.1 F 67 16 139/74 98
10/06/24 07:05 10/06/24 07:05 10/06/24 07:05 10/06/24 07:05 10/06/24 07:05
I&O
10/05/24 10/06/24 10/07/24
06:59 06:59 06:59
Intake Total 1500 / 1500 1200 / 1200
Balance 1500 / 1500 1200 / 1200
Review of Systems
-
History Source: Patient and Coordinated Provider
Constitutional: Denies Fever
EENT: Reports No Symptoms Reported
Respiratory: Reports No Symptoms
Cardiac: Reports No Symptoms
Abdomen/GI: Reports Abdominal Pain (post op pain reduced)
Genitourinary: Reports No Symptoms
Musculoskeletal: Reports No Symptoms
Neuro: Reports No Symptoms; Denies Lightheadedness
Physical Exam
-
General: Well Developed, Well Nourished and No Apparent Distress
HEENT: Normocephalic, Atraumatic and Moist Mucous Membranes
Respiratory: Clear to Auscultation; Negative Wheezes, Rales or Rhonchi
Cardiac: Regular Rhythm and S1/S2
GI: Soft, Normal Bowel Sounds and Tender (significantly reduced)
Musculoskeletal: No Clubbing, No Cyanosis and No Edema
[2024-10-06] MEDS: TYLENOL 650 MG PO (08:33)
[2024-10-06] MEDS: CELEXA 10 MG PO (08:33)
[2024-10-06] MEDS: KCL 20 MEQ PO (08:34)
[2024-10-06] MEDS: DELTASONE 5 MG PO (08:34)
[2024-10-06] MEDS: ULTRAM 50 MG PO (08:41)
--- NOTE | 2024-10-06 09:57 | W.PN.CRS1 ---
Today's Communication / Plan
-
Discharge
Assessment/Plan
-
POD #4 ileostomy reversal
AFVSS
Tolerating diet with good bowel recovery
Plan:
Discharge home. I reviewed wound care, diet, medications, activity and follow-up.
Appreciate the hospitalist input regarding her steroids and blood pressure medication.
Subjective Data
Procedure
Ileostomy closure 10/03/24
Subjective Data
Date of Service: October 06, 2024
She is tolerating a regular diet and her bowels are functioning. Her pain is manageable. She wishes to go home.
Objective Data
-
Vital Signs
Temp Pulse Resp BP Pulse Ox
98.1 F 67 16 139/74 98
10/06/24 07:05 10/06/24 07:05 10/06/24 07:05 10/06/24 07:05 10/06/24 08:50
Intake & Output
10/05/24 10/06/24 10/07/24
06:59 06:59 06:59
Intake Total 1500 / 1500 1200 / 1200
Balance 1500 / 1500 1200 / 1200
Intake:
Oral fluids 1500 / 1500 1200 / 1200
Other:
Number of approximated MODERATE 3 2
amounts of urine
Lab Results
10/06/24 06:08
10/06/24 06:08
Physical Exam
-
General: No Acute Distress
Abdomen: Soft, Non Distended and Non Tender
Extremities: No Calf Tenderness
Wound: No Signs of Infection, Dressing Changed and Other (Drain removed)
--- NOTE | 2024-10-06 10:01 | W.DS.TRANS ---
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
-
Discharge Instructions:
Sleep Apnea Risk Low
Discharge Diagnosis/Procedures Status post ileostomy closure
Diet Regular,As tolerated
Additional Diets Eat small meals at first as bloating is common
Activity No strenuous activity
Additional Activity do not lift over 10lbs (gallon of milk)
Bathing Restrictions OK to Shower
Blood Work CBC, BMP in 1 week
Serum Cortisol level once off Prednisone for a
month
Wound Care Ponce will be removed at your follow up
appointment with Dr Espinoza. Cover your incision
with dry gauze and change the dressing daily
until drainage no longer present. Remove prior
to showering and replace after.
Instructions:
Stand-Alone Forms:
Changes to Home Medications: Yes
Discharge Medications:
DC Medications w/original date entered in [employer]
prednisone 5 mg tablet 5 mg PO DAILYPRN PRN RHEUMATOID ARTHRITIS 03/07/24
Lactobac no.2-Bifidobac no.1-S. thermo 112.5 billion cell capsule (Visbiome) 1 cap PO DAILY Supplement 04/10/24
folic acid 1 mg tablet 1 mg PO DAILY RHEUMATOID ARTHRITIS 04/11/24
methotrexate sodium 2.5 mg tablet 10 mg PO MCKINNON RHEUMATOID ARTHRITIS 04/11/24
citalopram 10 mg tablet 10 mg PO DAILY Mental Health/Anxiety 09/25/24
ergocalciferol (vitamin D2) 1,250 mcg (50,000 unit) capsule (Vitamin D2) 1,250 mcg PO MCKINNON Supplement 09/25/24
infliximab 100 mg intravenous solution (Remicade) 800 mg IV Q30D Autoimmune Disorder 09/25/24
lisinopril 10 mg tablet 10 mg PO QPM Blood Pressure 09/25/24
ondansetron 4 mg disintegrating tablet 4 mg PO Q6H PRN nausea 09/25/24
acetaminophen 325 mg tablet 650 mg (2 x 325 mg) PO Q4HPRN PRN mild pain #1 tab 10/05/24
lorazepam 0.5 mg tablet 0.5 mg PO HS PRN anxiety 10/05/24
tramadol 50 mg tablet 50 mg PO Q6HPRN PRN breakthrough pain #20 tabs 10/05/24
Home Medication Changes
prednisone 5 mg tablet 5 mg PO DAILYPRN PRN RHEUMATOID ARTHRITIS
Pending Results: No
Total time spent discharging patient (in min): 32
[2024-10-06 11:07] VITALS: BP 153/73
== END 2024-10-06 11:17 | disposition home or self-care (01) | DRG 330 ==
LOC: 2 NORTH 07:13
PROVIDERS: Surgery; ADMITTING PHYSICIAN Surgery; CONSULT PHYSICIAN Internal Medicine; FAMILY PHYSICIAN Internal Medicine
PROC: 0DQB0ZZ Repair Ileum, Open Approach (ICD-10-PCS; 2024-10-02)
DX: Z43.2 Encounter for attention to ileostomy (principal); E27.3 Drug-induced adrenocortical insufficiency; M06.9 Rheumatoid arthritis, unspecified; I95.81 Postprocedural hypotension; Z79.52 Long term (current) use of systemic steroids; Z90.710 Acquired absence of both cervix and uterus; T38.0X5A Adverse effect of glucocorticoids and synthetic analogues, initial encounter
CPT/HCPCS: 36415; 80048; 80053; 82962; 85025; 85027; 86850; 86900; 86901; 93005; A4648; C1776; J1335